=== PATIENT | male | born 1945 | race Caucasian/White ===

== ENCOUNTER 2016-10-22 13:23 | Inpatient (IN) | payer OTHER ==
--- NOTE | 2016-10-22 13:56 | PDOC ---
History of Present Illness - General History Source: Patient Exam Limitations: No Limitations - History of Present Illness Initial Comments: 10/22/16 19:01 The patient is a 71 year old male with a significant past medical history of hypertension sent by PCP, with complaints of left leg pain for a week. The patient reports a sudden onset of bilateral leg pain radiating from his knees down to his feet secondary kneeling on the bathroom floor for half an hour a week ago. Patient notes the right leg pain has since resided but now reports constant left leg pain radiating from his left knee to the back of his left calf. He states the left leg pain is worsened with walking and walking up stairs. He states he almost cries secondary to his left leg pain. Patient visited his Orthopedist this morning and was told that he has vascular occlusion. Patient then visited his PCP and was told to come into the ED. The patient reports he was at baseline prior to the start of present symptoms. Denies fevers or chills. Denies lower extremity edema. Denies chest pain or shortness of breath. Denies abdominal pain, nausea, vomiting, or diarrhea. Denies a history of rectal bleeding or chronic ulcers. Denies any other symptoms. PCP: Dr. Pierre <Don Fox - Last Filed: 10/22/16 19:01> <Ede Funk - Last Filed: 10/23/16 09:17> - General Chief Complaint: Pain, Acute Stated Complaint: LT LEG R/O VASCULAR CLAUDICATION (PCP SENT) Time Seen by Provider: 10/22/16 13:43 Past History <Don Fox - Last Filed: 10/22/16 19:01> - Past Medical History GI Disorders: Yes (ACID REFLUX) HTN: Yes - Surgical History Appendectomy: Yes - Psycho/Social/Smoking Cessation Hx Anxiety: No Suicidal Ideation: No Smoking History: Never smoked Hx Alcohol Use: No Drug/Substance Use Hx: No Substance Use Type: None <Ede Funk - Last Filed: 10/23/16 09:17> - Past Medical History Allergies/Adverse Reactions: Allergies Allergy/AdvReac Type Severity Reaction Status Date / Time Penicillins Allergy Verified 10/22/16 13:29 Home Medications: Ambulatory Orders Ramipril 5 mg PO DAILY 08/11/14 Review of Systems - Review of Systems Able to Perform ROS?: Yes Comments:: 10/22/16 19:01 CONSTITUTIONAL: No reported: Fever, Chills, Diaphoresis, Generalized Weakness, Malaise, Loss of Appetite HEENT: No reported: Rhinorrhea, Nasal Congestion, Throat Pain, Throat Swelling, Difficulty Swallowing, Mouth Swelling, Ear Pain, Eye Pain, Visual Changes CARDIOVASCULAR: No reported: Chest Pain, Syncope, Palpitations, Irregular Heart Rate, Lightheadedness, Peripheral Edema RESPIRATORY: No reported: Cough, Shortness of Breath, SOB with Exertion, Orthopnea, Wheezing , Stridor, Hemoptysis GASTROINTESTINAL: No reported: Abdominal pain, Abdominal Distension, Nausea, Vomiting, Diarrhea, Constipation, Melena, Hematochezia GENITOURINARY: No reported: Dysuria, Frequency, Urgency, Hesitancy, Flank Pain, Genital Pain MUSCULOSKELETAL: + left leg pain No reported: Myalgia, Arthralgia, Joint Swelling, Back pain, Neck Pain SKIN: No reported: Rash, Itching, Pallor HEMEATOLOGIC/IMMUNOLOGIC: No reported: Easy Bleeding, Easy Bruising, Lymphadenopathy, Frequent infections ENDOCRINE: No reported: Unexplained Weight Gain, Unexplained Weight Loss, Heat Intolerance , Cold Intolerance NEUROLOGIC: No reported: Headache, Focal Weakness, Paresthesias, Vertigo, Lightheadedness, Unsteady Gait, Seizure, Mental Status Changes, Incontinence PSYCHIATRIC: No reported: Anxiety, Depression All Other Systems: Reviewed and Negative <Don Fox - Last Filed: 10/22/16 19:01> *Physical Exam - Vital Signs Last Vital Signs Temp Pulse Resp BP Pulse Ox 98.4 F 98 H 18 154/106 98 10/22/16 13:29 10/22/16 15:51 10/22/16 15:51 10/22/16 15:51 10/22/16 15:51 - Physical Exam Comments: 10/22/16 19:02 GENERAL: The patient is awake, alert, and fully oriented, Nontoxic - in no acute distress, obese abdomen HEAD: Normocephalic, atraumatic. EYES: extraocular movements intact, sclera anicteric, conjunctiva clear. ENT: Normal voice, Moist mucous membranes. NECK: Normal range of motion, supple LUNGS: Breath sounds equal, clear to auscultation bilaterally. No wheezes, no rhonchi, no rales. HEART: irregularly irergular, no m/r/g. ABDOMEN: Soft, nontender, normoactive bowel sounds. No guarding, no rebound. . No CVA tenderness EXTREMITIES: b/l pitting edema, +calf tenderness on LLE, very faint DP but unable to find it on doppler , delayed cap refill on LLE (approx 3.5-4 sec), on RLE +good pulses with cap refil approx 1 sec., LLE slightly more cool than R leg. sensation intact NEUROLOGICAL: No facial assymetry, Normal speech, moving all 4 extremities symmetrically PSYCH: Normal mood, normal affect. SKIN: Warm, Dry, normal turgor, <Don Fox - Last Filed: 10/22/16 19:01> - Vital Signs Last Vital Signs Temp Pulse Resp BP Pulse Ox 98.4 F 98 H 19 157/102 98 10/22/16 13:29 10/22/16 13:29 10/22/16 13:29 10/22/16 13:29 10/22/16 13:29 <Ede Funk - Last Filed: 10/23/16 09:17> Heart Score/ECG Review - ECG Impressions Comment:: 10/22/16 16:57 Twelve-lead EKG was performed and reviewed by me. Irregularly irregular Rate of 92 afib <Ede Funk - Last Filed: 10/23/16 09:17> ED Treatment Course - LABORATORY CBC & Chemistry Diagram: 10/22/16 14:12 10/22/16 14:12 - ADDITIONAL ORDERS Additional order review: Laboratory Results 10/22/16 10/22/16 10/22/16 15:00 14:12 14:12 INR PTT (Actin FS) 32.4 Sodium 142 Potassium 4.7 D Chloride 107 Carbon Dioxide 28 Anion Gap 7 L BUN 16 D Creatinine 1.0 D Creat Clearance w eGFR > 60 Random Glucose 108 H Calcium 8.8 Total Bilirubin 0.6 AST 29 D ALT 40 D Alkaline Phosphatase 88 D Total Protein 7.1 Albumin 3.6 Blood Type O POSITIVE Antibody Screen Negative 10/22/16 14:12 INR 1.12 PTT (Actin FS) Sodium Potassium Chloride Carbon Dioxide Anion Gap BUN Creatinine Creat Clearance w eGFR Random Glucose Calcium Total Bilirubin AST ALT Alkaline Phosphatase Total Protein Albumin Blood Type Antibody Screen 10/22/16 14:12 RBC 4.92 MCV 89.3 MCHC 32.3 RDW 15.6 D MPV 7.8 Neutrophils % 59.6 D Lymphocytes % 28.9 Monocytes % 7.7 Eosinophils % 2.8 Basophils % 1.0 - RADIOLOGY Radiograph Interpretation: 10/22/16 16:30 AORTA W/ RUNOFF CTA Impression: occulded left SFA with constitution at the level of the adductor canal followed by reocclusion of the popliteal artery to the level of the branching. Reconstitution of flow in the left infrapopliteal arteries with blood flow seen to the left foot. Right lower extremity artherosclerotic disease , as described above with areas of stenosis reaching 50% in the mid right SFA. Occluded right peroneal artery. Short segmental occlusions of the right posterios tibial artery occlusion and occlusion at the level of the ankle with plantal flow to the foot provided by collateral flow from the dorsal aspect of the foot provided by the LAUREN. Bilateral inguinal and umbilical fat-containing hernias. Reported by: Bharat Castellanos - Medications Given in the ED: ED Medications Discontinued Medications Generic Name Dose Route Start Last Admin Trade Name Freq PRN Reason Stop Dose Admin Heparin Sodium (Porcine) 5,000 unit 10/22/16 14:26 10/22/16 14:55 Heparin - IVPUSH 10/22/16 14:27 5,000 unit ONCE ONE Administration <Don Fox - Last Filed: 10/22/16 19:01> - LABORATORY CBC & Chemistry Diagram: 10/23/16 05:20 10/23/16 05:20 <Ede Funk - Last Filed: 10/23/16 09:17> Medical Decision Making - Medical Decision Making 10/22/16 14:31 71y M hx of htn sent to the ED by PMD/ortho for evaluation of Left legpain/ swelling, sudden onset from approximately 5 days ago - on exam the pt had deminished pulses (but unable to find on doppler), also with delayed cap refill and is slightly cooler than contralateral foot. pt did endorse pain in the R leg 5 days ago but had improved/resolved. pts HR appears irregular and on EKG shows afib which is new for the patient. concern for embolic event due to new afib - will obtain blood work, pt placed on quality assurance monitor will start heparin case d/w dr. marte/vascular - em with heparinziation and CTA w/ runoff A portion of this note was documented by scribe services under my direction. I have reviewed the details of the note, within reason, and agree with the documentation with the following case summary and management plan written by me 10/22/16 16:31 cta of the pts legs reviewas occulted left SFA, at adductor canal followed by reooclussion of politeal artery. pt also has finidngs of occlusion of right peroneal artery surgery here evaluating the patient. pt currently on heparin gtt. will admit to hospitalist service for further magnement. 10/22/16 16:50 case dw mobile sales expert jesusita agreed with med/surg admissio under ray cook service Case discussed in detail with admitting physician including history, physical exam and ancillary studies. Admitting physician has assumed care for the patient, will follow all pending diagnostics and will complete the evaluation and treatment. CRITICAL CARE DOCUMENTATION: I spent ~35 minutes of Critical Care time, excluding separately billable procedures, involving high complexity decision making to assess, manipulate and support vital system function(s) to treat single or multiple vital organ system failure and/or to prevent further life threatening deterioration of the patient' s condition. <Ede Funk - Last Filed: 10/23/16 09:17> *DC/Admit/Observation/Transfer - Attestations Scribe Attestion: 10/22/16 19:02 Documentation prepared by Don Fox, acting as medical appointment scheduler for Ede Funk MD <Don Fox - Last Filed: 10/22/16 19:01> - Discharge Dispostion Admit: Yes <Ede Funk - Last Filed: 10/23/16 09:17> Diagnosis at time of Disposition: Arterial occlusion, lower extremity Atrial fibrillation Qualifiers: Atrial fibrillation type: unspecified Qualified Code(s): I48.91 - Unspecified atrial fibrillation - Discharge Dispostion Condition at time of disposition: Guarded - Referrals
[2016-10-22] MEDS ORDERED: HEPARIN NA (PORCINE) 5,000 UNITS/ML 1ML VIAL IVPUSH ONE ×2 (14:26→22:30)
[2016-10-22 14:28] LABS: EOSINOPHIL 2.8 % (0-4.5); MCH 28.8 pg (25.7-33.7); MCHC 32.3 g/dl (32.0-35.9); MEAN CELL VOLUME 89.3 fl (80-96); MEAN PLT VOLUME 7.8 fl (7.5-11.1); NEUTROPHILS 59.6 % (42.8-82.8); PLATELET COUNT 175 K/MM3 (134-434); RDW 15.6 % (11.9-15.9)
[2016-10-22] MEDS ORDERED: HEPARIN INFUSION - 500 ML IVPB SCH (14:30)
[2016-10-22] MEDS ORDERED: HEPARIN INFUSION - 500 ML IVPB ONE ×2 (14:33→22:19)
[2016-10-22] MEDS ORDERED: HEPARIN NA (PORCINE) 5,000 UNITS/ML 1ML VIAL ONE ×5 (14:33→22:20)
[2016-10-22 14:44] LABS: ALBUMIN 3.6 g/dl (3.4-5.0); ALK PHOS 88 U/L (45-117); ANION GAP 7 (8-16); CALCIUM 8.8 mg/dL (8.5-10.1); CO2 28 mmol/L (21-32); GLUCOSE,RANDOM 108 mg/dL (74-106); SGOT/AST 29 U/L (15-37); SGPT/ALT 40 U/L (12-78); TOT PROT 7.1 g/dl (6.4-8.2)
[2016-10-22 14:48] LABS: BILIRUBIN,TOTAL 0.6 mg/dL (0.2-1.0)
[2016-10-22 14:50] LABS: INR 1.12 (0.82-1.09); PROTHROMBIN TIME (PATIENT) 12.3 SEC (9.98-11.88)
--- NOTE | 2016-10-22 16:29 | EKG ---
Test Reason : Blood Pressure : / mmHG Vent. Rate : 092 BPM Atrial Rate : 267 BPM P-R Int : 000 ms QRS Dur : 094 ms QT Int : 374 ms P-R-T Axes : 000 031 000 degrees QTc Int : 462 ms ATRIAL FIBRILLATION ABNORMAL ECG WHEN COMPARED WITH ECG OF 14-AUG-2014 08:55, ATRIAL FIBRILLATION HAS REPLACED SINUS RHYTHM Confirmed by MD OSWALD, VERONA ([id number]) on 10/22/2016 4:29:32 PM Referred By: Confirmed By:VERONA AKERS MD
--- NOTE | 2016-10-22 17:55 | CON.CARD ---
Cardiology Consult (text) - Consultation Consultation Note: CC: new onset afib 71 yo with h/o htn, gerd presents with LLE pain and found to have arterial occlusion and new onset afib. LLE pain x 1 week. Pain worsens with exertion and resolves with rest. Otherwise feels well from CV perspective. At baseline, no formal exercise but has 2 flights of stairs in home and goes up and down without limitation. Does not have a smoke eater. States he had a normal cardiac catheterization > 5 years ago. No h/o CVA/TIA, CAD, DM, CKD denies orthopnea, pnd, le edema, palps dizziness, cp, sob or transient neurologic sx's. no f/c/s, n/v/d, h/a, rashes, cough, congestion PMHx: HTN, acid reflux PSHx: Appendectomy as a child, vein stripping Social Hx: former smoker, 2 packs per day age 16 to 49 fam hx: parents with cva ros: per hpi Ambulatory Orders Ramipril 5 mg PO DAILY 08/11/14 Current Medications Heparin Sodium/Dextrose (Heparin Infusion -) 500 mls @ 20 mls/hr IVPB TITR MAXIMINO ; 1,000 UNITS/HR PRN Reason: Protocol Last Admin: 10/22/16 14:55 Dose: 20 mls/hr Vital Signs - 24 hr 10/22/16 10/22/16 10/22/16 13:29 14:00 15:51 Temperature 98.4 F Pulse Rate 98 H Pulse Rate [ 98 H Apical] Respiratory 19 18 Rate Blood Pressure 157/102 Blood Pressure 154/106 [Left Arm] O2 Sat by Pulse 98 98 98 Oximetry (%) 10/22/16 17:53 Temperature 98.6 F Pulse Rate Pulse Rate [ 98 H Apical] Respiratory 20 Rate Blood Pressure Blood Pressure 163/113 [Left Arm] O2 Sat by Pulse 98 Oximetry (%) Intake & Output 10/20/16 10/21/16 10/22/16 10/23/16 07:59 07:59 07:59 07:59 Weight 135 lb NAD, calm jvd flat, neck supple ctab, nl effort irregular nl s1, s2 no mrg, pmi non-displaced + bs soft nt nd trace le edema, no cyanosis, clubbing + dp/pt on right, diminished on left no carotid bruit aaox3 no jaundice, diaphoresis CBC, BMP 10/22/16 14:12 10/22/16 14:12 EKG: afib, no ischemic changes tele: rate controlled SR CXR: possible pulmonary vascular congestion echo 07/2014: nl lv/rv, severe anna, mod MR, mild-mod TR, rvsp 40-50. mild ao dilation echo 11/2013: Mildly decreased systolic function, mild lae, mild mr/tr. rvsp 50- 60 71 yo with h/o htn, gerd presents with LLE pain and found to have arterial occlusion and new onset afib. Pre-operative clearance - Currently with no active cardiac issues. No further testing needed prior to surgery. Patient with RCRI of 1 (pulm edema), low risk of deepthi-operative CV complications. Limit IVF when possible. new onset atrial fibrillation - hx of ?mildly depressed EF, severe anna. Would repeat echo to assess cardiac function. - possible distal embolization, will await angio results. Merits AC, plan for apixaban once no further procedures are planned. - currently with reasonable rate control off av beto blockade, would start metoprolol succinate 25 mg/day in addition to ramipril - check tsh, pain control per pmd, vascular surgery LLE pain/arterial occlusion - per vascular surgery, pmd - AC as above Mild systolic cardiomyopathy - Prior echo with mild systolic dysfunction, subsequent normalization. Re- evaluate systolic function with echo. - BB, ACEI PAD - evidence of pad on CT scan - recommend statin therapy, con't AC HTN - currently poorly controlled . Would continue home ramipril. Adding metoprolol as mentioned.
--- NOTE | 2016-10-22 17:56 | CONSULT ---
- Consultation REQUESTING PROVIDER: Dr. Abbott, Vascular surgery CONSULT REQUEST: We have been asked to surgically evaluate this patient for arterial occlusion . PCP: Fadia Kan HISTORY OF PRESENT ILLNESS: 71 yo M presented to the ED complaining of left lower extremity pain for one week. The patient states he has had pain in his left leg below the knee and his left foot that began one week ago while he was sitting for a long time working in his bathroom. He states the pain has been getting worse and today he went to an orthopedist who told him he had decreased blood flow in his foot. He then went to his PCP, who told him to go to the emergency room. The patient states the pain worsens with walking and gets better after long periods of rest. He also states the pain is worse at night while in bed. He admits to having some numbness in the left foot as well. He denies having a problem like this in the past. In the ED the patient was found to be in atrial fibrillation. Patient denies history of afib. PMHx: HTN, acid reflux PSHx: Appendectomy as a child, vein stripping Social Hx: former smoker, 2 packs per day age 16 to 49 Home Medications Medication Instructions Recorded Ramipril 5 mg PO DAILY 08/11/14 Allergies Allergy/AdvReac Type Severity Reaction Status Date / Time Penicillins Allergy Verified 10/22/16 13:29 REVIEW OF SYSTEMS: CONSTITUTIONAL: Absent: fever, chills, generalized weakness CARDIOVASCULAR: Absent: chest pain, syncope, palpitations, lightheadedness, peripheral edema RESPIRATORY: Present: chronic SOB Absent: cough, dyspnea with exertion, wheezing, hemoptysis GASTROINTESTINAL: Absent: abdominal pain, abdominal distension, nausea, vomiting, diarrhea, constipation GENITOURINARY: Absent: dysuria, frequency MUSCULOSKELETAL: Present: left lower extremity pain, numbness, claudication Absent: back pain, neck pain SKIN: Absent: rash, itching, pallor HEMATOLOGIC/IMMUNOLOGIC: Absent: easy bleeding, easy bruising NEUROLOGIC: Absent: headache, focal weakness, dizziness PSYCHIATRIC: Absent: anxiety, depression PHYSICAL EXAM: GENERAL: Awake, alert, and fully oriented, in no acute distress. HEAD: Normal with no signs of trauma. EYES: PERRL, sclera anicteric, conjunctiva clear. NECK: Normal ROM, supple without JVD LUNGS: Clear to auscultation bilat anteriorly HEART: Irregularly irregular ABDOMEN: Soft, nontender, not distended, normoactive bowel sounds MUSCULOSKELETAL: Normal ROM at all joints. No bony deformities or tenderness UPPER EXTREMITIES: 2+ pulses, warm, well-perfused. No cyanosis. Cap refill <2 seconds. No peripheral edema. LOWER EXTREMITIES: left groin scar, 2+ femoral pulses bilat, right lower extremity with palpable DP pulse, warm, well-perfused. Left lower extremity with decreased DP pulse with dopplar, warm, less warm than right foot, cap refill present NEUROLOGICAL: Normal speech, gait not observed. PSYCH: Cooperative. Good eye contact. Appropriate mood and affect. SKIN: Warm, dry, normal turgor Vital Signs Temperature 98.6 F 10/22/16 17:53 Pulse Rate 98 H 10/22/16 17:53 Respiratory Rate 20 10/22/16 17:53 Blood Pressure 163/113 10/22/16 17:53 O2 Sat by Pulse Oximetry (%) 98 10/22/16 17:53 Lab Results WBC 7.0 K/mm3 (4.0-10.0) D 10/22/16 14:12 RBC 4.92 M/mm3 (4.00-5.60) 10/22/16 14:12 Hgb 14.2 GM/dL (11.7-16.9) 10/22/16 14:12 Hct 44.0 % (35.4-49) 10/22/16 14:12 MCV 89.3 fl (80-96) 10/22/16 14:12 MCHC 32.3 g/dl (32.0-35.9) 10/22/16 14:12 RDW 15.6 % (11.9-15.9) D 10/22/16 14:12 Plt Count 175 K/MM3 (134-434) 10/22/16 14:12 Sodium 142 mmol/L (136-145) 10/22/16 14:12 Potassium 4.7 mmol/L (3.5-5.1) D 10/22/16 14:12 Chloride 107 mmol/L (98-107) 10/22/16 14:12 Carbon Dioxide 28 mmol/L (21-32) 10/22/16 14:12 Anion Gap 7 (8-16) L 10/22/16 14:12 BUN 16 mg/dL (7-18) D 10/22/16 14:12 Creatinine 1.0 mg/dL (0.7-1.3) D 10/22/16 14:12 Random Glucose 108 mg/dL (74-106) H 10/22/16 14:12 Calcium 8.8 mg/dL (8.5-10.1) 10/22/16 14:12 Blood Type O POSITIVE 10/22/16 14:12 Antibody Screen Negative 10/22/16 14:12 INR 1.12 (0.82-1.09) 10/22/16 14:12 CTA Impression: occluded left SFA with constitution at the level of the adductor canal followed by re-occlusion of the popliteal artery to the level of the branching. Reconstitution of flow in the left infrapopliteal arteries with blood flow seen to the left foot. Right lower extremity artherosclerotic disease, with areas of stenosis reaching 50% in the mid right SFA. Occluded right peroneal artery. Short segmental occlusions of the right posterior tibial artery and occlusion at the level of the ankle with plantar flow to the foot provided by collateral flow from the dorsal aspect of the foot provided by the LAUREN. Problem List - Problems (1) Arterial occlusion, lower extremity Assessment/Plan: Plan for OR today for angiogram, angioplasty, possible open thrombectomy NPO Type and screen, crossmatch Cardiac clearance Discussed with Dr. Abbott and agrees Code(s): I74.3 - EMBOLISM AND THROMBOSIS OF ARTERIES OF THE LOWER EXTREMITIES Visit type - Case Type Case Type: ED Admission - New patient This patient is new to me today: Yes Date on this admission: 10/22/16
[2016-10-22] MEDS ORDERED: LIDOCAINE HCL 1%, 10 MG/ML (20ML VIAL) ONE (18:11)
[2016-10-22] MEDS ORDERED: PROPOFOL 20 ML ONE (18:12)
[2016-10-22] MEDS ORDERED: LIDOCAINE HCL 2% JELLY (5 ML/TUBE) ONE (18:12)
[2016-10-22] MEDS ORDERED: ROCURONIUM BROMIDE 50 MG/5 ML VIAL ONE ×3 (18:12→19:20)
[2016-10-22] MEDS ORDERED: CLINDAMYCIN PHOSPHATE 600 MG/4 ML VIAL IVPB ONE (18:18)
--- NOTE | 2016-10-22 19:43 | HP ---
CHIEF COMPLAINT: pain in left leg PCP: Dr. Pierre HISTORY OF PRESENT ILLNESS: History obtained from ED notes and VS consult 71 yo M presented to the ED complaining of left lower extremity pain for one week. The patient states he has had pain in his left leg below the knee and his left foot that began one week ago while he was sitting for a long time working in his bathroom. He states the pain has been getting worse and today he went to an orthopedist who told him he had decreased blood flow in his foot. He then went to his PCP, who told him to go to the emergency room. The patient states the pain worsens with walking and gets better after long periods of rest. He also states the pain is worse at night while in bed. He admits to having some numbness in the left foot as well. He denies having a problem like this in the past. In the ED the patient was found to be in atrial fibrillation. Patient denies history of afib. Denies fevers or chills. Denies lower extremity edema. Denies chest pain or shortness of breath. Denies abdominal pain, nausea, vomiting, or diarrhea. Denies a history of rectal bleeding or chronic ulcers. Denies any other symptoms ER course was notable for: (1) cbc, cmp (2) heparin drip (3) vascular surgery and cardiology consult Recent Travel: no PAST MEDICAL HISTORY: HTN, acid reflux PAST SURGICAL HISTORY: Appendectomy as a child, vein stripping Social History: Smoking: former smoker, 2 packs per day age 16 to 49 Alcohol: no Drugs: no Family History: Allergies Penicillins Allergy (Verified 10/22/16 13:29) HOME MEDICATIONS: Home Medications Medication Instructions Recorded Ramipril 5 mg PO DAILY 08/11/14 REVIEW OF SYSTEMS CONSTITUTIONAL: No reported: Fever, Chills, Diaphoresis, Generalized Weakness, Malaise, Loss of Appetite HEENT: No reported: Rhinorrhea, Nasal Congestion, Throat Pain, Throat Swelling, Difficulty Swallowing, Mouth Swelling, Ear Pain, Eye Pain, Visual Changes CARDIOVASCULAR: No reported: Chest Pain, Syncope, Palpitations, Irregular Heart Rate, Lightheadedness, Peripheral Edema RESPIRATORY: No reported: Cough, Shortness of Breath, SOB with Exertion, Orthopnea, Wheezing , Stridor, Hemoptysis GASTROINTESTINAL: No reported: Abdominal pain, Abdominal Distension, Nausea, Vomiting, Diarrhea, Constipation, Melena, Hematochezia GENITOURINARY: No reported: Dysuria, Frequency, Urgency, Hesitancy, Flank Pain, Genital Pain MUSCULOSKELETAL: + left leg pain No reported: Myalgia, Arthralgia, Joint Swelling, Back pain, Neck Pain SKIN: No reported: Rash, Itching, Pallor HEMEATOLOGIC/IMMUNOLOGIC: No reported: Easy Bleeding, Easy Bruising, Lymphadenopathy, Frequent infections ENDOCRINE: No reported: Unexplained Weight Gain, Unexplained Weight Loss, Heat Intolerance , Cold Intolerance NEUROLOGIC: No reported: Headache, Focal Weakness, Paresthesias, Vertigo, Lightheadedness, Unsteady Gait, Seizure, Mental Status Changes, Incontinence PSYCHIATRIC: No reported: Anxiety, Depression PHYSICAL EXAMINATION Vital Signs - 24 hr 10/22/16 17:53 Temperature 98.6 F Pulse Rate [ 98 H Apical] Respiratory 20 Rate Blood Pressure 163/113 [Left Arm] O2 Sat by Pulse 98 Oximetry (%) GENERAL: The patient is awake, alert, and fully oriented, Nontoxic - in no acute distress, obese abdomen HEAD: Normocephalic, atraumatic. EYES: extraocular movements intact, sclera anicteric, conjunctiva clear. ENT: Normal voice, Moist mucous membranes. NECK: Normal range of motion, supple LUNGS: Breath sounds equal, clear to auscultation bilaterally. No wheezes, no rhonchi, no rales. HEART: irregularly irergular, no m/r/g. ABDOMEN: Soft, nontender, normoactive bowel sounds. No guarding, no rebound. . No CVA tenderness EXTREMITIES examination after sugery B/L limbs warm, LEFT warm, non tender, DP palpable, Posterior tibial heard on Doppler, no skin discoloration, nales non brittle, no ulcers, NEUROLOGICAL: No facial assymetry, Normal speech, moving all 4 extremities symmetrically PSYCH: Normal mood, normal affect. SKIN: Warm, Dry, normal turgor,. Laboratory Results - last 24 hr 10/22/16 19:00 Crossmatch See Detail 10/22/16 16:30 AORTA W/ RUNOFF CTA Impression: occulded left SFA with constitution at the level of the adductor canal followed by reocclusion of the popliteal artery to the level of the branching. Reconstitution of flow in the left infrapopliteal arteries with blood flow seen to the left foot. Right lower extremity artherosclerotic disease , as described above with areas of stenosis reaching 50% in the mid right SFA. Occluded right peroneal artery. Short segmental occlusions of the right posterios tibial artery occlusion and occlusion at the level of the ankle with plantal flow to the foot provided by collateral flow from the dorsal aspect of the foot provided by the LAUREN. Bilateral inguinal and umbilical fat-containing hernias. Reported by: Bharat Castellanos EKG: Report Reviewed, Image Reviewed (Afib with HR ~90bpm. No ST segment elevation/depression noted.) ASSESSMENT/PLAN: 71 yo M presented to the ED complaining of left lower extremity pain for one week. found to have occluded left sfa and popliteal artery and stenosis in right SFA LL extremtiy ischemia with new onset of afib s/p Aortogram, LLE angiogram, open thrombectomy SFA,popliteal artery, tibial artery, angioplasty of tibial ar continue Heparin drip vascular surgery consult appreciated,: cardiology consult appreciated monitor vitals monitor aptt maintain theraputic range Follow lipid profile and Hba1c For pain Morphine 4 mg q6h prn Iv heparin 800 unit/hr Maintain Aptt in therapeutic range New onset afib heparin drip for anticoagulation metoprolol 25 mg po bid cardiology on trimming caser vitals cardiac monitoring HTN continue with ramipril Necotine dependence smoking cessation fluid : Ns at 75 ml/hr electrlyte ; follow in am nutrition: low fat diet from morning DVT pro: heparin IV drip GI pro : protonix iv 40 mg Dispo: admitted in tele Visit type - Emergency Visit Emergency Visit: Yes ED Registration Date: 10/22/16 Care time: The patient presented to the Emergency Department on the above date and was hospitalized for further evaluation of their emergent condition. - New Patient This patient is new to me today: Yes Date on this admission: 10/23/16 - Critical Care Critical Care patient: No
--- NOTE | 2016-10-22 19:46 | MSN ---
Admitting History and Physical - Primary Care Physician PCP: Dr. Pierre - Admission Chief Complaint: L lower extremity pain History of Present Illness: Pt is a 71 yo M presented to the ED complaining of left lower extremity pain for one week. The pt reports that the pain began approximately one week ago after kneeling for an extended period of time. His pain is located at and below his L knee radiating down into his calf. He states the pain has been getting worse and today he went to an orthopedist who told him he had decreased blood flow in his foot. He then went to his PCP, who told him to go to the ED. The pt states the pain worsens with walking and gets better after long periods of rest. He also states the pain is worse at night while in bed. Admits to having some numbness in the left foot as well. Denies having a problem like this in the past. In the ED the patient was found to be in new onset atrial fibrillation. Pt went to operating room for vascular surgery with Dr. Abbott. ER course was notable for: (1) EKG: Afib with HR ~90bpm. No ST segment elevation or depression. (2) CXR: Slight cardiomegaly. Interstitial markings BL. No acute infiltrates. (3) CTA: L SFA occlusion with constitution at the level of the adductor canal followed by reocclusion of the popliteal artery to the level of the branching. Reconstitution of flow in the left infrapopliteal arteries with blood flow seen to the left foot. (4) CBC, BMP: WNL (5) Heparin gtt started, 500ml @20mls/hr History Source: Medical Record (ED and surgical consultation notes) - Past Medical History Cardiovascular: Yes: AFIB (New onset), HTN, Hyperlipdemia, Other (PAD) Gastrointestinal: Yes: GERD - Past Surgical History Past Surgical History: Yes: Appendectomy, Tonsillectomy, Vein Stripping/Ligation - Smoking History Smoking history: Never smoked Have you smoked in the past 12 months: No - Alcohol/Substance Use Hx Alcohol Use: No History of Substance Use: reports: None - Social History Usual Living Arrangement: Yes: Alone ADL: Independent History of Recent Travel: No Home Medications - Allergies Allergies/Adverse Reactions: Allergies Allergy/AdvReac Type Severity Reaction Status Date / Time Penicillins Allergy Verified 02/24/17 13:29 - Home Medications Home Medications: Ambulatory Orders Ramipril 5 mg PO DAILY 08/11/14 Review of Systems - Review of Systems Constitutional: reports: No Symptoms Eyes: reports: No Symptoms HENT: reports: No Symptoms Neck: reports: No Symptoms Cardiovascular: reports: No Symptoms Respiratory: reports: No Symptoms Gastrointestinal: reports: No Symptoms Genitourinary: reports: No Symptoms Musculoskeletal: reports: Extremity Pain (LLE), Muscle Pain (LLE) Integumentary: reports: No Symptoms Neurological: reports: Numbness (LLE), Parasthesia (LLE) Endocrine: reports: No Symptoms Hematology/Lymphatic: reports: No Symptoms Psychiatric: reports: No Symptoms Physical Examination Vital Signs: Vital Signs Temperature 98.6 F 10/22/16 17:53 Pulse Rate 98 H 10/22/16 17:53 Respiratory Rate 20 10/22/16 17:53 Blood Pressure 163/113 10/22/16 17:53 O2 Sat by Pulse Oximetry (%) 98 10/22/16 17:53 Findings/Remarks: Pt seen and examined in PACU s/p vascular surgery Constitutional: Yes: Well Nourished, No Distress, Calm Eyes: Yes: WNL, Conjunctiva Clear, EOM Intact HENT: Yes: WNL, Atraumatic, Normocephalic Neck: Yes: WNL, Supple, Trachea Midline Cardiovascular: Yes: WNL, Pulse Irregular. No: Regular Rate and Rhythm, JVD Respiratory: Yes: WNL, Regular, Cough, On Nasal O2 Gastrointestinal: Yes: WNL, Normal Bowel Sounds, Soft, Abdomen, Obese Extremities: Yes: Other (LLE: Dressing CDI over the L groin area. L foot displays pink skin w/o ulcers/lesions, warm/moist to touch, normal capillary refill ~2 secs, DP pulse palpable +2, dopplerable PT pulse, irregular pulse noted on DP). No: Cold, Cool, Cyanosis, Delayed Capillary Refill, Erythema, Pallor Edema: Yes Edema: LLE: Trace Peripheral Pulses WNL: No (L DP +2 palpable, L PT dopplerable) Peripheral Pulses: Left Doralis Pedis: 2+ Integumentary: Yes: WNL, Incision (L groin), Tattoos Wound/Incision: Yes: Clean/Dry, Well Approximated Neurological: Yes: Alert, Oriented Labs: CBC, BMP 02/24/17 14:12 10/22/16 14:12 Imaging - Results Chest X-ray: Report Reviewed, Image Reviewed (Slight cardiomegaly. Interstitial markings BL. No acute infiltrates.) Cat Scan: Report Reviewed (Occulded left SFA with constitution at the level of the adductor canal followed by reocclusion of the popliteal artery to the level of the branching. Reconstitution of flow in the left infrapopliteal arteries with blood flow seen to the left foot. Right lower extremity artherosclerotic disease, as described above with areas of stenosis reaching 50% in the mid right SFA. Occluded right peroneal artery. Short segmental occlusions of the right posterior tibial artery occlusion and occlusion at the level of the ankle with plantal flow to the foot provided by collateral flow from the dorsal aspect of the foot provided by the LAUREN.), Image Reviewed EKG: Report Reviewed, Image Reviewed (Afib with HR ~90bpm. No ST segment elevation/depression noted.) Problem List - Problems (1) Abnormal EKG (2) Arterial occlusion, lower extremity (3) Atrial fibrillation (4) Hypertension Assessment/Plan Pt is a 71 yo M with a PMHx of HTN, and HLD who was sent to the ED by his PCP with complaints of LLE pain for approximately one week. CTA with runoff was performed, which revealed acute arterial occlusion of L SFA at the level of the adductor canal. EKG demonstrated Afib of which pt denies a previous Hx. Pt was admitted and sent to OR with Dr. Abbott, vascular surgery. 1. Acute arterial occlusion in setting of new onset Afib -EKG performed -CTA performed -Cardio and Vascular surgery consult appreciated -Heparin gtt 500ml @20mls/hr started in ED -S/P vascular surgery: aortagram. LLE angiogram. open thrombectomy of L SFA, popliteal, and tibial artery. tibial artery angioplasty -Pain control with Morphine 4mg IV push Q6H prn -TSH, free T4 pending 2. HTN -Continue Ramipril 5mg PO daily -Metoprolol 25mg PO daily 3. HLD -Lipid panel -Atorvastatin 40mg PO HS 4. DVT/GI ppx -Heparin gtt. 5000U bolus given in PACU. Continue at @800U/hr in ICU. -Protonix 40mg IVPB 5. FEN -CBC, CMP in AM. Trend Hb, Hct, aPTT -Sonia/fat/sodium restricted PO diet 6. Dispo -Pt to OR for vascular surgery -Admit to ICU post op for continuos cardiac monitoring and management Low Hankins, MS3
--- NOTE | 2016-10-22 20:15 | PN ---
<Maile Bourgeois - Last Filed: 10/22/16 20:15> Teaching Attending Note Name of Resident: Don Mayes <Philip Kaur - Last Filed: 10/23/16 01:51> Teaching Attending Note ATTENDING PHYSICIAN STATEMENT I saw and evaluated the patient. I reviewed the resident's note and discussed the case with the resident. I agree with the resident's findings and plan as documented. SUBJECTIVE: Patient is a 71 year old male who presented to the emergency department for further evaluation of left leg pain for one week. The patient reported a sudden onset of bilateral leg pain radiating from his knees down to his feet secondary to kneeling on the bathroom floor for half an hour one week ago. Patient noted the right leg pain has since resided but now reports constant left leg pain radiating from his left knee to the back of his left calf. He stated the left leg pain is worsened with walking and walking up stairs. He stated he almost cries secondary to his left leg pain. Patient visited his Orthopedist this morning and was told that he has vascular occlusion. Patient then visited his PCP and was told to come into the ED. PCP: Dr. Pierre [phone] Denied fevers or chills. Denied lower extremity edema. Denied chest pain or shortness of breath. Denied abdominal pain, nausea, vomiting, or diarrhea. Denied a history of rectal bleeding or chronic ulcers. Denied any other symptoms at this time. Past Medical History: Hypertension OBJECTIVE: Vital Signs: Last Vital Signs Temp Pulse Resp BP Pulse Ox 98.6 F 98 H 20 163/113 98 10/22/16 17:53 10/22/16 17:53 10/22/16 17:53 10/22/16 17:53 10/22/16 17:53 GENERAL: Awake, alert, and fully oriented, in no acute distress HEENT: Atraumatic. PERRLA, EOMI. Moist mucosa. No JVD LUNGS: No distress, speaks full sentences, clear to auscultation bilaterally HEART: (+) Irregularly irregular, normal S1 and S2, no murmurs, rubs or gallops , peripheral pulses normal and equal bilaterally. ABDOMEN: Soft, nontender, normoactive bowel sounds. No guarding, no rebound. No masses EXTREMITIES: Examination after surgery Bilateral lower limbs warm, Left leg warm, non tender, DP palpable, Posterior tibial heard on Doppler, no skin discoloration, nales non brittle, no ulcers. (+) Bilateral pitting edema. NEUROLOGICAL: Cranial nerves II through XII grossly intact. Normal speech, normal gait, no focal sensorimotor deficits SKIN: Warm, Dry, normal turgor, no rashes or lesions noted. Labs: CBCD WBC 7.0 K/mm3 (4.0-10.0) D 10/22/16 14:12 RBC 4.92 M/mm3 (4.00-5.60) 10/22/16 14:12 Hgb 14.2 GM/dL (11.7-16.9) 10/22/16 14:12 Hct 44.0 % (35.4-49) 10/22/16 14:12 MCV 89.3 fl (80-96) 10/22/16 14:12 MCHC 32.3 g/dl (32.0-35.9) 10/22/16 14:12 RDW 15.6 % (11.9-15.9) D 10/22/16 14:12 Plt Count 175 K/MM3 (134-434) 10/22/16 14:12 MPV 7.8 fl (7.5-11.1) 10/22/16 14:12 CMP Sodium 142 mmol/L (136-145) 10/22/16 14:12 Potassium 4.7 mmol/L (3.5-5.1) D 10/22/16 14:12 Chloride 107 mmol/L (98-107) 10/22/16 14:12 Carbon Dioxide 28 mmol/L (21-32) 10/22/16 14:12 Anion Gap 7 (8-16) L 10/22/16 14:12 BUN 16 mg/dL (7-18) D 10/22/16 14:12 Creatinine 1.0 mg/dL (0.7-1.3) D 10/22/16 14:12 Creat Clearance w eGFR > 60 (>60) 10/22/16 14:12 Calcium 8.8 mg/dL (8.5-10.1) 10/22/16 14:12 Total Bilirubin 0.6 mg/dL (0.2-1.0) 10/22/16 14:12 AST 29 U/L (15-37) D 10/22/16 14:12 ALT 40 U/L (12-78) D 10/22/16 14:12 Alkaline Phosphatase 88 U/L (45-117) D 10/22/16 14:12 Total Protein 7.1 g/dl (6.4-8.2) 10/22/16 14:12 Albumin 3.6 g/dl (3.4-5.0) 10/22/16 14:12 Imagin. CXR Discussion: Since prior chest x-ray dated 11/22/2013, the cardiac silhouette remains slightly to moderately enlarged allowing for magnification with mild unfolding of the aortic arch. Bilateral increased interstitial markings are present without evidence of focal infiltrates. Mild pulmonary venous congestion cannot be ruled out. Mediastinum and visualized osseous structures appear intact. Impression: See discussion above. Interpreted and read by radiologist Dr. Malathi Hardwick MD 2. CTA Technique: Multiaxial CT angiogram of the abdomen and pelvis with bilateral lower extremity runoffs after the intravenous administration of contrast, in the arterial phase, was performed from the distal thoracic aorta through the common femoral arteries into the distal feet. Sagittal and coronal reformats were performed. Axial, sagittal and coronal maximum intensity projection reformats in addition to 3D MIP and 3D volume rendered reformats were performed on a separate dedicated station. Total of 125 of Omnipaque 350 was administered intravenously. No comparison CT angiogram is available Findings: A. Vascular: The distal thoracic and suprarenal abdominal aorta demonstrate mild mural atherosclerotic disease with no appreciable luminal stenosis. Moderate circumferential infrarenal aortic mural calcification seen with less than 30% stenosis. B. Right: Vascular disease and calcified plaque seen in the proximal right common iliac artery resulting in 30-50% stenosis. The right internal iliac artery is patent with focal high- grade stenosis at its distal aspect right at the branching point. The right external iliac artery is widely patent. Atherosclerotic disease resulting in less than 30% stenosis seen in the right common femoral artery. Predominantly mild atherosclerotic disease seen in the right superficial femoral artery with focal area in the region of the adductor canal resulting in nearly 50% stenosis. The right popliteal artery is patent. The right anterior tibial artery is patent with blood flow seen to the dorsal aspect of the foot. The right tibial peroneal trunk is patent. The right peroneal artery is occluded. The right posterior tibial artery is patent with focal areas of short segmental occlusion and reconstitution and blood flow seen to the ankle. Flow to the plantar aspect of the foot provided by the dorsal branches. C. Left: Calcified plaque resulting in less than 30% stenosis seen in the left common iliac artery. The left internal iliac artery and its branches are patent.The left external iliac artery is widely patent. Mild atherosclerotic disease seen in the left common femoral artery resulting in less than 30% stenosis.The left deep femoral artery and its muscular branches are patent. The left superficial femoral artery is occluded in its origin with reconstitution at the level of the adductor canal. The proximal popliteal artery is patent with occlusion just above the knee level to the level of the branching. The origin of the infrapopliteal artery are occluded. There is reconstitution of flow in the left anterior tibial artery with flow seen to the dorsum of the foot.There is reconstitution of flow in the peroneal artery and posterior tibial artery into the foot. Atherosclerotic disease resulting in approximately 50% stenosis seen at the origin of the SMA. The celiac trunk is patent. The ELLEN is patent. The renal arteries are patent. D. Abdomen and Pelvis: The visualized lung bases and inferior mediastinum are grossly unremarkable. The liver, pancreas, gallbladder, biliary tree and adrenal glands are unremarkable. Evaluation of the spleen is limited due to heterogeneous phase of enhancement.There is symmetric enhancement of both kidneys. The kidneys are imaged in the cortical phase limiting the evaluation for medullary lesions. There is areas of hypoperfusion in the right kidney and possibly small area in the left lower renal pole. There is no hydronephrosis or hydroureter. The urinary bladder is grossly unremarkable. The prostate gland is unremarkable. The seminal vesicles are symmetric. There is moderate size bilateral fat- containing inguinal hernias. Evaluation of the bowel loops is limited due to lack of oral contrast however there is no evidence of abnormal bowel dilatation to suggest bowel obstruction. The appendix is not visualized however there is no evidence of pericecal inflammatory changes. There is no evidence of pneumoperitoneum, abdominal ascites or enlarged lymph nodes by imaging size criteria. There are small umbilical fat- containing hernia. Impression: Occluded left SFA with constitution at the level of the adductor canal followed by reocclusion of the popliteal artery to the level of the branching. Reconstitution of flow in the left infrapopliteal arteries with blood flow seen to the left foot. Right lower extremity atherosclerotic disease, as described above with areas of stenosis reaching 50% in the mid right SFA. Occluded right peroneal artery. Short segmental occlusions of the right posterior tibial artery occlusion and occlusion at the level of the ankle with plantar flow to the foot provided by collateral flow from the dorsal aspect of the foot provided by the LAUREN. Bilateral inguinal and umbilical fat-containing hernias. ASSESSMENT AND PLAN : Lower left extremity Ischemia with new onset of afib s/p Aortogram, lower left extremity angiogram, open thrombectomy SFA, popliteal artery, tibial artery, angioplasty of tibial ar -Continue Heparin drip -Vascular surgery consult appreciated,: -Cardiology consult appreciated -Monitor vitals -Monitor aptt maintain therapeutic range -Follow lipid profile and Hba1c -For pain Morphine 4 mg q6h prn -IV heparin 800 unit/hr Maintain Aptt in therapeutic range New onset afib -Heparin drip for anticoagulation -Metoprolol 25 mg po bid -Cardiology on case -Monitor vitals -Cardiac monitoring HTN -Continue home medications (Ramipril) Admit to tele Documentation prepared by Philip Kaur, acting as medical record clerk for Dr. Maile Bourgeois MD.
[2016-10-22] MEDS ORDERED: GLYCOPYRROLATE 0.2 MG/1 ML VIAL ONE ×2 (20:42)
[2016-10-22] MEDS ORDERED: NEOSTIGMINE METHYLSULFATE 0.5 MG/ML - 10 ML MDV ONE (20:42)
[2016-10-22] MEDS ORDERED: KETOROLAC TROMETHAMINE 30 MG/1 ML VIAL ONE (20:52)
[2016-10-22] MEDS ORDERED: DEXAMETHASONE SOD PHOSPHATE 4 MG/1 ML VIAL ONE (20:52)
[2016-10-22] MEDS ORDERED: ATORVASTATIN CA 40 MG TABLET (FP) PO SCH (22:00)
[2016-10-22] MEDS ORDERED: ESMOLOL HCL 10 ML ONE (22:01)
[2016-10-22] MEDS: HEPARIN NA (PORCINE) 5,000 UNITS/ML 1ML VIAL IVPUSH PRN ×2 (22:15→22:57)
--- NOTE | 2016-10-22 22:19 | OP ---
Operative Note - Note: Operative Date: 10/22/16 Pre-Operative Diagnosis: Left lower extremtiy ischemia Operation: Aortogram, LLE angiogram, open thrombectomy SFA,popliteal artery, tibial artery, angioplasty of tibial artery Findings: embolus sent to path Post-Operative Diagnosis: Same as Pre-op Surgeon: Maximo Abbott Anesthesia: General Estimated Blood Loss (mls): 300 Operative Report Dictated: Yes
[2016-10-22] MEDS ORDERED: PROMETHAZINE HCL 25 MG/1 ML VIAL IVPUSH PRN (22:23)
[2016-10-22] MEDS ORDERED: ONDANSETRON 4 MG/2 ML VIAL IVPUSH PRN (22:23)
[2016-10-22] MEDS: HEPARIN INFUSION - 500 ML IVPB SCH (22:30)
[2016-10-22] MEDS ORDERED: morphine CARPU-JECT 4 MG/1 ML DISP.SYRIN IVPUSH PRN (22:37)
[2016-10-23] MEDS: oxyCODONE HCL 5 MG TABLET PO PRN ×2 (01:24→16:00)
[2016-10-23 02:22] VITALS: BMI 32.5
[2016-10-23 06:21] LABS: BASOPHIL 0.2 % (0-2.0); EOSINOPHIL 0.1 % (0-4.5); MCH 29.2 pg (25.7-33.7); MCHC 33.1 g/dl (32.0-35.9); MEAN CELL VOLUME 88.4 fl (80-96); MEAN PLT VOLUME 8.5 fl (7.5-11.1); NEUTROPHILS 86.6 % (42.8-82.8); PLATELET COUNT 197 K/MM3 (134-434); RDW 15.1 % (11.9-15.9); WHITE BLOOD COUNT 7.6 K/mm3 (4.0-10.0)
[2016-10-23 06:35] LABS: INR 1.2 (0.82-1.09); PROTHROMBIN TIME (PATIENT) 13.3 SEC (9.98-11.88)
[2016-10-23 06:55] LABS: ACTIVATED PTT 164.2 SECONDS (26.9-34.4)
[2016-10-23 07:21] LABS: ALBUMIN 3.3 g/dl (3.4-5.0); ANION GAP 6 (8-16); BILIRUBIN,TOTAL 0.8 mg/dL (0.2-1.0); CALCIUM 8.3 mg/dL (8.5-10.1); CHOLESTEROL 162 mg/dL (50-200); CO2 28 mmol/L (21-32); CREATININE 1.2 mg/dL (0.7-1.3); GLUCOSE,RANDOM 157 mg/dL (74-106); LDL CHOLESTEROL (ONLY SJRH) 126 mg/dL (5-100); MAGNESIUM 2.1 mg/dL (1.8-2.4); PHOSPHOROUS 3.1 mg/dL (2.5-4.9); SGOT/AST 21 U/L (15-37); SGPT/ALT 32 U/L (12-78); TOT PROT 6.4 g/dl (6.4-8.2)
[2016-10-23 07:28] LABS: ALK PHOS 81 U/L (45-117); THYROID STIMULATING HORMONE 1.43 uIU/ml (0.358-3.74)
--- NOTE | 2016-10-23 07:48 | PN ---
Progress Note (short form) - Note Progress Note: c/o groin pain since he woke up this morning states that he does not want to take any pain medications due to hx of alcholism and feels that it may be a trigger. states he had a stress test >10 years ago and was normal per him and cardiac cath 7 years ago also was clean. cath was done due to something seen on EKG by his PMD but hes not sure what it was and never followed up. denies palpitations, blurred vision, CP, SOB, fever, chills, cough, N/V/C/D Current Medications Generic Name Dose Route Start Last Admin Trade Name Freq PRN Reason Stop Dose Admin Atorvastatin Calcium 40 mg 10/23/16 22:00 Lipitor - PO HS [facility] Fentanyl 50 mcg 10/22/16 22:23 Sublimaze Injection - IVPUSH 10/25/16 22:24 [id number] PRN PAIN Heparin Sodium (Porcine) 5,000 unit 10/22/16 22:30 10/22/16 22:57 Heparin - IVPUSH 5,000 unit PRN PRN Administration Heparin Sodium (Porcine) 1,000 unit 10/22/16 22:30 Heparin - IVPUSH PRN PRN Heparin Sodium/Dextrose 500 mls @ 16 mls/hr 10/22/16 22:35 10/23/16 07:00 Heparin Infusion - IVPB 0 units/hr TITR [facility] Titration Protocol 800 UNITS/HR Metoprolol Succinate 25 mg 10/23/16 10:00 Toprol Xl - PO DAILY [facility] Morphine Sulfate 4 mg 10/22/16 22:37 Morphine Injection - IVPUSH Q6H PRN PAIN Oxycodone HCl 10 mg 10/22/16 22:23 10/23/16 01:24 Roxicodone - PO 10/23/16 22:22 10 mg Q4H PRN Administration SEVERE PAIN Pantoprazole Sodium 40 mg 10/23/16 10:00 Protonix 40mg Ivpb (Pre-Docked) IVPB DAILY [facility] Ramipril 5 mg 10/23/16 10:00 Altace - PO DAILY [facility] Last Vital Signs Temp Pulse Resp BP Pulse Ox 98.2 F 82 15 127/81 99 10/23/16 06:00 10/23/16 06:00 10/23/16 06:00 10/23/16 06:00 10/22/16 23:45 General NAD CV S1 S2 irregular no murmur/rub/gallop Lungs CTA B/L no wheezing/rales/rhonchi Abdomen soft NT/ND obese Extremities L groin mild swelling and tender, occlusive dressing in place c/d/ i. pedal pulse B/L feet intact CBCD WBC 7.6 K/mm3 (4.0-10.0) 10/23/16 05:20 RBC 4.54 M/mm3 (4.00-5.60) 10/23/16 05:20 Hgb 13.3 GM/dL (11.7-16.9) 10/23/16 05:20 Hct 40.1 % (35.4-49) 10/23/16 05:20 MCV 88.4 fl (80-96) 10/23/16 05:20 MCHC 33.1 g/dl (32.0-35.9) 10/23/16 05:20 RDW 15.1 % (11.9-15.9) 10/23/16 05:20 Plt Count 197 K/MM3 (134-434) 10/23/16 05:20 MPV 8.5 fl (7.5-11.1) 10/23/16 05:20 CMP Sodium 141 mmol/L (136-145) 10/23/16 05:20 Potassium 5.7 mmol/L (3.5-5.1) H D 10/23/16 05:20 Chloride 107 mmol/L (98-107) 10/23/16 05:20 Carbon Dioxide 28 mmol/L (21-32) 10/23/16 05:20 Anion Gap 6 (8-16) L 10/23/16 05:20 BUN 16 mg/dL (7-18) 10/23/16 05:20 Creatinine 1.2 mg/dL (0.7-1.3) 10/23/16 05:20 Creat Clearance w eGFR > 60 (>60) 10/23/16 05:20 Calcium 8.3 mg/dL (8.5-10.1) L 10/23/16 05:20 Total Bilirubin 0.8 mg/dL (0.2-1.0) D 10/23/16 05:20 AST 21 U/L (15-37) D 10/23/16 05:20 ALT 32 U/L (12-78) 10/23/16 05:20 Alkaline Phosphatase 81 U/L (45-117) 10/23/16 05:20 Total Protein 6.4 g/dl (6.4-8.2) 10/23/16 05:20 Albumin 3.3 g/dl (3.4-5.0) L 10/23/16 05:20 A/P 71yo M with PMH HTN presented to the ER and was admitted for further evaluation of their emergent condition 1. 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 on hep ggt. further management per vascular surgery. pain control. 2. New onset afib- rate controlled. risk factors of ETOH. TSH WNL. echo pending for tuesday. will need lifelong anticoagulation. risks/benefits of anticoagulation discussed with patient and verbalized understanding. started on metoprolol. cardio on board. will likely require ischemic eval as outpatient 3. hyperkalemia- no EKG changes. repeat labs in the afternoon. likely due to GLORIA 4. GLORIA- likely due to contrast exposure. will give gentle hydration. avoid nephrotoxic agents. 5. HTN- controlled. cont acei, bblocker 6. DVT ppx- hep ggt The care of this patient involved high complexity decision making to prevent further life threatening deterioration of the patient's condition and/or to evaluate & treat vital organ system(s) failure or risk of failure. critical care time 40 minutes Visit type - Emergency Visit Emergency Visit: Yes ED Registration Date: 10/22/16 Care time: The patient presented to the Emergency Department on the above date and was hospitalized for further evaluation of their emergent condition. - New Patient This patient is new to me today: Yes Date on this admission: 10/23/16 - Critical Care Critical Care patient: Yes Total Critical Care Time (in minutes): 40 Critical Care Statement: The care of this patient involved high complexity decision making to prevent further life threatening deterioration of the patient 's condition and/or to evalute & treat vital organ system(s) failure or risk of failure. - Discharge Referral Referred to [facility] Med P.C.: No
[2016-10-23] MEDS ORDERED: ACETAMINOPHEN 325 MG TABLET (FP) PO PRN (08:48)
[2016-10-23] MEDS ORDERED: PT OWN MED DRAWER 7, Y5N ONE (08:58)
[2016-10-23] MEDS ORDERED: SODIUM CHLORIDE 1,000 ML IV SCH (09:00)
--- NOTE | 2016-10-23 09:15 | PN ---
Progress Note (short form) - Note Progress Note: ANESTHESIA POST-OP CHECK 71M s/p LLE open thombectomy, angiogram, angioplasty, POD #1. No acute complaints, tolerating PO, denies N/V. Not yet OOB. Pain 3/10 and tolerable. Vital Signs Temperature 98.2 F 10/23/16 06:00 Pulse Rate 84 10/23/16 07:59 Respiratory Rate 17 10/23/16 07:59 Blood Pressure 125/89 10/23/16 07:59 O2 Sat by Pulse Oximetry (%) 99 10/23/16 07:56 Active Medications Acetaminophen (Tylenol -) 650 mg PO Q4H PRN PRN Reason: FEVER OR PAIN Atorvastatin Calcium (Lipitor -) 40 mg PO HS [facility] Fentanyl (Sublimaze Injection -) 50 mcg IVPUSH [id number] PRN PRN Reason: PAIN Stop: 10/25/16 22:24 Heparin Sodium (Porcine) (Heparin -) 5,000 unit IVPUSH PRN PRN Last Admin: 10/22/16 22:57 Dose: 5,000 unit Heparin Sodium (Porcine) (Heparin -) 1,000 unit IVPUSH PRN PRN Heparin Sodium/Dextrose (Heparin Infusion -) 500 mls @ 16 mls/hr IVPB TITR [facility] ; 800 UNITS/HR PRN Reason: Protocol Last Titration: 10/23/16 07:00 Dose: 0 units/hr Sodium Chloride (Normal Saline -) 1,000 mls @ 50 mls/hr IV ASDIR [facility] Stop: 10/24/16 08:50 Metoprolol Succinate (Toprol Xl -) 25 mg PO DAILY [facility] Morphine Sulfate (Morphine Injection -) 4 mg IVPUSH Q6H PRN PRN Reason: PAIN Oxycodone HCl (Roxicodone -) 10 mg PO Q4H PRN PRN Reason: SEVERE PAIN Stop: 10/23/16 22:22 Last Admin: 10/23/16 01:24 Dose: 10 mg Pantoprazole Sodium (Protonix 40mg Ivpb (Pre-Docked)) 40 mg IVPB DAILY [facility] Ramipril (Altace -) 5 mg PO DAILY [facility] Gen: awake, alert No apparent anesthesia complications. Pain well controlled. Continue management as per primary team.
--- NOTE | 2016-10-23 09:16 | PN ---
Progress Note (short form) - Note Progress Note: Vascular Surgery Pt seen and examined. S/P thrombectomy LLE. Thrombus/embolus sent to path. On IV heparin. palpable DP pulse. left foot is warm. Left groin -- dressing is clean, dry and intact. can be removed florina. IV heparin ---> to intermediate AC of your choice. Maximo Abbott DO
[2016-10-23] MEDS: PANTOPRAZOLE SODIUM 40 MG/100 ML PRE-DOCKED IVPB SCH (09:59)
[2016-10-23] MEDS ORDERED: METOPROLOL SUCCINATE 25 MG TAB.SR.24H (FP) PO SCH ×2 (10:00)
[2016-10-23] MEDS ORDERED: PANTOPRAZOLE SODIUM 40 MG/100 ML PRE-DOCKED IVPB SCH (10:00)
[2016-10-23] MEDS ORDERED: RAMIPRIL 5 MG CAPSULE (FP) PO SCH (10:00)
[2016-10-23] MEDS: METOPROLOL SUCCINATE 25 MG TAB.SR.24H (FP) PO SCH (10:00)
[2016-10-23] MEDS ORDERED: PANTOPRAZOLE SODIUM 100 ML IVPB SCH ×2 (10:00)
[2016-10-23] MEDS: RAMIPRIL 5 MG CAPSULE (FP) PO SCH (10:13)
--- NOTE | 2016-10-23 11:57 | PN ---
Progress Note, Physician History of Present Illness: No complaints s/p left thrombectomy - Current Medication List Current Medications: Active Medications Acetaminophen (Tylenol -) 650 mg PO Q4H PRN PRN Reason: FEVER OR PAIN Atorvastatin Calcium (Lipitor -) 40 mg PO HS [facility] Fentanyl (Sublimaze Injection -) 50 mcg IVPUSH [id number] PRN PRN Reason: PAIN Stop: 10/25/16 22:24 Heparin Sodium (Porcine) (Heparin -) 5,000 unit IVPUSH PRN PRN Last Admin: 10/22/16 22:57 Dose: 5,000 unit Heparin Sodium (Porcine) (Heparin -) 1,000 unit IVPUSH PRN PRN Heparin Sodium/Dextrose (Heparin Infusion -) 500 mls @ 16 mls/hr IVPB TITR [facility] ; 800 UNITS/HR PRN Reason: Protocol Last Titration: 10/23/16 07:00 Dose: 0 units/hr Sodium Chloride (Normal Saline -) 1,000 mls @ 50 mls/hr IV ASDIR [facility] Stop: 10/24/16 08:50 Last Admin: 10/23/16 09:59 Dose: 50 mls/hr Metoprolol Succinate (Toprol Xl -) 25 mg PO DAILY [facility] Last Admin: 10/23/16 10:00 Dose: 25 mg Morphine Sulfate (Morphine Injection -) 4 mg IVPUSH Q6H PRN PRN Reason: PAIN Oxycodone HCl (Roxicodone -) 10 mg PO Q4H PRN PRN Reason: SEVERE PAIN Stop: 10/23/16 22:22 Last Admin: 10/23/16 01:24 Dose: 10 mg Pantoprazole Sodium (Protonix 40mg Ivpb (Pre-Docked)) 40 mg IVPB DAILY [facility] Last Admin: 10/23/16 09:59 Dose: 40 mg Ramipril (Altace -) 5 mg PO DAILY [facility] Last Admin: 10/23/16 10:13 Dose: 5 mg - Objective Vital Signs: Vital Signs Temperature 98.2 F 10/23/16 06:00 Pulse Rate 82 10/23/16 10:00 Respiratory Rate 18 10/23/16 10:00 Blood Pressure 120/72 10/23/16 10:00 O2 Sat by Pulse Oximetry (%) 99 10/23/16 07:56 Constitutional: Yes: No Distress Eyes: Yes: WNL HENT: Yes: WNL Neck: Yes: WNL Cardiovascular: Yes: Pulse Irregular Respiratory: Yes: CTA Bilaterally Gastrointestinal: Yes: WNL Extremities: Yes: Other (Left DP +2.) Edema: No Labs: CBC, BMP 10/23/16 05:20 10/23/16 05:20 INR, PTT INR 1.20 (0.82-1.09) H 10/23/16 05:20 Assessment/Plan echo 07/2014: nl lv/rv, severe anna, mod MR, mild-mod TR, rvsp 40-50. mild ao dilation echo 11/2013: Mildly decreased systolic function, mild lae, mild mr/tr. rvsp 50- 60 71 yo with h/o htn, gerd presents with LLE pain and found to have arterial occlusion and new onset afib. new onset atrial fibrillation - hx of ?mildly depressed EF, severe anna. Would repeat echo to assess cardiac function. - possible distal embolization, will await angio results. -Agree with AC, plan for apixaban once no further procedures are planned. - Good rate control with metoprolol succinate 25 mg/day in addition to ramipril LLE pain/arterial occlusion - s/p left thrombectomy - AC as above Mild systolic cardiomyopathy - Prior echo with mild systolic dysfunction, subsequent normalization. Re- evaluate systolic function with echo. - BB, ACEI HTN -Would continue home ramipril. Adding metoprolol as mentioned.
[2016-10-23] MEDS: HEPARIN NA (PORCINE) 5,000 UNITS/ML 1ML VIAL IVPUSH PRN (14:49)
[2016-10-23 14:53] LABS: CALCIUM 8.8 mg/dL (8.5-10.1); CREATININE 1.2 mg/dL (0.7-1.3)
[2016-10-23] MEDS ORDERED: ATORVASTATIN CA 40 MG TABLET (FP) PO SCH (22:00)
[2016-10-23] MEDS: HEPARIN INFUSION - 500 ML IVPB SCH (22:35)
[2016-10-24 06:17] LABS: MCH 29.7 pg (25.7-33.7); MCHC 33.3 g/dl (32.0-35.9); MEAN PLT VOLUME 8.2 fl (7.5-11.1); PLATELET COUNT 173 K/MM3 (134-434); RDW 16.1 % (11.9-15.9); WHITE BLOOD COUNT 7.2 K/mm3 (4.0-10.0)
[2016-10-24 07:46] LABS: CALCIUM 7.9 mg/dL (8.5-10.1)
--- NOTE | 2016-10-24 08:18 | PN ---
Progress Note (short form) - Note Progress Note: has intermittent pains in his LLE that improves with pain medications but its constant. denies palpitations, blurred vision, CP, SOB, fever, chills, cough, N/ V/C/D Current Medications Generic Name Dose Route Start Last Admin Trade Name Freq PRN Reason Stop Dose Admin Acetaminophen 650 mg 10/23/16 08:48 10/23/16 11:56 Tylenol - PO 650 mg Q4H PRN Administration FEVER OR PAIN Atorvastatin Calcium 40 mg 10/23/16 22:00 10/23/16 21:24 Lipitor - PO 40 mg HS [facility] Administration Fentanyl 50 mcg 10/22/16 22:23 Sublimaze Injection - IVPUSH 10/25/16 22:24 [id number] PRN PAIN Heparin Sodium (Porcine) 5,000 unit 10/22/16 22:30 10/22/16 22:57 Heparin - IVPUSH 5,000 unit PRN PRN Administration Heparin Sodium (Porcine) 1,000 unit 10/22/16 22:30 10/23/16 14:49 Heparin - IVPUSH 1,000 unit PRN PRN Administration Heparin Sodium/Dextrose 500 mls @ 16 mls/hr 10/22/16 22:35 10/23/16 22:35 Heparin Infusion - IVPB 15 mls/hr TITR [facility] Administration Protocol 800 UNITS/HR Sodium Chloride 1,000 mls @ 50 mls/hr 10/23/16 09:00 10/23/16 09:59 Normal Saline - IV 10/24/16 08:50 50 mls/hr ASDIR [facility] Administration Metoprolol Succinate 25 mg 10/23/16 10:00 10/23/16 10:00 Toprol Xl - PO 25 mg DAILY [facility] Administration Morphine Sulfate 4 mg 10/22/16 22:37 Morphine Injection - IVPUSH Q6H PRN PAIN Pantoprazole Sodium 40 mg 10/23/16 10:00 10/23/16 09:59 Protonix 40mg Ivpb (Pre-Docked) IVPB 40 mg DAILY [facility] Administration Ramipril 5 mg 10/23/16 10:00 10/23/16 10:13 Altace - PO 5 mg DAILY [facility] Administration Last Vital Signs Temp Pulse Resp BP Pulse Ox 99 F 63 16 139/66 98 10/24/16 02:00 10/24/16 06:00 10/24/16 08:04 10/24/16 06:00 10/24/16 08:04 General NAD CV S1 S2 irregular no murmur/rub/gallop Lungs CTA B/L no wheezing/rales/rhonchi Abdomen soft NT/ND obese Extremities L groin mild swelling and tender, occlusive dressing in place with some dried blood. pedal pulse B/L feet intact CBCD WBC 7.2 K/mm3 (4.0-10.0) 10/24/16 05:20 RBC 4.04 M/mm3 (4.00-5.60) 10/24/16 05:20 Hgb 12.0 GM/dL (11.7-16.9) 10/24/16 05:20 Hct 35.9 % (35.4-49) 10/24/16 05:20 MCV 89.0 fl (80-96) 10/24/16 05:20 MCHC 33.3 g/dl (32.0-35.9) 10/24/16 05:20 RDW 16.1 % (11.9-15.9) H 10/24/16 05:20 Plt Count 173 K/MM3 (134-434) 10/24/16 05:20 MPV 8.2 fl (7.5-11.1) 10/24/16 05:20 CMP Sodium 141 mmol/L (136-145) 10/24/16 05:20 Potassium 4.4 mmol/L (3.5-5.1) 10/24/16 05:20 Chloride 106 mmol/L (98-107) 10/24/16 05:20 Carbon Dioxide 27 mmol/L (21-32) 10/24/16 05:20 Anion Gap 8 (8-16) 10/24/16 05:20 BUN 19 mg/dL (7-18) H 10/24/16 05:20 Creatinine 1.0 mg/dL (0.7-1.3) 10/24/16 05:20 Creat Clearance w eGFR > 60 (>60) 10/23/16 05:20 Calcium 7.9 mg/dL (8.5-10.1) L 10/24/16 05:20 Total Bilirubin 0.8 mg/dL (0.2-1.0) D 10/23/16 05:20 AST 21 U/L (15-37) D 10/23/16 05:20 ALT 32 U/L (12-78) 10/23/16 05:20 Alkaline Phosphatase 81 U/L (45-117) 10/23/16 05:20 Total Protein 6.4 g/dl (6.4-8.2) 10/23/16 05:20 Albumin 3.3 g/dl (3.4-5.0) L 10/23/16 05:20 A/P 71yo M with PMH HTN presented to the ER and was admitted for further evaluation of their emergent condition 1. 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 on hep ggt. pulses intact, pain likely due to re-perfusion. further management per vascular surgery. pain control. 2. New onset afib- rate controlled. echo pending for tuesday. will evaluate and possible require ischemic eval as well. will transition to eliis on discharge. statin 3. hyperkalemia- no EKG changes. resolved 4. GLORIA- likely due to contrast exposure. resolved. d/c ivf. avoid nephrotoxic agents. 5. constipation- no BM in 48H. will start stool softeners 6. Pre-diabetic- A1c 6.6. will start with dietary modifications will need to be repeated in 3 months. 7. HTN- controlled. cont acei, bblocker 8. DVT ppx- hep ggt 9. ok with transfer to [facility] for continued cardiac monitoring if vascular surgery in agreement The care of this patient involved high complexity decision making to prevent further life threatening deterioration of the patient's condition and/or to evaluate & treat vital organ system(s) failure or risk of failure. critical care time 38 minutes Visit type - Emergency Visit Emergency Visit: Yes ED Registration Date: 10/22/16 Care time: The patient presented to the Emergency Department on the above date and was hospitalized for further evaluation of their emergent condition. - New Patient This patient is new to me today: No - Critical Care Critical Care patient: Yes Total Critical Care Time (in minutes): 38 Critical Care Statement: The care of this patient involved high complexity decision making to prevent further life threatening deterioration of the patient 's condition and/or to evalute & treat vital organ system(s) failure or risk of failure. - Discharge Referral Referred to [facility] Med P.C.: No
[2016-10-24] MEDS: METOPROLOL SUCCINATE 25 MG TAB.SR.24H (FP) PO SCH (09:32)
[2016-10-24] MEDS: RAMIPRIL 5 MG CAPSULE (FP) PO SCH (09:33)
[2016-10-24] MEDS: PANTOPRAZOLE SODIUM 40 MG/100 ML PRE-DOCKED IVPB SCH (09:33)
--- NOTE | 2016-10-24 11:22 | PN ---
Progress Note, Physician History of Present Illness: Feels residual left foot pain On IV UFH No chest pain or palps Tele with rate controlled Afib - Current Medication List Current Medications: Active Medications Acetaminophen (Tylenol -) 650 mg PO Q4H PRN PRN Reason: FEVER OR PAIN Last Admin: 10/23/16 11:56 Dose: 650 mg Atorvastatin Calcium (Lipitor -) 40 mg PO HS [facility] Last Admin: 10/23/16 21:24 Dose: 40 mg Fentanyl (Sublimaze Injection -) 50 mcg IVPUSH [id number] PRN PRN Reason: PAIN Stop: 10/25/16 22:24 Heparin Sodium (Porcine) (Heparin -) 5,000 unit IVPUSH PRN PRN Last Admin: 10/22/16 22:57 Dose: 5,000 unit Heparin Sodium (Porcine) (Heparin -) 1,000 unit IVPUSH PRN PRN Last Admin: 10/23/16 14:49 Dose: 1,000 unit Heparin Sodium/Dextrose (Heparin Infusion -) 500 mls @ 16 mls/hr IVPB TITR [facility] ; 800 UNITS/HR PRN Reason: Protocol Last Titration: 10/24/16 09:42 Dose: 850 units/hr Metoprolol Succinate (Toprol Xl -) 25 mg PO DAILY [facility] Last Admin: 10/24/16 09:32 Dose: 25 mg Morphine Sulfate (Morphine Injection -) 4 mg IVPUSH Q6H PRN PRN Reason: PAIN Pantoprazole Sodium (Protonix 40mg Ivpb (Pre-Docked)) 40 mg IVPB DAILY [facility] Last Admin: 10/24/16 09:33 Dose: 40 mg Ramipril (Altace -) 5 mg PO DAILY [facility] Last Admin: 10/24/16 09:33 Dose: 5 mg - Objective Vital Signs: Vital Signs Temperature 99 F 10/24/16 02:00 Pulse Rate 70 10/24/16 10:00 Respiratory Rate 16 10/24/16 10:00 Blood Pressure 142/92 10/24/16 10:00 O2 Sat by Pulse Oximetry (%) 98 10/24/16 08:04 Constitutional: Yes: No Distress, Calm Eyes: Yes: WNL HENT: Yes: WNL Neck: Yes: WNL Cardiovascular: Yes: Pulse Irregular, Other Respiratory: Yes: CTA Bilaterally, SOB on Exertion Gastrointestinal: Yes: WNL, Normal Bowel Sounds, Abdomen, Obese Extremities: Yes: WNL Peripheral Pulses: Right Dorsalis Pedis: 2+ Labs: CBC, BMP 10/24/16 05:20 10/24/16 05:20 INR, PTT INR 1.20 (0.82-1.09) H 10/23/16 05:20 Assessment/Plan 71 yo with h/o htn, gerd presents with LLE pain and found to have arterial occlusion and new onset afib. new onset atrial fibrillation - hx of ?mildly depressed EF, severe anna. Would repeat echo to assess cardiac function. - possible distal embolization, will await angio results. -Agree with AC, plan for apixaban once ready for discharge. - Good rate control with metoprolol succinate 25 mg/day in addition to ramipril LLE pain/arterial occlusion - s/p left thrombectomy - AC as above Mild systolic cardiomyopathy - Prior echo with mild systolic dysfunction, subsequent normalization. Re- evaluate systolic function with echo. - BB, ACEI HTN -Would continue home ramipril. Adding metoprolol as mentioned.
[2016-10-24] MEDS: HEPARIN NA (PORCINE) 5,000 UNITS/ML 1ML VIAL IVPUSH PRN (19:00)
[2016-10-24] MEDS ORDERED: ACETAMINOPHEN 325 MG TABLET (FP) PO PRN (19:07)
[2016-10-24] MEDS ORDERED: HEPARIN NA (PORCINE) 5,000 UNITS/ML 1ML VIAL IVPUSH PRN ×4 (19:07)
[2016-10-24] MEDS ORDERED: morphine CARPU-JECT 4 MG/1 ML DISP.SYRIN IVPUSH PRN (19:07)
[2016-10-24] MEDS: HEPARIN INFUSION - 500 ML IVPB SCH (20:45)
[2016-10-24] MEDS: ATORVASTATIN CA 40 MG TABLET (FP) PO SCH (21:17)
[2016-10-25] MEDS ORDERED: PT OWN MED DRAWER 7, Y5N ONE ×2 (07:47→09:28)
--- NOTE | 2016-10-25 08:53 | PN ---
Progress Note, Physician Chief Complaint: afib, LLE embolus History of Present Illness: no cp, sob, palpitations, syncope - Current Medication List Current Medications: Active Medications Acetaminophen (Tylenol -) 650 mg PO Q4H PRN PRN Reason: FEVER OR PAIN Atorvastatin Calcium (Lipitor -) 40 mg PO HS [facility] Last Admin: 10/24/16 21:17 Dose: 40 mg Heparin Sodium (Porcine) (Heparin -) 1,000 unit IVPUSH PRN PRN PRN Reason: Heparin Heparin Sodium (Porcine) (Heparin -) 5,000 unit IVPUSH PRN PRN PRN Reason: Heparin Heparin Sodium/Dextrose (Heparin Infusion -) 500 mls @ 16 mls/hr IVPB TITR [facility] ; 800 UNITS/HR PRN Reason: Protocol Last Titration: 10/25/16 02:06 Dose: 950 units/hr Metoprolol Succinate (Toprol Xl -) 25 mg PO DAILY [facility] Morphine Sulfate (Morphine Injection -) 4 mg IVPUSH Q6H PRN PRN Reason: PAIN Pantoprazole Sodium (Protonix 40mg Ivpb (Pre-Docked)) 40 mg IVPB DAILY [facility] Ramipril (Altace -) 5 mg PO DAILY [facility] - Objective Vital Signs: Vital Signs Temperature 98.7 F 10/25/16 07:54 Pulse Rate 87 10/25/16 07:54 Respiratory Rate 18 10/25/16 07:54 Blood Pressure 142/80 10/25/16 07:54 O2 Sat by Pulse Oximetry (%) 99 10/25/16 07:54 Constitutional: Yes: Well Nourished, No Distress, Calm Cardiovascular: Yes: Pulse Irregular, S1, S2. No: Gallop, Murmur Respiratory: Yes: Regular, CTA Bilaterally. No: Accessory Muscle Use, Rales, Wheezes Extremities: No: Cold Edema: No Neurological: Yes: Alert, Oriented Psychiatric: No: Agitated Labs: CBC, BMP 10/24/16 05:20 10/24/16 05:20 INR, PTT INR 1.20 (0.82-1.09) H 10/23/16 05:20 - ....Imaging EKG: Other (tele: AF, HRs good) Assessment/Plan 71 yo with h/o htn, gerd presents with LLE pain and found to have arterial occlusion and new onset afib. new onset atrial fibrillation - hx of ? mildly depressed EF--echo to be repeated today - embolic event here (to LLE) -Agree with AC, currently on UFH per vascular (postop thrombectomy)-- plan for apixaban once ready for discharge. - Good rate control with metoprolol succinate 25 mg/day--no need for ongoing tele - pt understands he will f/u after hosp stay to monitor AF and AC (card given) LLE pain/arterial occlusion - s/p left thrombectomy with appearance c/w embolus per vascular op note - AC as above Mild systolic cardiomyopathy - Prior echo with mild systolic dysfunction, subsequent normalization. Re- evaluate systolic function with echo. - BB, ACEI HTN -continue home ramipril -low dose metoprolol added here -reasonably controlled, observe trend D/C TELEMETRY
[2016-10-25] MEDS: HEPARIN INFUSION - 500 ML IVPB SCH (09:43)
[2016-10-25] MEDS: METOPROLOL SUCCINATE 25 MG TAB.SR.24H (FP) PO SCH (09:45)
[2016-10-25] MEDS: PANTOPRAZOLE SODIUM 40 MG/100 ML PRE-DOCKED IVPB SCH (09:45)
[2016-10-25] MEDS: RAMIPRIL 5 MG CAPSULE (FP) PO SCH (09:45)
--- NOTE | 2016-10-25 11:46 | MSN ---
Progress Note (SOAP) - Subjective Chief Complaint: Left Groin pain History of Present Illness: patient was examined at bedside. He was in good spirits when interviewed. He claimed he had some left leg numbness and left leg pain since the surgery, but other than that he was well. Patient is passing gas but has not had a bowel movement in 3 days. He had no complaints of fevers, chills, NVD, headaches, cough, CP, SOB or dysuria. Patient wants only limited pain medication due to a prior alcohol addiction. - Current Medications Current Medications: Active Medications Acetaminophen (Tylenol -) 650 mg PO Q4H PRN PRN Reason: FEVER OR PAIN Atorvastatin Calcium (Lipitor -) 40 mg PO HS [facility] Last Admin: 10/24/16 21:17 Dose: 40 mg Heparin Sodium (Porcine) (Heparin -) 1,000 unit IVPUSH PRN PRN PRN Reason: Heparin Heparin Sodium (Porcine) (Heparin -) 5,000 unit IVPUSH PRN PRN PRN Reason: Heparin Heparin Sodium/Dextrose (Heparin Infusion -) 500 mls @ 16 mls/hr IVPB TITR [facility] ; 800 UNITS/HR PRN Reason: Protocol Last Admin: 10/25/16 09:43 Dose: 19 mls/hr Metoprolol Succinate (Toprol Xl -) 25 mg PO DAILY [facility] Last Admin: 10/25/16 09:45 Dose: 25 mg Morphine Sulfate (Morphine Injection -) 4 mg IVPUSH Q6H PRN PRN Reason: PAIN Pantoprazole Sodium (Protonix 40mg Ivpb (Pre-Docked)) 40 mg IVPB DAILY [facility] Last Admin: 10/25/16 09:45 Dose: 40 mg Ramipril (Altace -) 5 mg PO DAILY [facility] Last Admin: 10/25/16 09:45 Dose: 5 mg - Objective Vital Signs: Vital Signs Temperature 98.7 F 10/25/16 07:54 Pulse Rate 87 10/25/16 07:54 Respiratory Rate 18 10/25/16 07:54 Blood Pressure 142/80 10/25/16 07:54 O2 Sat by Pulse Oximetry (%) 99 10/25/16 07:54 Constitutional: Yes: Well Nourished, No Distress, Calm Eyes: Yes: WNL, Conjunctiva Clear, EOM Intact HENT: Yes: WNL, Atraumatic, Normocephalic Neck: Yes: WNL, Supple, Trachea Midline Cardiovascular: Yes: Pulse Irregular, S1, S2 Respiratory: Yes: WNL, Regular, CTA Bilaterally, On Nasal O2 Gastrointestinal: Yes: WNL, Normal Bowel Sounds, Soft Genitourinary: Yes: WNL Musculoskeletal: Yes: WNL Peripheral Pulses WNL: Yes Peripheral Pulses: Left Radial: 2+, Right Radial: 2+, Left Doralis Pedis: 2+, Right Dorsalis Pedis: 2+ Edema: No Integumentary: Yes: WNL, Tattoos Wound/Incision: Yes: Clean/Dry, Well Approximated, Jacinta Intact, Dressing Dry and Intact Neurological: Yes: WNL, Alert, Oriented ...Motor Strength: Yes: WNL Psychiatric: Yes: WNL, Alert, Oriented Labs Lab Results: CBC, BMP 10/24/16 05:20 10/24/16 05:20 Assessment/Plan 71 YO M with HTN, A. Fib, GERd who presented with LLE pain. LLE Pain -S/P thrombectomy -Start Apixaban A. Fib -ECHO -Metoprolol 25mg -Apixaban Midsystolic Cardiomyopathy -Prior Echo w/ mild systolic dysf BB and ACEI HTN -Ramipril
--- NOTE | 2016-10-25 15:18 | PN ---
Teaching Attending Note Name of Resident: Maranda Amaral ATTENDING PHYSICIAN STATEMENT I saw and evaluated the patient. I reviewed the resident's note and discussed the case with the resident. I agree with the resident's findings and plan as documented. SUBJECTIVE:continues to have intermittent LLE pain. denies CP, SOB,fever, chills , Numbness/tingling in the foot OBJECTIVE: Last Vital Signs Temp Pulse Resp BP Pulse Ox 98.4 F 82 18 142/82 99 10/25/16 14:41 10/25/16 14:41 10/25/16 14:41 10/25/16 14:41 10/25/16 07:54 General NAD groin, tender minimal swelling. zac intact Extremities pedal pulses intact B/L, both feet warm ASSESSMENT AND PLAN: 71yo M with PMH HTN presented to the ER and was admitted for further evaluation of their emergent condition 1. 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 on hep ggt. pulses intact, pain likely due to re-perfusion. further management and staple removal per vascular surgery. pain control. 2. New onset afib- rate controlled. echo pending. will evaluate and possible require ischemic eval as well. will transition to eliquis on discharge. statin 3. hyperkalemia- no EKG changes. resolved 4. GLORIA- likely due to contrast exposure. resolved. avoid nephrotoxic agents. 5. constipation- stool softeners 6. Pre-diabetic- A1c 6.6. will start with dietary modifications will need to be repeated in 3 months. 7. HTN- controlled. cont acei, bblocker 8. DVT ppx- hep ggt 9. PT assessment as pt has not been out of bed since procedure. if cleared by vascular surgery and able to ambulate can d/c home on eliquis
--- NOTE | 2016-10-25 15:19 | PN ---
Addendum entered and electronically signed by Maranda Amaral RES 10/25/16 15 :40: walked 15 steps with PT; with rolling walker; will need rehab Original Note: Physical Exam: SUBJECTIVE: Patient seen and examined, c/o left groin and leg pain, s/p thrombectomy 10/22 OBJECTIVE: Vital Signs Period Temp Pulse Resp BP Sys/Tamayo Pulse Ox Last 24 Hr 98.2 F-98.7 F 77-88 12-20 138-167/76-100 99-100 GENERAL: The patient is awake, alert, and fully oriented, in no acute distress. HEAD: Normal with no signs of trauma. NECK: Trachea midline, full range of motion, supple. LUNGS: Breath sounds equal, clear to auscultation bilaterally, no wheezes, no crackles, no accessory muscle use. HEART: Regular rate and rhythm, S1, S2 without murmur, rub or gallop. ABDOMEN: Soft, nontender, nondistended, normoactive bowel sounds, no guarding, no rebound, no hepatosplenomegaly, no masses. EXTREMITIES: 2+ pulses, warm, well-perfused, no edema. Left groin incision clean , dry intact, tender NEUROLOGICAL: Cranial nerves II through XII grossly intact. Normal speech, gait not observed. PSYCH: Normal mood, normal affect. SKIN: Warm, dry, normal turgor, no rashes or lesions noted Laboratory Results - last 24 hr 10/24/16 10/24/16 10/25/16 17:55 18:24 00:40 PTT (Actin FS) 44.2 H 55.2 H POC Glucometer [id number] Active Medications Generic Name Dose Route Start Last Admin Trade Name Freq PRN Reason Stop Dose Admin Acetaminophen 650 mg 10/24/16 19:07 Tylenol - PO Q4H PRN FEVER OR PAIN Atorvastatin Calcium 40 mg 10/24/16 22:00 10/24/16 21:17 Lipitor - PO 40 mg HS MAXIMINO Administration Heparin Sodium (Porcine) 1,000 unit 10/24/16 19:07 Heparin - IVPUSH PRN PRN Heparin Heparin Sodium (Porcine) 5,000 unit 10/24/16 19:07 Heparin - IVPUSH PRN PRN Heparin Heparin Sodium/Dextrose 500 mls @ 16 mls/hr 10/24/16 19:07 10/25/16 09:43 Heparin Infusion - IVPB 19 mls/hr TITR MAXIMINO Administration Protocol 800 UNITS/HR Metoprolol Succinate 25 mg 10/25/16 10:00 10/25/16 09:45 Toprol Xl - PO 25 mg DAILY MAXIMINO Administration Morphine Sulfate 4 mg 10/24/16 19:07 Morphine Injection - IVPUSH Q6H PRN PAIN Pantoprazole Sodium 40 mg 10/25/16 10:00 10/25/16 09:45 Protonix 40mg Ivpb (Pre-Docked) IVPB 40 mg DAILY MAXIMINO Administration Ramipril 5 mg 10/25/16 10:00 10/25/16 09:45 Altace - PO 5 mg DAILY MAXIMINO Administration ASSESSMENT/PLAN: 71 year old male with PMHx of alcohol abuse, HTN, presented with left leg pain, found to have SFA arterial thrombus. Thrombectomy 10/22. also has new onset atrial fibrillation. 1. Left SFA arterial thrombosis -POD #3 minor pain; most likely related to reperfusion -local wound care, pain control prn -PT to access ability to walk and d/c plan; home vs acute rehab 2. New onset atrial fibrillation -rate controlled with metoprolol 25mg po daily; -on heparin drip now; will change to eliquis on d/c -echocardiogram: -LV borderline dilated; moderate global hypokinesis of LV; RV wnl; left atria mod dilated; mild mitral regurg; mild tricuspid regurg; mild pth; mild aortic root dilatation -follow cardio as outpatient 3. GLORIA secondary to contrast exposure -resolved; avoid nephrotixic drugs 4. HTN: -ramipril 5mf po daily -metoprolol 25mg po daily FEN: Fluids: po Electrolytes: wnl Diet: na restrict VTE prophylaxis: heparin Disposition: once cleared by PT walk over 100ft; can d/c home on eliquis; if not need rehab Problem List - Problems (1) Arterial occlusion, lower extremity Code(s): I74.3 - EMBOLISM AND THROMBOSIS OF ARTERIES OF THE LOWER EXTREMITIES (2) Atrial fibrillation Code(s): I48.91 - UNSPECIFIED ATRIAL FIBRILLATION Qualifiers: Atrial fibrillation type: unspecified Qualified Code(s): I48.91 - Unspecified atrial fibrillation (3) Hypertension Code(s): I10 - ESSENTIAL (PRIMARY) HYPERTENSION Visit type - Emergency Visit Emergency Visit: Yes ED Registration Date: 10/22/16 Care time: The patient presented to the Emergency Department on the above date and was hospitalized for further evaluation of their emergent condition. - New Patient This patient is new to me today: Yes Date on this admission: 10/25/16 - Critical Care Critical Care patient: No
[2016-10-25] MEDS: ATORVASTATIN CA 40 MG TABLET (FP) PO SCH (21:26)
[2016-10-25] MEDS: morphine CARPU-JECT 2 MG/1 ML DISP.SYRIN IVPUSH PRN (21:28)
[2016-10-26] MEDS ORDERED: ALBUTEROL SO4 2.5/IPRATROPIUM 0.5 INH SOL 3 ML VIAL.NEB. NEB PRN (07:55)
--- NOTE | 2016-10-26 09:14 | MSN ---
Progress Note (SOAP) - Subjective Chief Complaint: cold foot, leg pain History of Present Illness: Patient was examined at bedside. S/P thrombectomy10/22. Patient relayed a complaint of left arm pain for the past few days. It hurts when he lifts his arm [id number]. patient also compained of some nausea the last few mornings and some SOB without exertion. Patient has not had a bowel movement for 4-5 days. Over night the pain from the incision was excruciating. Patient was given Morphine though he does not want it due to prior alcohol addiction. - Current Medications Current Medications: Active Medications Acetaminophen (Tylenol -) 650 mg PO Q4H PRN PRN Reason: FEVER OR PAIN Albuterol/Ipratropium (Duoneb -) 1 amp NEB Q4H PRN PRN Reason: SHORTNESS OF BREATH Atorvastatin Calcium (Lipitor -) 40 mg PO HS [facility] Last Admin: 10/25/16 21:26 Dose: 40 mg Heparin Sodium (Porcine) (Heparin -) 1,000 unit IVPUSH PRN PRN PRN Reason: Heparin Heparin Sodium (Porcine) (Heparin -) 5,000 unit IVPUSH PRN PRN PRN Reason: Heparin Heparin Sodium/Dextrose (Heparin Infusion -) 500 mls @ 16 mls/hr IVPB TITR MAXIMINO ; 800 UNITS/HR PRN Reason: Protocol Last Admin: 10/25/16 09:43 Dose: 19 mls/hr Metoprolol Succinate (Toprol Xl -) 25 mg PO DAILY [facility] Last Admin: 10/25/16 09:45 Dose: 25 mg Morphine Sulfate (Morphine Injection -) 4 mg IVPUSH Q6H PRN PRN Reason: PAIN Last Admin: 10/25/16 21:28 Dose: 4 mg Pantoprazole Sodium (Protonix 40mg Ivpb (Pre-Docked)) 40 mg IVPB DAILY [facility] Last Admin: 10/25/16 09:45 Dose: 40 mg Polyethylene Glycol (Miralax (For Daily Use) -) 17 gm PO DAILY [facility] Ramipril (Altace -) 5 mg PO DAILY [facility] Last Admin: 10/25/16 09:45 Dose: 5 mg - Objective Vital Signs: Vital Signs Temperature 99.3 F 10/26/16 02:00 Pulse Rate 79 10/26/16 02:00 Respiratory Rate 20 10/26/16 02:00 Blood Pressure 139/73 02/28/17 02:00 O2 Sat by Pulse Oximetry (%) 96 10/25/16 22:00 Constitutional: Yes: Well Nourished, No Distress, Calm Eyes: Yes: WNL, Conjunctiva Clear, EOM Intact HENT: Yes: WNL, Atraumatic, Normocephalic Neck: Yes: WNL, Supple, Trachea Midline Cardiovascular: Yes: S1, S2 Respiratory: Yes: Regular, CTA Bilaterally Gastrointestinal: Yes: WNL, Normal Bowel Sounds, Soft Genitourinary: Yes: WNL Musculoskeletal: Yes: WNL Extremities: Yes: WNL Peripheral Pulses WNL: Yes Peripheral Pulses: Left Radial: 2+, Right Radial: 2+, Left Doralis Pedis: 2+, Right Dorsalis Pedis: 2+ Edema: No Integumentary: Yes: Incision, Tattoos Wound/Incision: Yes: Clean/Dry, Well Approximated, [place] Intact Neurological: Yes: WNL, Alert, Oriented ...Motor Strength: Yes: WNL Psychiatric: Yes: WNL, Alert, Oriented Labs Lab Results: CBC, BMP 10/24/16 05:20 10/24/16 05:20 Assessment/Plan 71 YO M with HTN, A. Fib, GERd who presented with LLE pain. LLE Pain -S/P thrombectomy -Start Apixaban A. Fib -ECHO-see findings under report -Metoprolol 25mg -Apixaban Midsystolic Cardiomyopathy -Prior Echo w/ mild systolic dysf BB and ACEI HTN -Ramipril Constipation -Miralax
[2016-10-26] MEDS ORDERED: POLYETHYLENE GLYCOL 3350 119 GM BTL PO SCH (10:00)
[2016-10-26] MEDS: PANTOPRAZOLE SODIUM 40 MG/100 ML PRE-DOCKED IVPB SCH (10:03)
[2016-10-26] MEDS: METOPROLOL SUCCINATE 25 MG TAB.SR.24H (FP) PO SCH (10:04)
[2016-10-26] MEDS: RAMIPRIL 5 MG CAPSULE (FP) PO SCH (10:04)
[2016-10-26] MEDS: morphine CARPU-JECT 2 MG/1 ML DISP.SYRIN IVPUSH PRN (10:04)
--- NOTE | 2016-10-26 10:17 | PN ---
Progress Note (short form) - Note Progress Note: Chief Complaint: afib, LLE embolus History of Present Illness: no cp, sob, palpitations, syncope. echo shows new systolic cardiomyopathy. + LLE pain. Current Medications Acetaminophen (Tylenol -) 650 mg PO Q4H PRN PRN Reason: FEVER OR PAIN Albuterol/Ipratropium (Duoneb -) 1 amp NEB Q4H PRN PRN Reason: SHORTNESS OF BREATH Last Admin: 10/26/16 10:02 Dose: 1 amp Atorvastatin Calcium (Lipitor -) 40 mg PO HS [facility] Last Admin: 10/25/16 21:26 Dose: 40 mg Heparin Sodium (Porcine) (Heparin -) 1,000 unit IVPUSH PRN PRN PRN Reason: Heparin Heparin Sodium (Porcine) (Heparin -) 5,000 unit IVPUSH PRN PRN PRN Reason: Heparin Heparin Sodium/Dextrose (Heparin Infusion -) 500 mls @ 16 mls/hr IVPB TITR MAXIMINO ; 800 UNITS/HR PRN Reason: Protocol Last Admin: 10/25/16 09:43 Dose: 19 mls/hr Metoprolol Succinate (Toprol Xl -) 25 mg PO DAILY [facility] Last Admin: 10/26/16 10:04 Dose: 25 mg Morphine Sulfate (Morphine Injection -) 4 mg IVPUSH Q6H PRN PRN Reason: PAIN Last Admin: 10/26/16 10:04 Dose: 4 mg Pantoprazole Sodium (Protonix 40mg Ivpb (Pre-Docked)) 40 mg IVPB DAILY [facility] Last Admin: 10/26/16 10:03 Dose: 40 mg Polyethylene Glycol (Miralax (For Daily Use) -) 17 gm PO DAILY [facility] Last Admin: 10/26/16 10:04 Dose: 17 grams Ramipril (Altace -) 5 mg PO DAILY [facility] Last Admin: 10/26/16 10:04 Dose: 5 mg Vital Signs - 24 hr 10/25/16 10/25/16 10/25/16 14:41 17:00 20:16 Temperature 98.4 F 97.7 F Pulse Rate 82 87 Respiratory 18 20 20 Rate Blood Pressure 142/82 140/90 O2 Sat by Pulse 96 Oximetry (%) 10/25/16 10/26/16 22:00 02:00 Temperature 98.1 F 99.3 F Pulse Rate 75 79 Respiratory 20 20 Rate Blood Pressure 135/79 139/73 O2 Sat by Pulse 96 Oximetry (%) Intake & Output 10/24/16 10/25/16 10/26/16 10/27/16 07:59 07:59 07:59 07:59 Intake Total 1678 1090 958 Output Total 5805 527 9563 Balance 428 365 -442 Weight 228 lb 8 oz 225 lb 6 oz Constitutional: Yes: Well Nourished, No Distress, Calm Cardiovascular: Yes: Pulse Irregular, S1, S2. No: Gallop, Murmur. JVD mildly increased vs. prominent v wave. Respiratory: Yes: Regular, CTA Bilaterally. No: Accessory Muscle Use, Rales, Wheezes Extremities: No: Cold Edema:trace with venous stasis changes. Neurological: Yes: Alert, Oriented Psychiatric: No: Agitated Labs: no CBC, BMP since 10/24 Laboratory Tests 10/26/16 05:48 PTT (Actin FS) 45.4 H - ....Imaging EKG: Other (prior tele: AF, HRs good) Echo here: bline dilated LV. Mod decreased LV function(global), NL rv. Mod Lae 1+ MAC. 1+ MR. Mod TR. RVSP 30-40. Mild ao dilation. echo 07/2014: nl lv/rv, severe anna, mod MR, mild-mod TR, rvsp 40-50. mild ao dilation echo 11/2013: Mildly decreased systolic function, mild lae, mild mr/tr. rvsp 50- 60 Assessment/Plan 71 yo with h/o htn, gerd presents with LLE pain and found to have arterial occlusion and new onset afib. new onset atrial fibrillation - hx of ? mildly depressed EF, now with moderate systolic dysfunction (new HFrEF ). - embolic event here (to LLE) -Agree with AC, currently on UFH per vascular (postop thrombectomy)-- plan for apixaban once ready for discharge. - Good rate control with metoprolol succinate 25 mg/day--no need for ongoing tele. Would uptitrate to BID dosing. - pt understands he will f/u after hosp stay to monitor AF and AC (card given) LLE pain/arterial occlusion - s/p left thrombectomy with appearance c/w embolus per vascular op note - AC as above Mild systolic cardiomyopathy - Prior echo with mild systolic dysfunction, subsequent normalization. now with moderate systolic dysfunction (new HFrEF). - Needs outpatient work up for etiology. - BB, ACEI. Uptitrating metoprolol today. - Mildly increased JVD. trace edema. Would start thiazide diuretic to maintain euvolemia. Monitor daily standing weights, bmp. HTN -continue home ramipril -low dose metoprolol added here, uptitrating today and adding thiazide for cardiomyopathy 10/26. -reasonably controlled, observe trend
[2016-10-26 12:24] VITALS: PULSE 95
[2016-10-26] MEDS ORDERED: CHLORTHALIDONE 25 MG TABLET PO SCH (12:30)
[2016-10-26] MEDS ORDERED: PT OWN MED DRAWER 7, Y5N ONE (12:37)
--- NOTE | 2016-10-26 13:34 | PATH ---
Surgical Pathology Report Patient Name: JAZZY SCOTT [facility]. Rec. #: [id number] /Age/Gender: 1945 (Age: 71) / M Account: [id number] Location: 4 W TELEMETRY U Taken: 10/22/2016 Received: 10/25/2016 Reported: 10/26/2016 Physicians: Maximo Abbott Specimen(s) Received LEFT LEG EMBOLIS Clinical History Left leg ischemia Final Diagnosis BLOOD VESSEL, LEFT LEG, THROMBECTOMY: CLOTTED BLOOD. Electronically Signed Pierce Jacobsen M.D. Gross Description Received in formalin, labeled "left leg embolus," is a 5.0 x 4.5 x 0.4 cm aggregate of abundant red-brown, cylindrical portions of blood clot. [employer] Development Technician sections are submitted in one cassette. 10/25/201610/25/2016
--- NOTE | 2016-10-26 15:09 | DS ---
Addendum entered and electronically signed by Maradna Amaral RES 10/28/16 12 :12: Add to problem list: acute heart failure Original Note: Physical Exam: SUBJECTIVE: Patient seen and examined. Decreased pain, able to walk 15 steps with walker. Did admit to some cough, although states this is chronic. Denies chest pain, sputum production, fever, chills, n, v. Has not had bowel movement in five days. Pain controlled. OBJECTIVE: Vital Signs Period Temp Pulse Resp BP Sys/Tamayo Pulse Ox Last 24 Hr 97.7 F-99.3 F 75-95 18-20 135-152/73-90 96-97 PHYSICAL EXAM GENERAL: The patient is awake, alert, and fully oriented, in no acute distress. HEAD: Normal with no signs of trauma. EYES: PERRL, extraocular movements intact, sclera anicteric, conjunctiva clear. ENT: Ears normal, nares patent, oropharynx clear without exudates, moist mucous membranes. NECK: Trachea midline, full range of motion, supple. LUNGS: Decreased Breath sounds, clear to auscultation bilaterally, no wheezes, no crackles, no accessory muscle use. HEART: Regular rate and rhythm, S1, S2 without murmur, rub or gallop. ABDOMEN: Soft, nontender, nondistended, normoactive bowel sounds, no guarding, no rebound, no hepatosplenomegaly, no masses. EXTREMITIES: 2+ pulses, warm, well-perfused, no edema. s/p ENE thrombectomy; zac, wound clean, dry intact. NEUROLOGICAL: Cranial nerves II through XII grossly intact. Normal speech, gait not observed. PSYCH: Normal mood, normal affect. SKIN: Warm, dry, normal turgor, no rashes or lesions noted. Current Medications Generic Name Dose Route Start Last Admin Trade Name Freq PRN Reason Stop Dose Admin Acetaminophen 650 mg 10/24/16 19:07 Tylenol - PO Q4H PRN FEVER OR PAIN Albuterol/Ipratropium 1 amp 10/26/16 07:55 10/26/16 10:02 Duoneb - NEB 1 amp Q4H PRN Administration SHORTNESS OF BREATH Apixaban 10 mg 10/26/16 22:00 Eliquis - PO 11/01/16 00:00 BID MAXIMINO Apixaban 5 mg 11/01/16 10:00 Eliquis - PO BID MAXIMINO Atorvastatin Calcium 40 mg 10/24/16 22:00 10/25/16 21:26 Lipitor - PO 40 mg HS MAXIMINO Administration Chlorthalidone 25 mg 10/26/16 12:30 Hygroton - PO DAILY MAXIMINO Metoprolol Succinate 25 mg 10/26/16 22:00 Toprol Xl - PO BID MAXIMINO Morphine Sulfate 4 mg 10/25/16 21:25 10/26/16 10:04 Morphine Injection - IVPUSH 4 mg Q6H PRN Administration PAIN Pantoprazole Sodium 40 mg 10/25/16 10:00 10/26/16 10:03 Protonix 40mg Ivpb (Pre-Docked) IVPB 40 mg DAILY MAXIMINO Administration Polyethylene Glycol 17 gm 10/26/16 10:00 10/26/16 10:04 Miralax (For Daily Use) - PO 17 grams DAILY MAXIMINO Administration Ramipril 5 mg 10/25/16 10:00 10/26/16 10:04 Altace - PO 5 mg DAILY MAXIMINO Administration LABS Laboratory Results - last 24 hr CBC, BMP 10/24/16 05:20 10/24/16 05:20 10/26/16 05:48 PTT (Actin FS) 45.4 H CTA Impression: occluded left SFA with constitution at the level of the adductor canal followed by re-occlusion of the popliteal artery to the level of the branching. Reconstitution of flow in the left infrapopliteal arteries with blood flow seen to the left foot. Right lower extremity artherosclerotic disease, with areas of stenosis reaching 50% in the mid right SFA. Occluded right peroneal artery. Short segmental occlusions of the right posterior tibial artery and occlusion at the level of the ankle with plantar flow to the foot provided by collateral flow from the dorsal aspect of the foot provided by the LAUREN. Echocardiogram: -LV borderline dilated; moderate global hypokinesis of LV; RV wnl; left atria mod dilated; mild mitral regurg; mild tricuspid regurg; mild pth; mild aortic root dilatation HOSPITAL COURSE: Date of Admission:10/22/16 Date of Discharge: 10/26/16 This is 71 year old male with past medical history of tobacco use, alcohol abuse , htn, that presented to the emergency room due to excruciating left lower extremity leg pain. Patient was found to have a left superficial femoral artery thrombosis s/p aortogram/angioplasty, thrombectomy. He was placed on heparin ggt. Followed by vascular surgery. He will follow up with vascular in two weeks. CTA impression listed above. While in hospital he developed new onset atrial fibrillation. Patient was rate controlled with metoprolol 25mg bid. Echocardiogram, details listed above, indicated global hypokinesis, systolic dilated cardiomyopathy. He was seen by cardiology, who recommended Hygroton 25mg daily, metoprolol xl 50mg daily, and to continue ramipril 5mg daily and lipitor 40mg daily. Before discharge heparin drip was stopped, he was started on eliquis 10mg bid for seven days. After seven days he was instructed to take eliquis 5mg. Patient was recommended to follow up with cardiology with in two weeks for further evaluation of his condition, stress test. He will also need bmp in one week. Minutes to complete discharge: 50 Discharge Summary Reason For Visit: OCCULSION OF ARTERY OF LOW EXTREMITY Current Active Problems Abnormal EKG (Acute) Arterial occlusion, lower extremity (Acute) Atrial fibrillation (Acute) Full code status (Acute) Hypertension (Acute) Systolic CHF (Acute) Condition: Improved - Instructions Diet, Activity, Other Instructions: Mr. Carias, you have been diagnosed with arterial thrombosis of the lower extremity. You will be going to a group home facility to help you re gain strength. While you were here you were also diagnosed with new onset atrial fibrillation, this is most likely due to your heart being enlarged, or systolic cardiomyopathy. We would like you to follow up with your bias cutter for further evaluation as an outpatient. We have started you on new medications to help remodel your heart, help maintain your blood pressure. We have also started you on a blood thinner to prevent further clot formation. You will be started on an anticoagulation medication. For the first 7 days you will take eliquis 10mg twice a day. After you will take 5mg twice a day. Wound care: keep area clean and dry; follow up with Dr. Abbott in two weeks Low sodium diet Work with physical therapy for increased mobilization Please follow up with bias cutter after rehab Referrals: Nichole Edwards MD [Staff Physician] - 2 Weeks (for evaluation of new atrial fibrilaltion; systolic cardiomyopathy; possible stress testing) Aguilar Pierre MD [Primary Care Provider] - Maximo Abbott MD [Staff Physician] - 2 Weeks Disposition: [facility] FACILITY - Home Medications Comprehensive Discharge Medication List: Ambulatory Orders Ramipril 5 mg PO DAILY 08/11/14 Acetaminophen [Tylenol .Regular Strength -] 650 mg PO Q4H PRN #0 tablet Albuterol 2.5/Ipratropium 0.5 [Duoneb -] 1 amp NEB Q4H PRN 30 Days 10/26/16 Apixaban [Eliquis -] 5 mg PO BID tablet 10/26/16 Apixaban [Eliquis -] 10 mg PO BID tablet 10/26/16 Apixaban [Eliquis] 5 mg PO BID 30 Days 10/26/16 Atorvastatin Ca [Lipitor] 40 mg PO HS tablet 10/26/16 Atorvastatin Ca [Lipitor] 40 mg PO HS 30 Days 10/26/16 Chlorthalidone [Hygroton -] 25 mg PO DAILY #30 tablet 10/26/16 Metoprolol Succinate [Toprol XL -] 50 mg PO DAILY 30 Days 10/26/16 Morphine Injection - [Morphine Injection 2 mg/1 mL -] 4 mg IVPUSH Q6H PRN #0 disp.syrin MDD 16mg 10/26/16 Oxycodone HCl/Acetaminophen [Percocet 5-325 mg Tablet] 1 tab PO Q6H #20 tablet MDD 4 10/26/16 Polyethylene Glycol 3350 [Miralax 119 gm Btl -] 17 gm PO DAILY bottle 10/26/16 Ramipril [Altace] 5 mg PO DAILY capsule 10/26/16 Problem List - Problems (1) Arterial occlusion, lower extremity Code(s): I74.3 - EMBOLISM AND THROMBOSIS OF ARTERIES OF THE LOWER EXTREMITIES (2) Atrial fibrillation Code(s): I48.91 - UNSPECIFIED ATRIAL FIBRILLATION Qualifiers: Atrial fibrillation type: unspecified Qualified Code(s): I48.91 - Unspecified atrial fibrillation (3) Hypertension Code(s): I10 - ESSENTIAL (PRIMARY) HYPERTENSION This patient is new to me today: No Emergency Visit: Yes ED Registration Date: 10/22/16 Care time: The patient presented to the Emergency Department on the above date and was hospitalized for further evaluation of their emergent condition. Critical Care patient: No - Discharge Referral Referred to [facility] No Physician Referral: Maximo Abbott DO ([facility])
--- NOTE | 2016-10-26 15:15 | PN ---
Teaching Attending Note Name of Resident: Maranda Amaral ATTENDING PHYSICIAN STATEMENT I saw and evaluated the patient. I reviewed the resident's note and discussed the case with the resident. I agree with the resident's findings and plan as documented. SUBJECTIVE: seen and evaluated at the bedside OBJECTIVE: resting comfortably in bed ASSESSMENT AND PLAN: 71 yo M with PMH HTN CHF admitted for arterial thrombus of lower extremity L SFA arterial thrombosis -s/p aortogram/angioplasty and thrombectomy -on hep ggt but will discharge on oral anticoagulation (awaiting to find out what oral anticoagulant the subacute rehab facility will approve) -pulses intact, pain likely due to re-perfusion -for discharge to subacute rehab - 2. New onset afib - rate controlled with metoprolol -echo shows mild mitral regurg and dilated cardiomyopathy -started on SATNAM-I, beta jessica -will require outpatient ischemic eval as as per cardiology attending Systolic CHF -echo shows mild mitral regurg and dilated cardiomyopathy -started on SATNAM-I, beta jessica, statin, chlorthalidone --will require outpatient ischemic eval as as per cardiology attending
[2016-10-26] MEDS ORDERED: APIXABAN 5 MG TABLET PO SCH ×2 (15:45→22:00)
[2016-10-26 16:10] VITALS: BP 125/74; TEMP 98.2
[2016-10-26] MEDS ORDERED: METOPROLOL SUCCINATE 25 MG TAB.SR.24H (FP) PO SCH (22:00)
--- NOTE | 2016-10-28 21:08 | OP ---
DATE OF OPERATION: 10/22/2016 PREOPERATIVE DIAGNOSIS: Left lower extremity ischemia. POSTOPERATIVE DIAGNOSIS: Left lower extremity ischemia. OPERATION: Aortogram; left lower extremity angiogram; open thrombectomy of superficial femoral artery, popliteal, tibial artery; angioplasty of tibial artery. FINDINGS: Embolus extracted from the artery, stent to Pathology. SURGEON: Maximo Segura DO ANESTHESIA: General. ESTIMATED BLOOD LOSS: 300 mL. The patient is a 71-year-old male who comes in with left lower extremity ischemia approximately for about a week. He said that his leg has been cold and numb for about a week when he 1st experienced it in the bathroom a week ago. Patient came in to the ER. He was examined there and it was decided that he would need an angiogram for possible rule out thrombosis and see if he needs an open thrombectomy. Patient was consented for the procedure, understanding all risks, benefits, alternatives. He was then taken to the operating room. Once in the operating room, he was laid in operating table in supine manner and general anesthesia was administered to patient. We then went ahead and prepped and draped the left lower extremity, the abdomen and the right groin in a sterile surgical manner. We then went ahead and injected 10 mL of lidocaine 1% over the right common femoral artery. Micropuncture needle was then used and we punctured the right common femoral artery. Micropuncture wire was inserted and a traditional 5-Russian sheath was inserted. We then placed a 0.035 floppy guidewire up into the aorta, followed by an Omni Flush catheter. We then shot an aortogram via hand injection, showing that the aorta and the iliac arteries were without any disease. We then went ahead and placed a 0.035 floppy guidewire in the left common femoral artery and our Omni Flush catheter followed. We then shot an angiogram of the left lower extremity, showing that the common femoral artery and the profunda were patent but the SFA was occluded from its origin and came back above the knee for a short segment and then the popliteal artery was complete thrombosed and the next image we could see was reconstituted TP trunk. At this point we placed our 0.035 floppy guidewire down into the profunda and Omni Flush catheter was removed and a 6 x 45 crossover sheath was placed. We then selectively cannulated into the SFA, which is when we found when the wire was going nice and smooth that this must be clot. At this point, 5000 units of IV heparin were administered to patient. We decided that we would need to open the left groin. Under ultrasound guidance, we were able to visualize the common femoral artery in the bifurcation and an incision was drawn vertically above and below that. We then went ahead and used a number 15 blade and made an 8-cm incision. Bovie electrocautery was used to control hemostasis and we were able to use Bovie electrocautery to get through all the subcutaneous tissue and get down to the femoral sheath. Femoral sheath was then dissected and we were able to dissect out the common femoral artery, the profunda, and the SFA. Vessel loops were placed around each artery. We then went ahead and got proximal and distal control and we made a transverse incision on the common femoral artery using an 11 blade. We then went ahead and placed a number 3 Luciano down to the popliteal artery and we were able to extract thrombus, which was then sent to Pathology. Three passes were made until no clot was extracted and there was good backflow in the artery. Opening the inflow, there was good flow. At this point we then went ahead and placed a short 6-Russian sheath into the left common femoral artery and shot an angiogram of the left lower extremity, showing that the SFA was not completely patent but the below-knee popliteal was thrombosed. At this point, we went ahead and placed our number 3 Luciano back and we were able to place it into the anterior tibial artery and then we pulled back and we were able to extract all the clot from the popliteal artery and the anterior tibial artery. Once that was extracted, we sent it off to Pathology. Completion angiogram now showed that the artery was open to the below-knee popliteal artery and the anterior tibial artery was stenotic at its origin. At this point, we placed a 0.035 floppy guidewire into the anterior tibial artery. We then placed a Quick-Cross catheter and exchanged for an 014 wire and then we went ahead and used a 2.5 x 220 balloon and performed angioplasty of the entire anterior tibial artery. We brought our [address] into the foot and we were able to perform angioplasty of the anterior tibial artery in the foot and going all the way up to the origin. Completion angiogram now showed that the SFA was patent, popliteal artery was patent, and the anterior tibial artery was patent all the way into the foot with a good pulse. The foot was nice and pink. At this point, we took out our sheath and our wire and we went ahead and used 6-0 Prolene double-arm and were able to close our arteriotomy in a running fashion. Once closed, the distal artery was opened 1st, then the proximal artery was opened. There was no bleeding. Surgicel was placed. The wound was well irrigated as well. A 3-0 Vicryl was used and the subcutaneous tissue was approximated in an interrupted manner and the skin was closed with skin zac. We then went ahead and brought our crossover sheath up and over and out from the right common femoral artery and StarClose device was successfully deployed there. Pressure was held for 5 minutes. After there was no bleeding, the area was wet and dried and Dermabond was placed. Patient tolerated procedure, no complication. Patient transferred to PACU in stable condition. Patient had a palpable DP pulse in the left foot and was started on IV heparin. MAXIMO SEGURA DO [id number]
[2016-11-01] MEDS ORDERED: APIXABAN 5 MG TABLET PO SCH (10:00)
== END 2016-10-26 17:33 | DRG 253 ==
LOC: JER 13:23 → JERBED 17:24 → JICU 10-23 01:15 → J4W 10-24 21:09
PROVIDERS: ADMIT Internal Medicine; ATTEND Internal Medicine
PROC: 3E05017 Introduction of Other Thrombolytic into Peripheral Artery, Open Approach (ICD-10-PCS; 2016-10-22)
PROC: B41DYZZ Fluoroscopy of Aorta and Bilateral Lower Extremity Arteries using Other Contrast (ICD-10-PCS; 2016-10-22)
PROC: B41GYZZ Fluoroscopy of Left Lower Extremity Arteries using Other Contrast (ICD-10-PCS; 2016-10-22)
PROC: 04CL0Z6 (ICD-10-PCS; principal; 2016-10-22 17:30)
PROC: [UNRECOGNIZED PROCEDURE] (2016-10-22 17:30)
DX: I74.3 Embolism and thrombosis of arteries of the lower extremities (principal); N17.9 Acute kidney failure, unspecified; I42.0 Dilated cardiomyopathy; I50.20 Unspecified systolic (congestive) heart failure; I70.201 Unspecified atherosclerosis of native arteries of extremities, right leg; I48.91 Unspecified atrial fibrillation; I11.0 Hypertensive heart disease with heart failure; K59.00 Constipation, unspecified; K21.9 Gastro-esophageal reflux disease without esophagitis; E87.5 Hyperkalemia
CPT/HCPCS: 36415; 71010-TC; 75635-TC; 76000-TC; 80048; 80053; 80061; 83036; 83721; 83735; 84100; 84443; 85025; 85027; 85610; 85730; 86850; 86900; 86901; 86922; 88304-TC; 93005; 93010; 93306-TC; 94640; 94760; 97116-GP; 97162-PG; 99285-25; J1644

== ENCOUNTER 2016-11-15 17:01 | Inpatient (IN) | payer OTHER ==
[2016-11-15 17:29] VITALS: BMI 32.3
[2016-11-15] MEDS ORDERED: SODIUM CHLORIDE 0.9% 1000 ML INFUS.BAG IV PRN (17:50)
[2016-11-15] MEDS ORDERED: ACETAMINOPHEN 500 MG TABLET (FP) PO ONE (18:05)
--- NOTE | 2016-11-15 18:05 | PDOC ---
History of Present Illness - History of Present Illness Initial Comments: 11/15/16 20:05 The patient is a 71 year old male, with a significant past medical history of hypertension and Afib (on eliquis), who presents to the emergency department via ems from [facility] for fever and chills today. The patient reports having a DVT removed from his right lower extremity 2 weeks and [address] Maximo Abbott. He denies any complaints of pain. He denies chest pain, shortness of breath, headache and dizziness. He denies nausea, vomit, diarrhea and constipation. He denies dysuria, frequency, urgency and hematuria. Allergies: NKDA PCP - Dr. Pierre <Huyen Lopez - Last Filed: 11/15/16 21:39> <Mariah Light - Last Filed: 11/16/16 22:34> - General Chief Complaint: SIRS, Suspected/Possible Stated Complaint: FEVER Time Seen by Provider: 11/15/16 17:17 Past History <Huyen Lopez - Last Filed: 11/15/16 21:39> - Past Medical History GI Disorders: Yes (ACID REFLUX) Disorders: (Gerd) HTN: Yes - Surgical History Appendectomy: Yes - Psycho/Social/Smoking Cessation Hx Anxiety: No Suicidal Ideation: No Smoking History: Never smoked Have you smoked in the past 12 months: No If you are a former smoker, when did you quit?: 21 yrs ago Hx Alcohol Use: No Drug/Substance Use Hx: No Substance Use Type: None <Mariah Light - Last Filed: 11/16/16 22:34> - Past Medical History Allergies/Adverse Reactions: Allergies Allergy/AdvReac Type Severity Reaction Status Date / Time Penicillins Allergy Verified 11/15/16 17:20 Home Medications: Ambulatory Orders Acetaminophen [Tylenol .Regular Strength -] 650 mg PO Q4H PRN #0 tablet Albuterol 2.5/Ipratropium 0.5 [Duoneb -] 1 amp NEB Q4H PRN 30 Days 10/26/16 Atorvastatin Ca [Lipitor] 40 mg PO HS 30 Days 10/26/16 Chlorthalidone [Hygroton -] 25 mg PO DAILY #30 tablet 10/26/16 Metoprolol Succinate [Toprol XL -] 50 mg PO DAILY 30 Days 10/26/16 Oxycodone HCl/Acetaminophen [Percocet 5-325 mg Tablet] 1 tab PO Q6H #20 tablet MDD 4 10/26/16 Polyethylene Glycol 3350 [Miralax 119 gm Btl -] 17 gm PO DAILY bottle 10/26/16 Ramipril [Altace] 5 mg PO DAILY capsule 10/26/16 Apixaban [Eliquis -] 10 mg PO BID 11/09/16 Review of Systems - Review of Systems Able to Perform ROS?: Yes Comments:: 11/15/16 20:05 CONSTITUTIONAL: (+) fever, chills, Absent: diaphoresis, generalized weakness, malaise, loss of appetite HEENT: Absent: rhinorrhea, nasal congestion, throat pain, throat swelling, difficulty swallowing, mouth swelling, ear pain, eye pain, visual Changes CARDIOVASCULAR: Absent: chest pain, syncope, palpitations, irregular heart rate, lightheadedness , peripheral edema RESPIRATORY: Absent: cough, shortness of breath, dyspnea with exertion, orthopnea, wheezing, stridor, hemoptysis GASTROINTESTINAL: Absent: abdominal pain, abdominal distension, nausea, vomiting, diarrhea, constipation, melena, hematochezia GENITOURINARY: Absent: dysuria, frequency, urgency, hesitancy, hematuria, flank pain, genital pain MUSCULOSKELETAL: Absent: myalgia, arthralgia, joint swelling SKIN: Absent: rash, itching, pallor HEMATOLOGIC/IMMUNOLOGIC: Absent: easy bleeding, easy bruising, lymphadenopathy, frequent infections ENDOCRINE: Absent: unexplained weight gain, unexplained weight loss, heat intolerance, cold intolerance NEUROLOGIC: Absent: headache, focal weakness or paresthesias, dizziness, unsteady gait, seizure, mental status changes, bladder or bowel incontinence PSYCHIATRIC: Absent: anxiety, depression, suicidal or homicidal ideation, hallucinations. <Huyen Lopez - Last Filed: 11/15/16 21:39> *Physical Exam - Vital Signs Last Vital Signs Temp Pulse Resp BP Pulse Ox 101.1 F H 96 H 20 138/65 96 11/15/16 17:20 11/15/16 17:20 11/15/16 17:20 11/15/16 17:20 11/15/16 17:20 - Physical Exam Comments: 11/15/16 20:06 GENERAL: Well developed, well nourished. Awake and alert. No acute distress. HEENT: Normocephalic, atraumatic. PERRLA, EOMI. No conjunctival pallor. Sclera are non- icteric. Moist mucous membranes. Oropharynx is clear. NECK: Supple. Full ROM. No JVD. Carotid pulses 2+ and symmetric, without bruits. No thyromegaly. No lymphadenopathy. CARDIOVASCULAR: Regular rate and rhythm. No murmurs, rubs, or gallops. Distal pulses are 2+ and symmetric. PULMONARY: No evidence of respiratory distress. Lungs clear to auscultation bilaterally. No wheezing, rales or rhonchi. ABDOMINAL: (+) reducible umbilical hernia. Soft. Non-tender. Non-distended. No rebound or guarding. No organomegaly. Normoactive bowel sounds. MUSCULOSKELETAL Normal range of motion at all joints. No bony deformities or tenderness. No CVA tenderness. EXTREMITIES: (+) left upper thigh 10 cm incision is erythematous. no drainage. No cyanosis. No clubbing. No edema. No calf tenderness. SKIN: Warm and dry. Normal capillary refill. No rashes. No jaundice. NEUROLOGICAL: Alert, awake, appropriate. Cranial nerves 2-12 intact. Normoreflexic in the upper and lower extremities. Normal speech. Toes are down-going bilaterally. PSYCHIATRIC: Cooperative. Good eye contact. Appropriate mood and affect. <Huyen Lopez - Last Filed: 11/15/16 21:39> - Vital Signs Last Vital Signs Temp Pulse Resp BP Pulse Ox 101.1 F H 96 H 20 138/65 96 11/15/16 17:20 11/15/16 17:20 11/15/16 17:20 11/15/16 17:20 11/15/16 17:20 <Mariah Light - Last Filed: 11/16/16 22:34> ED Treatment Course - LABORATORY CBC & Chemistry Diagram: 11/15/16 18:19 11/15/16 18:19 - ADDITIONAL ORDERS Additional order review: Laboratory Results 11/15/16 11/15/16 11/15/16 18:40 18:19 18:19 INR PTT (Actin FS) VBG pH 7.38 POC VBG pCO2 51.7 POC VBG pO2 27.4 L Mixed VBG HCO3 29.6 H Sodium 137 Potassium 4.1 Chloride 98 Carbon Dioxide 31 Anion Gap 8 BUN 23 H D Creatinine 1.0 Creat Clearance w eGFR > 60 Random Glucose 92 D Lactic Acid 0.820 Calcium 8.9 Total Bilirubin 0.6 D AST 28 D ALT 36 Alkaline Phosphatase 92 Creatine Kinase 55 Troponin I < 0.02 Total Protein 7.1 Albumin 3.7 11/15/16 18:19 INR 1.42 H PTT (Actin FS) 38.4 H VBG pH POC VBG pCO2 POC VBG pO2 Mixed VBG HCO3 Sodium Potassium Chloride Carbon Dioxide Anion Gap BUN Creatinine Creat Clearance w eGFR Random Glucose Lactic Acid Calcium Total Bilirubin AST ALT Alkaline Phosphatase Creatine Kinase Troponin I Total Protein Albumin 11/15/16 16:40 Influenza Types A,B Antigen (SAMI) - Final Nasopharyngeal Swab - Final 11/15/16 18:19 RBC 4.93 D MCV 86.2 MCHC 33.5 RDW 15.0 MPV 8.5 Neutrophils % 87.2 H Lymphocytes % 7.1 L D Monocytes % 4.5 Eosinophils % 1.0 D Basophils % 0.2 - Medications Given in the ED: ED Medications Discontinued Medications Generic Name Dose Route Start Last Admin Trade Name Freq PRN Reason Stop Dose Admin Acetaminophen 975 mg 11/15/16 18:05 11/15/16 18:49 Tylenol - PO 11/15/16 18:06 975 mg ONCE ONE Administration <Huyen Lopez - Last Filed: 11/15/16 21:39> - LABORATORY CBC & Chemistry Diagram: 11/16/16 06:35 11/16/16 06:35 - RADIOLOGY Radiology Studies Ordered: Category Date Time Status CHEST X-RAY PORTABLE* [RAD] Stat Radiology 11/15/16 17:50 Ordered <Mariah Light - Last Filed: 11/16/16 22:34> Medical Decision Making - Medical Decision Making 11/15/16 21:40 Dr. Maximo Abbott was called at this time and the patient's case was discussed. <Huyen Lopez - Last Filed: 11/15/16 21:39> - Medical Decision Making 11/16/16 22:30 71 yo male BIBA for fever -pt had a left leg throbectomy by Dr Abbott -cxr no infiltrates -ua negative -spoke w Ashlyn and he agreed to vanco IV and pt admitted to med/surg <Mariah Light - Last Filed: 11/16/16 22:34> *DC/Admit/Observation/Transfer - Attestations Scribe Attestion: 11/15/16 20:06 Documentation prepared by Huyen Lopez, acting as medical director/head team physician for Mariah Light MD <Huyen Lopez - Last Filed: 11/15/16 21:39> - Discharge Dispostion Admit: Yes <Mariah Light - Last Filed: 11/16/16 22:34> Diagnosis at time of Disposition: Wound infection Fever Qualifiers: Fever type: due to other condition Qualified Code(s): R50.81 - Fever presenting with conditions classified elsewhere - Referrals
[2016-11-15] MEDS ORDERED: ACETAMINOPHEN 325 MG TABLET (FP) ONE (18:40)
[2016-11-15 18:47] LABS: BASOPHIL 0.2 % (0-2.0); MCH 28.8 pg (25.7-33.7); MCHC 33.5 g/dl (32.0-35.9); MEAN CELL VOLUME 86.2 fl (80-96); MEAN PLT VOLUME 8.5 fl (7.5-11.1); NEUTROPHILS 87.2 % (42.8-82.8); PLATELET COUNT 186 K/MM3 (134-434); WHITE BLOOD COUNT 12.6 K/mm3 (4.0-10.0)
[2016-11-15 18:47] LABS: VENOUS PH 7.38 (7.32-7.42)
[2016-11-15 18:49] LABS: VENOUS BLOOD GAS HCO3 29.6 meq/L (19-25)
[2016-11-15 19:12] LABS: INR 1.42 (0.82-1.09); PROTHROMBIN TIME (PATIENT) 15.7 SEC (9.98-11.88)
[2016-11-15 19:15] LABS: ACTIVATED PTT 38.4 SECONDS (26.9-34.4)
[2016-11-15 19:38] LABS: ALBUMIN 3.7 g/dl (3.4-5.0); ALK PHOS 92 U/L (45-117); ANION GAP 8 (8-16); BILIRUBIN,TOTAL 0.6 mg/dL (0.2-1.0); CALCIUM 8.9 mg/dL (8.5-10.1); CO2 31 mmol/L (21-32); GLUCOSE,RANDOM 92 mg/dL (74-106); SGOT/AST 28 U/L (15-37); SGPT/ALT 36 U/L (12-78)
[2016-11-15 19:39] LABS: TOT PROT 7.1 g/dl (6.4-8.2); TROPONIN I < 0.02 ng/ml (0.00-0.05)
[2016-11-15 21:14] LABS: URINE APPEARANCE CLEAR; URINE BILIRUBIN NEGATIVE (NEGATIVE); URINE BLOOD NEGATIVE (NEGATIVE); URINE COLOR LTYELLOW; URINE GLUCOSE (UA) NEGATIVE (NEGATIVE); URINE KETONE NEGATIVE (NEGATIVE); URINE LEUK ESTERASE NEGATIVE (NEGATIVE); URINE NITRITE NEGATIVE (NEGATIVE); URINE PROTEIN NEGATIVE (NEGATIVE); URINE UROBILINOGEN NEGATIVE E.U./dl (0.2-1.0)
[2016-11-15] MEDS ORDERED: VANCOMYCIN 1,000 MG in DEXTROSE 5%-WATER - 250 ML IVPB ONE (21:41)
--- NOTE | 2016-11-15 21:43 | PN ---
<Barby Reno - Last Filed: 11/15/16 21:42> Teaching Attending Note Name of Resident: Rashaad Abbott ATTENDING PHYSICIAN STATEMENT I saw and evaluated the patient. I reviewed the resident's note and discussed the case with the resident. I agree with the resident's findings and plan as documented. SUBJECTIVE: OBJECTIVE: ASSESSMENT AND PLAN: <Esvin Kaurke - Last Filed: 11/15/16 23:08> Teaching Attending Note ATTENDING PHYSICIAN STATEMENT I saw and evaluated the patient. I reviewed the resident's note and discussed the case with the resident. I agree with the resident's findings and plan as documented. SUBJECTIVE: SUBJECTIVE: The patient is a 71 year old male, with a past medical history of EtOH abuse, hypertension, Afib, and recent hospitalization with left superficial femoral artery thrombosis s/p aortogram/angioplasty/thrombectomy who presented with fever, chills, and shakes for 6 hours. The patient also reported that today at approximately 1 a.m. he woke up and felt a wetness. The patient stated when he investigated the wetness he saw it was coming from his left thigh wound (s/p surgery). The patient noted that his left thigh wound has increased erythema. PCP: Dr. Pierre [phone] OBJECTIVE: Vital Signs: Last Vital Signs Temp Pulse Resp BP Pulse Ox 100.5 F H 86 20 143/80 95 11/15/16 21:18 11/15/16 21:18 11/15/16 21:18 11/15/16 21:18 11/15/16 21:18 Physical Exam: Physical Exam: GEN: NAD HEENT: NCAT, PERRL CARD: RRR, S1 S2 RESP: CTAB ABD: NT, BWS x4 EXT: - (+) Left upper thigh 5x4 cm erythematous indurated lesion with surrounding erythema with white pureline drainage from 1 mm wound Labs: CBCD WBC 12.6 K/mm3 (4.0-10.0) H D 11/15/16 18:19 RBC 4.93 M/mm3 (4.00-5.60) D 11/15/16 18:19 Hgb 14.2 GM/dL (11.7-16.9) D 11/15/16 18:19 Hct 42.5 % (35.4-49) D 11/15/16 18:19 MCV 86.2 fl (80-96) 11/15/16 18:19 MCHC 33.5 g/dl (32.0-35.9) 11/15/16 18:19 RDW 15.0 % (11.9-15.9) 11/15/16 18:19 Plt Count 186 K/MM3 (134-434) 11/15/16 18:19 MPV 8.5 fl (7.5-11.1) 11/15/16 18:19 CMP Sodium 137 mmol/L (136-145) 11/15/16 18:19 Potassium 4.1 mmol/L (3.5-5.1) 11/15/16 18:19 Chloride 98 mmol/L (98-107) 11/15/16 18:19 Carbon Dioxide 31 mmol/L (21-32) 11/15/16 18:19 Anion Gap 8 (8-16) 11/15/16 18:19 BUN 23 mg/dL (7-18) H D 11/15/16 18:19 Creatinine 1.0 mg/dL (0.7-1.3) 11/15/16 18:19 Creat Clearance w eGFR > 60 (>60) 11/15/16 18:19 Calcium 8.9 mg/dL (8.5-10.1) 11/15/16 18:19 Total Bilirubin 0.6 mg/dL (0.2-1.0) D 11/15/16 18:19 AST 28 U/L (15-37) D 11/15/16 18:19 ALT 36 U/L (12-78) 11/15/16 18:19 Alkaline Phosphatase 92 U/L (45-117) 11/15/16 18:19 Total Protein 7.1 g/dl (6.4-8.2) 11/15/16 18:19 Albumin 3.7 g/dl (3.4-5.0) 11/15/16 18:19 Imagin. CXR IMPRESSION: No official read. No acute finding. ASSESSMENT AND PLAN: The patient is a 71 year old male, with a past medical history of EtOH abuse, hypertension, Afib, and recent hospitalization with left superficial thrombosis s/p aortogram/angioplasty/thrombectomy who presented today with fever and chills found to be septic. 1. Sepsis - Most likely second to left leg cellulitis. -Since recent hospitalization start Vancomycin, Aztreonam, and flagyl -Left lower extremity CT to evaluate for abscess -ID consult -Blood cultures -IVF gentil -Repeat lactic acid -Vascular surgery consult for wound 2. AFIB -Continue Eliquis -Continue Toprol XL 3. HTN -Continue home medications 4. HLD -Continue home medications 5. DVT PPX -On Eliquis Admit to med surg. Documentation prepared by Philip Kaur, acting as medical accounts receivable specialist for Dr. Barby Reno MD.
[2016-11-15] MEDS ORDERED: IBUPROFEN 600 MG TABLET (FP) PO ONE ×2 (21:49→22:04)
[2016-11-15] MEDS ORDERED: CEFTRIAXONE 1 GM in DEXTROSE 5%-WATER - 50 ML IVPB ONE (22:38)
[2016-11-15] MEDS ORDERED: AZTREONAM 1 GM in DEXTROSE 5%-WATER - 50 ML IVPB ONE (23:06)
[2016-11-15] MEDS ORDERED: ALBUTEROL SO4 2.5/IPRATROPIUM 0.5 INH SOL 3 ML VIAL.NEB. NEB PRN (23:32)
--- NOTE | 2016-11-15 23:43 | HP ---
CHIEF COMPLAINT: shakes since 4pm PCP: Dr. Mariee HISTORY OF PRESENT ILLNESS: 71 y/o M w/PMH of HTN and A-fib (recently diagnosed, on eliquis) presents to the ER from [facility] for c/o shakes since this afternoon. Pt states that shakes are coming intermittently and he has chills intermittently as well. He recently had thrombectomy here for left superficial femoral artery thrombosis on 10/22/16. Pt had the zac removed from surgical incision site one week ago by Dr. Abbott. He states he noticed clear drainage from the incisional site yesterday night. He denies N/V/F, abd pain, diarrhea, CP, palpitations, SOB, new onset cough, dysuria. ER course was notable for: (1) Vanco, CXR (2) (3) PAST MEDICAL HISTORY: HTN, Afib PAST SURGICAL HISTORY: thrombectomy 10/22/16 Social History: Smoking: quit 25 years ago Alcohol: quit 22 years ago Drugs: denies Family History: Mother of stroke at age 85; Father of stroke at age 71 Allergies Penicillins Allergy (Verified 11/15/16 17:20) - CHILDHOOD ALLERGY HOME MEDICATIONS: Home Medications Medication Instructions Recorded Acetaminophen [Tylenol .Regular 650 mg PO Q4H PRN #0 tablet 10/26/16 Strength -] Albuterol 2.5/Ipratropium 0.5 1 amp NEB Q4H PRN 30 Days 10/26/16 [Duoneb -] Atorvastatin Ca [Lipitor] 40 mg PO HS 30 Days 10/26/16 Chlorthalidone [Hygroton -] 25 mg PO DAILY #30 tablet 10/26/16 Metoprolol Succinate [Toprol XL -] 50 mg PO DAILY 30 Days 10/26/16 Oxycodone HCl/Acetaminophen 1 tab PO Q6H #20 tablet MDD 4 10/26/16 [Percocet 5-325 mg Tablet] Polyethylene Glycol 3350 [Miralax 17 gm PO DAILY bottle 10/26/16 119 gm Btl -] Ramipril [Altace] 5 mg PO DAILY capsule 10/26/16 Apixaban [Eliquis -] 10 mg PO BID 11/09/16 REVIEW OF SYSTEMS CONSTITUTIONAL: chills, rigors Absent: fever, diaphoresis, generalized weakness, malaise, loss of appetite, weight change HEENT: Absent: rhinorrhea, nasal congestion, throat pain, throat swelling, difficulty swallowing, mouth swelling, ear pain, eye pain, visual changes CARDIOVASCULAR: Absent: chest pain, syncope, palpitations, irregular heart rate, lightheadedness , peripheral edema RESPIRATORY: Absent: cough, shortness of breath, dyspnea with exertion, orthopnea, wheezing, stridor, hemoptysis GASTROINTESTINAL: Absent: abdominal pain, abdominal distension, nausea, vomiting, diarrhea, constipation, melena, hematochezia GENITOURINARY: Absent: dysuria, frequency, urgency, hesitancy, hematuria, flank pain, genital pain MUSCULOSKELETAL: Absent: myalgia, arthralgia, joint swelling, back pain, neck pain SKIN: Absent: rash, itching, pallor HEMATOLOGIC/IMMUNOLOGIC: Absent: easy bleeding, easy bruising, lymphadenopathy, frequent infections ENDOCRINE: Absent: unexplained weight gain, unexplained weight loss, heat intolerance, cold intolerance NEUROLOGIC: Absent: headache, focal weakness or paresthesias, dizziness, unsteady gait, seizure, mental status changes, bladder or bowel incontinence PSYCHIATRIC: Absent: anxiety, depression, suicidal or homicidal ideation, hallucinations. PHYSICAL EXAMINATION Vital Signs - 24 hr 11/15/16 11/15/16 17:20 21:18 Temperature 101.1 F H 100.5 F H Pulse Rate 96 H Pulse Rate [ 86 Apical] Respiratory 20 20 Rate Blood Pressure 138/65 Blood Pressure 143/80 [Right Arm] O2 Sat by Pulse 96 95 Oximetry (%) GENERAL: Awake, alert, and fully oriented, in no acute distress. HEAD: Normal with no signs of trauma. EYES: Pupils equal, round and reactive to light, extraocular movements intact, sclera anicteric, conjunctiva clear. No lid lag. EARS, NOSE, THROAT: Ears normal, nares patent. Moist mucous membranes. NECK: Normal range of motion, supple without lymphadenopathy LUNGS: Breath sounds equal, clear to auscultation bilaterally. No wheezes, and no crackles. No accessory muscle use. HEART: Tachycardic, Irregularly irregular, S1 S2 ABDOMEN: Soft, nontender, not distended, normoactive bowel sounds, no guarding, no rebound, no masses. LOWER EXTREMITIES: warm to touch, well-perfused. No calf tenderness. No peripheral edema. L inguinal area - surgical scar with approx 2cm opening with some pus drainage with surrounding erythema and induration at base of surgical scar. NEUROLOGICAL: Normal speech. Gait not observed. PSYCHIATRIC: Cooperative. Good eye contact. Appropriate mood and affect. SKIN: Warm, dry, normal turgor, L inguinal area - surgical scar with approx 2cm opening with some pus drainage with surrounding erythema and induration at base of surgical scar. Laboratory Results - last 24 hr 11/15/16 11/15/16 11/15/16 18:19 18:19 18:19 WBC 12.6 H D RBC 4.93 D Hgb 14.2 D Hct 42.5 D MCV 86.2 MCHC 33.5 RDW 15.0 Plt Count 186 MPV 8.5 Neutrophils % 87.2 H Lymphocytes % 7.1 L D Monocytes % 4.5 Eosinophils % 1.0 D Basophils % 0.2 INR 1.42 H PTT (Actin FS) 38.4 H VBG pH POC VBG pCO2 POC VBG pO2 Mixed VBG HCO3 Sodium 137 Potassium 4.1 Chloride 98 Carbon Dioxide 31 Anion Gap 8 BUN 23 H D Creatinine 1.0 Creat Clearance w eGFR > 60 Random Glucose 92 D Lactic Acid Calcium 8.9 Total Bilirubin 0.6 D AST 28 D ALT 36 Alkaline Phosphatase 92 Creatine Kinase 55 Troponin I < 0.02 Total Protein 7.1 Albumin 3.7 Urine Color Urine Appearance Urine pH Ur Specific [place] Urine Protein Urine Glucose (UA) Urine Ketones Urine Blood Urine Nitrite Urine Bilirubin Urine Urobilinogen Ur Leukocyte Esterase Blood Type Antibody Screen 11/15/16 11/15/16 11/15/16 18:19 18:19 18:40 WBC RBC Hgb Hct MCV MCHC RDW Plt Count MPV Neutrophils % Lymphocytes % Monocytes % Eosinophils % Basophils % INR PTT (Actin FS) VBG pH 7.38 POC VBG pCO2 51.7 POC VBG pO2 27.4 L Mixed VBG HCO3 29.6 H Sodium Potassium Chloride Carbon Dioxide Anion Gap BUN Creatinine Creat Clearance w eGFR Random Glucose Lactic Acid 0.820 Calcium Total Bilirubin AST ALT Alkaline Phosphatase Creatine Kinase Troponin I Total Protein Albumin Urine Color Urine Appearance Urine pH Ur Specific [place] Urine Protein Urine Glucose (UA) Urine Ketones Urine Blood Urine Nitrite Urine Bilirubin Urine Urobilinogen Ur Leukocyte Esterase Blood Type O POSITIVE Antibody Screen Negative 11/15/16 20:50 WBC RBC Hgb Hct MCV MCHC RDW Plt Count MPV Neutrophils % Lymphocytes % Monocytes % Eosinophils % Basophils % INR PTT (Actin FS) VBG pH POC VBG pCO2 POC VBG pO2 Mixed VBG HCO3 Sodium Potassium Chloride Carbon Dioxide Anion Gap BUN Creatinine Creat Clearance w eGFR Random Glucose Lactic Acid Calcium Total Bilirubin AST ALT Alkaline Phosphatase Creatine Kinase Troponin I Total Protein Albumin Urine Color Ltyellow Urine Appearance Clear Urine pH 6.0 Ur Specific [place] 1.015 Urine Protein Negative Urine Glucose (UA) Negative Urine Ketones Negative Urine Blood Negative Urine Nitrite Negative Urine Bilirubin Negative Urine Urobilinogen Negative Ur Leukocyte Esterase Negative Blood Type Antibody Screen Imaging: CXR: 11/15/16: Pending official read. According to my read: cardiomegaly, mild congestive changes, no acute pathology noted, cxr looks to have no sig change from CXR on 10/22/16. Active Medications Acetaminophen (Tylenol -) 650 mg PO Q6H PRN PRN Reason: FEVER OR PAIN Albuterol/Ipratropium (Duoneb -) 1 amp NEB Q4H PRN PRN Reason: SHORTNESS OF BREATH Atorvastatin Calcium (Lipitor -) 40 mg PO HS MAXIMINO Metronidazole (Flagyl 500mg Premixed Ivpb -) 100 mls @ 100 mls/hr IVPB Q8H-IV MAXIMINO Sodium Chloride (Normal Saline -) 1,000 mls @ 75 mls/hr IV ASDIR MAXIMINO Metoprolol Succinate (Toprol Xl -) 50 mg PO DAILY MAXIMINO Polyethylene Glycol (Miralax (For Daily Use) -) 17 gm PO DAILY MAXIMINO Sodium Chloride (Normal Saline -) 500 ml IV Q20M PRN PRN Reason: MAP<65mm Hg OR SBP <90 ASSESSMENT/PLAN: 71 y/o M with PMH of HTN and A-fib presents to the ER with c/o rigors and chills. Admitted for sepsis secondary to cellulitis from surgical wound. -Sepsis secondary to cellulitis from surgical wound (L inguinal area) -fever (tmax 101.1), tachy, chills, wbc elevated, source of infection identified -c/w vanco, aztreonam 1g, flagyl iv 500 q8h -received vanco x1 in ER -NS @ 75 ml/hr - has left atrial dilation, possible dCHF, will hydrate gently , monitor for signs of fluid overload/congestion -tylenol 650 mg q6h prn for fever/pain -CT of L upper groin to check for abscesses -trend lactic acid -f/u BCx, UCx; flu negative -ID consulted (Dr. Evangelista) -Vascular Surgery consulted (Dr. Natalie Abbott) -A-fib -c/w eliquis 5 mg bid -c/w toprol xl 50 mg qd -HTN -will hold htn meds at this time in light of sepsis, reassess in AM to see if they are needed -CAD -c/w atorvastatin 40 mg qhs -Constipation -c/w miralax qd -DVT ppx -on eliquis 5mg bid -FEN -Gentle fluid hydration w/ NS @ 75 ml/hr -electrolytes wnl -Sodium controlled diet -Dispo: -Admit to med/surg for sepsis Problem List - Problem (1) Abnormal EKG Code(s): R94.31 - ABNORMAL ELECTROCARDIOGRAM [ECG] [EKG] (2) Fever Code(s): R50.9 - FEVER, UNSPECIFIED Qualifiers: Fever type: due to other condition Qualified Code(s): R50.81 - Fever presenting with conditions classified elsewhere (3) Wound infection Code(s): T14.8 - OTHER INJURY OF UNSPECIFIED BODY REGION L08.9 - LOCAL INFECTION OF THE SKIN AND SUBCUTANEOUS TISSUE, UNSP (4) Atrial fibrillation Code(s): I48.91 - UNSPECIFIED ATRIAL FIBRILLATION Qualifiers: Atrial fibrillation type: unspecified Qualified Code(s): I48.91 - Unspecified atrial fibrillation (5) Hypertension Code(s): I10 - ESSENTIAL (PRIMARY) HYPERTENSION (6) Sepsis Code(s): A41.9 - SEPSIS, UNSPECIFIED ORGANISM (7) Cellulitis Code(s): L03.90 - CELLULITIS, UNSPECIFIED (8) Constipation Code(s): K59.00 - CONSTIPATION, UNSPECIFIED Visit type - Emergency Visit Emergency Visit: Yes ED Registration Date: 11/15/16 Care time: The patient presented to the Emergency Department on the above date and was hospitalized for further evaluation of their emergent condition. - New Patient This patient is new to me today: Yes Date on this admission: 11/16/16 - Critical Care Critical Care patient: No
[2016-11-16] MEDS ORDERED: VANCOMYCIN 1 GRAM (PRE-DOCKED) 250 ML IVPB ONE (01:19)
[2016-11-16] MEDS: APIXABAN 5 MG TABLET PO SCH ×2 (02:24→11:13)
[2016-11-16] MEDS: SODIUM CHLORIDE 1,000 ML IV SCH ×2 (03:46→16:38)
[2016-11-16 07:32] LABS: BASOPHIL 0.2 % (0-2.0); EOSINOPHIL 0.7 % (0-4.5); MCH 28.9 pg (25.7-33.7); MCHC 33.1 g/dl (32.0-35.9); MEAN CELL VOLUME 87.3 fl (80-96); MEAN PLT VOLUME 8.8 fl (7.5-11.1); NEUTROPHILS 85.1 % (42.8-82.8); PLATELET COUNT 146 K/MM3 (134-434); RDW 15.6 % (11.9-15.9); WHITE BLOOD COUNT 13.6 K/mm3 (4.0-10.0)
--- NOTE | 2016-11-16 07:40 | PN ---
Physical Exam: SUBJECTIVE: Patient seen and examined at bedside. OBJECTIVE: Vital Signs Period Temp Pulse Resp BP Sys/Tamayo Pulse Ox Last 24 Hr 98.8 F-98.8 F 60-84 17-20 141/76 97-99 GENERAL: The patient is awake, alert, and fully oriented, in no acute distress. HEAD: Normal with no signs of trauma. EYES: PERRL, extraocular movements intact, sclera anicteric, conjunctiva clear. No ptosis. LUNGS: Breath sounds equal, clear to auscultation bilaterally, no wheezes, no crackles, no accessory muscle use. HEART: Regular rate and rhythm, S1, S2 without murmur, rub or gallop. ABDOMEN: Soft, nontender, nondistended, normoactive bowel sounds, no guarding, no rebound LEFT LOWER EXTREMITY: upper thigh surgical incision 1.5cm dehiscence, large area of erythema, no drainage NEUROLOGICAL: Cranial nerves II through XII grossly intact. Normal speech, gait not observed. Current Medications Generic Name Dose Route Start Last Admin Trade Name Freq PRN Reason Stop Dose Admin Acetaminophen 650 mg 11/15/16 23:29 Tylenol - PO Q6H PRN FEVER OR PAIN Albuterol/Ipratropium 1 amp 11/15/16 23:32 Duoneb - NEB Q4H PRN SHORTNESS OF BREATH Apixaban 5 mg 11/15/16 23:45 11/16/16 11:13 Eliquis - PO 5 mg BID MAXIMINO Administration Atorvastatin Calcium 40 mg 11/16/16 22:00 Lipitor - PO HS MAXIMINO Metronidazole 100 mls @ 100 mls/hr 11/16/16 23:07 Flagyl 500mg Premixed Ivpb - IVPB Q8H-IV MAXIMINO Sodium Chloride 1,000 mls @ 75 mls/hr 11/15/16 23:30 11/16/16 16:38 Normal Saline - IV 75 mls/hr ASDIR MAXIMINO Administration Aztreonam 1 gm/ Dextrose 50 mls @ 100 mls/hr 11/16/16 18:00 IVPB Q8H-IV MAXIMINO Protocol Vancomycin HCl 1,250 mg/ 250 mls @ 125 mls/hr 11/17/16 01:00 Dextrose IVPB DAILY@0100 MAXIMINO Protocol Metoprolol Succinate 50 mg 11/16/16 10:00 11/16/16 11:14 Toprol Xl - PO 50 mg DAILY MAXIMINO Administration Polyethylene Glycol 17 gm 11/16/16 10:00 11/16/16 11:13 Miralax (For Daily Use) - PO 17 mg DAILY MAXIMINO Administration Imaging CT LLE: 10 x 7.7 x 5.7 cm fluid collection within the left upper thigh ventrally , seroma v lymphocele v abscess; several small pockets of air/gas within the fluid collection; concentric subq edema along the length of the left leg principally laterally ASSESSMENT/PLAN: 71 year-old male with a PMH of HTN, afib, PAD, mild systolic cardiomyopathy, GERD, and 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 Admitted for sepsis secondary to left thigh cellulitis from surgical wound. Sepsis secondary to left thigh cellulitis --Tm 101.1, WBC 13.6k, surgical wound dehiscence, 10 x 7.7 x 5.7 fluid collection left upper thigh with small pockets of air/gas within the fluid collection --likely will require aspiration by IR, order entered --aztreonam (day #1), vanc (day #1), metronidazole (day #1) --lactic acid wnl x 2 --cultures pending --ID following --surgery following Atrial fibrillation --rate well-controlled, continue Toprol XL --stop Eliquis, last dose given at 11:15am today; start heparin drip at 11: 15pm tonight, orders entered Systolic heart failure, chronic --10/25/16 echo: LV moderately dilated, function moderately reduced, moderate global hypokinesis; RV normal; moderate LAE; mild MR; moderate TR, mild pHTN; trace to mild PI; HTN --normotensive now --hold lisinopril and chlorthalidone for now due to sepsis, continue metoprolol for rate control F/E/N Fluids: keep NS @ 75mL/hr overnight, re-evaluate in am Electrolytes: replete as indicated Nutrition: low fat, low sodium DVT prophylaxis: last dose Eliquis this morning, start heparin drip tonight Dispo: continues to require inpatient care. Full Code. Visit type - Emergency Visit Emergency Visit: Yes ED Registration Date: 11/15/16 Care time: The patient presented to the Emergency Department on the above date and was hospitalized for further evaluation of their emergent condition. - New Patient This patient is new to me today: Yes Date on this admission: 11/16/16 - Critical Care Critical Care patient: No
[2016-11-16 07:56] LABS: ALBUMIN 3.2 g/dl (3.4-5.0); ANION GAP 9 (8-16); CALCIUM 8.6 mg/dL (8.5-10.1); CO2 29 mmol/L (21-32); GLUCOSE,RANDOM 99 mg/dL (74-106)
[2016-11-16 08:02] LABS: ALK PHOS 74 U/L (45-117); BILIRUBIN,TOTAL 1.6 mg/dL (0.2-1.0); SGOT/AST 22 U/L (15-37); SGPT/ALT 28 U/L (12-78); TOT PROT 6.2 g/dl (6.4-8.2)
[2016-11-16] MEDS: POLYETHYLENE GLYCOL 3350 119 GM BTL PO SCH (11:13)
[2016-11-16] MEDS: METOPROLOL SUCCINATE 50 MG TAB.SR.24H (FP) PO SCH (11:14)
--- NOTE | 2016-11-16 11:30 | PN ---
Progress Note (short form) - Note Progress Note: Vascular Surgery Pt seen and examined in ER Left foot is warm, pink. Palpable PT pulse. Pt on eliquis for afib. Left groin with small open wound from incision site. There is a cellulitis there as well. Pt needs IV antibiotics for cellulitis -- pt having fever and chills. Could not express any seroma, or hematoma from site. Will watch on iv antibiotics. Maximo Abbott DO
--- NOTE | 2016-11-16 12:04 | EKG ---
Test Reason : Blood Pressure : / mmHG Vent. Rate : 076 BPM Atrial Rate : 092 BPM P-R Int : 000 ms QRS Dur : 104 ms QT Int : 360 ms P-R-T Axes : 000 020 216 degrees QTc Int : 405 ms ATRIAL FIBRILLATION ABNORMAL ECG WHEN COMPARED WITH ECG OF 22-OCT-2016 14:20, T WAVE INVERSION NOW EVIDENT IN LATERAL LEADS Confirmed by ROBERTO BENTON MD ([id number]) on 11/16/2016 12:03:46 PM Referred By: Confirmed By:ROBERTO BENTON MD
--- NOTE | 2016-11-16 15:35 | CONSULT ---
Consult Consult Specialty:: infectious diseases Reason for Consultation:: cellulitis of the left thigh at the operated site - History of Present Illness Chief Complaint: pain swelling and pus drainaing from the wound site History of Present Illness: 71 y/o M w/PMH of HTN and A-fib (recently diagnosed, on eliquis) admitted to the hospital was admitted because of shakes. Patient was in the [place] [facility] and was send from there. Patient recently had thrombectomy and was doing well. According to the patient 2 days back he had lot pus drainage patient was brought here then vascular surgery has evaluated the patient currently patient has swelling and erythema at the operated site ,currently patient has no drainage but the site where the wound drained can be seen - History Source History Provided By: Patient, Family Member Limitations to Obtaining History: No Limitations - Past Medical History Cardio/Vascular: Yes: AFIB (New onset), HTN, Hyperlipdemia, Other (PAD) Gastrointestinal: Yes: GERD - Past Surgical History Past Surgical History: Yes: Appendectomy, Tonsillectomy, Vein Stripping/Ligation - Alcohol/Substance Use Hx Alcohol Use: No History of Substance Use: reports: None - Smoking History Smoking history: Never smoked Have you smoked in the past 12 months: No If you are a former smoker, when did you quit?: 21 yrs ago - Social History ADL: Independent History of Recent Travel: No Home Medications - Allergies Allergies/Adverse Reactions: Allergies Allergy/AdvReac Type Severity Reaction Status Date / Time Penicillins Allergy Verified 11/15/16 17:20 - Home Medications Home Medications: Ambulatory Orders Acetaminophen [Tylenol .Regular Strength -] 650 mg PO Q4H PRN #0 tablet Albuterol 2.5/Ipratropium 0.5 [Duoneb -] 1 amp NEB Q4H PRN 30 Days 10/26/16 Atorvastatin Ca [Lipitor] 40 mg PO HS 30 Days 10/26/16 Chlorthalidone [Hygroton -] 25 mg PO DAILY #30 tablet 10/26/16 Metoprolol Succinate [Toprol XL -] 50 mg PO DAILY 30 Days 10/26/16 Oxycodone HCl/Acetaminophen [Percocet 5-325 mg Tablet] 1 tab PO Q6H #20 tablet MDD 4 10/26/16 Polyethylene Glycol 3350 [Miralax 119 gm Btl -] 17 gm PO DAILY bottle 10/26/16 Ramipril [Altace] 5 mg PO DAILY capsule 10/26/16 Apixaban [Eliquis -] 10 mg PO BID 11/09/16 Review of Systems - Review of Systems Constitutional: reports: Chills, Other Eyes: reports: No Symptoms HENT: reports: No Symptoms Neck: reports: No Symptoms Cardiovascular: reports: No Symptoms Respiratory: reports: No Symptoms Gastrointestinal: reports: No Symptoms Musculoskeletal: reports: Muscle Pain, Other Integumentary: reports: Erythema, Wound, Other Neurological: reports: No Symptoms Endocrine: reports: No Symptoms Hematology/Lymphatic: reports: No Symptoms Psychiatric: reports: No Symptoms Physical Exam Vital Signs: Vital Signs Temperature 98.8 F 11/16/16 02:37 Pulse Rate 60 11/16/16 02:37 Respiratory Rate 17 11/16/16 02:37 Blood Pressure 141/76 11/15/16 23:38 O2 Sat by Pulse Oximetry (%) 99 11/16/16 03:01 Constitutional: Yes: Well Nourished, No Distress, Calm Eyes: Yes: Conjunctiva Clear HENT: Yes: Atraumatic Neck: Yes: Supple, Trachea Midline Cardiovascular: Yes: Regular Rate and Rhythm Respiratory: Yes: Regular, CTA Bilaterally Gastrointestinal: Yes: Normal Bowel Sounds, Soft Musculoskeletal: Yes: Joint Swelling Extremities: Yes: Erythema, Other ( L inguinal area - surgical scar with approx 2cm opening with surrounding erythema and induration at base of surgical scar.) Integumentary: Yes: Erythema, Other Wound/Incision: Yes: Clean/Dry, Open to air, Other Neurological: Yes: Alert, Oriented Psychiatric: Yes: Alert Labs: CBC, BMP 11/16/16 06:35 11/16/16 06:35 Imaging - Results Chest X-ray: Report Reviewed, Image Reviewed Cat Scan: Report Reviewed, Image Reviewed Assessment/Plan 71 year-old male with a PMH of HTN, afib, PAD, mild systolic cardiomyopathy, GERD, and 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 Admitted for sepsis secondary to left thigh cellulitis from surgical wound. Sepsis secondary to left thigh cellulitis Atrial fibrillation Systolic heart failure, chronic HTN plan will start patient on abx await for vascular to see ct and decide await for cx report rest as per the team
[2016-11-16] MEDS ORDERED: HEPARIN NA (PORCINE) 5,000 UNITS/ML 1ML VIAL IVPUSH PRN ×2 (18:19)
[2016-11-16] MEDS ORDERED: INFLUENZA VACCINE 45 MCG/0.5 ML (MDV 16-17) IM ONE (18:44)
[2016-11-16] MEDS: AZTREONAM 1 GM in DEXTROSE 5%-WATER - 50 ML IVPB SCH (18:52)
[2016-11-16] MEDS: ACETAMINOPHEN 325 MG TABLET (FP) PO PRN (18:53)
[2016-11-16] MEDS ORDERED: SODIUM CHLORIDE 1,000 ML IV SCH (19:00)
[2016-11-16] MEDS ORDERED: PNEUMOC 13-VAL CONJ-DIP CRM/PF 0.5 ML DISP.SYRIN IM ONE (19:30)
[2016-11-16 20:21] LABS: INR 2.24 (0.82-1.09); PROTHROMBIN TIME (PATIENT) 25.1 SEC (9.98-11.88)
[2016-11-16 20:24] LABS: ACTIVATED PTT 41.8 SECONDS (26.9-34.4)
[2016-11-16] MEDS: METRONIDAZOLE 500 MG PREMIXED 100 ML IVPB SCH (23:08)
[2016-11-16] MEDS: ATORVASTATIN CA 40 MG TABLET (FP) PO SCH (23:34)
[2016-11-16] MEDS: HEPARIN INFUSION - 500 ML IVPB SCH (23:39)
[2016-11-17] MEDS: METRONIDAZOLE 500 MG PREMIXED 100 ML IVPB SCH ×3 (01:48→18:36)
[2016-11-17] MEDS: AZTREONAM 1 GM in DEXTROSE 5%-WATER - 50 ML IVPB SCH ×3 (01:55→17:31)
[2016-11-17] MEDS: VANCOMYCIN 1,250 MG in DEXTROSE 5%-WATER - 250 ML IVPB SCH (01:56)
[2016-11-17 08:09] LABS: BASOPHIL 0.3 % (0-2.0); EOSINOPHIL 1.2 % (0-4.5); MCH 28.7 pg (25.7-33.7); MCHC 33.1 g/dl (32.0-35.9); MEAN CELL VOLUME 86.8 fl (80-96); MEAN PLT VOLUME 7.6 fl (7.5-11.1); NEUTROPHILS 77.1 % (42.8-82.8); PLATELET COUNT 130 K/MM3 (134-434); RDW 15.6 % (11.9-15.9); WHITE BLOOD COUNT 8.9 K/mm3 (4.0-10.0)
[2016-11-17 09:50] LABS: ALBUMIN 2.7 g/dl (3.4-5.0); ANION GAP 9 (8-16); BILIRUBIN,TOTAL 1.2 mg/dL (0.2-1.0); CALCIUM 8.1 mg/dL (8.5-10.1); CO2 26 mmol/L (21-32); CREATININE 0.8 mg/dL (0.7-1.3); GLUCOSE,RANDOM 121 mg/dL (74-106); MAGNESIUM 1.9 mg/dL (1.8-2.4); PHOSPHOROUS 2.6 mg/dL (2.5-4.9); SGOT/AST 17 U/L (15-37); SGPT/ALT 21 U/L (12-78); TOT PROT 5.7 g/dl (6.4-8.2)
[2016-11-17 09:51] LABS: ALK PHOS 66 U/L (45-117)
--- NOTE | 2016-11-17 10:53 | PN ---
Progress Note (short form) - Note Progress Note: Vascular surgery Pt seen and examined. spoke to dr. orr. Reviewed CT -- looks like hematoma which is sterile. There is no foreign body, artery was closed primarily. IV antibiotics for the cellulitis. No need to open or drain. Dr. orr agrees as well. Maximo Abbott DO
[2016-11-17] MEDS ORDERED: PT OWN MED DRAWER 7, Y5N ONE ×2 (10:58→17:29)
[2016-11-17] MEDS: METOPROLOL SUCCINATE 50 MG TAB.SR.24H (FP) PO SCH (11:00)
[2016-11-17] MEDS: POLYETHYLENE GLYCOL 3350 119 GM BTL PO SCH (11:01)
--- NOTE | 2016-11-17 16:17 | PN ---
Progress Note, Physician History of Present Illness: patient stable vascular note and plan noted patient doing well still erythema present swelling present - Current Medication List Current Medications: Active Medications Acetaminophen (Tylenol -) 650 mg PO Q6H PRN PRN Reason: FEVER OR PAIN Last Admin: 11/16/16 18:53 Dose: 650 mg Albuterol/Ipratropium (Duoneb -) 1 amp NEB Q4H PRN PRN Reason: SHORTNESS OF BREATH Atorvastatin Calcium (Lipitor -) 40 mg PO HS MAXIMINO Last Admin: 11/16/16 23:34 Dose: 40 mg Heparin Sodium (Porcine) (Heparin -) 1,000 unit IVPUSH PRN PRN PRN Reason: Heparin Last Admin: 11/16/16 23:35 Dose: 1,000 unit Heparin Sodium (Porcine) (Heparin -) 5,000 unit IVPUSH PRN PRN PRN Reason: Heparin Metronidazole (Flagyl 500mg Premixed Ivpb -) 100 mls @ 100 mls/hr IVPB Q8H-IV MAXIMINO Last Admin: 11/17/16 11:52 Dose: 100 mls/hr Aztreonam 1 gm/ Dextrose 50 mls @ 100 mls/hr IVPB Q8H-IV MAXIMINO PRN Reason: Protocol Last Admin: 11/17/16 11:00 Dose: 100 mls/hr Vancomycin HCl 1,250 mg/ (Dextrose) 250 mls @ 125 mls/hr IVPB DAILY@0100 MAXIMINO PRN Reason: Protocol Last Admin: 11/17/16 01:56 Dose: 125 mls/hr Heparin Sodium/Dextrose (Heparin Infusion -) 500 mls @ 20 mls/hr IVPB TITR MAXIMINO ; 1,000 UNITS/HR PRN Reason: Protocol Last Admin: 11/16/16 23:39 Dose: 22 mls/hr Metoprolol Succinate (Toprol Xl -) 50 mg PO DAILY [facility] Last Admin: 11/17/16 11:00 Dose: 50 mg Polyethylene Glycol (Miralax (For Daily Use) -) 17 gm PO DAILY MAXIMINO Last Admin: 11/17/16 11:01 Dose: 17 grams - Objective Vital Signs: Vital Signs Temperature 98 F 11/17/16 14:44 Pulse Rate 76 11/17/16 10:57 Respiratory Rate 22 11/17/16 14:44 Blood Pressure 142/67 11/17/16 14:44 O2 Sat by Pulse Oximetry (%) 96 11/17/16 11:00 Constitutional: Yes: No Distress, Calm Neck: Yes: Supple, Trachea Midline Cardiovascular: Yes: Regular Rate and Rhythm, Pulse Irregular Respiratory: Yes: Regular, CTA Bilaterally Gastrointestinal: Yes: Normal Bowel Sounds, Soft Musculoskeletal: Yes: Other Extremities: Yes: Other (left leg hematoma at the operated site cellulitis present at the site) Wound/Incision: Yes: Open to air, Other Neurological: Yes: Alert, Oriented Psychiatric: Yes: Alert, Oriented Labs: CBC, BMP 11/17/16 07:50 11/17/16 07:50 INR, PTT INR 2.24 (0.82-1.09) H D 11/16/16 19:15 Assessment/Plan 71 year-old male with a PMH of HTN, afib, PAD, mild systolic cardiomyopathy, GERD, and 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 Admitted for sepsis secondary to left thigh cellulitis from surgical wound. Sepsis secondary to left thigh cellulitis Atrial fibrillation Systolic heart failure, chronic HTN hematoma of the rt thigh plan continue abx continue to monitor vascular plan noted rest as per the team
[2016-11-17] MEDS: ACETAMINOPHEN 325 MG TABLET (FP) PO PRN (17:44)
--- NOTE | 2016-11-17 18:13 | PN ---
Progress Note (short form) - Note Progress Note: Vascular Surgery Pt seen and examined. Left thigh looks better than yesterday. Cont bacitracin to left groin wound at site of incision. antibiotics. Maximo Abbott DO
[2016-11-17] MEDS: HEPARIN INFUSION - 500 ML IVPB SCH ×2 (18:36→22:40)
--- NOTE | 2016-11-17 18:36 | PN ---
Physical Exam: SUBJECTIVE: Patient seen and examined at bedside. Had one episode of sweats last night, one episode of chills this morning. Left thigh and scrotum painful. OBJECTIVE: Vital Signs Period Temp Pulse Resp BP Sys/Tamayo Pulse Ox Last 24 Hr 98 F-101.1 F 70-83 18-24 133-146/60-68 96-97 GENERAL: The patient is awake, alert, and fully oriented, in mild distess during exam due to pain HEAD: Normal with no signs of trauma. EYES: PERRL, extraocular movements intact, sclera anicteric, conjunctiva clear. No ptosis. LUNGS: Breath sounds equal, clear to auscultation bilaterally, no wheezes, no crackles, no accessory muscle use. HEART: Regular rate and rhythm, S1, S2 without murmur, rub or gallop. ABDOMEN: Soft, nontender, nondistended, normoactive bowel sounds, no guarding, no rebound LEFT LOWER EXTREMITY: upper medial thigh surgical incision 1.5cm dehiscence, 6cm area of erythema and induration, no drainage; exquisitely tender NEUROLOGICAL: Cranial nerves II through XII grossly intact. Normal speech, gait not observed. Laboratory Results - last 24 hr 11/16/16 11/17/16 11/17/16 19:15 07:50 07:50 WBC 8.9 D RBC 4.32 Hgb 12.4 Hct 37.5 MCV 86.8 MCHC 33.1 RDW 15.6 Plt Count 130 L MPV 7.6 D Neutrophils % 77.1 Lymphocytes % 13.9 D Monocytes % 7.5 Eosinophils % 1.2 Basophils % 0.3 INR 2.24 H D PTT (Actin FS) 41.8 H Sodium 138 Potassium 3.4 L Chloride 103 Carbon Dioxide 26 Anion Gap 9 BUN 15 D Creatinine 0.8 Creat Clearance w eGFR > 60 Random Glucose 121 H D Calcium 8.1 L Phosphorus 2.6 Magnesium 1.9 Total Bilirubin 1.2 H D AST 17 D ALT 21 D Alkaline Phosphatase 66 Total Protein 5.7 L Albumin 2.7 L 11/17/16 08:20 WBC RBC Hgb Hct MCV MCHC RDW Plt Count MPV Neutrophils % Lymphocytes % Monocytes % Eosinophils % Basophils % INR PTT (Actin FS) 73.4 H D Sodium Potassium Chloride Carbon Dioxide Anion Gap BUN Creatinine Creat Clearance w eGFR Random Glucose Calcium Phosphorus Magnesium Total Bilirubin AST ALT Alkaline Phosphatase Total Protein Albumin Active Medications Generic Name Dose Route Start Last Admin Trade Name Freq PRN Reason Stop Dose Admin Acetaminophen 650 mg 11/15/16 23:29 11/17/16 17:44 Tylenol - PO 650 mg Q6H PRN Administration FEVER OR PAIN Albuterol/Ipratropium 1 amp 11/15/16 23:32 Duoneb - NEB Q4H PRN SHORTNESS OF BREATH Atorvastatin Calcium 40 mg 11/16/16 22:00 11/16/16 23:34 Lipitor - PO 40 mg HS MAXIMINO Administration Heparin Sodium (Porcine) 1,000 unit 11/16/16 18:19 11/16/16 23:35 Heparin - IVPUSH 1,000 unit PRN PRN Administration Heparin Heparin Sodium (Porcine) 5,000 unit 11/16/16 18:19 Heparin - IVPUSH PRN PRN Heparin Metronidazole 100 mls @ 100 mls/hr 11/16/16 23:07 11/17/16 11:52 Flagyl 500mg Premixed Ivpb - IVPB 100 mls/hr Q8H-IV MAXIMINO Administration Aztreonam 1 gm/ Dextrose 50 mls @ 100 mls/hr 11/16/16 18:00 11/17/16 17:31 IVPB 100 mls/hr Q8H-IV MAXIMINO Administration Protocol Vancomycin HCl 1,250 mg/ 250 mls @ 125 mls/hr 11/17/16 01:00 11/17/16 01:56 Dextrose IVPB 125 mls/hr DAILY@0100 MAXIMINO Administration Protocol Heparin Sodium/Dextrose 500 mls @ 20 mls/hr 11/16/16 18:30 11/16/16 23:39 Heparin Infusion - IVPB 22 mls/hr TITR MAXIMINO Administration Protocol 1,000 UNITS/HR Metoprolol Succinate 50 mg 11/16/16 10:00 11/17/16 11:00 Toprol Xl - PO 50 mg DAILY MAXIMINO Administration Polyethylene Glycol 17 gm 11/16/16 10:00 11/17/16 11:01 Miralax (For Daily Use) - PO 17 grams DAILY MAXIMINO Administration Imaging CT LLE: 10 x 7.7 x 5.7 cm fluid collection within the left upper thigh ventrally , seroma v lymphocele v abscess; several small pockets of air/gas within the fluid collection; concentric subq edema along the length of the left leg principally laterally ASSESSMENT/PLAN: 71 year-old male with a PMH of HTN, afib, PAD, mild systolic cardiomyopathy, GERD, and 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 Admitted for sepsis secondary to left thigh cellulitis. Sepsis secondary to left thigh cellulitis --Tm 101.1, Tc 99.1, WBC 8.9k; still with sweats and chills; hemodynamically stable --per surgery and IR, the collection looks like a hematoma; no foreign body; treat with antibiotics --continue aztreonam (day #2), vanc (day #2), metronidazole (day #2) Atrial fibrillation --rate well-controlled, continue Toprol XL --continue heparin drip Systolic heart failure, chronic --10/25/16 echo: LV moderately dilated, function moderately reduced, moderate global hypokinesis; RV normal; moderate LAE; mild MR; moderate TR, mild pHTN; trace to mild PI --hold diuretics for now HTN --add back lisinopril in am and continue metoprolol; continue to hold home chlorthalidone F/E/N Fluids: PO intake adequate Electrolytes: replete as indicated Nutrition: low fat, low sodium DVT prophylaxis: continue heparin drip for now; once improved, can transition back to Eliquis Dispo: continues to require inpatient care. Full Code. Visit type - Emergency Visit Emergency Visit: Yes ED Registration Date: 11/15/16 Care time: The patient presented to the Emergency Department on the above date and was hospitalized for further evaluation of their emergent condition. - New Patient This patient is new to me today: No - Critical Care Critical Care patient: No
[2016-11-17] MEDS: BACITRACIN 30 GM TUBE TOPICAL OINTMENT TP SCH (22:37)
[2016-11-17] MEDS: ATORVASTATIN CA 40 MG TABLET (FP) PO SCH (22:41)
[2016-11-18] MEDS: VANCOMYCIN 1,250 MG in DEXTROSE 5%-WATER - 250 ML IVPB SCH (02:00)
[2016-11-18] MEDS ORDERED: PT OWN MED DRAWER 7, Y5N ONE ×3 (02:09→16:39)
[2016-11-18] MEDS: AZTREONAM 1 GM in DEXTROSE 5%-WATER - 50 ML IVPB SCH ×3 (02:14→17:01)
[2016-11-18] MEDS: METRONIDAZOLE 500 MG PREMIXED 100 ML IVPB SCH ×3 (02:15→18:04)
[2016-11-18 08:20] LABS: MCH 28.6 pg (25.7-33.7); MCHC 32.9 g/dl (32.0-35.9); MEAN CELL VOLUME 86.7 fl (80-96); MEAN PLT VOLUME 8.2 fl (7.5-11.1); PLATELET COUNT 113 K/MM3 (134-434); RDW 15.5 % (11.9-15.9); WHITE BLOOD COUNT 5.9 K/mm3 (4.0-10.0)
[2016-11-18 09:01] LABS: ALBUMIN 2.9 g/dl (3.4-5.0); ALK PHOS 75 U/L (45-117); ANION GAP 6 (8-16); BILIRUBIN,TOTAL 0.6 mg/dL (0.2-1.0); CALCIUM 8.4 mg/dL (8.5-10.1); CO2 30 mmol/L (21-32); CREATININE 0.8 mg/dL (0.7-1.3); GLUCOSE,RANDOM 121 mg/dL (74-106); MAGNESIUM 1.9 mg/dL (1.8-2.4); SGOT/AST 24 U/L (15-37); SGPT/ALT 30 U/L (12-78)
[2016-11-18] MEDS: METOPROLOL SUCCINATE 50 MG TAB.SR.24H (FP) PO SCH (09:26)
[2016-11-18] MEDS: POLYETHYLENE GLYCOL 3350 119 GM BTL PO SCH (09:31)
[2016-11-18] MEDS: RAMIPRIL 5 MG CAPSULE (FP) PO SCH (09:31)
[2016-11-18] MEDS: ACETAMINOPHEN 325 MG TABLET (FP) PO PRN (10:53)
--- NOTE | 2016-11-18 10:57 | PN ---
Physical Exam: SUBJECTIVE: Patient seen and examined. He is complaining of pain in his left groin down his left leg. He developed shaking chills. OBJECTIVE: Vital Signs Period Temp Pulse Resp BP Sys/Tamayo Pulse Ox Last 24 Hr 98 F-98.8 F 63-76 20-24 138-175/64-90 96-96 GENERAL: The patient is awake, alert, and fully oriented. He is shaking uncontrollably. LUNGS: Breath sounds equal with scattered expiratory wheezes. HEART: Irregularly irregular. ABDOMEN: Soft, nontender, nondistended, normoactive bowel sounds, no guarding, no rebound, no hepatosplenomegaly, no masses. EXTREMITIES: 2+ pulses, warm, well-perfused, no edema. Left groin incision with open area and no drainage, surrounding induration and erythema, tender to palpation Laboratory Results - last 24 hr 11/18/16 11/18/16 11/18/16 06:30 06:30 06:30 WBC 5.9 D RBC 4.41 Hgb 12.6 Hct 38.2 MCV 86.7 MCHC 32.9 RDW 15.5 Plt Count 113 L MPV 8.2 PTT (Actin FS) 35.0 H D Sodium 138 Potassium 3.8 Chloride 102 Carbon Dioxide 30 Anion Gap 6 L BUN 15 Creatinine 0.8 Creat Clearance w eGFR > 60 Random Glucose 121 H Calcium 8.4 L Phosphorus 3.0 Magnesium 1.9 Total Bilirubin 0.6 D AST 24 D ALT 30 D Alkaline Phosphatase 75 Total Protein 6.0 L Albumin 2.9 L Stool Occult Blood 11/18/16 07:00 WBC RBC Hgb Hct MCV MCHC RDW Plt Count MPV PTT (Actin FS) Sodium Potassium Chloride Carbon Dioxide Anion Gap BUN Creatinine Creat Clearance w eGFR Random Glucose Calcium Phosphorus Magnesium Total Bilirubin AST ALT Alkaline Phosphatase Total Protein Albumin Stool Occult Blood Negative Active Medications Generic Name Dose Route Start Last Admin Trade Name Freq PRN Reason Stop Dose Admin Acetaminophen 650 mg 11/15/16 23:29 11/18/16 10:53 Tylenol - PO 650 mg Q6H PRN Administration FEVER OR PAIN Albuterol/Ipratropium 1 amp 11/15/16 23:32 Duoneb - NEB Q4H PRN SHORTNESS OF BREATH Atorvastatin Calcium 40 mg 11/16/16 22:00 11/17/16 22:41 Lipitor - PO 40 mg HS MAXIMINO Administration Bacitracin 1 applic 11/17/16 20:30 11/17/16 22:37 Bacitracin - TP 1 applic DAILY MAXIMINO Administration Heparin Sodium (Porcine) 1,000 unit 11/16/16 18:19 11/16/16 23:35 Heparin - IVPUSH 1,000 unit PRN PRN Administration Heparin Heparin Sodium (Porcine) 5,000 unit 11/16/16 18:19 11/18/16 09:43 Heparin - IVPUSH 5,000 unit PRN PRN Administration Heparin Metronidazole 100 mls @ 100 mls/hr 11/16/16 23:07 11/18/16 09:46 Flagyl 500mg Premixed Ivpb - IVPB 100 mls/hr Q8H-IV MAXIMINO Administration Aztreonam 1 gm/ Dextrose 50 mls @ 100 mls/hr 11/16/16 18:00 11/18/16 09:26 IVPB 100 mls/hr Q8H-IV MAXIMINO Administration Protocol Vancomycin HCl 1,250 mg/ 250 mls @ 125 mls/hr 11/17/16 01:00 11/18/16 02:00 Dextrose IVPB 125 mls/hr DAILY@0100 MAXIMINO Administration Protocol Heparin Sodium/Dextrose 500 mls @ 20 mls/hr 11/16/16 18:30 11/18/16 09:51 Heparin Infusion - IVPB 1,250 units/hr TITR MAXIMINO Titration Protocol 1,000 UNITS/HR Metoprolol Succinate 50 mg 11/16/16 10:00 11/18/16 09:26 Toprol Xl - PO 50 mg DAILY MAXIMINO Administration Polyethylene Glycol 17 gm 11/16/16 10:00 11/18/16 09:31 Miralax (For Daily Use) - PO 17 grams DAILY MAXIMINO Administration Ramipril 5 mg 11/18/16 10:00 11/18/16 09:31 Altace - PO 5 mg DAILY MAXIMINO Administration ASSESSMENT/PLAN: This is a 71-year-old man with a history of HTN, chronic systolic heart failure , a fib, PAD, GERD, s/p angioplasty and thrombectomy for left SFA thrombosis on 10/22/16, who was admitted for sepsis and left thigh cellulitis. 1. Sepsis secondary to left thigh cellulitis and possible abscess s/p left superficial femoral artery thrombectomy 10/22 - Afebrile with normal WBC but having shaking chills - Hemodynamically stable and oxygen saturation is 99% on 3L - On Azactam, Flagyl, Vancomycin (day 4) - Repeat blood cultures - Check lactic acid - Chest x-ray - Surgery, ID follow-ups 2. Atrial fibrillation - Rate controlled - Continue Toprol XL, heparin IV drip 3. Chronic systolic heart failure - Stable - Continue Altace, Toprol XL - Chlorthalidone on hold 4. Hypertension - Continue Altace, Toprol XL - Chlorthalidone held 5. Thrombocytopenia - Monitor while on heparin 6. Peripheral artery disease Visit type - Emergency Visit Emergency Visit: Yes ED Registration Date: 11/15/16 Care time: The patient presented to the Emergency Department on the above date and was hospitalized for further evaluation of their emergent condition. - New Patient This patient is new to me today: Yes Date on this admission: 11/18/16 - Critical Care Critical Care patient: No - Discharge Referral Referred to [facility] No
[2016-11-18] MEDS ORDERED: morphine CARPU-JECT 2 MG/1 ML DISP.SYRIN IVPUSH PRN (10:59)
[2016-11-18 11:38] LABS: BASOPHIL 0.4 % (0-2.0); EOSINOPHIL 2.2 % (0-4.5); MCH 29.2 pg (25.7-33.7); MCHC 33.4 g/dl (32.0-35.9); MEAN CELL VOLUME 87.4 fl (80-96); MEAN PLT VOLUME 7.8 fl (7.5-11.1); NEUTROPHILS 81.6 % (42.8-82.8); PLATELET COUNT 63 K/MM3 (134-434); RDW 15.3 % (11.9-15.9); WHITE BLOOD COUNT 6.5 K/mm3 (4.0-10.0)
--- NOTE | 2016-11-18 12:03 | PN ---
Progress Note (short form) - Note Progress Note: Vascular surgery- Dr. Abbott Patient seen and examined. Patient is having shaking chills, nausea, vomiting, and pain in his left foot, leg, and groin. Last Vital Signs Temp Pulse Resp BP Pulse Ox 98.4 F 63 20 147/90 96 11/18/16 10:00 11/18/16 10:00 11/18/16 10:00 11/18/16 10:00 11/17/16 21:00 CBC, BMP 11/18/16 11:05 11/18/16 06:30 Exam: Gen: A&O, shaking chills, nurse at bedside taking vitals- hemodynamically stable Cardio: irreg, irreg Resp: wheezes with auscultation LE: left groin with aprrox 1-2cm opening, not actively drainage, surrounding swelling, induration, erythema and tenderness to palp, 2+ DP, warm, well- perfused Problem List - Problems (1) Wound infection Assessment/Plan: Patient with shaking chills, nausea, pain, hemodynamically stable, no WBC Discussed with medicine, medicine ordering CXR, blood cultures, lactic acid Discussed with Dr. Abbott- plan for OR tomorrow to open left groin wound and washout NPO after midnight Medical clearance/optimization Code(s): T14.8 - OTHER INJURY OF UNSPECIFIED BODY REGION L08.9 - LOCAL INFECTION OF THE SKIN AND SUBCUTANEOUS TISSUE, UNSP
[2016-11-18] MEDS: BACITRACIN 30 GM TUBE TOPICAL OINTMENT TP SCH (12:28)
[2016-11-18] MEDS ORDERED: SODIUM CHLORIDE 250 ML IV STA (13:00)
[2016-11-18] MEDS: HEPARIN INFUSION - 500 ML IVPB SCH ×2 (17:06→18:48)
--- NOTE | 2016-11-18 17:14 | EKG ---
Test Reason : Blood Pressure : / mmHG Vent. Rate : 091 BPM Atrial Rate : 100 BPM P-R Int : 000 ms QRS Dur : 098 ms QT Int : 364 ms P-R-T Axes : 000 044 -51 degrees QTc Int : 447 ms ATRIAL FIBRILLATION NONSPECIFIC T WAVE ABNORMALITY ABNORMAL ECG WHEN COMPARED WITH ECG OF 15-NOV-2016 19:33, NONSPECIFIC T WAVE ABNORMALITY HAS REPLACED INVERTED T WAVES IN LATERAL LEADS Confirmed by DOUGLAS DUMONT, CHUCKIE ([id number]) on 11/18/2016 5:14:04 PM Referred By: Confirmed By:CHUCKIE COLE MD
[2016-11-18] MEDS: ATORVASTATIN CA 40 MG TABLET (FP) PO SCH (21:19)
[2016-11-19] MEDS: VANCOMYCIN 1,250 MG in DEXTROSE 5%-WATER - 250 ML IVPB SCH (01:03)
[2016-11-19] MEDS: METRONIDAZOLE 500 MG PREMIXED 100 ML IVPB SCH ×3 (01:27→19:14)
[2016-11-19] MEDS: AZTREONAM 1 GM in DEXTROSE 5%-WATER - 50 ML IVPB SCH ×3 (01:27→18:35)
[2016-11-19 06:51] LABS: BASOPHIL 0.3 % (0-2.0); EOSINOPHIL 5.9 % (0-4.5); MCH 29.2 pg (25.7-33.7); MCHC 33.5 g/dl (32.0-35.9); MEAN CELL VOLUME 87.2 fl (80-96); MEAN PLT VOLUME 7.7 fl (7.5-11.1); NEUTROPHILS 60.7 % (42.8-82.8); PLATELET COUNT 57 K/MM3 (134-434); RDW 15.1 % (11.9-15.9); WHITE BLOOD COUNT 5.5 K/mm3 (4.0-10.0)
[2016-11-19 07:01] LABS: INR 1.39 (0.82-1.09); PROTHROMBIN TIME (PATIENT) 15.4 SEC (9.98-11.88)
[2016-11-19 07:08] LABS: ALBUMIN 2.6 g/dl (3.4-5.0); ALK PHOS 63 U/L (45-117); ANION GAP 9 (8-16); BILIRUBIN,TOTAL 0.9 mg/dL (0.2-1.0); CALCIUM 8.7 mg/dL (8.5-10.1); CO2 30 mmol/L (21-32); GLUCOSE,RANDOM 119 mg/dL (74-106); MAGNESIUM 1.9 mg/dL (1.8-2.4); SGOT/AST 26 U/L (15-37); SGPT/ALT 30 U/L (12-78); TOT PROT 5.7 g/dl (6.4-8.2)
--- NOTE | 2016-11-19 07:51 | PN ---
[id number], but has resolved. OBJECTIVE: Plt 57 today. To stop heparin gtt at 9am pre-op. Discussed with eugenia Hairston to proceed with surgery. Wheezing was noted yesterday and CXR was ordered: cardiomegaly; no pulm vasc congestion or infiltrate. Vital Signs Period Temp Pulse Resp BP Sys/Tamayo Pulse Ox Last 24 Hr 96.7 F-100.4 F 63-100 20-20 109-147/53-90 96-99 GENERAL: The patient is awake, alert, and fully oriented, in no acute distress. HEAD: Normal with no signs of trauma. EYES: PERRL, extraocular movements intact, sclera anicteric, conjunctiva clear. No ptosis. ENT: Ears normal, nares patent, oropharynx clear without exudates, moist mucous membranes. NECK: Trachea midline, full range of motion, supple. LUNGS: Breath sounds equal, clear to auscultation bilaterally, no wheezes, no crackles, no accessory muscle use. HEART: Regular rate and rhythm, S1, S2 without murmur, rub or gallop. ABDOMEN: Soft, nontender, nondistended, normoactive bowel sounds, no guarding, no rebound, no hepatosplenomegaly, no masses. EXTREMITIES: 2+ pulses, warm, well-perfused. Left groin surgical incision with surrounding erythema, induration, and tenderness approximately 10cm x 6cm. No active drainage. NEUROLOGICAL: Cranial nerves II through XII grossly intact. Normal speech, gait not observed. PSYCH: Normal mood, normal affect. SKIN: Warm, dry, normal turgor, no rashes or lesions noted Laboratory Results - last 24 hr 11/18/16 11/18/16 11/18/16 06:30 06:30 06:30 WBC 5.9 D RBC 4.41 Hgb 12.6 Hct 38.2 MCV 86.7 MCHC 32.9 RDW 15.5 Plt Count 113 L MPV 8.2 Neutrophils % Lymphocytes % Monocytes % Eosinophils % Basophils % INR PTT (Actin FS) 35.0 H D Sodium 138 Potassium 3.8 Chloride 102 Carbon Dioxide 30 Anion Gap 6 L BUN 15 Creatinine 0.8 Creat Clearance w eGFR > 60 Random Glucose 121 H Lactic Acid Calcium 8.4 L Phosphorus 3.0 Magnesium 1.9 Total Bilirubin 0.6 D AST 24 D ALT 30 D Alkaline Phosphatase 75 Total Protein 6.0 L Albumin 2.9 L Stool Occult Blood 11/18/16 11/18/16 11/18/16 07:00 11:05 11:05 WBC 6.5 RBC 4.60 Hgb 13.5 Hct 40.3 MCV 87.4 MCHC 33.4 RDW 15.3 Plt Count 63 L D MPV 7.8 Neutrophils % 81.6 Lymphocytes % 12.8 Monocytes % 3.0 L Eosinophils % 2.2 D Basophils % 0.4 INR PTT (Actin FS) Sodium Potassium Chloride Carbon Dioxide Anion Gap BUN Creatinine Creat Clearance w eGFR Random Glucose Lactic Acid 2.565 H* Calcium Phosphorus Magnesium Total Bilirubin AST ALT Alkaline Phosphatase Total Protein Albumin Stool Occult Blood Negative 11/18/16 11/18/16 11/19/16 16:00 16:00 05:32 WBC RBC Hgb Hct MCV MCHC RDW Plt Count MPV Neutrophils % Lymphocytes % Monocytes % Eosinophils % Basophils % INR PTT (Actin FS) 78.6 H D 66.4 H Sodium Potassium Chloride Carbon Dioxide Anion Gap BUN Creatinine Creat Clearance w eGFR Random Glucose Lactic Acid 1.422 Calcium Phosphorus Magnesium Total Bilirubin AST ALT Alkaline Phosphatase Total Protein Albumin Stool Occult Blood 11/19/16 11/19/16 11/19/16 05:32 05:32 05:32 WBC 5.5 RBC 4.11 Hgb 12.0 D Hct 35.8 MCV 87.2 MCHC 33.5 RDW 15.1 Plt Count 57 L MPV 7.7 Neutrophils % 60.7 D Lymphocytes % 22.3 D Monocytes % 10.8 H D Eosinophils % 5.9 H D Basophils % 0.3 INR 1.39 H D PTT (Actin FS) Sodium 139 Potassium 3.6 Chloride 100 Carbon Dioxide 30 Anion Gap 9 BUN 15 Creatinine 1.0 D Creat Clearance w eGFR > 60 Random Glucose 119 H Lactic Acid Calcium 8.7 Phosphorus 3.0 Magnesium 1.9 Total Bilirubin 0.9 D AST 26 ALT 30 Alkaline Phosphatase 63 Total Protein 5.7 L Albumin 2.6 L Stool Occult Blood Active Medications Generic Name Dose Route Start Last Admin Trade Name Freq PRN Reason Stop Dose Admin Acetaminophen 650 mg 11/15/16 23:29 11/18/16 10:53 Tylenol - PO 650 mg Q6H PRN Administration FEVER OR PAIN Albuterol/Ipratropium 1 amp 11/15/16 23:32 Duoneb - NEB Q4H PRN SHORTNESS OF BREATH Atorvastatin Calcium 40 mg 11/16/16 22:00 11/18/16 21:19 Lipitor - PO 40 mg HS MAXIMINO Administration Bacitracin 1 applic 11/17/16 20:30 11/18/16 12:28 Bacitracin - TP 1 applic DAILY MAXIMINO Administration Heparin Sodium (Porcine) 1,000 unit 11/16/16 18:19 11/16/16 23:35 Heparin - IVPUSH 11/19/16 09:00 1,000 unit PRN PRN Administration Heparin Heparin Sodium (Porcine) 5,000 unit 11/16/16 18:19 11/18/16 09:43 Heparin - IVPUSH 11/19/16 09:00 5,000 unit PRN PRN Administration Heparin Metronidazole 100 mls @ 100 mls/hr 11/16/16 23:07 11/19/16 01:27 Flagyl 500mg Premixed Ivpb - IVPB 100 mls/hr Q8H-IV MAXIMINO Administration Aztreonam 1 gm/ Dextrose 50 mls @ 100 mls/hr 11/16/16 18:00 11/19/16 01:27 IVPB 100 mls/hr Q8H-IV MAXIMINO Administration Protocol Vancomycin HCl 1,250 mg/ 250 mls @ 125 mls/hr 11/17/16 01:00 11/19/16 01:03 Dextrose IVPB 125 mls/hr DAILY@0100 MAXIMINO Administration Protocol Heparin Sodium/Dextrose 500 mls @ 20 mls/hr 11/16/16 18:30 11/18/16 18:48 Heparin Infusion - IVPB 11/19/16 09:00 Not Given TITR MAXIMINO Protocol 1,000 UNITS/HR Metoprolol Succinate 50 mg 11/16/16 10:00 11/18/16 09:26 Toprol Xl - PO 50 mg DAILY MAXIMINO Administration Morphine Sulfate 1 mg 11/18/16 10:59 11/18/16 11:09 Morphine Injection - IVPUSH 1 mg Q3H PRN Administration PAIN Polyethylene Glycol 17 gm 11/16/16 10:00 11/18/16 09:31 Miralax (For Daily Use) - PO 17 grams DAILY MAXIMINO Administration Ramipril 5 mg 11/18/16 10:00 11/18/16 09:31 Altace - PO 5 mg DAILY MAXIMINO Administration Imaging CT LLE: 10 x 7.7 x 5.7 cm fluid collection within the left upper thigh ventrally , seroma v lymphocele v abscess; several small pockets of air/gas within the fluid collection; concentric subq edema along the length of the left leg principally laterally ASSESSMENT/PLAN: 71 year-old male with a history of HTN, Afib (on Eliquis), PAD , mild systolic CHF, GERD, and left superficial femoral artery thrombosis s/p aortogram/angioplasty/thrombectomy on 10/22/16. Admitted for sepsis secondary to left thigh cellulitis vs. abscess. 1. ID Sepsis secondary to left thigh cellulitis -Hemodynamically stable, afebrile for 12hrs -Blood cultures 11/15 no growth, repeat 11/18 after episode of rigors pending -Continue aztreonam (day #3), vanc (day #3), metronidazole (day #3) -For wash-out with Dr. Abbott at 10am today 2. CARDS Atrial fibrillation -Rate-controlled; continue Toprol XL -Hold heparin for surgery -Resume Eliquis post-op Systolic heart failure, chronic 10/25/16 echo: LV moderately dilated, function moderately reduced, moderate global hypokinesis; RV normal; moderate LAE; mild MR; moderate TR, mild pHTN; trace to mild PI -Hold diuretics for now HTN -Toprol continued, Lisinopril added back yesterday; continue to hold home chlorthalidone 3. HEME Thrombocyopenia -Heparin vs. sepsis -Ok to proceed with surgery today -Monitor platelets closely 4. F/E/N -Fluids: PO intake adequate -Electrolytes: replete as indicated -Nutrition: low fat, low sodium 5. Ppx -Resume Eliquis post-op Dispo: Continues to require inpatient care. Anticipate possible discharge to [facility] when wound cultures resulted (Tuesday) if remains afebrile. FULL CODE. Visit type - Emergency Visit Emergency Visit: Yes ED Registration Date: 11/15/16 Care time: The patient presented to the Emergency Department on the above date and was hospitalized for further evaluation of their emergent condition. - New Patient This patient is new to me today: Yes Date on this admission: 11/19/16 - Critical Care Critical Care patient: No
[2016-11-19] MEDS ORDERED: PT OWN MED DRAWER 7, Y5N ONE ×4 (09:00→19:24)
[2016-11-19] MEDS: RAMIPRIL 5 MG CAPSULE (FP) PO SCH (09:39)
[2016-11-19] MEDS: METOPROLOL SUCCINATE 50 MG TAB.SR.24H (FP) PO SCH (09:39)
[2016-11-19] MEDS ORDERED: LIDOCAINE HCL 1%, 10 MG/ML (20ML VIAL) ONE (09:48)
[2016-11-19] MEDS ORDERED: BUPIVACAINE HCL/PF 0.5% (5MG/ML) 10 ML VIAL ONE (09:48)
[2016-11-19] MEDS: POLYETHYLENE GLYCOL 3350 119 GM BTL PO SCH (09:50)
[2016-11-19] MEDS ORDERED: LIDOCAINE HCL 2% (20ML MULTI-DOSE VIAL) NR ONE (09:50)
[2016-11-19] MEDS ORDERED: PROPOFOL 20 ML ONE ×2 (09:50)
[2016-11-19] MEDS ORDERED: MIDAZOLAM HCL 2 MG/2 ML SINGLE DOSE VIAL ONE (09:50)
[2016-11-19] MEDS ORDERED: ONDANSETRON 4 MG/2 ML VIAL IVPUSH PRN ×2 (11:22→11:58)
--- NOTE | 2016-11-19 11:24 | OP ---
Operative Note - Note: Operative Date: 11/19/16 Pre-Operative Diagnosis: left groin infection Operation: Exploration of left groin, wash out of wound Findings: fluid collection found. Cultures sent off Post-Operative Diagnosis: Same as Pre-op Surgeon: Maximo Abbott Anesthesia: General Estimated Blood Loss (mls): 30 Operative Report Dictated: Yes
[2016-11-19] MEDS ORDERED: LACTATED RINGERS SOLUTION 1,000 ML IV SCH (11:30)
[2016-11-19] MEDS ORDERED: ALBUTEROL SO4 2.5/IPRATROPIUM 0.5 INH SOL 3 ML VIAL.NEB. NEB PRN (11:58)
[2016-11-19] MEDS ORDERED: morphine CARPU-JECT 2 MG/1 ML DISP.SYRIN IVPUSH PRN (11:58)
[2016-11-19] MEDS: APIXABAN 5 MG TABLET PO SCH ×2 (14:23→21:51)
--- NOTE | 2016-11-19 16:17 | PN ---
Progress Note, Physician History of Present Illness: patient mentions that the pain was so intense has throbbing pain in the groin wound softer than admission fevers - Current Medication List Current Medications: Active Medications Acetaminophen (Tylenol -) 650 mg PO Q6H PRN PRN Reason: FEVER OR PAIN Albuterol/Ipratropium (Duoneb -) 1 amp NEB Q4H PRN PRN Reason: SHORTNESS OF BREATH Apixaban (Eliquis -) 5 mg PO BID [facility] Last Admin: 11/19/16 14:23 Dose: 5 mg Atorvastatin Calcium (Lipitor -) 40 mg PO HS MAXIMINO Bacitracin (Bacitracin -) 1 applic TP DAILY [facility] Aztreonam 1 gm/ Dextrose 50 mls @ 100 mls/hr IVPB Q8H-IV MAXIMINO PRN Reason: Protocol Metronidazole (Flagyl 500mg Premixed Ivpb -) 100 mls @ 100 mls/hr IVPB Q8H-IV MAXIMINO Lactated Ringer's (Lactated Ringers Solution) 1,000 mls @ 75 mls/hr IV ASDIR MAXIMINO Vancomycin HCl 1,250 mg/ (Dextrose) 250 mls @ 125 mls/hr IVPB DAILY@0100 MAXIMINO PRN Reason: Protocol Metoprolol Succinate (Toprol Xl -) 50 mg PO DAILY MAXIMINO Morphine Sulfate (Morphine Injection -) 1 mg IVPUSH Q3H PRN PRN Reason: PAIN Ondansetron HCl (Zofran Injection) 4 mg IVPUSH Q6H PRN PRN Reason: NAUSEA AND/OR VOMITING Stop: 11/19/16 17:23 Polyethylene Glycol (Miralax (For Daily Use) -) 17 gm PO DAILY [facility] Ramipril (Altace -) 5 mg PO DAILY [facility] - Objective Vital Signs: Vital Signs Temperature 97.3 F L 11/19/16 14:04 Pulse Rate 58 L 11/19/16 14:04 Respiratory Rate 20 11/19/16 14:04 Blood Pressure 120/56 11/19/16 14:04 O2 Sat by Pulse Oximetry (%) 97 11/19/16 12:35 Constitutional: Yes: Calm, Moderate Distress Cardiovascular: Yes: Regular Rate and Rhythm Respiratory: Yes: Regular, CTA Bilaterally Gastrointestinal: Yes: Normal Bowel Sounds, Soft Musculoskeletal: Yes: WNL Extremities: Yes: Erythema (on the rt gron fluctuant swelling), Other Integumentary: Yes: Erythema, Other Wound/Incision: Yes: Open to air, Other Neurological: Yes: Alert, Oriented Psychiatric: Yes: Alert, Oriented Labs: CBC, BMP 11/19/16 05:32 11/19/16 05:32 INR, PTT INR 1.39 (0.82-1.09) H D 11/19/16 05:32 Assessment/Plan 71 year-old male with a PMH of HTN, afib, PAD, mild systolic cardiomyopathy, GERD, and 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 Admitted for sepsis secondary to left thigh cellulitis from surgical wound. Sepsis secondary to left thigh cellulitis Atrial fibrillation Systolic heart failure, chronic HTN hematoma of the rt thigh plan continue abx patient going to or for debridement of the wound to send cx of the wound patient otherwise stable
--- NOTE | 2016-11-19 16:23 | PN ---
Progress Note, Physician History of Present Illness: patient post op from grady of the collection of thigh feels much better no complaints - Current Medication List Current Medications: Active Medications Acetaminophen (Tylenol -) 650 mg PO Q6H PRN PRN Reason: FEVER OR PAIN Albuterol/Ipratropium (Duoneb -) 1 amp NEB Q4H PRN PRN Reason: SHORTNESS OF BREATH Apixaban (Eliquis -) 5 mg PO BID [facility] Last Admin: 11/19/16 14:23 Dose: 5 mg Atorvastatin Calcium (Lipitor -) 40 mg PO HS [facility] Bacitracin (Bacitracin -) 1 applic TP DAILY [facility] Aztreonam 1 gm/ Dextrose 50 mls @ 100 mls/hr IVPB Q8H-IV [facility] PRN Reason: Protocol Metronidazole (Flagyl 500mg Premixed Ivpb -) 100 mls @ 100 mls/hr IVPB Q8H-IV [facility] Lactated Ringer's (Lactated Ringers Solution) 1,000 mls @ 75 mls/hr IV ASDIR [facility] Vancomycin HCl 1,250 mg/ (Dextrose) 250 mls @ 125 mls/hr IVPB DAILY@0100 [facility] PRN Reason: Protocol Metoprolol Succinate (Toprol Xl -) 50 mg PO DAILY [facility] Morphine Sulfate (Morphine Injection -) 1 mg IVPUSH Q3H PRN PRN Reason: PAIN Ondansetron HCl (Zofran Injection) 4 mg IVPUSH Q6H PRN PRN Reason: NAUSEA AND/OR VOMITING Stop: 11/19/16 17:23 Polyethylene Glycol (Miralax (For Daily Use) -) 17 gm PO DAILY [facility] Ramipril (Altace -) 5 mg PO DAILY [facility] - Objective Vital Signs: Vital Signs Temperature 97.3 F L 11/19/16 14:04 Pulse Rate 58 L 11/19/16 14:04 Respiratory Rate 20 11/19/16 14:04 Blood Pressure 120/56 11/19/16 14:04 O2 Sat by Pulse Oximetry (%) 97 11/19/16 12:35 Constitutional: Yes: No Distress, Calm Cardiovascular: Yes: Regular Rate and Rhythm Respiratory: Yes: Regular, CTA Bilaterally Gastrointestinal: Yes: Normal Bowel Sounds, Soft Musculoskeletal: Yes: WNL Extremities: Yes: Other Wound/Incision: Yes: Dressing Dry and Intact, Other (mild soaking of the dressing) Psychiatric: Yes: Alert, Oriented Labs: CBC, BMP 11/19/16 05:32 11/19/16 05:32 INR, PTT INR 1.39 (0.82-1.09) H D 11/19/16 05:32 Assessment/Plan 71 year-old male with a PMH of HTN, afib, PAD, mild systolic cardiomyopathy, GERD, and 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 Admitted for sepsis secondary to left thigh cellulitis from surgical wound. Sepsis secondary to left thigh cellulitis Atrial fibrillation Systolic heart failure, chronic HTN hematoma of the rt thigh plan continue abx post evacuation continue current mgmt await for cx report to be back will send [facility]
[2016-11-19] MEDS: LACTATED RINGERS SOLUTION 1,000 ML IV SCH (21:32)
[2016-11-19] MEDS: ATORVASTATIN CA 40 MG TABLET (FP) PO SCH (21:51)
[2016-11-20] MEDS: VANCOMYCIN 1,250 MG in DEXTROSE 5%-WATER - 250 ML IVPB SCH (01:04)
[2016-11-20] MEDS: METRONIDAZOLE 500 MG PREMIXED 100 ML IVPB SCH ×2 (01:09→11:37)
[2016-11-20] MEDS: AZTREONAM 1 GM in DEXTROSE 5%-WATER - 50 ML IVPB SCH ×2 (01:12→11:36)
[2016-11-20] MEDS: ACETAMINOPHEN 325 MG TABLET (FP) PO PRN ×2 (01:37→18:00)
[2016-11-20] MEDS: LACTATED RINGERS SOLUTION 1,000 ML IV SCH (04:20)
--- NOTE | 2016-11-20 08:09 | PN ---
Progress Note (short form) - Note Progress Note: Anesthesia post op Pt seen and examined s:alert and oriented O: Vital Signs Temperature 98.3 F 11/20/16 06:00 Pulse Rate 63 11/20/16 06:00 Respiratory Rate 20 11/20/16 06:00 Blood Pressure 124/66 11/20/16 06:00 O2 Sat by Pulse Oximetry (%) 98 11/19/16 21:00 CBC, BMP 11/19/16 05:32 11/19/16 05:32 Current Active Problems Abnormal EKG (Acute) Cellulitis (Acute) Constipation (Acute) Fever (Acute) Full code status (Acute) Sepsis (Acute) Systolic CHF (Acute) Wound infection (Acute) A?P:s/p i and d of groin Doing well post op continue current care mayito Gilbert MD
[2016-11-20 08:47] LABS: BASOPHIL 0.5 % (0-2.0); MCH 28.6 pg (25.7-33.7); MCHC 32.6 g/dl (32.0-35.9); MEAN CELL VOLUME 87.7 fl (80-96); MEAN PLT VOLUME 8.3 fl (7.5-11.1); PLATELET COUNT 59 K/MM3 (134-434); RDW 15.4 % (11.9-15.9); WHITE BLOOD COUNT 5.6 K/mm3 (4.0-10.0)
[2016-11-20 08:58] LABS: CALCIUM 8.1 mg/dL (8.5-10.1)
[2016-11-20 08:59] LABS: CREATININE 0.9 mg/dL (0.7-1.3)
[2016-11-20 09:03] LABS: INR 1.76 (0.82-1.09); PROTHROMBIN TIME (PATIENT) 19.6 SEC (9.98-11.88)
--- NOTE | 2016-11-20 09:40 | PN ---
Physical Exam: SUBJECTIVE: Patient seen and examined. He says hes sore. Denies chills. He says he can feel his in LLE and when he stands its as if his foot is a sponge. Events: - tmax 100.8 OBJECTIVE: Vital Signs Period Temp Pulse Resp BP Sys/Tamayo Pulse Ox Last 24 Hr 97.3 F-100.8 F 58-78 14-20 119-147/56-72 94-100 PE Neuro: alert, awake, cn 2-12 intact HEENT: no thrush, MM Pulm: clear with scattered crackles L base CV: s1 s2 irregular rhythm, regular rate no mrg Abd: sn nt nd + bs : left groin incision mild erythema, indurated medially, warm, + tenderness, no drainage, azc in place Ext: LLE non pitting edema +1, b/l ext warm CBCD WBC 5.6 K/mm3 (4.0-10.0) 11/20/16 07:00 RBC 4.19 M/mm3 (4.00-5.60) 11/20/16 07:00 Hgb 12.0 GM/dL (11.7-16.9) 11/20/16 07:00 Hct 36.7 % (35.4-49) 11/20/16 07:00 MCV 87.7 fl (80-96) 11/20/16 07:00 MCHC 32.6 g/dl (32.0-35.9) 11/20/16 07:00 RDW 15.4 % (11.9-15.9) 11/20/16 07:00 Plt Count 59 K/MM3 (134-434) L 11/20/16 07:00 MPV 8.3 fl (7.5-11.1) 11/20/16 07:00 CMP Sodium 140 mmol/L (136-145) 11/20/16 07:00 Potassium 4.0 mmol/L (3.5-5.1) 11/20/16 07:00 Chloride 102 mmol/L (98-107) 11/20/16 07:00 Carbon Dioxide 31 mmol/L (21-32) 11/20/16 07:00 Anion Gap 7 (8-16) L 11/20/16 07:00 BUN 14 mg/dL (7-18) 11/20/16 07:00 Creatinine 0.9 mg/dL (0.7-1.3) 11/20/16 07:00 Creat Clearance w eGFR > 60 (>60) 11/19/16 05:32 Calcium 8.1 mg/dL (8.5-10.1) L 11/20/16 07:00 Total Bilirubin 0.9 mg/dL (0.2-1.0) D 11/19/16 05:32 AST 26 U/L (15-37) 11/19/16 05:32 ALT 30 U/L (12-78) 11/19/16 05:32 Alkaline Phosphatase 63 U/L (45-117) 11/19/16 05:32 Total Protein 5.7 g/dl (6.4-8.2) L 11/19/16 05:32 Albumin 2.6 g/dl (3.4-5.0) L 11/19/16 05:32 11/19/16 11/20/16 11/20/16 16:00 07:00 07:00 INR 1.76 H Vancomycin Trough 11.411 H Hep-Induced Plt Ab Rapid Pending Active Medications Generic Name Dose Route Start Last Admin Trade Name Freq PRN Reason Stop Dose Admin Acetaminophen 650 mg 11/19/16 11:58 11/20/16 01:37 Tylenol - PO 650 mg Q6H PRN Administration FEVER OR PAIN Albuterol/Ipratropium 1 amp 11/19/16 11:58 Duoneb - NEB Q4H PRN SHORTNESS OF BREATH Apixaban 5 mg 11/19/16 11:30 11/19/16 21:51 Eliquis - PO 5 mg BID [facility] Administration Atorvastatin Calcium 40 mg 11/19/16 22:00 11/19/16 21:51 Lipitor - PO 40 mg HS [facility] Administration Bacitracin 1 applic 11/20/16 10:00 Bacitracin - TP DAILY [facility] Aztreonam 1 gm/ Dextrose 50 mls @ 100 mls/hr 11/19/16 18:00 11/20/16 01:12 IVPB 100 mls/hr Q8H-IV [facility] Administration Protocol Metronidazole 100 mls @ 100 mls/hr 11/19/16 18:00 11/20/16 01:09 Flagyl 500mg Premixed Ivpb - IVPB 100 mls/hr Q8H-IV [facility] Administration Vancomycin HCl 1,250 mg/ 250 mls @ 125 mls/hr 11/20/16 01:00 11/20/16 01:04 Dextrose IVPB 125 mls/hr DAILY@0100 [facility] Administration Protocol Metoprolol Succinate 50 mg 11/20/16 10:00 Toprol Xl - PO DAILY [facility] Morphine Sulfate 1 mg 11/19/16 11:58 11/19/16 21:52 Morphine Injection - IVPUSH 1 mg Q3H PRN Administration PAIN Polyethylene Glycol 17 gm 11/20/16 10:00 Miralax (For Daily Use) - PO DAILY [facility] Ramipril 5 mg 11/20/16 10:00 Altace - PO DAILY [facility] Imaging: - CT LLE: 10 x 7.7 x 5.7 cm fluid collection within the left upper thigh ventrally, seroma v lymphocele v abscess; several small pockets of air/gas within the fluid collection; concentric subq edema along the length of the left leg principally laterally - ECHO 10/25/16: LV moderately dilated, function moderately reduced, moderate global hypokinesis; RV normal; moderate LAE; mild MR; moderate TR, mild pHTN; trace to mild PI Assessment: 71 year old male with pmhx of HTN, Afib (on Eliquis), PAD, mild systolic CHF, GERD, and left superficial femoral artery thrombosis s/p aortogram /angioplasty/thrombectomy on 10/22/16 admitted with sepsis secondary to left thigh cellulitis vs. abscess. Plan: 1. Left Thigh Cellulitis - S/p washout and drain of abscess 11/19 - Follow cultures - Possible lymphocele vs groin infection - Initiate PT today - Discussed above with vascular 2. Sepsis secondary to left thigh cellulitis - Repeat cultures NGTD - Aztreonam (day 4), vanc (day 4), metronidazole (day 4) - Vanco level subtherapeutic - ID seeing 3. Atrial fibrillation, controlled - Continue Toprol XL 50mg - Eliquis 5mg BID 4. Systolic heart failure, chronic - Monitor volume status; stop LR - Caution with fluids - Continue Ramipril 5mg 5. HTN - Toprol 50mg daily - Ramipril 5mg daily continued - Restart home chlorthalidone per BP 6. Thrombocyopenia - Platelets stable; possible from sepsis - Eliquis restarted - Trend cbc daily - Monitor for bleeding 7. s/p artery thrombosis w/ aortogram/angioplasty 10/22 - Continue Lipitor 8. PPX - On AC - Physical therapy ordered - Will need SNF placement Visit type - Emergency Visit Emergency Visit: Yes ED Registration Date: 11/15/16 Care time: The patient presented to the Emergency Department on the above date and was hospitalized for further evaluation of their emergent condition. - New Patient This patient is new to me today: Yes Date on this admission: 11/20/16 - Critical Care Critical Care patient: No
[2016-11-20] MEDS: METOPROLOL SUCCINATE 50 MG TAB.SR.24H (FP) PO SCH (11:33)
[2016-11-20] MEDS: RAMIPRIL 5 MG CAPSULE (FP) PO SCH (11:33)
[2016-11-20] MEDS: APIXABAN 5 MG TABLET PO SCH ×2 (11:37→21:49)
[2016-11-20] MEDS: POLYETHYLENE GLYCOL 3350 119 GM BTL PO SCH (11:39)
[2016-11-20] MEDS: BACITRACIN 30 GM TUBE TOPICAL OINTMENT TP SCH ×2 (11:46→15:38)
--- NOTE | 2016-11-20 12:00 | PN ---
Progress Note (short form) - Note Progress Note: SUrgery- Dr. Abbott Patient seen and examined. Patient states he is feeling much better than he was prior to surgery yesterday. He has some soreness in his groin but the pain in his leg and foot is much better. Patient is tolerating his diet, denies nausea/vomiting. Last Vital Signs Temp Pulse Resp BP Pulse Ox 99.2 F 59 L 18 145/72 97 11/20/16 09:09 11/20/16 09:46 11/20/16 09:09 11/20/16 09:09 11/20/16 09:46 CBC, BMP 11/20/16 07:00 11/20/16 07:00 Exam: Gen: NAD Left groin: improving erythema and induration, mild tenderness, minimal drainage on dressing LLE: warm, well-perfused, DP pulse 2+ Problem List - Problems (1) Wound infection Assessment/Plan: POD#1 s/p Exploration of left groin, wash out of wound PAtient feeling better after wound wash out COntinue abx per ID, f/up cx's Code(s): T14.8 - OTHER INJURY OF UNSPECIFIED BODY REGION L08.9 - LOCAL INFECTION OF THE SKIN AND SUBCUTANEOUS TISSUE, UNSP
--- NOTE | 2016-11-20 12:09 | PN ---
Progress Note (short form) - Note Progress Note: Vascular Surgery Pt seen and examined. Left groin dressing changed. Palpable left PT pulse. Cont present care. Cx show staph. Waiting for organism. ID on case. Maximo Abbott DO
--- NOTE | 2016-11-20 12:26 | PN ---
Progress Note, Physician History of Present Illness: patient doing better c/o of numbness in the legs operated site --pain improving - Current Medication List Current Medications: Active Medications Acetaminophen (Tylenol -) 650 mg PO Q6H PRN PRN Reason: FEVER OR PAIN Last Admin: 11/20/16 01:37 Dose: 650 mg Albuterol/Ipratropium (Duoneb -) 1 amp NEB Q4H PRN PRN Reason: SHORTNESS OF BREATH Apixaban (Eliquis -) 5 mg PO BID [facility] Last Admin: 11/20/16 11:37 Dose: 5 mg Atorvastatin Calcium (Lipitor -) 40 mg PO HS [facility] Last Admin: 11/19/16 21:51 Dose: 40 mg Bacitracin (Bacitracin -) 1 applic TP DAILY [facility] Vancomycin HCl 1,250 mg/ (Dextrose) 250 mls @ 125 mls/hr IVPB DAILY@0100 [facility] PRN Reason: Protocol Last Admin: 11/20/16 01:04 Dose: 125 mls/hr Metoprolol Succinate (Toprol Xl -) 50 mg PO DAILY [facility] Last Admin: 11/20/16 11:33 Dose: 50 mg Polyethylene Glycol (Miralax (For Daily Use) -) 17 gm PO DAILY [facility] Last Admin: 11/20/16 11:39 Dose: 17 mg Ramipril (Altace -) 5 mg PO DAILY [facility] Last Admin: 11/20/16 11:33 Dose: 5 mg - Objective Vital Signs: Vital Signs Temperature 99.2 F 11/20/16 09:09 Pulse Rate 59 L 11/20/16 09:46 Respiratory Rate 18 11/20/16 09:09 Blood Pressure 145/72 11/20/16 09:09 O2 Sat by Pulse Oximetry (%) 97 11/20/16 09:46 Constitutional: Yes: Calm, Mild Distress Cardiovascular: Yes: Regular Rate and Rhythm Respiratory: Yes: Regular, CTA Bilaterally Gastrointestinal: Yes: Normal Bowel Sounds, Soft Musculoskeletal: Yes: Other Extremities: Yes: Other Wound/Incision: Yes: Dressing Dry and Intact Neurological: Yes: Alert, Oriented Psychiatric: Yes: Alert Labs: CBC, BMP 11/20/16 07:00 11/20/16 07:00 INR, PTT INR 1.76 (0.82-1.09) H 11/20/16 07:00 Assessment/Plan 71 year-old male with a PMH of HTN, afib, PAD, mild systolic cardiomyopathy, GERD, and 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 Admitted for sepsis secondary to left thigh cellulitis from surgical wound. Sepsis secondary to left thigh cellulitis Atrial fibrillation Systolic heart failure, chronic HTN hematoma of the rt thigh plan continue vanco trough noted await for identification of the species rest ct current mgmt physio
[2016-11-20] MEDS ORDERED: PT OWN MED DRAWER 7, Y5N ONE ×2 (16:50→20:38)
[2016-11-20] MEDS: RANITIDINE HCL 150 MG TABLET (FP) PO SCH (21:50)
[2016-11-20] MEDS: ATORVASTATIN CA 40 MG TABLET (FP) PO SCH (21:50)
[2016-11-21] MEDS: VANCOMYCIN 1,250 MG in DEXTROSE 5%-WATER - 250 ML IVPB SCH (01:38)
[2016-11-21 07:38] LABS: BASOPHIL 0.6 % (0-2.0); EOSINOPHIL 6.8 % (0-4.5); MCHC 33.3 g/dl (32.0-35.9); MEAN CELL VOLUME 87.1 fl (80-96); MEAN PLT VOLUME 8.2 fl (7.5-11.1); NEUTROPHILS 56.2 % (42.8-82.8); PLATELET COUNT 74 K/MM3 (134-434); RDW 15.1 % (11.9-15.9); WHITE BLOOD COUNT 5.4 K/mm3 (4.0-10.0)
[2016-11-21 07:59] LABS: ALBUMIN 2.6 g/dl (3.4-5.0); ANION GAP 8 (8-16); CALCIUM 8.4 mg/dL (8.5-10.1); CO2 31 mmol/L (21-32)
[2016-11-21 08:04] LABS: ALK PHOS 80 U/L (45-117); BILIRUBIN,TOTAL 0.3 mg/dL (0.2-1.0); CREATININE 0.8 mg/dL (0.7-1.3); GLUCOSE,RANDOM 130 mg/dL (74-106); MAGNESIUM 1.8 mg/dL (1.8-2.4); PHOSPHOROUS 3.7 mg/dL (2.5-4.9); SGOT/AST 57 U/L (15-37); SGPT/ALT 53 U/L (12-78); TOT PROT 5.6 g/dl (6.4-8.2)
[2016-11-21] MEDS: METOPROLOL SUCCINATE 50 MG TAB.SR.24H (FP) PO SCH (10:18)
[2016-11-21] MEDS: RAMIPRIL 5 MG CAPSULE (FP) PO SCH (10:18)
[2016-11-21] MEDS: RANITIDINE HCL 150 MG TABLET (FP) PO SCH ×2 (10:18→22:13)
[2016-11-21] MEDS: APIXABAN 5 MG TABLET PO SCH ×2 (10:19→22:13)
[2016-11-21] MEDS: BACITRACIN 30 GM TUBE TOPICAL OINTMENT TP SCH (10:19)
[2016-11-21] MEDS: POLYETHYLENE GLYCOL 3350 119 GM BTL PO SCH (10:19)
--- NOTE | 2016-11-21 13:08 | PN ---
Progress Note, Physician History of Present Illness: stable no new issues leg lt slightly heavy feeling - Current Medication List Current Medications: Active Medications Acetaminophen (Tylenol -) 650 mg PO Q6H PRN PRN Reason: FEVER OR PAIN Last Admin: 11/20/16 18:00 Dose: 650 mg Albuterol/Ipratropium (Duoneb -) 1 amp NEB Q4H PRN PRN Reason: SHORTNESS OF BREATH Apixaban (Eliquis -) 5 mg PO BID [facility] Last Admin: 11/21/16 10:19 Dose: 5 mg Atorvastatin Calcium (Lipitor -) 40 mg PO HS [facility] Last Admin: 11/20/16 21:50 Dose: 40 mg Bacitracin (Bacitracin -) 1 applic TP DAILY [facility] Last Admin: 11/21/16 10:19 Dose: 1 applic Vancomycin HCl 1,250 mg/ (Dextrose) 250 mls @ 125 mls/hr IVPB DAILY@0100 [facility] PRN Reason: Protocol Last Admin: 11/21/16 01:38 Dose: 125 mls/hr Metoprolol Succinate (Toprol Xl -) 50 mg PO DAILY [facility] Last Admin: 11/21/16 10:18 Dose: 50 mg Polyethylene Glycol (Miralax (For Daily Use) -) 17 gm PO DAILY [facility] Last Admin: 11/21/16 10:19 Dose: 17 mg Ramipril (Altace -) 5 mg PO DAILY [facility] Last Admin: 11/21/16 10:18 Dose: 5 mg Ranitidine HCl (Zantac -) 150 mg PO BID [facility] Last Admin: 11/21/16 10:18 Dose: 150 mg - Objective Vital Signs: Vital Signs Temperature 98.4 F 11/21/16 12:10 Pulse Rate 79 11/21/16 12:10 Respiratory Rate 18 11/21/16 12:10 Blood Pressure 162/75 11/21/16 12:10 O2 Sat by Pulse Oximetry (%) 97 11/21/16 12:10 Constitutional: Yes: Calm, Mild Distress Cardiovascular: Yes: Regular Rate and Rhythm Respiratory: Yes: Regular, CTA Bilaterally Musculoskeletal: Yes: WNL Extremities: Yes: Other Wound/Incision: Yes: Dressing Dry and Intact, Other Neurological: Yes: Alert, Oriented Psychiatric: Yes: Alert, Oriented Labs: CBC, BMP 11/21/16 06:15 11/21/16 06:15 INR, PTT INR 1.76 (0.82-1.09) H 11/20/16 07:00 Assessment/Plan 71 year-old male with a PMH of HTN, afib, PAD, mild systolic cardiomyopathy, GERD, and 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 Admitted for sepsis secondary to left thigh cellulitis from surgical wound. Sepsis secondary to left thigh cellulitis Atrial fibrillation Systolic heart failure, chronic HTN hematoma of the rt thigh mrsa wound infection plan continue vanco organism noted mrsa rest ct current mgmt physio
--- NOTE | 2016-11-21 15:52 | PN ---
Physical Exam: SUBJECTIVE: Patient seen and examined. He says he went to the bathroom and wound opened with copious drainage, per RN sanguinous. Pt denies fever, chills. He says the site is sore OBJECTIVE: Vital Signs Period Temp Pulse Resp BP Sys/Tamayo Pulse Ox Last 24 Hr 97.7 F-99.1 F 52-79 18-20 130-162/68-83 95-99 PE Neuro: alert, awake, cn 2-12 intact Pulm: CTAB CV: s1 s2 irregular rhythm, regular rate no mrg Abd: sn nt nd + bs : left groin incision + tenderness, dressing intact, zac Ext: LLE non pitting edema +1, b/l ext warm Laboratory Results - last 24 hr 11/21/16 11/21/16 11/21/16 06:15 06:15 06:15 WBC 5.4 RBC 4.24 Hgb 12.3 Hct 37.0 MCV 87.1 MCHC 33.3 RDW 15.1 Plt Count 74 L D MPV 8.2 Neutrophils % 56.2 Lymphocytes % 26.4 D Monocytes % 10.0 Eosinophils % 6.8 H Basophils % 0.6 PTT (Actin FS) 39.4 H Sodium 142 Potassium 4.1 Chloride 103 Carbon Dioxide 31 Anion Gap 8 BUN 14 Creatinine 0.8 Creat Clearance w eGFR > 60 Random Glucose 130 H Calcium 8.4 L Phosphorus 3.7 D Magnesium 1.8 Total Bilirubin 0.3 D AST 57 H D ALT 53 D Alkaline Phosphatase 80 D Total Protein 5.6 L Albumin 2.6 L Active Medications Generic Name Dose Route Start Last Admin Trade Name Stevenq PRN Reason Stop Dose Admin Acetaminophen 650 mg 11/19/16 11:58 11/20/16 18:00 Tylenol - PO 650 mg Q6H PRN Administration FEVER OR PAIN Albuterol/Ipratropium 1 amp 11/19/16 11:58 Duoneb - NEB Q4H PRN SHORTNESS OF BREATH Apixaban 5 mg 11/19/16 11:30 11/21/16 10:19 Eliquis - PO 5 mg BID [facility] Administration Atorvastatin Calcium 40 mg 11/19/16 22:00 11/20/16 21:50 Lipitor - PO 40 mg HS [facility] Administration Bacitracin 1 applic 11/20/16 10:00 11/21/16 10:19 Bacitracin - TP 1 applic DAILY [facility] Administration Vancomycin HCl 1,250 mg/ 250 mls @ 125 mls/hr 11/20/16 01:00 11/21/16 01:38 Dextrose IVPB 125 mls/hr DAILY@0100 [facility] Administration Protocol Metoprolol Succinate 50 mg 11/20/16 10:00 11/21/16 10:18 Toprol Xl - PO 50 mg DAILY [facility] Administration Polyethylene Glycol 17 gm 11/20/16 10:00 11/21/16 10:19 Miralax (For Daily Use) - PO 17 mg DAILY [facility] Administration Ramipril 5 mg 11/20/16 10:00 11/21/16 10:18 Altace - PO 5 mg DAILY [facility] Administration Ranitidine HCl 150 mg 11/20/16 22:00 11/21/16 10:18 Zantac - PO 150 mg BID [facility] Administration Microbiology 11/19/16 11:10 Gram Stain - Final Abscess Wound Culture - Final Mr S Aureus 11/18/16 11:30 Blood Culture - Preliminary Blood - Peripheral Venous NO GROWTH OBTAINED AFTER 72 HOURS, INCUBATION TO CONTINUE FOR 2 DAYS. 11/18/16 11:05 Blood Culture - Preliminary Blood - Peripheral Venous NO GROWTH OBTAINED AFTER 72 HOURS, INCUBATION TO CONTINUE FOR 2 DAYS. 11/15/16 18:50 Blood Culture - Final Blood - Peripheral Venous NO GROWTH AFTER 5 DAYS INCUBATION 11/15/16 18:19 Blood Culture - Final Blood - Peripheral Venous NO GROWTH AFTER 5 DAYS INCUBATION Abx: - Aztreonam flagyl s/p 4 days Imaging: - CT LLE: 10 x 7.7 x 5.7 cm fluid collection within the left upper thigh ventrally, seroma v lymphocele v abscess; several small pockets of air/gas within the fluid collection; concentric subq edema along the length of the left leg principally laterally - ECHO 10/25/16: LV moderately dilated, function moderately reduced, moderate global hypokinesis; RV normal; moderate LAE; mild MR; moderate TR, mild pHTN; trace to mild PI Assessment: 71 year old male with pmhx of HTN, Afib (on Eliquis), PAD, mild systolic CHF, GERD, and left superficial femoral artery thrombosis s/p aortogram /angioplasty/thrombectomy on 10/22/16 admitted with sepsis secondary to left thigh cellulitis vs. abscess. Plan: 1. Left Thigh Cellulitis d/t MRSA - S/p washout and drain of abscess 11/19 - MRSA wound cx - Continue Vanco (day 5) 2. Sepsis secondary to left thigh cellulitis - Resolving - Vanco as above 3. Atrial fibrillation, controlled - Continue Toprol XL 50mg - Eliquis 5mg BID 4. Systolic heart failure, chronic - Continue Ramipril 5mg 5. HTN - Toprol 50mg daily - Ramipril 5mg daily continued - Restart chlorthalidone tomorrow 6. Thrombocyopenia - Platelets improving; likely from sepsis - On eliquis 7. s/p artery thrombosis w/ aortogram/angioplasty 10/22 - Continue Lipitor 8. PPX - On AC - Physical therapy ordered - Will need SNF placement Visit type - Emergency Visit Emergency Visit: Yes ED Registration Date: 11/15/16 Care time: The patient presented to the Emergency Department on the above date and was hospitalized for further evaluation of their emergent condition. - New Patient This patient is new to me today: No - Critical Care Critical Care patient: No
[2016-11-21] MEDS ORDERED: PT OWN MED DRAWER 7, Y5N ONE (16:20)
[2016-11-21] MEDS: ATORVASTATIN CA 40 MG TABLET (FP) PO SCH (22:13)
[2016-11-22] MEDS: VANCOMYCIN 1,250 MG in DEXTROSE 5%-WATER - 250 ML IVPB SCH (00:24)
[2016-11-22 07:39] LABS: BASOPHIL 0.6 % (0-2.0); EOSINOPHIL 7.2 % (0-4.5); MCH 28.8 pg (25.7-33.7); MEAN CELL VOLUME 87.3 fl (80-96); NEUTROPHILS 58.6 % (42.8-82.8); PLATELET COUNT 117 K/MM3 (134-434); RDW 15.3 % (11.9-15.9); WHITE BLOOD COUNT 5.8 K/mm3 (4.0-10.0)
--- NOTE | 2016-11-22 09:43 | PN ---
Physical Exam: SUBJECTIVE: Patient seen and examined. He has no complaints at this time. No fever, sob, cp, chills. OBJECTIVE: Vital Signs Period Temp Pulse Resp BP Sys/Tamayo Pulse Ox Last 24 Hr 97.9 F-98.9 F 52-79 18-20 133-162/68-75 95-99 PE Neuro: alert, awake, cn 2-12 intact Pulm: CTAB CV: s1 s2 rrr no mrg Abd: sn nt nd + bs : left groin incision with zac, dressing serosanguinous, wound pink, erythema improved, not currently draining Ext: LLE non pitting edema, b/l ext warm Skin: tattoos Laboratory Results - last 24 hr 11/22/16 06:15 WBC 5.8 RBC 4.48 Hgb 12.9 Hct 39.1 MCV 87.3 MCHC 33.0 RDW 15.3 Plt Count 117 L D MPV 8.0 Neutrophils % 58.6 Lymphocytes % 24.4 Monocytes % 9.2 Eosinophils % 7.2 H Basophils % 0.6 Active Medications Generic Name Dose Route Start Last Admin Trade Name Freq PRN Reason Stop Dose Admin Acetaminophen 650 mg 11/19/16 11:58 11/20/16 18:00 Tylenol - PO 650 mg Q6H PRN Administration FEVER OR PAIN Albuterol/Ipratropium 1 amp 11/19/16 11:58 Duoneb - NEB Q4H PRN SHORTNESS OF BREATH Apixaban 5 mg 11/19/16 11:30 11/21/16 22:13 Eliquis - PO 5 mg BID [facility] Administration Atorvastatin Calcium 40 mg 11/19/16 22:00 11/21/16 22:13 Lipitor - PO 40 mg HS [facility] Administration Bacitracin 1 applic 11/20/16 10:00 11/21/16 10:19 Bacitracin - TP 1 applic DAILY [facility] Administration Chlorthalidone 25 mg 11/22/16 10:00 [place] - PO DAILY [facility] Vancomycin HCl 1,250 mg/ 250 mls @ 125 mls/hr 11/20/16 01:00 11/22/16 00:24 Dextrose IVPB 125 mls/hr DAILY@0100 [facility] Administration Protocol Metoprolol Succinate 50 mg 11/20/16 10:00 11/21/16 10:18 Toprol Xl - PO 50 mg DAILY [facility] Administration Polyethylene Glycol 17 gm 11/20/16 10:00 11/21/16 10:19 Miralax (For Daily Use) - PO 17 mg DAILY [facility] Administration Ramipril 5 mg 11/20/16 10:00 11/21/16 10:18 Altace - PO 5 mg DAILY [facility] Administration Ranitidine HCl 150 mg 11/20/16 22:00 11/21/16 22:13 Zantac - PO 150 mg BID [facility] Administration Imaging: - CT LLE: 10 x 7.7 x 5.7 cm fluid collection within the left upper thigh ventrally, seroma v lymphocele v abscess; several small pockets of air/gas within the fluid collection; concentric subq edema along the length of the left leg principally laterally - ECHO 10/25/16: LV moderately dilated, function moderately reduced, moderate global hypokinesis; RV normal; moderate LAE; mild MR; moderate TR, mild pHTN; trace to mild PI Assessment: 71 year old male with pmhx of HTN, Afib (on Eliquis), PAD, mild systolic CHF, GERD, and left superficial femoral artery thrombosis s/p aortogram /angioplasty/thrombectomy on 10/22/16 admitted with sepsis secondary to left thigh cellulitis vs. abscess. Plan: 1. Left thigh cellulits and abscess d/t MRSA - S/p washout and drain of abscess 11/19 - Continue Vanco 1,250mg daily (day 7) - Check vanco level tomorrow 2. Sepsis secondary to left thigh cellulitis - Resolving - Vanco as above 3. Atrial fibrillation, controlled - Continue Toprol XL 50mg - Eliquis 5mg BID 4. Systolic heart failure, chronic - Continue Ramipril 5mg 5. HTN - Toprol 50mg daily - Ramipril 5mg daily continued - Start Chlorthalidone 25mg today 6. Thrombocyopenia - Platelets continue to rise - On Eliquis 7. s/p artery thrombosis w/ aortogram/angioplasty 10/22 - Continue Lipitor 8. PPX - On AC - Physical therapy ordered - Will need SNF placement 9. Lower abdominal seth - Nystatin daily Visit type - Emergency Visit Emergency Visit: Yes ED Registration Date: 11/15/16 Care time: The patient presented to the Emergency Department on the above date and was hospitalized for further evaluation of their emergent condition. - New Patient This patient is new to me today: No - Critical Care Critical Care patient: No
[2016-11-22] MEDS ORDERED: PT OWN MED DRAWER 7, Y5N ONE (09:48)
[2016-11-22] MEDS: RAMIPRIL 5 MG CAPSULE (FP) PO SCH (09:55)
[2016-11-22] MEDS: CHLORTHALIDONE 25 MG TABLET PO SCH (09:55)
[2016-11-22] MEDS: APIXABAN 5 MG TABLET PO SCH ×2 (09:55→22:39)
[2016-11-22] MEDS: RANITIDINE HCL 150 MG TABLET (FP) PO SCH ×2 (09:55→22:39)
[2016-11-22] MEDS: METOPROLOL SUCCINATE 50 MG TAB.SR.24H (FP) PO SCH (09:55)
--- NOTE | 2016-11-22 12:44 | PN ---
Progress Note, Physician History of Present Illness: stable no new issues says he feels depressed leg feels better - Current Medication List Current Medications: Active Medications Acetaminophen (Tylenol -) 650 mg PO Q6H PRN PRN Reason: FEVER OR PAIN Last Admin: 11/20/16 18:00 Dose: 650 mg Albuterol/Ipratropium (Duoneb -) 1 amp NEB Q4H PRN PRN Reason: SHORTNESS OF BREATH Apixaban (Eliquis -) 5 mg PO BID [facility] Last Admin: 11/22/16 09:55 Dose: 5 mg Atorvastatin Calcium (Lipitor -) 40 mg PO HS [facility] Last Admin: 11/21/16 22:13 Dose: 40 mg Bacitracin (Bacitracin -) 1 applic TP DAILY [facility] Last Admin: 11/21/16 10:19 Dose: 1 applic Chlorthalidone (Hygroton -) 25 mg PO DAILY [facility] Last Admin: 11/22/16 09:55 Dose: 25 mg Vancomycin HCl 1,250 mg/ (Dextrose) 250 mls @ 125 mls/hr IVPB DAILY@0100 [facility] PRN Reason: Protocol Last Admin: 11/22/16 00:24 Dose: 125 mls/hr Metoprolol Succinate (Toprol Xl -) 50 mg PO DAILY [facility] Last Admin: 11/22/16 09:55 Dose: 50 mg Polyethylene Glycol (Miralax (For Daily Use) -) 17 gm PO DAILY [facility] Last Admin: 11/21/16 10:19 Dose: 17 mg Ramipril (Altace -) 5 mg PO DAILY [facility] Last Admin: 11/22/16 09:55 Dose: 5 mg Ranitidine HCl (Zantac -) 150 mg PO BID [facility] Last Admin: 11/22/16 09:55 Dose: 150 mg - Objective Vital Signs: Vital Signs Temperature 97.9 F 11/22/16 06:00 Pulse Rate 78 11/22/16 06:00 Respiratory Rate 20 11/22/16 06:00 Blood Pressure 159/75 11/22/16 06:00 O2 Sat by Pulse Oximetry (%) 99 11/22/16 09:00 Constitutional: Yes: No Distress, Calm, Other (depressed) Eyes: Yes: Conjunctiva Clear Cardiovascular: Yes: Regular Rate and Rhythm Respiratory: Yes: Regular, CTA Bilaterally Gastrointestinal: Yes: Normal Bowel Sounds, Soft Musculoskeletal: Yes: Other Extremities: Yes: Other (swelling groin less) Wound/Incision: Yes: Dressing Dry and Intact, Other Neurological: Yes: Alert, Oriented Psychiatric: Yes: Alert Labs: CBC, BMP 11/22/16 06:15 11/21/16 06:15 INR, PTT INR 1.76 (0.82-1.09) H 11/20/16 07:00 Assessment/Plan 71 year-old male with a PMH of HTN, afib, PAD, mild systolic cardiomyopathy, GERD, and 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 Admitted for sepsis secondary to left thigh cellulitis from surgical wound. Sepsis secondary to left thigh cellulitis Atrial fibrillation Systolic heart failure, chronic HTN hematoma of the rt thigh mrsa wound infection plan continue vanco organism noted mrsa rest ct current mgmt physio patient will need abx vanco for another 14 days
[2016-11-22] MEDS: BACITRACIN 30 GM TUBE TOPICAL OINTMENT TP SCH (15:19)
[2016-11-22] MEDS: POLYETHYLENE GLYCOL 3350 119 GM BTL PO SCH (15:19)
[2016-11-22] MEDS: ATORVASTATIN CA 40 MG TABLET (FP) PO SCH (22:39)
[2016-11-23] MEDS: VANCOMYCIN 1,250 MG in DEXTROSE 5%-WATER - 250 ML IVPB SCH (05:05)
[2016-11-23 07:27] LABS: BASOPHIL 0.8 % (0-2.0); EOSINOPHIL 4.8 % (0-4.5); MCHC 33.5 g/dl (32.0-35.9); MEAN CELL VOLUME 86.5 fl (80-96); MEAN PLT VOLUME 7.4 fl (7.5-11.1); NEUTROPHILS 59.6 % (42.8-82.8); PLATELET COUNT 158 K/MM3 (134-434); RDW 15.6 % (11.9-15.9); WHITE BLOOD COUNT 6.4 K/mm3 (4.0-10.0)
[2016-11-23] MEDS ORDERED: PT OWN MED DRAWER 7, Y5N ONE (10:07)
[2016-11-23] MEDS: CHLORTHALIDONE 25 MG TABLET PO SCH (10:23)
[2016-11-23] MEDS: RAMIPRIL 5 MG CAPSULE (FP) PO SCH (10:23)
[2016-11-23] MEDS: RANITIDINE HCL 150 MG TABLET (FP) PO SCH ×2 (10:23→21:50)
[2016-11-23] MEDS: METOPROLOL SUCCINATE 50 MG TAB.SR.24H (FP) PO SCH (10:23)
[2016-11-23] MEDS: APIXABAN 5 MG TABLET PO SCH ×2 (10:23→22:22)
[2016-11-23] MEDS: BACITRACIN 30 GM TUBE TOPICAL OINTMENT TP SCH (10:23)
[2016-11-23] MEDS: POLYETHYLENE GLYCOL 3350 119 GM BTL PO SCH (11:30)
[2016-11-23] MEDS: NYSTATIN POWDER 100,000 UNITS/GM - 15 GM TOPICAL POWDER TP SCH (11:30)
--- NOTE | 2016-11-23 13:05 | PN ---
Progress Note (short form) - Note Progress Note: Vascular Surgery Pt seen and examined. Left groin with some drainage. Seems like pt has lymphocele from the incision. Might need VAC dressing to left groin to create negative pressure to keep wound dry and heal. Cont IV antibiotics for MRSA Cont PT Pt will need to go to rehab after this stay. Will follow left groin incision. Maximo Abbott DO
--- NOTE | 2016-11-23 14:06 | PN ---
Progress Note, Physician History of Present Illness: wound with minimal drainage vascular on case - Current Medication List Current Medications: Active Medications Acetaminophen (Tylenol -) 650 mg PO Q6H PRN PRN Reason: FEVER OR PAIN Last Admin: 11/20/16 18:00 Dose: 650 mg Albuterol/Ipratropium (Duoneb -) 1 amp NEB Q4H PRN PRN Reason: SHORTNESS OF BREATH Apixaban (Eliquis -) 5 mg PO BID [facility] Last Admin: 11/23/16 10:23 Dose: 5 mg Atorvastatin Calcium (Lipitor -) 40 mg PO HS [facility] Last Admin: 11/22/16 22:39 Dose: 40 mg Bacitracin (Bacitracin -) 1 applic TP DAILY [facility] Last Admin: 11/23/16 10:23 Dose: 1 applic Chlorthalidone (Hygroton -) 25 mg PO DAILY [facility] Last Admin: 11/23/16 10:23 Dose: 25 mg Vancomycin HCl 1,250 mg/ (Dextrose) 250 mls @ 125 mls/hr IVPB DAILY@0100 [facility] PRN Reason: Protocol Last Admin: 11/23/16 05:05 Dose: 125 mls/hr Metoprolol Succinate (Toprol Xl -) 50 mg PO DAILY [facility] Last Admin: 11/23/16 10:23 Dose: 50 mg Nystatin (Nystop Powder -) 1 applic TP DAILY [facility] Polyethylene Glycol (Miralax (For Daily Use) -) 17 gm PO DAILY [facility] Last Admin: 11/22/16 15:19 Dose: Not Given Ramipril (Altace -) 5 mg PO DAILY [facility] Last Admin: 11/23/16 10:23 Dose: 5 mg Ranitidine HCl (Zantac -) 150 mg PO BID [facility] Last Admin: 11/23/16 10:23 Dose: 150 mg - Objective Vital Signs: Vital Signs Temperature 97.9 F 11/23/16 10:00 Pulse Rate 82 11/23/16 10:00 Respiratory Rate 20 11/23/16 10:00 Blood Pressure 150/84 11/23/16 10:00 O2 Sat by Pulse Oximetry (%) 99 11/23/16 09:00 Constitutional: Yes: No Distress, Calm Cardiovascular: Yes: Regular Rate and Rhythm Respiratory: Yes: Regular Gastrointestinal: Yes: Normal Bowel Sounds, Soft Musculoskeletal: Yes: WNL Extremities: Yes: Erythema (much better), Other Wound/Incision: Yes: Draining, Other Neurological: Yes: Alert, Oriented Psychiatric: Yes: Alert Labs: CBC, BMP 11/23/16 06:00 11/21/16 06:15 INR, PTT INR 1.76 (0.82-1.09) H 11/20/16 07:00 Assessment/Plan 71 year-old male with a PMH of HTN, afib, PAD, mild systolic cardiomyopathy, GERD, and 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 Admitted for sepsis secondary to left thigh cellulitis from surgical wound. Sepsis secondary to left thigh cellulitis Atrial fibrillation Systolic heart failure, chronic HTN hematoma of the rt thigh mrsa wound infection plan continue vanco organism noted mrsa rest ct current mgmt physio patient will need abx vanco for another 14 days patient vanco level needs to be followed on regular level wound care
--- NOTE | 2016-11-23 14:33 | PN ---
Physical Exam: SUBJECTIVE: Patient seen and examined. Wound drained by vascular. Pt has pain. Denies fever, chills. at bedside. OBJECTIVE: Vital Signs Period Temp Pulse Resp BP Sys/Tamayo Pulse Ox Last 24 Hr 70 F-98.6 F 69-83 20-20 119-155/57-85 99-99 PE Neuro: alert, awake, cn 2-12 intact Pulm: CTAB CV: s1 s2 rrr no mrg Abd: s nt nd + bs : left groin incision with zac, open to air, no induration, +tenderness Ext: LLE non pitting edema, b/l ext warm Laboratory Results - last 24 hr 11/23/16 11/23/16 11/23/16 03:54 06:00 09:20 WBC 6.4 RBC 4.64 Hgb 13.4 Hct 40.1 MCV 86.5 MCHC 33.5 RDW 15.6 Plt Count 158 D MPV 7.4 L Neutrophils % 59.6 Lymphocytes % 26.3 Monocytes % 8.5 Eosinophils % 4.8 H Basophils % 0.8 Vancomycin Trough 4.907 L D 13.211 H D Active Medications Generic Name Dose Route Start Last Admin Trade Name Freq PRN Reason Stop Dose Admin Acetaminophen 650 mg 11/19/16 11:58 11/20/16 18:00 Tylenol - PO 650 mg Q6H PRN Administration FEVER OR PAIN Albuterol/Ipratropium 1 amp 11/19/16 11:58 Duoneb - NEB Q4H PRN SHORTNESS OF BREATH Apixaban 5 mg 11/19/16 11:30 11/23/16 10:23 Eliquis - PO 5 mg BID [facility] Administration Atorvastatin Calcium 40 mg 11/19/16 22:00 11/22/16 22:39 Lipitor - PO 40 mg HS [facility] Administration Bacitracin 1 applic 11/20/16 10:00 11/23/16 10:23 Bacitracin - TP 1 applic DAILY [facility] Administration Chlorthalidone 25 mg 11/22/16 10:00 11/23/16 10:23 Hygroton - PO 25 mg DAILY [facility] Administration Vancomycin HCl 1,250 mg/ 250 mls @ 125 mls/hr 11/20/16 01:00 11/23/16 05:05 Dextrose IVPB 125 mls/hr DAILY@0100 [facility] Administration Protocol Metoprolol Succinate 50 mg 11/20/16 10:00 11/23/16 10:23 Toprol Xl - PO 50 mg DAILY [facility] Administration Nystatin 1 applic 11/22/16 18:30 Nystop Powder - TP DAILY [facility] Polyethylene Glycol 17 gm 11/20/16 10:00 11/22/16 15:19 Miralax (For Daily Use) - PO Not Given DAILY [facility] Ramipril 5 mg 11/20/16 10:00 11/23/16 10:23 Altace - PO 5 mg DAILY [facility] Administration Ranitidine HCl 150 mg 11/20/16 22:00 11/23/16 10:23 Zantac - PO 150 mg BID [facility] Administration Imaging: - CT LLE: 10 x 7.7 x 5.7 cm fluid collection within the left upper thigh ventrally, seroma v lymphocele v abscess; several small pockets of air/gas within the fluid collection; concentric subq edema along the length of the left leg principally laterally - ECHO 10/25/16: LV moderately dilated, function moderately reduced, moderate global hypokinesis; RV normal; moderate LAE; mild MR; moderate TR, mild pHTN; trace to mild PI Assessment: 71 year old male with pmhx of HTN, Afib (on Eliquis), PAD, mild systolic CHF, GERD, and left superficial femoral artery thrombosis s/p aortogram /angioplasty/thrombectomy on 10/22/16 admitted with sepsis secondary to left thigh cellulitis vs. abscess. Plan: 1. Left thigh cellulits and abscess d/t MRSA s/p washout 11/19 - Continues to drain, likely lymphocele collecting - Vascular to monitor wound, if drainage continues will need wound vac - Maintain Vanco 1,250mg daily (day 04/11) per ID - Monitor vanco level closely 2. Sepsis secondary to left thigh cellulitis - Resolving - Vanco as above 3. Atrial fibrillation, controlled - Continue Toprol XL 50mg - Eliquis 5mg BID 4. Systolic heart failure, chronic - Continue Ramipril 5mg 5. HTN - Toprol 50mg daily - Ramipril 5mg daily - Chlorthalidone 25mg daily 6. Thrombocyopenia - Resolved; due to sepsis from thigh abscess - On Eliquis 7. s/p artery thrombosis w/ aortogram/angioplasty 10/22 - Continue Lipitor 8. PPX - On AC - Physical therapy ordered - Will need SNF placement 9. Lower abdominal seth - Nystatin daily 10. Sepsis - Resolved Visit type - Emergency Visit Emergency Visit: Yes ED Registration Date: 11/15/16 Care time: The patient presented to the Emergency Department on the above date and was hospitalized for further evaluation of their emergent condition. - New Patient This patient is new to me today: No - Critical Care Critical Care patient: No
[2016-11-23] MEDS: ATORVASTATIN CA 40 MG TABLET (FP) PO SCH (21:50)
[2016-11-24] MEDS: VANCOMYCIN 1,250 MG in DEXTROSE 5%-WATER - 250 ML IVPB SCH (01:10)
[2016-11-24 07:54] LABS: CALCIUM 9.1 mg/dL (8.5-10.1)
[2016-11-24 07:56] LABS: CREATININE 0.9 mg/dL (0.7-1.3)
[2016-11-24] MEDS: NYSTATIN POWDER 100,000 UNITS/GM - 15 GM TOPICAL POWDER TP SCH ×2 (08:23→15:23)
[2016-11-24] MEDS ORDERED: PT OWN MED DRAWER 7, Y5N ONE (09:53)
[2016-11-24] MEDS: METOPROLOL SUCCINATE 50 MG TAB.SR.24H (FP) PO SCH (10:23)
[2016-11-24] MEDS: CHLORTHALIDONE 25 MG TABLET PO SCH (10:23)
[2016-11-24] MEDS: RAMIPRIL 5 MG CAPSULE (FP) PO SCH (10:23)
[2016-11-24] MEDS: APIXABAN 5 MG TABLET PO SCH ×2 (10:23→23:20)
[2016-11-24] MEDS: RANITIDINE HCL 150 MG TABLET (FP) PO SCH ×2 (10:23→23:20)
[2016-11-24] MEDS: POLYETHYLENE GLYCOL 3350 119 GM BTL PO SCH (10:25)
--- NOTE | 2016-11-24 14:20 | PN ---
Progress Note (short form) - Note Progress Note: Vascular Surgery Pt seen and examined. Left groin looks clean. No signs of infection. Minimal drainage. On Will remove zac on tuesday. Maximo Abbott DO
--- NOTE | 2016-11-24 15:05 | PN ---
Physical Exam: SUBJECTIVE: Patient seen and examined. He is voiding freely. He says his wound drained earlier this AM. He has some residual pain. No chills, sob. OBJECTIVE: Vital Signs Period Temp Pulse Resp BP Sys/Tamayo Pulse Ox Last 24 Hr 97.6 F-98.3 F 50-77 20-20 126-153/56-83 98-99 PE Neuro: alert, awake, cn 2-12 intact Pulm: CTAB CV: s1 s2 rrr no mrg Abd: s nt nd + bs : left groin incision with zac, open to air, +tenderness, pink Ext: LLE +1 pitting edema, b/l ext warm Laboratory Results - last 24 hr 11/24/16 06:10 Sodium 139 Potassium 4.4 Chloride 102 Carbon Dioxide 28 Anion Gap 9 BUN 17 D Creatinine 0.9 Random Glucose 127 H Calcium 9.1 Active Medications Generic Name Dose Route Start Last Admin Trade Name Freq PRN Reason Stop Dose Admin Acetaminophen 650 mg 11/19/16 11:58 11/20/16 18:00 Tylenol - PO 650 mg Q6H PRN Administration FEVER OR PAIN Albuterol/Ipratropium 1 amp 11/19/16 11:58 Duoneb - NEB Q4H PRN SHORTNESS OF BREATH Apixaban 5 mg 11/19/16 11:30 11/24/16 10:23 Eliquis - PO 5 mg BID [facility] Administration Atorvastatin Calcium 40 mg 11/19/16 22:00 11/23/16 21:50 Lipitor - PO 40 mg HS [facility] Administration Bacitracin 1 applic 11/20/16 10:00 11/23/16 10:23 Bacitracin - TP 1 applic DAILY [facility] Administration Chlorthalidone 25 mg 11/22/16 10:00 11/24/16 10:23 Hygroton - PO 25 mg DAILY [facility] Administration Vancomycin HCl 1,250 mg/ 250 mls @ 125 mls/hr 11/20/16 01:00 11/24/16 01:10 Dextrose IVPB 125 mls/hr DAILY@0100 [facility] Administration Protocol Metoprolol Succinate 50 mg 11/20/16 10:00 11/24/16 10:23 Toprol Xl - PO 50 mg DAILY [facility] Administration Nystatin 1 applic 11/22/16 18:30 11/24/16 08:23 Nystop Powder - TP Not Given DAILY [facility] Polyethylene Glycol 17 gm 11/20/16 10:00 11/24/16 10:25 Miralax (For Daily Use) - PO Not Given DAILY [facility] Ramipril 5 mg 11/20/16 10:00 11/24/16 10:23 Altace - PO 5 mg DAILY [facility] Administration Ranitidine HCl 150 mg 11/20/16 22:00 11/24/16 10:23 Zantac - PO 150 mg BID [facility] Administration Imaging: - CT LLE: 10 x 7.7 x 5.7 cm fluid collection within the left upper thigh ventrally, seroma v lymphocele v abscess; several small pockets of air/gas within the fluid collection; concentric subq edema along the length of the left leg principally laterally - ECHO 10/25/16: LV moderately dilated, function moderately reduced, moderate global hypokinesis; RV normal; moderate LAE; mild MR; moderate TR, mild pHTN; trace to mild PI Assessment: 71 year old male with pmhx of HTN, Afib (on Eliquis), PAD, mild systolic CHF, GERD, and left superficial femoral artery thrombosis s/p aortogram /angioplasty/thrombectomy on 10/22/16 admitted with sepsis secondary to left thigh cellulitis vs. abscess. Plan: 1. Left thigh cellulits and abscess d/t MRSA s/p washout 11/19 - Wound clean, vascular to remove zac Tuesday - Maintain Vanco 1,250mg daily (day 05/12) per ID - Monitor vanco level closely 2. Sepsis secondary to left thigh cellulitis - Resolving - Vanco as above 3. Atrial fibrillation, controlled - Continue Toprol XL 50mg - Eliquis 5mg BID 4. Systolic heart failure, chronic - Continue Ramipril 5mg 5. HTN - Toprol 50mg daily - Ramipril 5mg daily - Chlorthalidone 25mg daily 6. Thrombocyopenia - Resolved; due to sepsis from thigh abscess - On Eliquis 7. s/p artery thrombosis w/ aortogram/angioplasty 10/22 - Continue Lipitor 8. PPX - On AC - Physical therapy ordered - SNF placement 9. Lower abdominal seth - Nystatin daily 10. Sepsis - Resolved Visit type - Emergency Visit Emergency Visit: Yes ED Registration Date: 11/15/16 Care time: The patient presented to the Emergency Department on the above date and was hospitalized for further evaluation of their emergent condition. - New Patient This patient is new to me today: No - Critical Care Critical Care patient: No
[2016-11-24] MEDS: BACITRACIN 30 GM TUBE TOPICAL OINTMENT TP SCH (15:23)
--- NOTE | 2016-11-24 15:51 | PN ---
Progress Note, Physician History of Present Illness: stable doing well dsg changed wound looks stable - Current Medication List Current Medications: Active Medications Acetaminophen (Tylenol -) 650 mg PO Q6H PRN PRN Reason: FEVER OR PAIN Last Admin: 11/20/16 18:00 Dose: 650 mg Albuterol/Ipratropium (Duoneb -) 1 amp NEB Q4H PRN PRN Reason: SHORTNESS OF BREATH Apixaban (Eliquis -) 5 mg PO BID [facility] Last Admin: 11/24/16 10:23 Dose: 5 mg Atorvastatin Calcium (Lipitor -) 40 mg PO HS [facility] Last Admin: 11/23/16 21:50 Dose: 40 mg Bacitracin (Bacitracin -) 1 applic TP DAILY [facility] Last Admin: 11/24/16 15:23 Dose: 1 applic Chlorthalidone (Hygroton -) 25 mg PO DAILY [facility] Last Admin: 11/24/16 10:23 Dose: 25 mg Vancomycin HCl 1,250 mg/ (Dextrose) 250 mls @ 125 mls/hr IVPB DAILY@0100 [facility] PRN Reason: Protocol Last Admin: 11/24/16 01:10 Dose: 125 mls/hr Metoprolol Succinate (Toprol Xl -) 50 mg PO DAILY [facility] Last Admin: 11/24/16 10:23 Dose: 50 mg Nystatin (Nystop Powder -) 1 applic TP DAILY [facility] Last Admin: 11/24/16 15:23 Dose: 1 applic Polyethylene Glycol (Miralax (For Daily Use) -) 17 gm PO DAILY [facility] Last Admin: 11/24/16 10:25 Dose: Not Given Ramipril (Altace -) 5 mg PO DAILY [facility] Last Admin: 11/24/16 10:23 Dose: 5 mg Ranitidine HCl (Zantac -) 150 mg PO BID [facility] Last Admin: 11/24/16 10:23 Dose: 150 mg - Objective Vital Signs: Vital Signs Temperature 97.6 F 11/24/16 15:00 Pulse Rate 77 11/24/16 15:00 Respiratory Rate 20 11/24/16 15:00 Blood Pressure 152/83 11/24/16 15:00 O2 Sat by Pulse Oximetry (%) 98 11/24/16 11:04 Constitutional: Yes: No Distress, Calm Cardiovascular: Yes: Regular Rate and Rhythm Respiratory: Yes: Regular, CTA Bilaterally Gastrointestinal: Yes: Normal Bowel Sounds, Soft Musculoskeletal: Yes: Other Extremities: Yes: Other Wound/Incision: Yes: Clean/Dry, Dressing Dry and Intact, Dressing Removed Neurological: Yes: Alert, Oriented Psychiatric: Yes: Alert, Oriented Labs: CBC, BMP 11/23/16 06:00 11/24/16 06:10 INR, PTT INR 1.76 (0.82-1.09) H 11/20/16 07:00 Assessment/Plan 71 year-old male with a PMH of HTN, afib, PAD, mild systolic cardiomyopathy, GERD, and 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 Admitted for sepsis secondary to left thigh cellulitis from surgical wound. Sepsis secondary to left thigh cellulitis Atrial fibrillation Systolic heart failure, chronic HTN hematoma of the rt thigh mrsa wound infection plan continue vanco patient will need abx vanco for another 13 days vanco trough noted continue current dosage
[2016-11-24] MEDS: ATORVASTATIN CA 40 MG TABLET (FP) PO SCH (23:20)
[2016-11-25] MEDS: VANCOMYCIN 1,250 MG in DEXTROSE 5%-WATER - 250 ML IVPB SCH ×2 (01:10→14:46)
[2016-11-25] MEDS ORDERED: PT OWN MED DRAWER 7, Y5N ONE (09:12)
[2016-11-25] MEDS: CHLORTHALIDONE 25 MG TABLET PO SCH (09:49)
[2016-11-25] MEDS: RANITIDINE HCL 150 MG TABLET (FP) PO SCH ×2 (09:49→22:45)
[2016-11-25] MEDS: APIXABAN 5 MG TABLET PO SCH ×2 (09:49→22:45)
[2016-11-25] MEDS: RAMIPRIL 5 MG CAPSULE (FP) PO SCH (09:49)
[2016-11-25] MEDS: METOPROLOL SUCCINATE 50 MG TAB.SR.24H (FP) PO SCH (09:49)
[2016-11-25] MEDS: BACITRACIN 30 GM TUBE TOPICAL OINTMENT TP SCH (09:50)
[2016-11-25] MEDS: NYSTATIN POWDER 100,000 UNITS/GM - 15 GM TOPICAL POWDER TP SCH (09:50)
[2016-11-25] MEDS: POLYETHYLENE GLYCOL 3350 119 GM BTL PO SCH (11:30)
--- NOTE | 2016-11-25 12:30 | PN ---
Physical Exam: SUBJECTIVE: Patient seen and examined. Both and patient expressing concern over wound drainage that occurred overnight. OBJECTIVE: Left groin zac intact Wound with small amount of sero sang drainage Vital Signs Period Temp Pulse Resp BP Sys/Tamayo Pulse Ox Last 24 Hr 97.6 F-97.8 F 77-82 20-20 126-152/72-83 98 GENERAL: The patient is awake, alert, and fully oriented, in no acute distress. HEAD: Normal with no signs of trauma. EYES: PERRL, extraocular movements intact, sclera anicteric, conjunctiva clear. No ptosis. ENT: Ears normal, nares patent, oropharynx clear without exudates, moist mucous membranes. NECK: Trachea midline, full range of motion, supple. LUNGS: Breath sounds equal, clear to auscultation bilaterally, no wheezes, no crackles, no accessory muscle use. HEART: Regular rate and rhythm ABDOMEN: Soft, nontender, nondistended, normoactive bowel sounds, no guarding, no rebound, no hepatosplenomegaly, no masses. EXTREMITIES: no edema. NEUROLOGICAL: Normal speech, gait not observed. PSYCH: Normal mood, normal affect. Laboratory Results - last 24 hr 11/25/16 06:00 Random Vancomycin 4.904 Active Medications Generic Name Dose Route Start Last Admin Trade Name Freq PRN Reason Stop Dose Admin Acetaminophen 650 mg 11/19/16 11:58 11/20/16 18:00 Tylenol - PO 650 mg Q6H PRN Administration FEVER OR PAIN Albuterol/Ipratropium 1 amp 11/19/16 11:58 Duoneb - NEB Q4H PRN SHORTNESS OF BREATH Apixaban 5 mg 11/19/16 11:30 11/25/16 09:49 Eliquis - PO 5 mg BID [facility] Administration Atorvastatin Calcium 40 mg 11/19/16 22:00 11/24/16 23:20 Lipitor - PO 40 mg HS [facility] Administration Bacitracin 1 applic 11/20/16 10:00 11/25/16 09:50 Bacitracin - TP 1 applic DAILY [facility] Administration Chlorthalidone 25 mg 11/22/16 10:00 11/25/16 09:49 Hygroton - PO 25 mg DAILY [facility] Administration Vancomycin HCl 1,250 mg/ 250 mls @ 125 mls/hr 11/20/16 01:00 11/25/16 01:10 Dextrose IVPB Not Given DAILY@0100 [facility] Protocol Metoprolol Succinate 50 mg 11/20/16 10:00 11/25/16 09:49 Toprol Xl - PO 50 mg DAILY [facility] Administration Nystatin 1 applic 11/22/16 18:30 11/25/16 09:50 Nystop Powder - TP 1 applic DAILY [facility] Administration Polyethylene Glycol 17 gm 11/20/16 10:00 11/24/16 10:25 Miralax (For Daily Use) - PO Not Given DAILY [facility] Ramipril 5 mg 11/20/16 10:00 11/25/16 09:49 Altace - PO 5 mg DAILY [facility] Administration Ranitidine HCl 150 mg 11/20/16 22:00 11/25/16 09:49 Zantac - PO 150 mg BID [facility] Administration ASSESSMENT/PLAN: Patient is a 71 year old male with pmhx of hypertension, Afib (on Eliquis), mild systolic CHF, GERD, and left superficial femoral artery thrombosis s/p aortogram/angioplasty/thrombectomy on 10/22/16. He was admitted on 11/15/3016 for sepsis secondary to left thigh cellulitis/abscess. Today he denies pain to the left groin site but he is concerned over the drainage from the site that he had overnight. ID: Sepsis secondary to Left thigh cellulitis/abscess - resolving + MRSA of the wound Assessment/Plan: Had washout on 11/19 Wound clean, some sero sang drainage, stables intact, stables to be removed tomorrow On Vancomycin 1.25mg daily as per ID Continue to monitor wound follow up with ultrasound for resolution of abscess if continues to drain Cardiology: Atrial Fib - chronic Assessment/Plan: controlled with Toprol, AC with Eliquis Monitor Hypertension/Systolic heart failure - both chronic Assessment/Plan: Continue Ramipril 5mg, toprol 50mg daily F.E.N. Fluids: tolerate PO Electrolytes: within normal limits Nutritin: low sodium DVT Proph: on Eliquis Dispositon: Req. inpatient hospitalization. Full Code. Visit type - Emergency Visit Emergency Visit: Yes ED Registration Date: 11/15/16 Care time: The patient presented to the Emergency Department on the above date and was hospitalized for further evaluation of their emergent condition. - New Patient This patient is new to me today: Yes Date on this admission: 11/25/16 - Critical Care Critical Care patient: No - Discharge Referral Referred to [facility] No
--- NOTE | 2016-11-25 14:32 | PN ---
Progress Note, Physician History of Present Illness: patients wound drained lot of fluid now the wound looks good still some serous drainage noted - Current Medication List Current Medications: Active Medications Acetaminophen (Tylenol -) 650 mg PO Q6H PRN PRN Reason: FEVER OR PAIN Last Admin: 11/20/16 18:00 Dose: 650 mg Albuterol/Ipratropium (Duoneb -) 1 amp NEB Q4H PRN PRN Reason: SHORTNESS OF BREATH Apixaban (Eliquis -) 5 mg PO BID [facility] Last Admin: 11/25/16 09:49 Dose: 5 mg Atorvastatin Calcium (Lipitor -) 40 mg PO HS [facility] Last Admin: 11/24/16 23:20 Dose: 40 mg Bacitracin (Bacitracin -) 1 applic TP DAILY [facility] Last Admin: 11/25/16 09:50 Dose: 1 applic Chlorthalidone (Hygroton -) 25 mg PO DAILY [facility] Last Admin: 11/25/16 09:49 Dose: 25 mg Vancomycin HCl 1,250 mg/ (Dextrose) 250 mls @ 125 mls/hr IVPB DAILY@0100 [facility] PRN Reason: Protocol Last Admin: 11/25/16 01:10 Dose: Not Given Metoprolol Succinate (Toprol Xl -) 50 mg PO DAILY [facility] Last Admin: 11/25/16 09:49 Dose: 50 mg Nystatin (Nystop Powder -) 1 applic TP DAILY [facility] Last Admin: 11/25/16 09:50 Dose: 1 applic Polyethylene Glycol (Miralax (For Daily Use) -) 17 gm PO DAILY [facility] Last Admin: 11/24/16 10:25 Dose: Not Given Ramipril (Altace -) 5 mg PO DAILY [facility] Last Admin: 11/25/16 09:49 Dose: 5 mg Ranitidine HCl (Zantac -) 150 mg PO BID [facility] Last Admin: 11/25/16 09:49 Dose: 150 mg - Objective Vital Signs: Vital Signs Temperature 97.5 F L 11/25/16 10:00 Pulse Rate 83 11/25/16 10:00 Respiratory Rate 18 11/25/16 10:00 Blood Pressure 129/92 11/25/16 10:00 O2 Sat by Pulse Oximetry (%) 98 11/25/16 09:00 Constitutional: Yes: No Distress, Calm Cardiovascular: Yes: Regular Rate and Rhythm Respiratory: Yes: Regular, CTA Bilaterally Gastrointestinal: Yes: Normal Bowel Sounds, Soft Musculoskeletal: Yes: WNL Extremities: Yes: Other Wound/Incision: Yes: Draining, Other (zac in place) Neurological: Yes: Alert Psychiatric: Yes: Alert, Oriented Labs: CBC, BMP 11/23/16 06:00 11/24/16 06:10 INR, PTT INR 1.76 (0.82-1.09) H 11/20/16 07:00 Assessment/Plan 71 year-old male with a PMH of HTN, afib, PAD, mild systolic cardiomyopathy, GERD, and 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 Admitted for sepsis secondary to left thigh cellulitis from surgical wound. Sepsis secondary to left thigh cellulitis Atrial fibrillation Systolic heart failure, chronic HTN hematoma of the rt thigh mrsa wound infection plan continue vanco consider u/s of the groin
[2016-11-25] MEDS: ATORVASTATIN CA 40 MG TABLET (FP) PO SCH (22:45)
[2016-11-26 08:11] LABS: ALK PHOS 92 U/L (45-117); ANION GAP 8 (8-16); CALCIUM 8.8 mg/dL (8.5-10.1); CO2 29 mmol/L (21-32); CREATININE 0.9 mg/dL (0.7-1.3); GLUCOSE,RANDOM 120 mg/dL (74-106); SGPT/ALT 61 U/L (12-78); TOT PROT 6.5 g/dl (6.4-8.2)
[2016-11-26 08:15] LABS: BILIRUBIN,TOTAL 0.4 mg/dL (0.2-1.0)
[2016-11-26 08:22] LABS: SGOT/AST 32 U/L (15-37)
[2016-11-26 08:27] LABS: EOSINOPHIL 3.2 % (0-4.5); MCHC 33.4 g/dl (32.0-35.9); MEAN CELL VOLUME 86.9 fl (80-96); MEAN PLT VOLUME 8.4 fl (7.5-11.1); NEUTROPHILS 67.9 % (42.8-82.8); PLATELET COUNT 211 K/MM3 (134-434); RDW 15.3 % (11.9-15.9); WHITE BLOOD COUNT 7.2 K/mm3 (4.0-10.0)
[2016-11-26] MEDS ORDERED: PT OWN MED DRAWER 7, Y5N ONE ×3 (10:48→22:19)
[2016-11-26] MEDS: METOPROLOL SUCCINATE 50 MG TAB.SR.24H (FP) PO SCH (10:57)
[2016-11-26] MEDS: CHLORTHALIDONE 25 MG TABLET PO SCH (10:57)
[2016-11-26] MEDS: RANITIDINE HCL 150 MG TABLET (FP) PO SCH ×2 (10:57→22:25)
[2016-11-26] MEDS: APIXABAN 5 MG TABLET PO SCH ×2 (10:57→22:25)
[2016-11-26] MEDS: POLYETHYLENE GLYCOL 3350 119 GM BTL PO SCH (12:54)
[2016-11-26] MEDS: RAMIPRIL 5 MG CAPSULE (FP) PO SCH (12:54)
[2016-11-26] MEDS: VANCOMYCIN 1,250 MG in DEXTROSE 5%-WATER - 250 ML IVPB SCH (14:23)
[2016-11-26] MEDS: BACITRACIN 30 GM TUBE TOPICAL OINTMENT TP SCH (14:28)
[2016-11-26] MEDS: NYSTATIN POWDER 100,000 UNITS/GM - 15 GM TOPICAL POWDER TP SCH (14:28)
--- NOTE | 2016-11-26 14:31 | PN ---
Progress Note, Physician History of Present Illness: doing well no new issues wound stable - Current Medication List Current Medications: Active Medications Acetaminophen (Tylenol -) 650 mg PO Q6H PRN PRN Reason: FEVER OR PAIN Last Admin: 11/20/16 18:00 Dose: 650 mg Albuterol/Ipratropium (Duoneb -) 1 amp NEB Q4H PRN PRN Reason: SHORTNESS OF BREATH Apixaban (Eliquis -) 5 mg PO BID [facility] Last Admin: 11/26/16 10:57 Dose: 5 mg Atorvastatin Calcium (Lipitor -) 40 mg PO HS [facility] Last Admin: 11/25/16 22:45 Dose: 40 mg Bacitracin (Bacitracin -) 1 applic TP DAILY [facility] Last Admin: 11/26/16 14:28 Dose: 1 applic Chlorthalidone (Hygroton -) 25 mg PO DAILY [facility] Last Admin: 11/26/16 10:57 Dose: 25 mg Vancomycin HCl 1,250 mg/ (Dextrose) 250 mls @ 125 mls/hr IVPB DAILY@1400 [facility] PRN Reason: Protocol Last Admin: 11/26/16 14:23 Dose: 125 mls/hr Metoprolol Succinate (Toprol Xl -) 50 mg PO DAILY [facility] Last Admin: 11/26/16 10:57 Dose: 50 mg Nystatin (Nystop Powder -) 1 applic TP DAILY [facility] Last Admin: 11/26/16 14:28 Dose: 1 applic Polyethylene Glycol (Miralax (For Daily Use) -) 17 gm PO DAILY [facility] Last Admin: 11/26/16 12:54 Dose: Not Given Ramipril (Altace -) 5 mg PO DAILY [facility] Last Admin: 11/26/16 12:54 Dose: 5 mg Ranitidine HCl (Zantac -) 150 mg PO BID [facility] Last Admin: 11/26/16 10:57 Dose: 150 mg - Objective Vital Signs: Vital Signs Temperature 98.2 F 11/26/16 10:57 Pulse Rate 74 11/26/16 10:57 Respiratory Rate 18 11/26/16 10:57 Blood Pressure 138/69 11/26/16 10:57 O2 Sat by Pulse Oximetry (%) 96 11/25/16 21:00 Constitutional: Yes: No Distress, Calm HENT: Yes: Atraumatic Cardiovascular: Yes: Regular Rate and Rhythm Respiratory: Yes: Regular, CTA Bilaterally Gastrointestinal: Yes: Normal Bowel Sounds, Soft Musculoskeletal: Yes: WNL Extremities: Yes: Other Wound/Incision: Yes: Draining, Other Neurological: Yes: Alert, Oriented Psychiatric: Yes: Alert, Oriented Labs: CBC, BMP 11/26/16 06:00 11/26/16 06:00 INR, PTT INR 1.76 (0.82-1.09) H 11/20/16 07:00 Assessment/Plan 71 year-old male with a PMH of HTN, afib, PAD, mild systolic cardiomyopathy, GERD, and 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 Admitted for sepsis secondary to left thigh cellulitis from surgical wound. Sepsis secondary to left thigh cellulitis Atrial fibrillation Systolic heart failure, chronic HTN hematoma of the rt thigh mrsa wound infection plan continue vanco await u/s finding will ahve to decide further what to do rest ct current mgmt
--- NOTE | 2016-11-26 15:10 | PN ---
Physical Exam: SUBJECTIVE: Patient seen and examined. at the bedside. Patient asking to go to rehab upon discharge. Denies pain or discomfort. OBJECTIVE: Left wound groin stables intact, wound stable site slightly red along incision Awaiting results of repeat left groin ultrasound Vital Signs Period Temp Pulse Resp BP Sys/Tamayo Pulse Ox Last 24 Hr 98.2 F-98.7 F 64-75 18-20 123-161/59-74 96 Laboratory Results - last 24 hr 11/26/16 11/26/16 06:00 06:00 WBC 7.2 RBC 4.72 Hgb 13.7 Hct 41.0 MCV 86.9 MCHC 33.4 RDW 15.3 Plt Count 211 D MPV 8.4 D Neutrophils % 67.9 Lymphocytes % 21.8 Monocytes % 6.1 Eosinophils % 3.2 Basophils % 1.0 Sodium 139 Potassium 4.4 Chloride 102 Carbon Dioxide 29 Anion Gap 8 BUN 22 H D Creatinine 0.9 Creat Clearance w eGFR > 60 Random Glucose 120 H Calcium 8.8 Total Bilirubin 0.4 D AST 32 D ALT 61 Alkaline Phosphatase 92 Total Protein 6.5 Albumin 3.0 L Active Medications Generic Name Dose Route Start Last Admin Trade Name Freq PRN Reason Stop Dose Admin Acetaminophen 650 mg 11/19/16 11:58 11/20/16 18:00 Tylenol - PO 650 mg Q6H PRN Administration FEVER OR PAIN Albuterol/Ipratropium 1 amp 11/19/16 11:58 Duoneb - NEB Q4H PRN SHORTNESS OF BREATH Apixaban 5 mg 11/19/16 11:30 11/26/16 10:57 Eliquis - PO 5 mg BID [facility] Administration Atorvastatin Calcium 40 mg 11/19/16 22:00 11/25/16 22:45 Lipitor - PO 40 mg HS [facility] Administration Bacitracin 1 applic 11/20/16 10:00 11/26/16 14:28 Bacitracin - TP 1 applic DAILY [facility] Administration Chlorthalidone 25 mg 11/22/16 10:00 11/26/16 10:57 Hygroton - PO 25 mg DAILY [facility] Administration Vancomycin HCl 1,250 mg/ 250 mls @ 125 mls/hr 11/25/16 22:47 11/26/16 14:23 Dextrose IVPB 125 mls/hr DAILY@1400 [facility] Administration Protocol Metoprolol Succinate 50 mg 11/20/16 10:00 11/26/16 10:57 Toprol Xl - PO 50 mg DAILY [facility] Administration Nystatin 1 applic 11/22/16 18:30 11/26/16 14:28 Nystop Powder - TP 1 applic DAILY [facility] Administration Polyethylene Glycol 17 gm 11/20/16 10:00 11/26/16 12:54 Miralax (For Daily Use) - PO Not Given DAILY [facility] Ramipril 5 mg 11/20/16 10:00 11/26/16 12:54 Altace - PO 5 mg DAILY [facility] Administration Ranitidine HCl 150 mg 11/20/16 22:00 11/26/16 10:57 Zantac - PO 150 mg BID [facility] Administration ASSESSMENT/PLAN: Patient is a 71 year old male with a significant past medical history of hypertension, atrial fib. (on Eliquis), mild systolic CHF, GERD, and left superficial femoral artery thrombosis s/p aortogram/angioplasty/thrombectomy on 10/22/16. He was admitted on 11/15/3016 for sepsis secondary to left thigh cellulitis/abscess. Today he denies pain to the left groin site. ID: Sepsis secondary to Left thigh cellulitis/abscess - improving left groin site slightly red along zac site + MRSA of the wound Assessment/Plan: Had washout on 11/19 Wound site slighly red, some sero sang drainage, zac intact On Vancomycin 1.25mg daily as per ID Continue to monitor wound, sterile wound dressings daily follow up with ultrasound for resolution of abscess ID following Cardiology: Atrial Fib - chronic Assessment/Plan: controlled with Toprol, AC with Eliquis Monitor Hypertension/systolic heart failure - chronic Assessment/Plan: Continue Ramipril 5mg, toprol 50mg daily Blood pressure controlled Monitor Hematology: Thrombocytopenia - resolved Assessment/Plan: likely secondary to sepsis F.E.N. Fluids: tolerating PO Electrolytes: within normal limits Nutrition: low sodium DVT Proph: on Eliquis BID GI: Proph: Zantac BID Dispositon: Req. inpatient hospitalization. Full Code. Visit type - Emergency Visit Emergency Visit: Yes ED Registration Date: 11/15/16 Care time: The patient presented to the Emergency Department on the above date and was hospitalized for further evaluation of their emergent condition. - New Patient This patient is new to me today: No - Critical Care Critical Care patient: No - Discharge Referral Referred to [facility] No
--- NOTE | 2016-11-26 15:47 | PN ---
Progress Note (short form) - Note Progress Note: Vascular surgery [place] removed. Incision healing well. Cont present care Bacitracin to incision daily. Picc line as per ID on tuesday Maximo Abbott DO
[2016-11-26] MEDS ORDERED: PICC LINE 8 ML FLUSH PROTOCOL IVPUSH PRN (16:01)
[2016-11-26] MEDS: ATORVASTATIN CA 40 MG TABLET (FP) PO SCH (22:25)
[2016-11-27 08:25] LABS: BASOPHIL 0.7 % (0-2.0); EOSINOPHIL 2.8 % (0-4.5); MCH 28.3 pg (25.7-33.7); MCHC 32.4 g/dl (32.0-35.9); MEAN CELL VOLUME 87.3 fl (80-96); MEAN PLT VOLUME 7.4 fl (7.5-11.1); NEUTROPHILS 70.5 % (42.8-82.8); PLATELET COUNT 215 K/MM3 (134-434); RDW 15.3 % (11.9-15.9); WHITE BLOOD COUNT 8.1 K/mm3 (4.0-10.0)
--- NOTE | 2016-11-27 09:00 | PN ---
Progress Note (short form) - Note Progress Note: Pt states that after standing yesterday, he noted light pink colored fluid from his groin. Dressing has remained dry overnight. Vital Signs Period Temp Pulse Resp BP Sys/Tamayo Pulse Ox Last 24 Hr 97.4 F-98.8 F 60-89 18-20 125-151/58-80 PE: Left groin: suture line intact, no drainage noted with palpation and minimal on dressing from previous day. No erythema. CBC, BMP 11/27/16 06:30 A/P: 71 yo male s/p left groin open thrombectomy/ and wash out of groin wound. local wound care, may shower daily apply bacitracin and keep incision covered. D/w Dr. Abbott
[2016-11-27 09:08] LABS: ALBUMIN 3.1 g/dl (3.4-5.0); ALK PHOS 86 U/L (45-117); ANION GAP 11 (8-16); BILIRUBIN,TOTAL 0.5 mg/dL (0.2-1.0); CALCIUM 8.9 mg/dL (8.5-10.1); CO2 28 mmol/L (21-32); CREATININE 0.9 mg/dL (0.7-1.3); GLUCOSE,RANDOM 117 mg/dL (74-106); SGOT/AST 26 U/L (15-37); SGPT/ALT 54 U/L (12-78); TOT PROT 6.5 g/dl (6.4-8.2)
--- NOTE | 2016-11-27 10:38 | PN ---
Progress Note (short form) - Note Progress Note: Subjective: The patient was seen and examined at the bedside, he states he would like to shower. He denies any pain at this time. Current Medications Generic Name Dose Route Start Last Admin Trade Name Freq PRN Reason Stop Dose Admin Acetaminophen 650 mg 11/19/16 11:58 11/20/16 18:00 Tylenol - PO 650 mg Q6H PRN Administration FEVER OR PAIN Albuterol/Ipratropium 1 amp 11/19/16 11:58 Duoneb - NEB Q4H PRN SHORTNESS OF BREATH Apixaban 5 mg 11/19/16 11:30 11/26/16 22:25 Eliquis - PO 5 mg BID [facility] Administration Atorvastatin Calcium 40 mg 11/19/16 22:00 11/26/16 22:25 Lipitor - PO 40 mg HS [facility] Administration Bacitracin 1 applic 11/20/16 10:00 11/26/16 14:28 Bacitracin - TP 1 applic DAILY [facility] Administration Chlorthalidone 25 mg 11/22/16 10:00 11/26/16 10:57 Hygroton - PO 25 mg DAILY [facility] Administration IV Flush 8 ml 11/26/16 16:01 Picc Line Flush IVPUSH PRN PRN Protocol Vancomycin HCl 1,250 mg/ 250 mls @ 125 mls/hr 11/25/16 22:47 11/26/16 14:23 Dextrose IVPB 125 mls/hr DAILY@1400 [facility] Administration Protocol Metoprolol Succinate 50 mg 11/20/16 10:00 11/26/16 10:57 Toprol Xl - PO 50 mg DAILY [facility] Administration Nystatin 1 applic 11/22/16 18:30 11/26/16 14:28 Nystop Powder - TP 1 applic DAILY [facility] Administration Polyethylene Glycol 17 gm 11/20/16 10:00 11/26/16 12:54 Miralax (For Daily Use) - PO Not Given DAILY [facility] Ramipril 5 mg 11/20/16 10:00 11/26/16 12:54 Altace - PO 5 mg DAILY [facility] Administration Ranitidine HCl 150 mg 11/20/16 22:00 11/26/16 22:25 Zantac - PO 150 mg BID [facility] Administration Objective: Vital Signs Period Temp Pulse Resp BP Sys/Tamayo Pulse Ox Last 24 Hr 97.4 F-98.8 F 60-89 18-20 125-151/58-80 Physical Exam: General: NAD, A&Ox3 Lungs: CTA bilaterally Heart: Irregular rhythm. S1S2 Abd: Soft, non-tender, non-distended. Left groin dressing, c/d/i Ext: Lower extremity edema, b/l DP/PT 2+ CBCD WBC 8.1 K/mm3 (4.0-10.0) 11/27/16 06:30 RBC 4.83 M/mm3 (4.00-5.60) 11/27/16 06:30 Hgb 13.7 GM/dL (11.7-16.9) 11/27/16 06:30 Hct 42.2 % (35.4-49) 11/27/16 06:30 MCV 87.3 fl (80-96) 11/27/16 06:30 MCHC 32.4 g/dl (32.0-35.9) 11/27/16 06:30 RDW 15.3 % (11.9-15.9) 11/27/16 06:30 Plt Count 215 K/MM3 (134-434) 11/27/16 06:30 MPV 7.4 fl (7.5-11.1) L D 11/27/16 06:30 CMP Sodium 141 mmol/L (136-145) 11/27/16 06:30 Potassium 4.4 mmol/L (3.5-5.1) 11/27/16 06:30 Chloride 102 mmol/L (98-107) 11/27/16 06:30 Carbon Dioxide 28 mmol/L (21-32) 11/27/16 06:30 Anion Gap 11 (8-16) 11/27/16 06:30 BUN 19 mg/dL (7-18) H 11/27/16 06:30 Creatinine 0.9 mg/dL (0.7-1.3) 11/27/16 06:30 Creat Clearance w eGFR > 60 (>60) 11/27/16 06:30 Random Glucose 117 mg/dL (74-106) H 11/27/16 06:30 Calcium 8.9 mg/dL (8.5-10.1) 11/27/16 06:30 Total Bilirubin 0.5 mg/dL (0.2-1.0) D 11/27/16 06:30 AST 26 U/L (15-37) 11/27/16 06:30 ALT 54 U/L (12-78) 11/27/16 06:30 Alkaline Phosphatase 86 U/L (45-117) 11/27/16 06:30 Total Protein 6.5 g/dl (6.4-8.2) 11/27/16 06:30 Albumin 3.1 g/dl (3.4-5.0) L 11/27/16 06:30 CARDIAC ENZYMES Creatine Kinase 55 IU/L (39-308) 11/15/16 18:19 Troponin I < 0.02 ng/ml (0.00-0.05) 11/15/16 18:19 Microbiology 11/18/16 11:30 Blood - Peripheral Venous Blood Culture - Final NO GROWTH AFTER 5 DAYS INCUBATION 11/18/16 11:05 Blood - Peripheral Venous Blood Culture - Final NO GROWTH AFTER 5 DAYS INCUBATION 11/15/16 16:40 Nasopharyngeal Swab Respiratory Virus Panel - Final 11/19/16 11:10 Abscess Gram Stain - Final 11/19/16 11:10 Abscess Wound Culture - Final Mr S Aureus 11/15/16 18:50 Blood - Peripheral Venous Blood Culture - Final NO GROWTH AFTER 5 DAYS INCUBATION 11/15/16 18:19 Blood - Peripheral Venous Blood Culture - Final NO GROWTH AFTER 5 DAYS INCUBATION 11/15/16 20:50 Urine - Urine Clean Catch Urine Culture - Final NO GROWTH OBTAINED 11/15/16 16:40 Nasopharyngeal Swab Influenza Types A,B Antigen (SAMI) - Final 11/15/16 16:40 Nasopharyngeal Swab - Final Assessment: This is a 71 year old male with PMHx of HTN, Afib (on Eliquis), PAD , mild systolic CHF, GERD, and 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 abscess. Plan: 1) ID: Sepsis 2/2 left thigh cellulitis and abscess 2/2 MRSA s/p washout 11/19 - [place] removed by vascular surgery 11/26 - Local wound care - Continue Vancomycin: for PICC line on Tuesday - Appreciate vascular consult - Appreciate ID consult 2) Cardiology: A.fib - Continue Eliquis - Continue Toprol XL for rate control Chronic systolic heart failure - Continue Ramipril HTN - Toprol 50mg daily - Ramipril 5mg daily - Chlorthalidone 25mg daily 3) Heme: Thombocytopenia - Likely 2/2 sepsis - Resolved 4) Vascular: s/p artery thrombosis w/ aortogram/angioplasty 10/22 - Continue Lipitor 5) F/E/N: - Monitor electrolytes - Sodium controlled diet 6) Prophylaxis: - On Eliquis - OOB ambulating 7) Dispo: - Will likely require SNF placement CODE STATUS: FULL CODE Visit type - Emergency Visit Emergency Visit: Yes ED Registration Date: 11/15/16 Care time: The patient presented to the Emergency Department on the above date and was hospitalized for further evaluation of their emergent condition. - New Patient This patient is new to me today: Yes Date on this admission: 11/27/16 - Critical Care Critical Care patient: No
[2016-11-27] MEDS: CHLORTHALIDONE 25 MG TABLET PO SCH (10:45)
[2016-11-27] MEDS: RANITIDINE HCL 150 MG TABLET (FP) PO SCH ×2 (10:45→21:46)
[2016-11-27] MEDS: APIXABAN 5 MG TABLET PO SCH ×2 (10:45→21:46)
[2016-11-27] MEDS: RAMIPRIL 5 MG CAPSULE (FP) PO SCH (10:45)
[2016-11-27] MEDS: BACITRACIN 30 GM TUBE TOPICAL OINTMENT TP SCH (10:45)
[2016-11-27] MEDS: NYSTATIN POWDER 100,000 UNITS/GM - 15 GM TOPICAL POWDER TP SCH (10:45)
[2016-11-27] MEDS: METOPROLOL SUCCINATE 50 MG TAB.SR.24H (FP) PO SCH (10:45)
[2016-11-27] MEDS: POLYETHYLENE GLYCOL 3350 119 GM BTL PO SCH (10:45)
[2016-11-27] MEDS: VANCOMYCIN 1,250 MG in DEXTROSE 5%-WATER - 250 ML IVPB SCH (13:57)
--- NOTE | 2016-11-27 16:14 | PN ---
Progress Note, Physician History of Present Illness: stable patient mentions that there was draiange when he went to bathroom yesterday, since then it has not drained wound look ok - Current Medication List Current Medications: Active Medications Acetaminophen (Tylenol -) 650 mg PO Q6H PRN PRN Reason: FEVER OR PAIN Last Admin: 11/20/16 18:00 Dose: 650 mg Albuterol/Ipratropium (Duoneb -) 1 amp NEB Q4H PRN PRN Reason: SHORTNESS OF BREATH Apixaban (Eliquis -) 5 mg PO BID [facility] Last Admin: 11/27/16 10:45 Dose: 5 mg Atorvastatin Calcium (Lipitor -) 40 mg PO HS [facility] Last Admin: 11/26/16 22:25 Dose: 40 mg Bacitracin (Bacitracin -) 1 applic TP DAILY [facility] Last Admin: 11/27/16 10:45 Dose: 1 applic Chlorthalidone (Hygroton -) 25 mg PO DAILY [facility] Last Admin: 11/27/16 10:45 Dose: 25 mg IV Flush (Picc Line Flush) 8 ml IVPUSH PRN PRN PRN Reason: Protocol Vancomycin HCl 1,250 mg/ (Dextrose) 250 mls @ 125 mls/hr IVPB DAILY@1400 [facility]IMINO PRN Reason: Protocol Last Admin: 11/27/16 13:57 Dose: 125 mls/hr Metoprolol Succinate (Toprol Xl -) 50 mg PO DAILY [facility] Last Admin: 11/27/16 10:45 Dose: 50 mg Nystatin (Nystop Powder -) 1 applic TP DAILY [facility] Last Admin: 11/27/16 10:45 Dose: 1 applic Polyethylene Glycol (Miralax (For Daily Use) -) 17 gm PO DAILY [facility] Last Admin: 11/27/16 10:45 Dose: Not Given Ramipril (Altace -) 5 mg PO DAILY [facility] Last Admin: 11/27/16 10:45 Dose: 5 mg Ranitidine HCl (Zantac -) 150 mg PO BID [facility] Last Admin: 11/27/16 10:45 Dose: 150 mg - Objective Vital Signs: Vital Signs Temperature 97.4 F L 11/27/16 14:14 Pulse Rate 81 11/27/16 14:14 Respiratory Rate 18 11/27/16 14:14 Blood Pressure 126/69 11/27/16 14:14 O2 Sat by Pulse Oximetry (%) 97 11/27/16 09:00 Constitutional: Yes: No Distress, Calm Cardiovascular: Yes: Regular Rate and Rhythm, Pulse Irregular Respiratory: Yes: Regular, CTA Bilaterally Gastrointestinal: Yes: Normal Bowel Sounds, Soft Musculoskeletal: Yes: Other Extremities: Yes: Other Integumentary: Yes: Erythema (minimal) Neurological: Yes: Alert, Oriented Psychiatric: Yes: Alert, Oriented Labs: CBC, BMP 11/27/16 06:30 11/27/16 06:30 INR, PTT INR 1.76 (0.82-1.09) H 11/20/16 07:00 Assessment/Plan 71 year-old male with a PMH of HTN, afib, PAD, mild systolic cardiomyopathy, GERD, and 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 Admitted for sepsis secondary to left thigh cellulitis from surgical wound. Sepsis secondary to left thigh cellulitis Atrial fibrillation Systolic heart failure, chronic HTN hematoma of the rt thigh mrsa wound infection plan continue vanco ultrasound findings noted patient drained again after ultrasound was done will need very close follow up as it looks like patient is continuing to collect fluid in the groin
[2016-11-27] MEDS: ATORVASTATIN CA 40 MG TABLET (FP) PO SCH (21:46)
[2016-11-28] MEDS ORDERED: PT OWN MED DRAWER 7, Y5N ONE (09:07)
[2016-11-28] MEDS: RAMIPRIL 5 MG CAPSULE (FP) PO SCH (09:32)
[2016-11-28] MEDS: METOPROLOL SUCCINATE 50 MG TAB.SR.24H (FP) PO SCH (09:32)
[2016-11-28] MEDS: APIXABAN 5 MG TABLET PO SCH ×2 (09:32→22:01)
[2016-11-28] MEDS: RANITIDINE HCL 150 MG TABLET (FP) PO SCH ×2 (09:32→22:01)
[2016-11-28] MEDS: CHLORTHALIDONE 25 MG TABLET PO SCH (09:33)
[2016-11-28] MEDS: NYSTATIN POWDER 100,000 UNITS/GM - 15 GM TOPICAL POWDER TP SCH (09:33)
[2016-11-28] MEDS: BACITRACIN 30 GM TUBE TOPICAL OINTMENT TP SCH (09:33)
[2016-11-28] MEDS: POLYETHYLENE GLYCOL 3350 119 GM BTL PO SCH (09:33)
--- NOTE | 2016-11-28 14:18 | PN ---
Progress Note (short form) - Note Progress Note: Subjective: The patient was seen and examined at the bedside, he denies any pain at this time Left groin dressing in place, c/d/i Current Medications Generic Name Dose Route Start Last Admin Trade Name Freq PRN Reason Stop Dose Admin Acetaminophen 650 mg 11/19/16 11:58 11/20/16 18:00 Tylenol - PO 650 mg Q6H PRN Administration FEVER OR PAIN Albuterol/Ipratropium 1 amp 11/19/16 11:58 Duoneb - NEB Q4H PRN SHORTNESS OF BREATH Apixaban 5 mg 11/19/16 11:30 11/28/16 09:32 Eliquis - PO 5 mg BID [facility] Administration Atorvastatin Calcium 40 mg 11/19/16 22:00 11/27/16 21:46 Lipitor - PO 40 mg HS [facility] Administration Bacitracin 1 applic 11/20/16 10:00 11/28/16 09:33 Bacitracin - TP 1 applic DAILY [facility] Administration Chlorthalidone 25 mg 11/22/16 10:00 11/28/16 09:33 Hygroton - PO 25 mg DAILY [facility] Administration IV Flush 8 ml 11/26/16 16:01 Picc Line Flush IVPUSH PRN PRN Protocol Vancomycin HCl 1,250 mg/ 250 mls @ 125 mls/hr 11/25/16 22:47 11/27/16 13:57 Dextrose IVPB 125 mls/hr DAILY@1400 [facility] Administration Protocol Metoprolol Succinate 50 mg 11/20/16 10:00 11/28/16 09:32 Toprol Xl - PO 50 mg DAILY [facility] Administration Nystatin 1 applic 11/22/16 18:30 11/28/16 09:33 Nystop Powder - TP 1 applic DAILY [facility] Administration Polyethylene Glycol 17 gm 11/20/16 10:00 11/28/16 09:33 Miralax (For Daily Use) - PO Not Given DAILY [facility] Ramipril 5 mg 11/20/16 10:00 11/28/16 09:32 Altace - PO 5 mg DAILY [facility] Administration Ranitidine HCl 150 mg 11/20/16 22:00 11/28/16 09:32 Zantac - PO 150 mg BID [facility] Administration Objective: Vital Signs Period Temp Pulse Resp BP Sys/Tamayo Pulse Ox Last 24 Hr 97.6 F-97.8 F 72-80 18-18 144-149/53-75 97 Physical Exam: General: NAD, A&Ox3 Lungs: CTA bilaterally Heart: Irregular rhythm. S1S2 Abd: Soft, non-tender, non-distended. Left groin dressing, c/d/i. Erythema noted under pannus Ext: Lower extremity edema, b/l DP/PT 2+ CBCD WBC 8.1 K/mm3 (4.0-10.0) 11/27/16 06:30 RBC 4.83 M/mm3 (4.00-5.60) 11/27/16 06:30 Hgb 13.7 GM/dL (11.7-16.9) 11/27/16 06:30 Hct 42.2 % (35.4-49) 11/27/16 06:30 MCV 87.3 fl (80-96) 11/27/16 06:30 MCHC 32.4 g/dl (32.0-35.9) 11/27/16 06:30 RDW 15.3 % (11.9-15.9) 11/27/16 06:30 Plt Count 215 K/MM3 (134-434) 11/27/16 06:30 MPV 7.4 fl (7.5-11.1) L D 11/27/16 06:30 CMP Sodium 141 mmol/L (136-145) 11/27/16 06:30 Potassium 4.4 mmol/L (3.5-5.1) 11/27/16 06:30 Chloride 102 mmol/L (98-107) 11/27/16 06:30 Carbon Dioxide 28 mmol/L (21-32) 11/27/16 06:30 Anion Gap 11 (8-16) 11/27/16 06:30 BUN 19 mg/dL (7-18) H 11/27/16 06:30 Creatinine 0.9 mg/dL (0.7-1.3) 11/27/16 06:30 Creat Clearance w eGFR > 60 (>60) 11/27/16 06:30 Random Glucose 117 mg/dL (74-106) H 11/27/16 06:30 Calcium 8.9 mg/dL (8.5-10.1) 11/27/16 06:30 Total Bilirubin 0.5 mg/dL (0.2-1.0) D 11/27/16 06:30 AST 26 U/L (15-37) 11/27/16 06:30 ALT 54 U/L (12-78) 11/27/16 06:30 Alkaline Phosphatase 86 U/L (45-117) 11/27/16 06:30 Total Protein 6.5 g/dl (6.4-8.2) 11/27/16 06:30 Albumin 3.1 g/dl (3.4-5.0) L 11/27/16 06:30 CARDIAC ENZYMES Creatine Kinase 55 IU/L (39-308) 11/15/16 18:19 Troponin I < 0.02 ng/ml (0.00-0.05) 11/15/16 18:19 Assessment: This is a 71 year old male with PMHx of HTN, Afib (on Eliquis), PAD , mild systolic CHF, GERD, and 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 abscess. Plan: 1) ID: Sepsis 2/2 left thigh cellulitis and abscess 2/2 MRSA s/p washout 11/19 - [place] removed by vascular surgery 11/26 - Local wound care - Continue Vancomycin: for PICC line on Tuesday - Appreciate vascular consult - Appreciate ID consult 2) Cardiology: A.fib - Continue Eliquis - Continue Toprol XL for rate control Chronic systolic heart failure - Continue Ramipril HTN - Toprol 50mg daily - Ramipril 5mg daily - Chlorthalidone 25mg daily 3) Heme: Thombocytopenia - Likely 2/2 sepsis - Resolved 4) Vascular: s/p artery thrombosis w/ aortogram/angioplasty 10/22 - Continue Lipitor 5) F/E/N: - Monitor electrolytes - Sodium controlled diet 6) Prophylaxis: - On Eliquis - OOB ambulating 7) Dispo: - Will likely require SNF placement CODE STATUS: FULL CODE Visit type - Emergency Visit Emergency Visit: Yes ED Registration Date: 11/15/16 Care time: The patient presented to the Emergency Department on the above date and was hospitalized for further evaluation of their emergent condition. - New Patient This patient is new to me today: No - Critical Care Critical Care patient: No
[2016-11-28] MEDS: VANCOMYCIN 1,250 MG in DEXTROSE 5%-WATER - 250 ML IVPB SCH (15:07)
--- NOTE | 2016-11-28 17:05 | PN ---
Progress Note, Physician History of Present Illness: stable patient doing well wound looks good had minimal oozing through the wound - Current Medication List Current Medications: Active Medications Acetaminophen (Tylenol -) 650 mg PO Q6H PRN PRN Reason: FEVER OR PAIN Last Admin: 11/20/16 18:00 Dose: 650 mg Apixaban (Eliquis -) 5 mg PO BID [facility] Last Admin: 11/28/16 09:32 Dose: 5 mg Atorvastatin Calcium (Lipitor -) 40 mg PO HS [facility] Last Admin: 11/27/16 21:46 Dose: 40 mg Bacitracin (Bacitracin -) 1 applic TP DAILY [facility] Last Admin: 11/28/16 09:33 Dose: 1 applic Chlorthalidone (Hygroton -) 25 mg PO DAILY [facility] Last Admin: 11/28/16 09:33 Dose: 25 mg IV Flush (Picc Line Flush) 8 ml IVPUSH PRN PRN PRN Reason: Protocol Vancomycin HCl 1,250 mg/ (Dextrose) 250 mls @ 125 mls/hr IVPB DAILY@1400 [facility] PRN Reason: Protocol Last Admin: 11/28/16 15:07 Dose: 125 mls/hr Metoprolol Succinate (Toprol Xl -) 50 mg PO DAILY [facility] Last Admin: 11/28/16 09:32 Dose: 50 mg Nystatin (Nystop Powder -) 1 applic TP DAILY [facility] Last Admin: 11/28/16 09:33 Dose: 1 applic Polyethylene Glycol (Miralax (For Daily Use) -) 17 gm PO DAILY [facility] Last Admin: 11/28/16 09:33 Dose: Not Given Ramipril (Altace -) 5 mg PO DAILY [facility] Last Admin: 11/28/16 09:32 Dose: 5 mg Ranitidine HCl (Zantac -) 150 mg PO BID [facility] Last Admin: 11/28/16 09:32 Dose: 150 mg - Objective Vital Signs: Vital Signs Temperature 98.6 F 11/28/16 15:20 Pulse Rate 70 11/28/16 15:20 Respiratory Rate 18 11/28/16 15:20 Blood Pressure 131/66 11/28/16 15:20 O2 Sat by Pulse Oximetry (%) 97 11/27/16 21:00 Constitutional: Yes: No Distress, Calm Cardiovascular: Yes: Regular Rate and Rhythm, Pulse Irregular Respiratory: Yes: Regular, CTA Bilaterally Gastrointestinal: Yes: Normal Bowel Sounds, Soft Musculoskeletal: Yes: WNL Extremities: Yes: WNL Wound/Incision: Yes: Clean/Dry Neurological: Yes: Alert, Oriented Psychiatric: Yes: Alert, Oriented Labs: CBC, BMP 11/27/16 06:30 11/27/16 06:30 INR, PTT INR 1.76 (0.82-1.09) H 11/20/16 07:00 Assessment/Plan 71 year-old male with a PMH of HTN, afib, PAD, mild systolic cardiomyopathy, GERD, and 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 Admitted for sepsis secondary to left thigh cellulitis from surgical wound. Sepsis secondary to left thigh cellulitis Atrial fibrillation Systolic heart failure, chronic HTN hematoma of the rt thigh mrsa wound infection plan continue vanco ct current mgmt monitor for draiange rest as per the team
[2016-11-28] MEDS: ATORVASTATIN CA 40 MG TABLET (FP) PO SCH (22:01)
[2016-11-29] MEDS: CHLORTHALIDONE 25 MG TABLET PO SCH (10:36)
[2016-11-29] MEDS: RAMIPRIL 5 MG CAPSULE (FP) PO SCH (10:36)
[2016-11-29] MEDS: METOPROLOL SUCCINATE 50 MG TAB.SR.24H (FP) PO SCH (10:36)
[2016-11-29] MEDS: APIXABAN 5 MG TABLET PO SCH (10:36)
[2016-11-29] MEDS: BACITRACIN 30 GM TUBE TOPICAL OINTMENT TP SCH (10:37)
[2016-11-29] MEDS: NYSTATIN POWDER 100,000 UNITS/GM - 15 GM TOPICAL POWDER TP SCH (10:37)
[2016-11-29] MEDS: POLYETHYLENE GLYCOL 3350 119 GM BTL PO SCH (10:38)
[2016-11-29] MEDS: RANITIDINE HCL 150 MG TABLET (FP) PO SCH (10:38)
--- NOTE | 2016-11-29 12:31 | PN ---
Progress Note (short form) - Note Progress Note: Subjective: The patient was seen and examined at the bedside, he denies any pain at this time Left groin dressing in place, c/d/i Left message with Dr. Evangelista to discuss abx duration Current Medications Generic Name Dose Route Start Last Admin Trade Name Freq PRN Reason Stop Dose Admin Acetaminophen 650 mg 11/19/16 11:58 11/20/16 18:00 Tylenol - PO 650 mg Q6H PRN Administration FEVER OR PAIN Apixaban 5 mg 11/19/16 11:30 11/29/16 10:36 Eliquis - PO 5 mg BID MAXIMINO Administration Atorvastatin Calcium 40 mg 11/19/16 22:00 11/28/16 22:01 Lipitor - PO 40 mg HS MAXIMINO Administration Bacitracin 1 applic 11/20/16 10:00 11/29/16 10:37 Bacitracin - TP 1 applic DAILY MAXIMINO Administration Chlorthalidone 25 mg 11/22/16 10:00 11/29/16 10:36 Hygroton - PO 25 mg DAILY MAXIMINO Administration IV Flush 8 ml 11/26/16 16:01 Picc Line Flush IVPUSH PRN PRN Protocol Vancomycin HCl 1,250 mg/ 250 mls @ 125 mls/hr 11/25/16 22:47 11/28/16 15:07 Dextrose IVPB 125 mls/hr DAILY@1400 MAXIMINO Administration Protocol Metoprolol Succinate 50 mg 11/20/16 10:00 11/29/16 10:36 Toprol Xl - PO 50 mg DAILY MAXIMINO Administration Nystatin 1 applic 11/22/16 18:30 11/29/16 10:37 Nystop Powder - TP 1 applic DAILY MAXIMINO Administration Polyethylene Glycol 17 gm 11/20/16 10:00 11/29/16 10:38 Miralax (For Daily Use) - PO Not Given DAILY MAXIMINO Ramipril 5 mg 11/20/16 10:00 11/29/16 10:36 Altace - PO 5 mg DAILY MAXIMINO Administration Ranitidine HCl 150 mg 11/20/16 22:00 11/29/16 10:38 Zantac - PO 150 mg BID MAXIMINO Administration Objective: Vital Signs Period Temp Pulse Resp BP Sys/Tamayo Pulse Ox Last 24 Hr 98.4 F-98.7 F 70-76 18-20 127-161/66-84 Physical Exam: General: NAD, A&Ox3 Lungs: CTA bilaterally Heart: Irregular rhythm. S1S2 Abd: Soft, non-tender, non-distended. Left groin dressing, c/d/i. Erythema noted under pannus Ext: Lower extremity edema, b/l DP/PT 2+ CBCD WBC 8.1 K/mm3 (4.0-10.0) 11/27/16 06:30 RBC 4.83 M/mm3 (4.00-5.60) 11/27/16 06:30 Hgb 13.7 GM/dL (11.7-16.9) 11/27/16 06:30 Hct 42.2 % (35.4-49) 11/27/16 06:30 MCV 87.3 fl (80-96) 11/27/16 06:30 MCHC 32.4 g/dl (32.0-35.9) 11/27/16 06:30 RDW 15.3 % (11.9-15.9) 11/27/16 06:30 Plt Count 215 K/MM3 (134-434) 11/27/16 06:30 MPV 7.4 fl (7.5-11.1) L D 11/27/16 06:30 CMP Sodium 141 mmol/L (136-145) 11/27/16 06:30 Potassium 4.4 mmol/L (3.5-5.1) 11/27/16 06:30 Chloride 102 mmol/L (98-107) 11/27/16 06:30 Carbon Dioxide 28 mmol/L (21-32) 11/27/16 06:30 Anion Gap 11 (8-16) 11/27/16 06:30 BUN 19 mg/dL (7-18) H 11/27/16 06:30 Creatinine 0.9 mg/dL (0.7-1.3) 11/27/16 06:30 Creat Clearance w eGFR > 60 (>60) 11/27/16 06:30 Random Glucose 117 mg/dL (74-106) H 11/27/16 06:30 Calcium 8.9 mg/dL (8.5-10.1) 11/27/16 06:30 Total Bilirubin 0.5 mg/dL (0.2-1.0) D 11/27/16 06:30 AST 26 U/L (15-37) 11/27/16 06:30 ALT 54 U/L (12-78) 11/27/16 06:30 Alkaline Phosphatase 86 U/L (45-117) 11/27/16 06:30 Total Protein 6.5 g/dl (6.4-8.2) 11/27/16 06:30 Albumin 3.1 g/dl (3.4-5.0) L 11/27/16 06:30 CARDIAC ENZYMES Creatine Kinase 55 IU/L (39-308) 11/15/16 18:19 Troponin I < 0.02 ng/ml (0.00-0.05) 11/15/16 18:19 Microbiology 11/18/16 11:30 Blood - Peripheral Venous Blood Culture - Final NO GROWTH AFTER 5 DAYS INCUBATION 11/18/16 11:05 Blood - Peripheral Venous Blood Culture - Final NO GROWTH AFTER 5 DAYS INCUBATION 11/15/16 16:40 Nasopharyngeal Swab Respiratory Virus Panel - Final 11/19/16 11:10 Abscess Gram Stain - Final 11/19/16 11:10 Abscess Wound Culture - Final Mr S Aureus 11/15/16 18:50 Blood - Peripheral Venous Blood Culture - Final NO GROWTH AFTER 5 DAYS INCUBATION 11/15/16 18:19 Blood - Peripheral Venous Blood Culture - Final NO GROWTH AFTER 5 DAYS INCUBATION 11/15/16 20:50 Urine - Urine Clean Catch Urine Culture - Final NO GROWTH OBTAINED 11/15/16 16:40 Nasopharyngeal Swab Influenza Types A,B Antigen (SAMI) - Final 11/15/16 16:40 Nasopharyngeal Swab - Final Assessment: This is a 71 year old male with PMHx of HTN, Afib (on Eliquis), PAD , mild systolic CHF, GERD, and 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 abscess. Plan: 1) ID: Sepsis 2/2 left thigh cellulitis and abscess 2/2 MRSA s/p washout 11/19 - [place] removed by vascular surgery 11/26 - Local wound care - Continue Vancomycin: for PICC line today, however awaiting to hear from ID for abx duration - Appreciate vascular consult - Appreciate ID consult 2) Cardiology: A.fib - Continue Eliquis - Continue Toprol XL for rate control Chronic systolic heart failure - Continue Ramipril HTN - Toprol 50mg daily - Ramipril 5mg daily - Chlorthalidone 25mg daily 3) Heme: Thombocytopenia - Likely 2/2 sepsis - Resolved 4) Vascular: s/p artery thrombosis w/ aortogram/angioplasty 10/22 - Continue Lipitor 5) F/E/N: - Monitor electrolytes - Sodium controlled diet 6) Prophylaxis: - On Eliquis - OOB ambulating 7) Dispo: - Will likely require SNF placement CODE STATUS: FULL CODE Visit type - Emergency Visit Emergency Visit: Yes ED Registration Date: 11/15/16 Care time: The patient presented to the Emergency Department on the above date and was hospitalized for further evaluation of their emergent condition. - New Patient This patient is new to me today: No - Critical Care Critical Care patient: No
--- NOTE | 2016-11-29 14:03 | PN ---
Progress Note, Physician History of Present Illness: patient doing well had drainage again from the wound some yesterday night and some today - Current Medication List Current Medications: Active Medications Acetaminophen (Tylenol -) 650 mg PO Q6H PRN PRN Reason: FEVER OR PAIN Last Admin: 11/20/16 18:00 Dose: 650 mg Apixaban (Eliquis -) 5 mg PO BID [facility] Last Admin: 11/29/16 10:36 Dose: 5 mg Atorvastatin Calcium (Lipitor -) 40 mg PO HS [facility] Last Admin: 11/28/16 22:01 Dose: 40 mg Bacitracin (Bacitracin -) 1 applic TP DAILY [facility] Last Admin: 11/29/16 10:37 Dose: 1 applic Chlorthalidone (Hygroton -) 25 mg PO DAILY [facility] Last Admin: 11/29/16 10:36 Dose: 25 mg IV Flush (Picc Line Flush) 8 ml IVPUSH PRN PRN PRN Reason: Protocol Vancomycin HCl 1,250 mg/ (Dextrose) 250 mls @ 125 mls/hr IVPB DAILY@1400 MAXIMINO PRN Reason: Protocol Last Admin: 11/28/16 15:07 Dose: 125 mls/hr Metoprolol Succinate (Toprol Xl -) 50 mg PO DAILY [facility] Last Admin: 11/29/16 10:36 Dose: 50 mg Nystatin (Nystop Powder -) 1 applic TP DAILY [facility] Last Admin: 11/29/16 10:37 Dose: 1 applic Polyethylene Glycol (Miralax (For Daily Use) -) 17 gm PO DAILY [facility] Last Admin: 11/29/16 10:38 Dose: Not Given Ramipril (Altace -) 5 mg PO DAILY [facility] Last Admin: 11/29/16 10:36 Dose: 5 mg Ranitidine HCl (Zantac -) 150 mg PO BID [facility] Last Admin: 11/29/16 10:38 Dose: 150 mg - Objective Vital Signs: Vital Signs Temperature 98.5 F 11/29/16 05:26 Pulse Rate 73 11/29/16 05:26 Respiratory Rate 20 11/29/16 05:26 Blood Pressure 147/84 11/29/16 05:26 O2 Sat by Pulse Oximetry (%) 97 11/27/16 21:00 Constitutional: Yes: No Distress, Calm Cardiovascular: Yes: S1, S2 Respiratory: Yes: Regular, CTA Bilaterally Gastrointestinal: Yes: Normal Bowel Sounds, Soft Musculoskeletal: Yes: Other Extremities: Yes: Other (patient has healing wound) Integumentary: Yes: Other Wound/Incision: Yes: Well Approximated, Draining Neurological: Yes: Alert, Oriented Psychiatric: Yes: Alert Labs: CBC, BMP 11/27/16 06:30 11/27/16 06:30 INR, PTT INR 1.76 (0.82-1.09) H 11/20/16 07:00 Assessment/Plan 71 year-old male with a PMH of HTN, afib, PAD, mild systolic cardiomyopathy, GERD, and 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 Admitted for sepsis secondary to left thigh cellulitis from surgical wound. Sepsis secondary to left thigh cellulitis Atrial fibrillation Systolic heart failure, chronic HTN hematoma of the rt thigh mrsa wound infection plan continue vanco complete 10 more days follow vanc trough once on the 6th cbc bmp weekly patient still draining if patient stops draining and develops swelling will need ultrasound worry is that patient still has drainage i am worried that he might get collected again
--- NOTE | 2016-11-29 14:31 | DS ---
Physical Examination Vital Signs: Vital Signs Temperature 98.4 F 11/29/16 14:15 Pulse Rate 86 11/29/16 14:15 Respiratory Rate 20 11/29/16 14:15 Blood Pressure 139/86 11/29/16 14:15 O2 Sat by Pulse Oximetry (%) 97 11/27/16 21:00 Findings/Remarks: Physical Exam: General: NAD, A&Ox3 Lungs: CTA bilaterally Heart: Irregular rhythm. S1S2 Abd: Soft, non-tender, non-distended. Left groin dressing, c/d/i. Erythema noted under pannus Ext: Lower extremity edema, b/l DP/PT 2+ Labs: CBC, BMP 11/27/16 06:30 11/27/16 06:30 Discharge Summary Reason For Visit: LOCAL INFECTION OF WOUND FEVER ATRIAL FIBRILLATION Current Active Problems Abnormal EKG (Acute) Cellulitis (Acute) Constipation (Acute) Fever (Acute) Full code status (Acute) Sepsis (Acute) Systolic CHF (Acute) Wound infection (Acute) Hospital Course: This is a 71 year old male with PMHx of HTN, Afib (on Eliquis), PAD, mild systolic CHF, GERD, and left superficial femoral artery thrombosis s/p aortogram /angioplasty/thrombectomy on 10/22/16 admitted with sepsis secondary to left thigh cellulitis vs. abscess. Plan: 1) ID: Sepsis 2/2 left thigh cellulitis and abscess 2/2 MRSA s/p washout 11/19 - [place] removed by vascular surgery 11/26 - Local wound care - Continue Vancomycin: for PICC line today, however awaiting to hear from ID for abx duration - Appreciate vascular consult - Appreciate ID consult 2) Cardiology: A.fib - Continue Eliquis - Continue Toprol XL for rate control Chronic systolic heart failure - Continue Ramipril HTN - Toprol 50mg daily - Ramipril 5mg daily - Chlorthalidone 25mg daily 3) Heme: Thombocytopenia - Likely 2/2 sepsis - Resolved 4) Vascular: s/p artery thrombosis w/ aortogram/angioplasty 10/22 - Continue Lipitor 5) Prophylaxis: - On Eliquis Condition: Improved - Instructions Diet, Activity, Other Instructions: Please return to the ED with new, persistent, or worsening symptoms. If you have an increase in drainage from your wound, fever, chills, pain, please return to the ED immediately. Please follow-up with providers as indicated. Wound care: Apply bacitracin to incision daily Continue Vancomycin IVPB for 10 more days. You have an appointment with Dr. Abbott [facility] on Tuesday12/03/16 at 10:30am Diet: Low sugar/low carbohydrate diet Please follow-up with your primary care provider for a weekly blood test: CBC, CMP. Referrals: Cristal Evangelista MD [Staff Physician] - 1 Week Aguilar Pierre MD [Primary Care Provider] - 1 Week (Please follow-up with your primary care provider to have your Hemoglobin A1C checked. ) Maximo Abbott MD [Staff Physician] - (Please follow-up for wound care with Dr. Abbott on Tuesday, 12/03 at 10:30am. Location: [facility]) [facility] - Home Medications Comprehensive Discharge Medication List: Ambulatory Orders Acetaminophen [Tylenol .Regular Strength -] 650 mg PO Q4H PRN #0 tablet Albuterol 2.5/Ipratropium 0.5 [Duoneb -] 1 amp NEB Q4H PRN 30 Days 10/26/16 Atorvastatin Ca [Lipitor] 40 mg PO HS 30 Days 10/26/16 Chlorthalidone [Hygroton -] 25 mg PO DAILY #30 tablet 10/26/16 Metoprolol Succinate [Toprol XL -] 50 mg PO DAILY 30 Days 10/26/16 Oxycodone HCl/Acetaminophen [Percocet 5-325 mg Tablet] 1 tab PO Q6H #20 tablet MDD 4 10/26/16 Polyethylene Glycol 3350 [Miralax 119 gm Btl -] 17 gm PO DAILY bottle 10/26/16 Ramipril [Altace] 5 mg PO DAILY capsule 10/26/16 Apixaban [Eliquis -] 5 mg PO BID tablet 11/29/16 Bacitracin - [Bacitracin Topical Ointment -] 1 applic TP DAILY tube 11/29/16 Nystatin Powder [Nystop Powder -] 1 applic TP DAILY applic 11/29/16 Picc Line Flush [Picc Line Flush -] 8 ml IVPUSH PRN PRN #0 ml 04/03/17 Ranitidine [Zantac -] 150 mg PO BID tablet 11/29/16 Vancomycin 1,250 mg IVPB DAILY@1400 #10 vial 11/29/16 This patient is new to me today: No Emergency Visit: Yes ED Registration Date: 11/15/16 Care time: The patient presented to the Emergency Department on the above date and was hospitalized for further evaluation of their emergent condition. Critical Care patient: No - Discharge Referral Referred to [facility] Yes Physician Referral: Aguilar Evans MD ([facility])
[2016-11-29] MEDS: VANCOMYCIN 1,250 MG in DEXTROSE 5%-WATER - 250 ML IVPB SCH (17:14)
[2016-11-29 17:33] VITALS: BP 132/83; PULSE 81; TEMP 97.8
== END 2016-11-29 18:56 | DRG 872 ==
LOC: JER 17:01 → JERBED 22:10 → J5S 11-16 14:41 → J7W 11-21 11:24
PROVIDERS: ADMIT Internal Medicine; ATTEND Registered Nurse
PROC: 3E10X8Z Irrigation of Skin and Mucous Membranes using Irrigating Substance (ICD-10-PCS; 2016-11-19)
PROC: 0J9M0ZX Drainage of Left Upper Leg Subcutaneous Tissue and Fascia, Open Approach, Diagnostic (ICD-10-PCS; principal; 2016-11-19 10:00)
PROC: 02HV33Z Insertion of Infusion Device into Superior Vena Cava, Percutaneous Approach (ICD-10-PCS; 2016-11-29)
PROC: B548ZZA Ultrasonography of Superior Vena Cava, Guidance (ICD-10-PCS; 2016-11-29)
DX: A41.9 Sepsis, unspecified organism (principal); L03.116 Cellulitis of left lower limb; I50.22 Chronic systolic (congestive) heart failure; L76.32 Postprocedural hematoma of skin and subcutaneous tissue following other procedure; I48.91 Unspecified atrial fibrillation; Z79.01 Long term (current) use of anticoagulants; K21.9 Gastro-esophageal reflux disease without esophagitis; I25.10 Atherosclerotic heart disease of native coronary artery without angina pectoris; I11.0 Hypertensive heart disease with heart failure; E78.5 Hyperlipidemia, unspecified; Z86.718 Personal history of other venous thrombosis and embolism; Z87.891 Personal history of nicotine dependence; I73.9 Peripheral vascular disease, unspecified; D69.6 Thrombocytopenia, unspecified; L08.9 Local infection of the skin and subcutaneous tissue, unspecified; B95.62 Methicillin resistant Staphylococcus aureus infection as the cause of diseases classified elsewhere; I89.8 Other specified noninfective disorders of lymphatic vessels and lymph nodes; Y83.8 Other surgical procedures as the cause of abnormal reaction of the patient, or of later complication, without mention of misadventure at the time of the procedure
CPT/HCPCS: 36415; 36569; 71010-TC; 73701-TC-RT; 76882; 77001-TC; 80048; 80053; 81003; 82272; 82550; 82803; 83605; 83735; 84100; 84484; 85025; 85027; 85610; 85730; 86022; 86850; 86900; 86901; 87040; 87070; 87086; 87186; 87205; 87254; 87804; 93005; 93010; 94760; 97116-GP; 97161-GP; 99285-25; C1751; G0008; G0480; J1644; Q2037

== ENCOUNTER 2017-01-11 06:30 | Day surgery (SDC) | payer OTHER ==
[2017-01-10 11:21] VITALS: BMI 32.3
[2017-01-11 07:22] LABS: INR 1.03 (0.82-1.09); PROTHROMBIN TIME (PATIENT) 11.3 SEC (9.98-11.88)
[2017-01-11 07:25] LABS: ACTIVATED PTT 37.3 SECONDS (26.9-34.4)
[2017-01-11] MEDS ORDERED: HEPARIN NA (PORCINE) 5,000 UNITS/ML 1ML VIAL ONE (09:25)
[2017-01-11] MEDS ORDERED: CLINDAMYCIN 600 MG PREMIX BAG IVPB ONE (09:43)
[2017-01-11] MEDS ORDERED: PROPOFOL 20 ML ONE ×3 (09:46)
[2017-01-11] MEDS ORDERED: LIDOCAINE HCL 1%, 10 MG/ML (20ML VIAL) IJ ONE (10:03)
[2017-01-11] MEDS ORDERED: ONDANSETRON 4 MG/2 ML VIAL IVPUSH PRN (10:30)
--- NOTE | 2017-01-11 10:38 | OP ---
Operative Note - Note: Operative Date: 01/11/17 Pre-Operative Diagnosis: Left lower ext claudication Operation: Aortogram, LLE angiogram Findings: normal angiogram Post-Operative Diagnosis: Same as Pre-op Surgeon: Maximo Abbott Anesthesia: Fractional Estimated Blood Loss (mls): 10 Operative Report Dictated: Yes
--- NOTE | 2017-01-11 10:40 | HP ---
Admitting History and Physical - Admission Chief Complaint: LLE claudication - Past Medical History Cardiovascular: Yes: AFIB (New onset), HTN, Hyperlipdemia, Other (PAD) Gastrointestinal: Yes: GERD - Past Surgical History Past Surgical History: Yes: Appendectomy, Tonsillectomy, Vein Stripping/Ligation - Smoking History Smoking history: Former smoker Have you smoked in the past 12 months: No If you are a former smoker, when did you quit?: 21 yrs ago - Alcohol/Substance Use Hx Alcohol Use: No History of Substance Use: reports: None - Social History ADL: Independent History of Recent Travel: No Home Medications - Allergies Allergies/Adverse Reactions: Allergies Allergy/AdvReac Type Severity Reaction Status Date / Time Penicillins Allergy Verified 11/15/16 17:20 - Home Medications Home Medications: Ambulatory Orders Atorvastatin Ca [Lipitor] 40 mg PO HS 30 Days 10/26/16 Chlorthalidone [Hygroton -] 25 mg PO DAILY #30 tablet 10/26/16 Metoprolol Succinate [Toprol XL -] 50 mg PO DAILY 30 Days 10/26/16 Ramipril [Altace] 5 mg PO DAILY capsule 10/26/16 Ranitidine [Zantac -] 150 mg PO BID 01/03/17 Warfarin Sodium [Coumadin] 5 mg PO DAILY 01/03/17 Acetaminophen [Tylenol] 650 mg PO PRN PRN 01/10/17 Enoxaparin [Lovenox -] 30 mg SQ BID 01/10/17 Physical Examination Vital Signs: Vital Signs Temperature 97.9 F 01/11/17 07:18 Pulse Rate 79 01/11/17 07:18 Respiratory Rate 20 01/11/17 07:18 Blood Pressure 150/95 01/11/17 07:18 O2 Sat by Pulse Oximetry (%) 97 01/11/17 07:18 Constitutional: Yes: Well Nourished Eyes: Yes: WNL HENT: Yes: WNL Neck: Yes: WNL Cardiovascular: Yes: Pulse Irregular Respiratory: Yes: WNL Gastrointestinal: Yes: WNL Musculoskeletal: Yes: WNL Extremities: Yes: WNL Assessment/Plan LLE claudication 1. For angiogram
[2017-01-11 11:17] VITALS: TEMP 97.5
--- NOTE | 2017-01-11 11:49 | OP ---
DATE OF OPERATION: 01/11/2017 PREOPERATIVE DIAGNOSIS: Left lower extremity claudication. POSTOPERATIVE DIAGNOSIS: Left lower extremity claudication. PROCEDURE: Aortogram, left lower extremity angiogram. SURGEON: Maximo Segura MD ANESTHESIA: Fractional. BLOOD LOSS: 20 mL. INDICATIONS: The patient is a 71-year-old male who had a left lower extremity open thrombectomy performed about 2 months ago, who now comes back to the office complaining of some claudication and mainly numbness at the bottom of his foot. He had an ultrasound performed preoperatively showing that he might have a 75% stenosis in his left SFA, so it was decided that he would need an angiogram. Patient was consented for the procedure understanding all risks, benefits, and alternatives. He was then taken to the operating room. PROCEDURE IN DETAIL: Once in the operating suite, he was placed on the operating table in the supine manner, and the area of the right and left groin were prepped and draped in the sterile surgical manner. We then went ahead and injected 10 mL of 0.5% lidocaine over the right common femoral artery. We then went ahead and took our micropuncture needle to puncture the right common femoral artery. A micropuncture wire was inserted, and a traditional 5[place] sheath was inserted. A 0.035 floppy guidewire was inserted into the aorta under fluoroscopy. The then placed our Merit catheter up into the aorta. We then shot an aortogram via hand injection showing that the aorta and iliac arteries were without any disease. We then placed our 0.035 stiff guidewire into the left common femoral artery, and our Merit catheter was placed in the left common femoral artery. We then shot an angiogram of the right lower extremity via hand injection showing that the common femoral artery, the profunda, and the SFA were all patent. The popliteal artery was patent, and patient has 2-vessel runoff into the foot, which is PT and DP, but the PT goes into the foot first. At this point, there were no areas of intervention needed. We took out our Merit catheter. We then took out our 5-[place] sheath from the right common femoral artery, and pressure was held in the right groin for 5 minutes. After there was no bleeding, the area was wet and dried, and Dermabond was placed. The patient tolerated the procedure with no complications. Patient transferred to PACU in stable condition. MAXIMO SEGURA DO [employer]/[id number]
[2017-01-11 13:19] VITALS: BP 168/66; PULSE 70
== END 2017-01-11 13:15 | disposition home or self-care (01) ==
LOC: JASU-SURG 06:30
PROVIDERS: ATTEND Surgery Vascular Surgery
PROC: B40DYZZ Plain Radiography of Aorta and Bilateral Lower Extremity Arteries using Other Contrast (ICD-10-PCS; principal; 2017-01-11 09:00)
DX: I73.9 Peripheral vascular disease, unspecified (principal)
CPT/HCPCS: 36415; 75710; 76000-TC; 85610; 85730; 94760; J1644

== ENCOUNTER 2018-01-25 10:20 | Day surgery (SDC) | payer OTHER ==
[2018-01-24 11:25] VITALS: BMI 34.1
[~2018-01-25 10:20] MED LIST: BUPIVACAINE HCL/PF 0.5% (5MG/ML) 10 ML VIAL IJ ONE
[2018-01-25] MEDS ORDERED: BUPIVACAINE HCL/PF 0.5% (5MG/ML) 10 ML VIAL ONE (12:01)
[2018-01-25] MEDS ORDERED: fentaNYL CITRATE 250 MCG/5 ML VIAL ONE (12:28)
[2018-01-25] MEDS ORDERED: ROCURONIUM BROMIDE 50 MG/5 ML VIAL ONE (12:28)
[2018-01-25] MEDS ORDERED: PROPOFOL 20 ML ONE (12:28)
[2018-01-25] MEDS ORDERED: ePHEDrine SULFATE 50 MG/1 ML AMPULE ONE (12:56)
[2018-01-25] MEDS ORDERED: DEXAMETHASONE SOD PHOSPHATE 4 MG/1 ML VIAL ONE (13:08)
[2018-01-25] MEDS ORDERED: BUPIVACAINE HCL/PF 0.5% (5MG/ML) 10 ML VIAL IJ ONE (13:28)
--- NOTE | 2018-01-25 13:44 | OP ---
Operative Note - Note: Operative Date: 01/25/18 Pre-Operative Diagnosis: Umbilical hernia Operation: Open umbilical hernia repair Post-Operative Diagnosis: Same as Pre-op Surgeon: Reginald Boone Tools Developer: Obinna Lagunas Anesthesia: General Estimated Blood Loss (mls): 5 Fluid Volume Replaced (mls): 800 Operative Report Dictated: Yes
--- NOTE | 2018-01-25 13:45 | SURG ---
Surgery Train Clerk Note Train Clerk: Obinna Lagunas PA-C Date of Service: 01/25/18 Diagnosis: Umbilical hernia Procedure: Open umbilical hernia repair I was present for the entirety of the operative procedure. For further detail, please refer to operative report.
[2018-01-25] MEDS ORDERED: ONDANSETRON 4 MG/2 ML VIAL IVPUSH PRN (13:51)
[2018-01-25] MEDS ORDERED: oxyCODONE HCL 5 MG TABLET PO PRN (13:51)
[2018-01-25] MEDS ORDERED: LACTATED RINGERS SOLUTION 1,000 ML IV SCH (14:00)
[2018-01-25 15:01] LABS: INR 1.14 (0.82-1.09); PROTHROMBIN TIME (PATIENT) 12.9 SEC (9.7-13.0)
[2018-01-25 17:10] VITALS: BP 131/65; PULSE 82; TEMP 98.2
--- NOTE | 2018-01-27 09:40 | OP ---
DATE OF OPERATION: 01/25/2018 PREOPERATIVE DIAGNOSIS: Umbilical hernia. POSTOPERATIVE DIAGNOSIS: Umbilical hernia. PROCEDURE: Repair of umbilical hernia. SURGEON: Reginald Boone MD BARGE CAPTAIN: Obinna Lagunas PA-C ANESTHESIA: General. OPERATIVE FINDINGS: There was an umbilical hernia with a defect at the umbilicus of approximately 2 cm in greatest dimension. The hernia contained preperitoneal fat, and the rest of the findings were unremarkable. DESCRIPTION OF PROCEDURE: The patient was placed on the operating table in the supine position. After the induction of general anesthesia, the patient's abdomen was prepped with ChloraPrep and draped in sterile fashion. A timeout was taken and an infraumbilical skin incision was made from the 3 to 9 o'clock position using a scalpel. This was taken down through skin and subcutaneous tissue to the abdominal wall. The umbilical stalk was bluntly encircled, then the umbilicus dissected off the hernia sac, which was entered during the dissection. Redundant sac and preperitoneal fat were excised using electrocautery and sent for pathological exam. The undersurface of the abdominal wall was cleared of any adhesions using blunt dissection, and then the hernia was repaired using multiple 0 Ticron horizontal mattress sutures. Once herniorrhaphy was completed, the field was infiltrated with 0.5% Marcaine. Irrigation was carried out with normal saline and hemostasis secured with electrocautery, and then the wound closed in layers by tacking the umbilicus down to the abdominal wall with interrupted 2-0 Vicryl, reapproximating the deep dermis with interrupted 3-0 Vicryl and the skin edges with 4-0 Monocryl in a subcuticular continuous fashion. Steri-Strips, fluffs, and dry sterile dressings were placed and the procedure terminated at this point and the patient roused from general anesthesia and transferred to the postanesthesia care unit in stable condition, awake and alert. ESTIMATED BLOOD LOSS: 5 mL. REPLACEMENTS: Crystalloid. DRAINS: None. SPECIMENS: Hernia sac and preperitoneal fat to pathology. I, Reginald Boone, was physically present in the operating room from the time the patient was placed on the operating table until he was transferred to the postanesthesia care unit in my accompaniment. MD HERMAN Shankar/[id number] MTDD
--- NOTE | 2018-01-27 13:31 | PATH ---
Surgical Pathology Report Patient Name: JAZZY SCOTT [facility]. Rec. #: [id number] /Age/Gender: 1945 (Age: 72) / M Account: [id number] Location: [facility] SURGICAL Taken: 01/25/2018 Received: 01/26/2018 Reported: 01/27/2018 Physicians: Reginald Boone MD Specimen(s) Received UMBILICAL HERNIA SAC Clinical History Umbilical hernia Final Diagnosis UMBILICAL SAC: FIBROADIPOSE TISSUE, CONSISTENT WITH HERNIA SAC. Electronically Signed Epi Clarke M.D. Gross Description Received in formalin labeled "umbilical hernia," is a 3.0 x 2.5 x 1.0 cm villegas-pelletier portion of fibromembranous tissue with attached fat, consistent with a hernia sac. Human Performance Consultant sections are submitted in one cassette. /01/26/2018 [facility]01/26/2018
== END 2018-01-25 17:00 | disposition home or self-care (01) ==
LOC: JASU-SURG 10:20
PROVIDERS: ATTEND Surgery
PROC: 0WQF0ZZ Repair Abdominal Wall, Open Approach (ICD-10-PCS; principal; 2018-01-25 12:00)
DX: K42.9 Umbilical hernia without obstruction or gangrene (principal); I10 Essential (primary) hypertension; I48.91 Unspecified atrial fibrillation; Z79.01 Long term (current) use of anticoagulants
CPT/HCPCS: 36415; 85610; 88302-TC; 94760

== ENCOUNTER 2018-04-27 12:17 | Inpatient (IN) | payer OTHER ==
--- NOTE | 2018-04-27 14:06 | PDOC ---
Attending Attestation - HPI HPI: 04/27/18 14:55 The patient is a 72 year old male, with a significant PMH of hypertension, atrial fibrillation, DM, who presents to the emergency department with 2 days of left lower extremity swelling, erythema and pain. The patient states he had a angioplasty of the left femoral artery performed [address] Abbott and has been okay until 2 days ago where he noted the LLE redness, swelling and pain. The patient states the left lower extremity pain has been progressively worsening prompting the ED visit today. The patient denies chest pain, palpitations, shortness of breath, headache and dizziness. Denies fever, chills, nausea, vomit, diarrhea and constipation. Denies dysuria, frequency, urgency and hematuria. Allergies: Penicillins - Physicial Exam PE: 04/27/18 14:56 Vitals: Triage vital signs reviewed General Appearance: No acute distress, well nourished, well developed Head: Atraumatic Neck: Supple; No nuchal rigidity Chest Wall: Nontender Cardiac: Regular rate and rhythm, no murmurs, no rubs, no gallops Lungs: Clear to auscultation bilateral, good air movement bilaterally Abdomen: Soft, nondistended, normal bowel sounds, nontender to palpation Rectal: Exam deferred Extremities: +Left lower extremity edema, erythema and warmth. +LLE tenderness to palpation. No cyanosis, clubbing. Skin: Warm and dry, no rashes or lesions, no rash, no petechiae Psych: Normal mood, normal affect - Medical Decision Making 04/27/18 14:57 Patient is a 72 year old male, with a significant PMH of hypertension, atrial fibrillation, DM, presents to the emergency department with 2 days of left lower extremity swelling, erythema and pain. Plan: Labs, Blood work, EKG, CXR, duplex vascular ultrasound <Obinna Mejia - Last Filed: 04/27/18 16:54> - Resident Resident Name: Cordelia Mcconnell - ED Attending Attestation I have performed the following: I have examined & evaluated the patient, The case was reviewed & discussed with the resident, I agree w/resident's findings & plan, Exceptions are as noted - Medical Decision Making 72 years old peripheral vascular disease status post femoral stent 2 weeks ago now with lower extremity swelling. ABIs performed yesterday by Dr. Abbott normal good flow Swelling may be secondary to hematoma Case discussed with patient's vascular surgeon Dr. Abbott recommends CT noncontrast lower extremity to evaluate for hematoma Given redness and warmth over area of lower extremity we'll also cover with antibiotics and admitted for further management. <Raymundo Burnhma - Last Filed: 04/27/18 18:26> Attestations - Attestations 04/27/18 14:57 Documentation prepared by Obinna Mejia, acting as medical screener for Raymundo Burnham MD. <Obinna Mejia - Last Filed: 04/27/18 16:54>
[2018-04-27 14:48] LABS: BASO % 0.7 % (0-2.0); EOS % 3.3 % (0-4.5); HEMATOCRIT 39.9 % (35.4-49); HEMOGLOBIN 13.3 GM/dL (11.7-16.9); LYMPH % 27.5 % (8-40); MCH 31.5 pg (25.7-33.7); MCHC 33.4 g/dl (32.0-35.9); MEAN CELL VOLUME 94.4 fl (80-96); MEAN PLT VOLUME 8.2 fl (7.5-11.1); MONO % 9.1 % (3.8-10.2); NEUT % 59.4 % (42.8-82.8); PLATELET COUNT 199 K/MM3 (134-434); RBC 4.23 M/mm3 (4.00-5.60); RDW 14.9 % (11.9-15.9); WHITE BLOOD COUNT 5.4 K/mm3 (4.0-10.0)
[2018-04-27 15:01] LABS: INR 2.04 (0.83-1.09)
[2018-04-27 15:12] LABS: ALBUMIN 3.8 g/dl (3.4-5.0); ANION GAP 7 MMOL/L (8-16); BLOOD UREA NITROGEN 20 mg/dL (7-18); CALCIUM 9.2 mg/dL (8.5-10.1); CHLORIDE 106 mmol/L (98-107); CO2 30 mmol/L (21-32); CREATININE 1.2 mg/dL (0.7-1.3); GLUCOSE,RANDOM 125 mg/dL (74-106); POTASSIUM 4.5 mmol/L (3.5-5.1); SGOT/AST 32 U/L (15-37); SGPT/ALT 35 U/L (12-78); SODIUM 143 mmol/L (136-145)
[2018-04-27 15:15] LABS: ALK PHOS 78 U/L (45-117); BILIRUBIN,TOTAL 0.9 mg/dL (0.2-1.0); TOT PROT 7.9 g/dl (6.4-8.2)
--- NOTE | 2018-04-27 15:52 | PDOC ---
History of Present Illness - General Chief Complaint: Wound Stated Complaint: WOUND Time Seen by Provider: 04/27/18 12:58 History Source: Patient Exam Limitations: No Limitations - History of Present Illness Initial Comments: 04/27/18 18:55 Pt is a 72yo m with PMH of Afib on coumadin, HTN, HLD, DM (not on meds), PAD s/ p stent in L femoral AA presenting to ED with complaints of LLE swelling and tenderness. Pt states he has had pain since the operation on 04/13 but the pain and swelling has been getting progressively worse for the past couple of days. He had a DVT study done last week which was negative. He admits to pain and swelling of LLE and is unable to walk. He denies fever, chills, chest pain, SOB , drainage, dysuria abdominal pain, n/v/d. PCP: Ignacio PMH: see hpi PSH: see hpi Meds: see med rec Allergies: PCN Social: denies Past History - Past Medical History Allergies/Adverse Reactions: Allergies Allergy/AdvReac Type Severity Reaction Status Date / Time Penicillins Allergy Verified 04/27/18 12:26 Home Medications: Ambulatory Orders Ranitidine [Zantac -] 150 mg PO DAILY 01/03/17 Warfarin Sodium [Coumadin] 5 mg PO ASDIR 01/03/17 Amitriptyline HCl [Elavil -] 50 mg PO HS 01/24/18 Atorvastatin Ca [Lipitor] 20 mg PO HS 01/24/18 Carvedilol [Coreg -] 25 mg PO BID 01/24/18 Gabapentin [Neurontin] 300 mg PO TID 01/24/18 Metformin HCl [Metformin HCl ER] 500 mg PO BID 01/24/18 Multivitamin/Iron/Folic Acid [Centrum Adults Tablet] 1 each PO DAILY 01/24/18 Ramipril [Altace] 10 mg PO DAILY 01/24/18 Torsemide [Demadex] 20 mg PO DAILY 01/24/18 Anemia: No Asthma: No Cancer: No Cardiac Disorders: Yes (afib) CVA: No COPD: No CHF: No Dementia: No Diabetes: Yes GI Disorders: Yes (ACID REFLUX) Disorders: No HTN: Yes Hypercholesterolemia: No Liver Disease: No Seizures: No Thyroid Disease: No - Surgical History Abdominal Surgery: Yes (umbilical hernia repair 12/2017) Appendectomy: Yes Cardiac Surgery: No Cholecystectomy: No Lung Surgery: No Neurologic Surgery: No Orthopedic Surgery: No - Suicide/Smoking/Psychosocial Hx Smoking History: Former smoker Have you smoked in the past 12 months: No If you are a former smoker, when did you quit?: 22 years ago Information on smoking cessation initiated: No Hx Alcohol Use: No (last drink 1994-) Drug/Substance Use Hx: Yes Substance Use Type: None Hx Substance Use Treatment: No Review of Systems - Review of Systems Constitutional: No: Chills, Fever, Weakness HEENTM: No: Recent change in vision, Double Vision Respiratory: No: Cough, Shortness of Breath Cardiac (ROS): No: Chest Pain, Lightheadedness, Palpitations, Syncope ABD/GI: No: Blood Streaked Bowels, Constipated, Diarrhea, Nausea, Poor Appetite , Vomiting, Abdominal cramping : No: Burning, Dysuria Musculoskeletal: No: Back Pain, Joint Pain, Muscle Pain, Muscle Weakness *Physical Exam - Vital Signs Last Vital Signs Temp Pulse Resp BP Pulse Ox 98.3 F 64 18 127/57 99 04/27/18 12:24 04/27/18 12:24 04/27/18 12:24 04/27/18 12:24 04/27/18 12:24 - Physical Exam General Appearance: Yes: Nourished, Appropriately Dressed. No: Apparent Distress HEENT: positive: EOMI, AMADA, Pharynx Normal. negative: Pharyngeal Erythema Neck: positive: Supple. negative: Carotid bruit, Lymphadenopathy (R), Lymphadenopathy (L) Respiratory/Chest: positive: Lungs Clear, Normal Breath Sounds. negative: Crackles, Rales Cardiovascular: positive: Regular Rhythm, Regular Rate, S1, S2. negative: JVD, Murmur Vascular Pulses: Carotid (R): 2+, Carotid (L): 2+, Dorsalis-Pedis (R): 2+, Doralis-Pedis (L): 0 (could not palpate) Gastrointestinal/Abdominal: positive: Normal Bowel Sounds, Soft. negative: Guarding, Rebound, Tenderness Musculoskeletal: negative: CVA Tenderness Extremity: positive: Normal Capillary Refill, Swelling (LLE), Calf Tenderness ( LLE and L foot), Erythema (LLE and L foot) Integumentary: positive: Erythema (LLE), Swelling (LLE). 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 negative: Motor Strength 5/5 (Pt unable to move L leg below the knee. Painful passive knee flexion, cannot move ankle or toes. ) ED Treatment Course - LABORATORY CBC & Chemistry Diagram: 04/27/18 14:25 04/27/18 14:25 - ADDITIONAL ORDERS Additional order review: Laboratory Results 04/27/18 04/27/18 04/27/18 14:25 14:25 14:25 PT with INR 23.00 H INR 2.04 H Sodium 143 Potassium 4.5 Chloride 106 Carbon Dioxide 30 Anion Gap 7 L BUN 20 H Creatinine 1.2 Creat Clearance w eGFR 59.86 Random Glucose 125 H Lactic Acid 1.0 Calcium 9.2 Total Bilirubin 0.9 AST 32 ALT 35 Alkaline Phosphatase 78 Total Protein 7.9 Albumin 3.8 04/27/18 14:25 RBC 4.23 MCV 94.4 MCHC 33.4 RDW 14.9 MPV 8.2 D Neutrophils % 59.4 Lymphocytes % 27.5 Monocytes % 9.1 Eosinophils % 3.3 Basophils % 0.7 - RADIOLOGY Radiology Studies Ordered: Category Date Time Status DUPLEX VASCUL US-1 LEG [US] Stat Ultrasound 04/27/18 13:36 Taken Medical Decision Making - Medical Decision Making 04/27/18 19:03 Pt is a 72yo m with PMH of Afib on coumadin, HTN, HLD, DM (not on meds), PAD s/ p stent in L femoral AA presenting to ED with complaints of LLE swelling and tenderness. DDx: cellulitis, DVT, thrombophlebitis, hematoma, compartment syndrome Leg is swollen, erythematous, exquisitely tender. high suspicion for cellulitis. Pt has pain and pulselessness but extremity is warm and erythematous. No trauma. Low suspicion for compartment syndrome. Pt given clinda and vanc. Doppler: negative for DVT CT lle as requested by Dr. Abbott: Labs wnl. NO elevated wbc, not tachy, normotensive. Pt will be admitted for cellulitis. Dr. Abbott will be consulted. 04/27/18 19:06 *DC/Admit/Observation/Transfer Diagnosis at time of Disposition: Cellulitis Qualifiers: Site of cellulitis: extremity Site of cellulitis of extremity: lower extremity Laterality: left Qualified Code(s): L03.116 - Cellulitis of left lower limb - Referrals Referrals: Aguilar Pierre MD [Primary Care Provider] - - Patient Instructions - Post Discharge Activity
[2018-04-27] MEDS ORDERED: VANCOMYCIN 1,000 MG in DEXTROSE 5%-WATER - 250 ML IVPB ONE (16:12)
[2018-04-27] MEDS ORDERED: CLINDAMYCIN 600MG PREMIX IVPB 600 MG/50 ML BAG IVPB ONE ×2 (16:12→16:30)
[2018-04-27] MEDS ORDERED: ACETAMINOPHEN 1000 MG/100 ML VIAL (NON FORMULARY) IVPB ONE (16:14)
[2018-04-27] MEDS ORDERED: SODIUM CHLORIDE 1,000 ML IV STA (16:28)
[2018-04-27] MEDS ORDERED: VANCOMYCIN 1 GRAM (PRE-DOCKED) 1,000 MG/250 ML BAG IVPB ONE (16:30)
--- NOTE | 2018-04-27 17:41 | HP ---
CHIEF COMPLAINT: LLE calf pain and swelling Vascular: Dr. Abbott HISTORY OF PRESENT ILLNESS: 72 year-old male with a PMH significant for HTN, HLD, afib on coumadin, systolic heart failure, GERD, NIDDM, and peripheral arterial disease s/p superficial femoral artery drug-coated balloon (SFA DCB) with stent placement on 04/13/18. Patient presents to ED today with report of left calf swelling, redness, and pain x 2 days. Patient denies fever, sweats, chills. He follows regularly with Dr. Abbott. Recent Travel: No PAST MEDICAL HISTORY: Hypertension Hyperlipidemia Atrial fibrillation Systolic heart failure Peripheral arterial disease NIDDM GERD PAST SURGICAL HISTORY: Left SFA DCB with stent placement 04/13/18 Left SFA thrombectomy 09/2016 Umbilical hernia repair 12/2017 Social History: Smoking: quit 1994 Alcohol: sober since 1994- Drugs: no Family History: Allergies Penicillins Allergy (Verified 04/27/18 12:26) HOME MEDICATIONS: Home Medications Medication Instructions Recorded Ranitidine [Zantac -] 150 mg PO DAILY 01/03/17 Warfarin Sodium [Coumadin] 5 mg PO ASDIR 01/03/17 Amitriptyline HCl [Elavil -] 50 mg PO HS 01/24/18 Atorvastatin Ca [Lipitor] 20 mg PO HS 01/24/18 Carvedilol [Coreg -] 25 mg PO BID 01/24/18 Gabapentin [Neurontin] 300 mg PO TID 01/24/18 Metformin HCl [Metformin HCl ER] 500 mg PO BID 01/24/18 Multivitamin/Iron/Folic Acid 1 each PO DAILY 01/24/18 [Centrum Adults Tablet] Ramipril [Altace] 10 mg PO DAILY 01/24/18 Torsemide [Demadex] 20 mg PO DAILY 01/24/18 REVIEW OF SYSTEMS CONSTITUTIONAL: Absent: fever, chills, diaphoresis, generalized weakness, malaise, loss of appetite, weight change HEENT: Absent: rhinorrhea, nasal congestion, throat pain, throat swelling, difficulty swallowing, mouth swelling, ear pain, eye pain, visual changes CARDIOVASCULAR: Absent: chest pain, syncope, palpitations, irregular heart rate, lightheadedness , peripheral edema RESPIRATORY: Absent: cough, shortness of breath, dyspnea with exertion, orthopnea, wheezing, stridor, hemoptysis GASTROINTESTINAL: Absent: abdominal pain, abdominal distension, nausea, vomiting, diarrhea, constipation, melena, hematochezia GENITOURINARY: Absent: dysuria, frequency, urgency, hesitancy, hematuria, flank pain, genital pain MUSCULOSKELETAL: +Left calf pain, swelling, erythema Absent: myalgia, arthralgia, back pain, neck pain SKIN: Absent: rash, itching, pallor HEMATOLOGIC/IMMUNOLOGIC: Absent: easy bleeding, easy bruising, lymphadenopathy, frequent infections ENDOCRINE: Absent: unexplained weight gain, unexplained weight loss, heat intolerance, cold intolerance NEUROLOGIC: Absent: headache, focal weakness or paresthesias, dizziness, unsteady gait, seizure, mental status changes, bladder or bowel incontinence PSYCHIATRIC: Absent: anxiety, depression, suicidal or homicidal ideation, hallucinations. PHYSICAL EXAMINATION Vital Signs - 24 hr 04/27/18 12:24 Temperature 98.3 F Pulse Rate 64 Respiratory 18 Rate Blood Pressure 127/57 O2 Sat by Pulse 99 Oximetry (%) GENERAL: Awake, alert, and fully oriented, in moderate distress secondary to pain. HEAD: Normal with no signs of trauma. EYES: Pupils equal, round and reactive to light, extraocular movements intact, sclera anicteric, conjunctiva clear. No lid lag. LUNGS: Breath sounds equal, clear to auscultation bilaterally. No wheezes, and no crackles. No accessory muscle use. HEART: Regular rate and rhythm, normal S1 and S2 ABDOMEN: Soft, nontender, not distended, normoactive bowel sounds UPPER EXTREMITIES: 2+ pulses, warm, well-perfused. No cyanosis. No clubbing. No peripheral edema. LOWER EXTREMITIES: LEFT: 4+ tense swelling from toes to knee, ++tender, small area of erythema medial calf, not particularly warm NEUROLOGICAL: Cranial nerves II-XII intact. Normal speech. Laboratory Results - last 24 hr 04/27/18 04/27/18 04/27/18 14:25 14:25 14:25 WBC 5.4 RBC 4.23 Hgb 13.3 Hct 39.9 MCV 94.4 MCH 31.5 MCHC 33.4 RDW 14.9 Plt Count 199 MPV 8.2 D Absolute Neuts (auto) 3.2 Neutrophils % 59.4 Lymphocytes % 27.5 Monocytes % 9.1 Eosinophils % 3.3 Basophils % 0.7 Nucleated RBC % 0 PT with INR 23.00 H INR 2.04 H Sodium 143 Potassium 4.5 Chloride 106 Carbon Dioxide 30 Anion Gap 7 L BUN 20 H Creatinine 1.2 Creat Clearance w eGFR 59.86 Random Glucose 125 H Lactic Acid Calcium 9.2 Total Bilirubin 0.9 AST 32 ALT 35 Alkaline Phosphatase 78 Total Protein 7.9 Albumin 3.8 04/27/18 14:25 WBC RBC Hgb Hct MCV MCH MCHC RDW Plt Count MPV Absolute Neuts (auto) Neutrophils % Lymphocytes % Monocytes % Eosinophils % Basophils % Nucleated RBC % PT with INR INR Sodium Potassium Chloride Carbon Dioxide Anion Gap BUN Creatinine Creat Clearance w eGFR Random Glucose Lactic Acid 1.0 Calcium Total Bilirubin AST ALT Alkaline Phosphatase Total Protein Albumin ASSESSMENT/PLAN: 72 year-old male with a PMH significant for HTN, HLD, afib on coumadin, systolic heart failure, GERD, NIDDM, and peripheral arterial disease s/p superficial femoral artery drug-coated balloon (SFA DCB) with stent placement on 04/13/18. Admitted for post-procedure hematoma. LLE hematoma --04/27 US LLE: negative DVT --04/27 CT LLE: 7.4 x 3.7 x 3cm structure within soleus muscle suggestive acute/subacture hematoma; needs close f/u CT or MRI to exclude underlying pathology --afebrile, no leukocytosis; will continue empiric Vanc and Clinda started in ED; ID to follow Atrial fibrillation --rate well-controlled, continue carvedilol --countine coumadin --INR checks Systolic heart failure, chronic --10/25/16 echo: LV moderately dilated, function moderately reduced, moderate global hypokinesis; RV normal; moderate LAE; mild MR; moderate TR, mild pHTN; trace to mild PI --continue torsemide Hypertension --BP stable --continue ramipril, carvedilol Hyperlipidemia --continue atorvastatin GERD --continue Zantac NIDDM --Novolog sliding scale coverage F/E/N Fluids: PO intake adequate Electrolytes: replete as indicated Nutrition: diabetic, low sodium DVT prophylaxis: on coumadin, INR therapeutic Dispo: continues to require inpatient care. Full Code. Visit type - Emergency Visit Emergency Visit: Yes ED Registration Date: 04/27/18 Care time: The patient presented to the Emergency Department on the above date and was hospitalized for further evaluation of their emergent condition. - New Patient This patient is new to me today: Yes Date on this admission: 04/28/18 - Critical Care Critical Care patient: No Hospitalist Screening - Colonoscopy Questionnaire Colonoscopy Questionnaire: Colonoscopy Questionnaire - Patient: 50 - 75 years old and never had a screening colonoscopy: Unknown History of colon or rectal polyps, or CA: No History of IBD, Crohn's disease or UC: No History of abdominal radiation therapy as a child: No - Relative: 1 with colon or rectal CA, or polyps at age 60 or younger: Unknown Colon or rectal CA diagnosed at age 45 or younger: Unknown Multiple relatives with colon or rectal CA: Unknown - Outcome: Screening Result: Negative Screen
[2018-04-27] MEDS ORDERED: WARFARIN NA 5 MG TABLET (UD) ONE ×2 (19:04→20:00)
[2018-04-27] MEDS: WARFARIN NA 5 MG TABLET (UD) PO SCH ×3 (19:05→20:03)
[2018-04-27] MEDS ORDERED: morphine SULFATE 4 MG/ML VIAL IVPUSH STA ×2 (20:26→20:30)
[2018-04-27] MEDS ORDERED: morphine CARPU-JECT 4 MG/1 ML DISP.SYRIN IVPUSH PRN (20:29)
[2018-04-27] MEDS ORDERED: morphine SULFATE 4 MG/ML VIAL ONE ×2 (20:45→22:07)
[2018-04-27] MEDS ORDERED: AMITRIPTYLINE HCL 50 MG TABLET PO SCH (22:00)
[2018-04-27] MEDS: GABAPENTIN 100 MG CAPSULE (FP) PO SCH (22:00)
[2018-04-27] MEDS: CARVEDILOL 12.5 MG TABLET (FP) PO SCH (22:00)
[2018-04-27] MEDS: INSULIN SLIDING SCALE (NOVOLOG) 1 VIAL SQ SCH (22:00)
[2018-04-27] MEDS: ATORVASTATIN CA 40 MG TABLET (FP) PO SCH (22:00)
[2018-04-27] MEDS ORDERED: CARVEDILOL 12.5 MG TABLET (FP) ONE (23:16)
[2018-04-27] MEDS ORDERED: ATORVASTATIN CA 10 MG TABLET (FP) ONE (23:16)
[2018-04-27] MEDS ORDERED: AMITRIPTYLINE HCL 25 MG TABLET (FP) ONE ×2 (23:17)
[2018-04-27] MEDS ORDERED: GABAPENTIN 100 MG CAPSULE (FP) ONE (23:17)
[2018-04-28] MEDS ORDERED: morphine SULFATE 4 MG/ML VIAL IVPUSH PRN (02:00)
[2018-04-28] MEDS ORDERED: HEPARIN NA (PORCINE) 5,000 UNITS/ML 1ML VIAL SQ SCH (02:00)
[2018-04-28 04:39] VITALS: BMI 33.8
[2018-04-28] MEDS: GABAPENTIN 100 MG CAPSULE (FP) PO SCH ×3 (06:13→21:13)
[2018-04-28] MEDS: INSULIN SLIDING SCALE (NOVOLOG) 1 VIAL SQ SCH ×4 (06:22→21:24)
--- NOTE | 2018-04-28 08:04 | PN ---
Physical Exam: SUBJECTIVE: Patient seen and examined at bedside. Still with significant pain in LLE. Was unable to put weight on leg this morning with PT. OBJECTIVE: Vital Signs Period Temp Pulse Resp BP Sys/[place] Pulse Ox Last 24 Hr 98.3 F-98.6 F 64-84 18-18 121-146/57-73 95-99 GENERAL: Awake, alert, and fully oriented, in moderate distress secondary to pain. HEAD: Normal with no signs of trauma. EYES: Pupils equal, round and reactive to light, extraocular movements intact, sclera anicteric, conjunctiva clear. No lid lag. LUNGS: Breath sounds equal, clear to auscultation bilaterally. No wheezes, and no crackles. No accessory muscle use. HEART: Regular rate and rhythm, normal S1 and S2 ABDOMEN: Soft, nontender, not distended, normoactive bowel sounds UPPER EXTREMITIES: 2+ pulses, warm, well-perfused. No cyanosis. No clubbing. No peripheral edema. LOWER EXTREMITIES: LEFT: 4+ tense swelling from toes to knee, ++tender, increasing area of erythema medial calf, not particularly warm NEUROLOGICAL: Cranial nerves II-XII intact. Normal speech. Laboratory Results - last 24 hr 04/27/18 04/27/18 04/27/18 14:25 14:25 14:25 WBC 5.4 RBC 4.23 Hgb 13.3 Hct 39.9 MCV 94.4 MCH 31.5 MCHC 33.4 RDW 14.9 Plt Count 199 MPV 8.2 D Absolute Neuts (auto) 3.2 Neutrophils % 59.4 Lymphocytes % 27.5 Monocytes % 9.1 Eosinophils % 3.3 Basophils % 0.7 Nucleated RBC % 0 PT with INR 23.00 H INR 2.04 H Sodium 143 Potassium 4.5 Chloride 106 Carbon Dioxide 30 Anion Gap 7 L BUN 20 H Creatinine 1.2 Creat Clearance w eGFR 59.86 POC Glucometer Random Glucose 125 H Lactic Acid Calcium 9.2 Total Bilirubin 0.9 AST 32 ALT 35 Alkaline Phosphatase 78 Total Protein 7.9 Albumin 3.8 04/27/18 04/27/18 04/28/18 14:25 22:28 06:20 WBC RBC Hgb Hct MCV MCH MCHC RDW Plt Count MPV Absolute Neuts (auto) Neutrophils % Lymphocytes % Monocytes % Eosinophils % Basophils % Nucleated RBC % PT with INR INR Sodium Potassium Chloride Carbon Dioxide Anion Gap BUN Creatinine Creat Clearance w eGFR POC Glucometer 127.28501 125 Random Glucose Lactic Acid 1.0 Calcium Total Bilirubin AST ALT Alkaline Phosphatase Total Protein Albumin Active Medications Generic Name Dose Route Start Last Admin Trade Name Freq PRN Reason Stop Dose Admin Amitriptyline HCl 50 mg 04/28/18 22:00 Elavil - PO HS MAXIMINO Atorvastatin Calcium 20 mg 04/27/18 22:00 04/27/18 22:00 Lipitor - PO 20 mg HS MAXIMINO Administration Carvedilol 25 mg 04/27/18 22:00 04/27/18 22:00 Coreg - PO 25 mg BID MAXIMINO Administration Gabapentin 300 mg 04/27/18 22:00 04/28/18 06:13 Neurontin - PO 300 mg TID MAXIMINO Administration Insulin Aspart 1 vial 04/27/18 22:00 04/28/18 06:22 Novolog Vial Sliding Scale - SQ Not Given ACHS [facility] Protocol Morphine Sulfate 4 mg 04/28/18 02:00 04/28/18 04:43 Morphine Sulfate IVPUSH 4 mg Q4H PRN Administration PAIN LEVEL 6-10 Ramipril 10 mg 04/28/18 10:00 Altace - PO DAILY [facility] Ranitidine HCl 150 mg 04/28/18 10:00 Zantac - PO DAILY [facility] Torsemide 20 mg 04/28/18 10:00 Demadex - PO DAILY [facility] Warfarin Sodium 5 mg 04/27/18 19:30 04/27/18 20:03 Coumadin - PO Not Given 1800 [facility] ASSESSMENT/PLAN 72 year-old male with a PMH significant for HTN, HLD, afib on coumadin, systolic heart failure, GERD, NIDDM, and peripheral arterial disease s/p superficial femoral artery drug-coated balloon (SFA DCB) with stent placement on 04/13/18. Admitted for post-procedure hematoma. LLE hematoma --04/27 US LLE: negative DVT --04/27 CT LLE: 7.4 x 3.7 x 3cm structure within soleus muscle suggestive acute/subacture hematoma; needs close f/u CT or MRI to exclude underlying pathology --afebrile, no leukocytosis but increasing erythema noted today on exam; continue empiric Vanc and Clinda started in ED; ID to follow --discussed with Dr. Abbott: plan is to manage pain so that patient can participate in PT; no surgical intervention at this point --discussed with PT, put patient on list for weekend sessions Atrial fibrillation --rate well-controlled, continue carvedilol --INR therapuetic, countine current dose coumadin --if hematoma worsens may have to re-evaluate anticoagulation Systolic heart failure, chronic --10/25/16 echo: LV moderately dilated, function moderately reduced, moderate global hypokinesis; RV normal; moderate LAE; mild MR; moderate TR, mild pHTN; trace to mild PI --continue torsemide Hypertension --BP stable --continue ramipril, carvedilol Hyperlipidemia --continue atorvastatin GERD --continue Zantac NIDDM --Novolog sliding scale coverage F/E/N Fluids: PO intake adequate Electrolytes: replete as indicated Nutrition: diabetic, low sodium DVT prophylaxis: on coumadin, INR therapeutic Dispo: continues to require inpatient care. Full Code. Visit type - Emergency Visit Emergency Visit: Yes ED Registration Date: 04/27/18 Care time: The patient presented to the Emergency Department on the above date and was hospitalized for further evaluation of their emergent condition. - New Patient This patient is new to me today: No - Critical Care Critical Care patient: No
[2018-04-28 08:34] LABS: BASO % 0.5 % (0-2.0); HEMATOCRIT 38.3 % (35.4-49); HEMOGLOBIN 12.6 GM/dL (11.7-16.9); LYMPH % 27.6 % (8-40); MCH 31.1 pg (25.7-33.7); MCHC 32.8 g/dl (32.0-35.9); MEAN CELL VOLUME 94.6 fl (80-96); MEAN PLT VOLUME 7.3 fl (7.5-11.1); NEUT % 59.9 % (42.8-82.8); PLATELET COUNT 184 K/MM3 (134-434); RBC 4.04 M/mm3 (4.00-5.60); RDW 14.3 % (11.9-15.9); WHITE BLOOD COUNT 5.7 K/mm3 (4.0-10.0)
[2018-04-28 08:39] LABS: INR 2.12 (0.83-1.09)
[2018-04-28 08:56] LABS: ALBUMIN 3.3 g/dl (3.4-5.0); CALCIUM 8.5 mg/dL (8.5-10.1); CHLORIDE 105 mmol/L (98-107); POTASSIUM 4.3 mmol/L (3.5-5.1); SODIUM 141 mmol/L (136-145)
[2018-04-28 09:01] LABS: ALK PHOS 72 U/L (45-117); ANION GAP 9 MMOL/L (8-16); BLOOD UREA NITROGEN 25 mg/dL (7-18); CO2 27 mmol/L (21-32); GLUCOSE,RANDOM 120 mg/dL (74-106); MAGNESIUM 2.2 mg/dL (1.8-2.4); SGOT/AST 26 U/L (15-37); SGPT/ALT 28 U/L (12-78); TOT PROT 6.8 g/dl (6.4-8.2)
[2018-04-28] MEDS: CARVEDILOL 12.5 MG TABLET (FP) PO SCH ×2 (10:33→21:13)
[2018-04-28] MEDS: RAMIPRIL 5 MG CAPSULE (FP) PO SCH (10:34)
[2018-04-28] MEDS: TORSEMIDE 20 MG TABLET (FP) PO SCH (10:34)
[2018-04-28] MEDS: RANITIDINE HCL 150 MG TABLET (FP) PO SCH (10:38)
[2018-04-28] MEDS ORDERED: INSULIN (NOVOLOG) ASPART 100 UNITS/ML 10ML VIAL ONE (10:50)
--- NOTE | 2018-04-28 11:59 | PN ---
Progress Note (short form) - Note Progress Note: Vascular surgery Pt seen and examined. LLE pain on ambulation with swelling. Pt had left sfa angioplasty with stent placement 2 weeks ago. Recent arterial ultrasound shows good circulation with derrick of .96. CT scan done last night of left leg shows left soleus hematoma of 7x3. That's why he is having so much pain on ambulation. Recc IV antibiotics for skin changes due to swelling. Recc PT for ambulation and stair climbing. Cont coumadin for afib. Warm compresses to left lower leg for hematoma. I explained to the pt that this could take a month to get better. Pt needs to be on AC for afib. Maximo Abbott DO
[2018-04-28] MEDS ORDERED: ACETAMINOPHEN 500 MG TABLET (FP) PO PRN (12:00)
--- NOTE | 2018-04-28 15:00 | PN ---
Progress Note (short form) - Note Progress Note: ID Consult dictated Cellulitis L LE Hematoma L LE S/P angioplasty/ stent Hx MRSA PCN allergy Await c/s Empiric vancomycin
--- NOTE | 2018-04-28 15:39 | CONS ---
DATE OF CONSULTATION: DATE OF DICTATION: 04/28/2018 HISTORY OF PRESENT ILLNESS: The patient is a 72-year-old male who is evaluated for cellulitis of the left lower extremity. The patient underwent an angioplasty with stent placement, left lower extremity, on April 13, 2018. Postoperatively, he did well until approximately 2 days prior to admission. At that time, he developed increasing pain, swelling, and erythema of the left lower extremity. He presented for evaluation where Doppler exam was performed and was negative for DVT. A CAT scan of the left lower extremity was performed and showed a hematoma approximately 7 x 3 x 3 cm within the soleus muscle centered at the level of the proximal tibial diametaphysis. Patient complains of pain both at rest and with weightbearing. He denies any associated fever or chills. Cultures were obtained. He was empirically treated with vancomycin and clindamycin. PAST MEDICAL HISTORY: Positive for peripheral vascular disease, hypertension, hyperlipidemia, atrial fibrillation, gastroesophageal reflux, diabetes mellitus, congestive heart failure. PAST SURGICAL HISTORY: Status post umbilical hernia repair. ALLERGIES: PENICILLIN. MEDICATION: Include Zantac, Coumadin, Elavil, Lipitor, Coreg, Neurontin, metformin, Altace, Demadex. SOCIAL HISTORY: Lives at home. He is a former smoker. SYSTEMS REVIEW: Neurologic: No loss of consciousness, seizure activity, focal weakness. Cardiac: Negative for chest pain or palpitations. Respiratory: Negative for cough or sputum production. Gastrointestinal: Negative vomiting or diarrhea. Genitourinary: Negative for urinary tract infection. LABORATORY DATA: White count 5.7, hematocrit 38.3, platelet count 184, BUN 25, creatinine 1.0. Blood cultures pending. PHYSICAL EXAMINATION: General: On exam, he is awake and alert. He is in moderate distress secondary to left leg pain. Vital signs: Temperature 98.8, blood pressure 121/59, pulse 79 regular, respirations 20 per minute. HEENT: Sclerae anicteric. Cardiovascular: Heart sounds S1, S2. Lungs: Clear. Abdomen: Obese. Soft, nontender. Extremities: Examination of the left lower extremity, there is diffuse swelling of the left lower extremity fro below the knee to the ankle. There is an area of erythema at medial mid tibial portion of the leg. It is warm and tender to touch. No fluctuance or crepitus. No lymphangitic streaking. IMPRESSION: 1. Cellulitis, left lower extremity. 2. Hematoma, left lower extremity. 3. Status post angioplasty and stent. 4. History of methicillin-resistant Staphylococcus aureus. 5. PENICILLIN allergy. Await blood cultures, empiric antibiotic coverage in this PENICILLIN allergic patient with history of MRSA and a wound culture, with vancomycin 1 g IV piggyback every 12 hours, elevation, analgesics, surgical followup. Thank you for the kind referral. YOLANDE CARMICHAEL M.D. [id number]
[2018-04-28] MEDS: VANCOMYCIN 1,000 MG in DEXTROSE 5%-WATER - 250 ML IVPB SCH (17:00)
[2018-04-28] MEDS: oxyCODONE HCL 5 MG TABLET PO PRN (17:18)
[2018-04-28] MEDS: WARFARIN NA 5 MG TABLET (UD) PO SCH (18:14)
[2018-04-28] MEDS ORDERED: ALBUTEROL SO4 2.5/IPRATROPIUM 0.5 INH SOL 3 ML VIAL.NEB. NEB ONE (19:44)
[2018-04-28] MEDS ORDERED: ALBUTEROL SO4 2.5/IPRATROPIUM 0.5 INH SOL 3 ML VIAL.NEB. NEB PRN (19:46)
--- NOTE | 2018-04-28 19:59 | HOSP ---
Subjective - Review of Symptoms Events since last encounter: Called by RN patient wheezing. Responded to patient's room. Patient found sitting up in bed in no apparent distress. States that about an hour before, he became very aggravated at having to use a urinal (cannot weight bear yet) and he was spilling urine in the bed. Patient states when he gets upset sometimes he wheezes. Wheezing also occurs sometimes when he lays flat, and with exertion like climbing stairs. Patient states the wheezing has now resolved and he feels well. Patient denies feeling SOB. Denies chest pain, palpitations. Patient smoked for 32 years, quit 1992. He has never been diagnosed with COPD. He has never been on any type of respiratory medication. [facility] and he uses a CPAP "Dream Machine" at night. Patient has a history of systolic heart failure on Torsemide. He follows with Dr. Arias. Physical Exam VS: T 98.1 BP 134/56 p75 RR 20 SpO2 94% on room air General/Neuro: A&Ox3 Lungs: very mild diffuse end expiratory wheezing, no accessory muscle use, speaking clearly and in full sentences Assessment & Plan r/o COPD --duoneb x 1 now, then PRN --repeat CXR in am --hold off steroids for now as wheezing has almost completely resolved --pulmonary consult requested Heart failure --continue torsemide --patient follows with Dr. Arias, consult requested Sleep apnea --BIPAP at night and PRN ordered r/o infectious etiology --no fever, no leukocytosis, no cough --continue empiric vanc for LLE hematoma; will not broaden coverage at this time but will repeat cbc in am, monitor fever curve Physical Examination Vital Signs: Vital Signs Temperature 99 F 04/28/18 16:44 Pulse Rate 71 04/28/18 14:00 Respiratory Rate 18 04/28/18 14:00 Blood Pressure 121/59 04/28/18 14:00 O2 Sat by Pulse Oximetry (%) 95 04/28/18 09:00 Labs: CBC, BMP 04/28/18 08:00 04/28/18 08:00
[2018-04-28] MEDS ORDERED: PT OWN MED DRAWER 7, Y5N ONE (21:00)
[2018-04-28] MEDS: AMITRIPTYLINE HCL 25 MG TABLET (FP) PO SCH (21:13)
[2018-04-28] MEDS: ATORVASTATIN CA 40 MG TABLET (FP) PO SCH (21:13)
[2018-04-29] MEDS: VANCOMYCIN 1,000 MG in DEXTROSE 5%-WATER - 250 ML IVPB SCH ×2 (04:37→16:54)
[2018-04-29] MEDS: INSULIN SLIDING SCALE (NOVOLOG) 1 VIAL SQ SCH ×4 (06:22→21:22)
[2018-04-29] MEDS: GABAPENTIN 300 MG CAPSULE (FP) PO SCH ×3 (06:22→21:24)
[2018-04-29] MEDS: GABAPENTIN 100 MG CAPSULE (FP) PO SCH (06:27)
[2018-04-29] MEDS ORDERED: INSULIN (NOVOLOG) ASPART 100 UNITS/ML 10ML VIAL ONE ×3 (06:56→21:21)
[2018-04-29 08:02] LABS: BASO % 0.6 % (0-2.0); EOS % 3.5 % (0-4.5); HEMATOCRIT 37.6 % (35.4-49); HEMOGLOBIN 12.7 GM/dL (11.7-16.9); LYMPH % 23.7 % (8-40); MCH 31.7 pg (25.7-33.7); MCHC 33.7 g/dl (32.0-35.9); MEAN CELL VOLUME 94.1 fl (80-96); MEAN PLT VOLUME 7.3 fl (7.5-11.1); MONO % 8.8 % (3.8-10.2); NEUT % 63.4 % (42.8-82.8); PLATELET COUNT 189 K/MM3 (134-434); RDW 14.7 % (11.9-15.9)
[2018-04-29 08:15] LABS: ALBUMIN 3.2 g/dl (3.4-5.0); ALK PHOS 75 U/L (45-117); ANION GAP 6 MMOL/L (8-16); BILIRUBIN,TOTAL 0.8 mg/dL (0.2-1.0); BLOOD UREA NITROGEN 25 mg/dL (7-18); CALCIUM 8.5 mg/dL (8.5-10.1); CHLORIDE 106 mmol/L (98-107); CO2 30 mmol/L (21-32); CREATININE 1.2 mg/dL (0.7-1.3); GLUCOSE,RANDOM 122 mg/dL (74-106); MAGNESIUM 2.4 mg/dL (1.8-2.4); POTASSIUM 4.2 mmol/L (3.5-5.1); SGOT/AST 26 U/L (15-37); SODIUM 142 mmol/L (136-145); TOT PROT 6.8 g/dl (6.4-8.2)
[2018-04-29 08:19] LABS: SGPT/ALT 27 U/L (12-78)
[2018-04-29] MEDS ORDERED: PT OWN MED DRAWER 7, Y5N ONE ×3 (10:01→20:30)
[2018-04-29] MEDS: CARVEDILOL 12.5 MG TABLET (FP) PO SCH ×2 (10:05→21:24)
[2018-04-29] MEDS: TORSEMIDE 20 MG TABLET (FP) PO SCH (10:05)
[2018-04-29] MEDS: RANITIDINE HCL 150 MG TABLET (FP) PO SCH (10:06)
[2018-04-29] MEDS: RAMIPRIL 5 MG CAPSULE (FP) PO SCH (10:06)
--- NOTE | 2018-04-29 11:17 | CON.CARD ---
Cardiology Consult (text) - Consultation Consultation Note: cc: left leg swelling/pain/redness hpi: 72 yo m with h/o htn, gerd, afib, pad s/p recent left sfa stenting here with left leg swelling/pain/redness. No cp, sob, palps, dizzy, loc, pnd, orthopnea. PMHx: HTN, acid reflux, afib PSHx: Appendectomy as a child, vein stripping Social Hx: former smoker, 2 packs per day age 16 to 49 fam hx: parents with cva, no premature cad, scd ros: per hpi; no nvd, gib hematuria dysuria wt loss meds: Ambulatory Orders Ranitidine [Zantac -] 150 mg PO DAILY 01/03/17 Warfarin Sodium [Coumadin] 5 mg PO ASDIR 01/03/17 Amitriptyline HCl [Elavil -] 50 mg PO HS 01/24/18 Atorvastatin Ca [Lipitor] 20 mg PO HS 01/24/18 Carvedilol [Coreg -] 25 mg PO BID 01/24/18 Gabapentin [Neurontin] 300 mg PO TID 01/24/18 Metformin HCl [Metformin HCl ER] 500 mg PO BID 01/24/18 Multivitamin/Iron/Folic Acid [Centrum Adults Tablet] 1 each PO DAILY 01/24/18 Ramipril [Altace] 10 mg PO DAILY 01/24/18 Torsemide [Demadex] 20 mg PO DAILY 01/24/18 pe: Vital Signs Period Temp Pulse Resp BP Sys/Tamayo Pulse Ox Last 24 Hr 98.1 F-99 F 71-79 18-20 121-146/56-79 96-98 NAD, calm jvd flat, neck supple ctab, nl effort irregular nl s1, s2 no mrg, pmi non-displaced + bs soft nt nd left le swelling, redness, tender + dp/pt, no carotid bruits aaox3 no jaundice, diaphoresis Laboratory Last Values WBC 6.0 K/mm3 (4.0-10.0) 04/29/18 06:20 RBC 4.00 M/mm3 (4.00-5.60) 04/29/18 06:20 Hgb 12.7 GM/dL (11.7-16.9) 04/29/18 06:20 Hct 37.6 % (35.4-49) 04/29/18 06:20 MCV 94.1 fl (80-96) 04/29/18 06:20 MCH 31.7 pg (25.7-33.7) 04/29/18 06:20 MCHC 33.7 g/dl (32.0-35.9) 04/29/18 06:20 RDW 14.7 % (11.9-15.9) 04/29/18 06:20 Plt Count 189 K/MM3 (134-434) 04/29/18 06:20 MPV 7.3 fl (7.5-11.1) L 04/29/18 06:20 Absolute Neuts (auto) 3.8 K/mm3 (1.5-8.0) 04/29/18 06:20 Neutrophils % 63.4 % (42.8-82.8) 04/29/18 06:20 Lymphocytes % 23.7 % (8-40) 04/29/18 06:20 Monocytes % 8.8 % (3.8-10.2) 04/29/18 06:20 Eosinophils % 3.5 % (0-4.5) 04/29/18 06:20 Basophils % 0.6 % (0-2.0) 04/29/18 06:20 Nucleated RBC % 0 % (0-0) 04/29/18 06:20 PT with INR 24.00 SEC (9.7-13.0) H 04/28/18 08:00 INR 2.12 (0.83-1.09) H 04/28/18 08:00 Sodium 142 mmol/L (136-145) 04/29/18 06:20 Potassium 4.2 mmol/L (3.5-5.1) 04/29/18 06:20 Chloride 106 mmol/L (98-107) 04/29/18 06:20 Carbon Dioxide 30 mmol/L (21-32) 04/29/18 06:20 Anion Gap 6 MMOL/L (8-16) L 04/29/18 06:20 BUN 25 mg/dL (7-18) H 04/29/18 06:20 Creatinine 1.2 mg/dL (0.7-1.3) 04/29/18 06:20 Creat Clearance w eGFR 59.86 (>60) 04/29/18 06:20 POC Glucometer 167 UNITS (80-120) 04/29/18 05:54 Random Glucose 122 mg/dL (74-106) H 04/29/18 06:20 Lactic Acid 1.0 mmol/L (0.0-2.0) 04/27/18 14:25 Calcium 8.5 mg/dL (8.5-10.1) 04/29/18 06:20 Phosphorus 3.0 mg/dL (2.5-4.9) 04/28/18 08:00 Magnesium 2.4 mg/dL (1.8-2.4) 04/29/18 06:20 Total Bilirubin 0.8 mg/dL (0.2-1.0) 04/29/18 06:20 AST 26 U/L (15-37) 04/29/18 06:20 ALT 27 U/L (12-78) 04/29/18 06:20 Alkaline Phosphatase 75 U/L (45-117) 04/29/18 06:20 Total Protein 6.8 g/dl (6.4-8.2) 04/29/18 06:20 Albumin 3.2 g/dl (3.4-5.0) L 04/29/18 06:20 Hep C Ab Diagnostic <0.1 s/co ratio (0.0-0.9) 04/28/18 09:31 Liver Fibrosis Interp (.) 04/28/18 09:31 Echo 09/2016: bline dilated LV. Mod decreased LV function(global), NL rv. Mod Lae 1+ MAC. 1+ MR. Mod TR. RVSP 30-40. Mild ao dilation. echo 07/2014: nl lv/rv, severe anna, mod MR, mild-mod TR, rvsp 40-50. mild ao dilation echo 11/2013: Mildly decreased systolic function, mild lae, mild mr/tr. rvsp 50- 60 cxr: clear lungs Assessment/Plan 72 yo m with h/o htn, gerd, afib, pad s/p recent left sfa stenting here with left leg swelling/pain/redness. le pain/swelling, cellulitis, hematoma: -has left soleus hematoma, also getting abx for cellulitis -vascular and ID following atrial fibrillation - cont bb - on coumadin - hgb stable and per vascular ok to continue AC with current soleus hematoma. pad: -s/p recent left sfa stenting -per vascular -cont statin, ac chronic systolic chf -stable. cont bb, lonnie, torsemide HTN -cont bb, lonnie hld: -cont statin
--- NOTE | 2018-04-29 12:22 | CON.PULM ---
Consult Consult Specialty:: PULMONARY Referred by:: DONTAE Larsen Reason for Consultation:: shortness of breath - History of Present Illness Chief Complaint: leg pain History of Present Illness: 72yo male with h/o HTN, hyperlipidemia, DM, GERD, PAD, atrial fibrillation on anticoagulation, LV systolic dysfunction who was admitted with left calf pain and swelling. No fevers, chills or sweats. Found to have cellulitis started on antibiotics. Yesterday started to experience shortness of breath with wheezing. No chest pain or palpitations. He denies history of asthma or COPD but has a nebulizer at home. He is a former long time smoker, started at age 16, smoked about 1 PPD until 1994. - History Source History Provided By: Patient, Medical Record Limitations to Obtaining History: No Limitations - Past Medical History Cardio/Vascular: Yes: AFIB (New onset), HTN, Hyperlipdemia, Other (PAD) Gastrointestinal: Yes: GERD - Past Surgical History Past Surgical History: Yes: Appendectomy, Tonsillectomy, Vein Stripping/Ligation - Alcohol/Substance Use Hx Alcohol Use: No (last drink 1994-) History of Substance Use: reports: None - Smoking History Smoking history: Former smoker Have you smoked in the past 12 months: No If you are a former smoker, when did you quit?: 22 years ago - Social History ADL: Independent History of Recent Travel: No Home Medications - Allergies Allergies/Adverse Reactions: Allergies Allergy/AdvReac Type Severity Reaction Status Date / Time Penicillins Allergy Verified 04/27/18 12:26 - Home Medications Home Medications: Ambulatory Orders Ranitidine [Zantac -] 150 mg PO DAILY 01/03/17 Warfarin Sodium [Coumadin] 5 mg PO ASDIR 01/03/17 Amitriptyline HCl [Elavil -] 50 mg PO HS 01/24/18 Atorvastatin Ca [Lipitor] 20 mg PO HS 01/24/18 Carvedilol [Coreg -] 25 mg PO BID 01/24/18 Gabapentin [Neurontin] 300 mg PO TID 01/24/18 Metformin HCl [Metformin HCl ER] 500 mg PO BID 01/24/18 Multivitamin/Iron/Folic Acid [Centrum Adults Tablet] 1 each PO DAILY 01/24/18 Ramipril [Altace] 10 mg PO DAILY 01/24/18 Torsemide [Demadex] 20 mg PO DAILY 01/24/18 Review of Systems - Review of Systems Constitutional: reports: Chills, Fever, Weakness Eyes: denies: Recent Change in Vision HENT: denies: Nasal Congestion, Throat Pain Neck: denies: Stiffness, Tenderness Cardiovascular: reports: Edema, Shortness of Breath. denies: Chest Pain, Palpitations Respiratory: reports: Wheezing. denies: Cough, Hemoptysis Gastrointestinal: denies: Abdominal Pain, Nausea, Vomiting Genitourinary: denies: Dysuria, Hematuria Neurological: denies: Dizziness, Headache Endocrine: denies: Unexplained Weight Loss Physical Exam Vital Sings: Vital Signs Temperature 98.3 F 04/29/18 06:00 Pulse Rate 78 04/29/18 06:00 Respiratory Rate 20 04/29/18 06:00 Blood Pressure 146/70 04/29/18 06:00 O2 Sat by Pulse Oximetry (%) 96 04/29/18 00:19 Constitutional: Yes: Calm Eyes: Yes: Conjunctiva Clear, EOM Intact HENT: Yes: Atraumatic, Normocephalic Neck: Yes: Supple, Trachea Midline Cardiovascular: Yes: Regular Rate and Rhythm Respiratory: Yes: Rhonchi (scattered) ...Clubbing: No Gastrointestinal: Yes: Normal Bowel Sounds, Soft. No: Tenderness Edema: No Neurological: Yes: Alert, Oriented Labs: CBC, BMP 04/29/18 06:20 04/29/18 06:20 Imaging - Results Chest X-ray: Report Reviewed, Image Reviewed (no inflitrates) Problem List - Problems (1) Cellulitis Code(s): L03.90 - CELLULITIS, UNSPECIFIED Qualifiers: Site of cellulitis: extremity Site of cellulitis of extremity: lower extremity Laterality: left Qualified Code(s): L03.116 - Cellulitis of left lower limb (2) Atrial fibrillation Code(s): I48.91 - UNSPECIFIED ATRIAL FIBRILLATION Qualifiers: Atrial fibrillation type: unspecified Qualified Code(s): I48.91 - Unspecified atrial fibrillation (3) Systolic CHF Code(s): I50.20 - UNSPECIFIED SYSTOLIC (CONGESTIVE) HEART FAILURE Assessment/Plan Cellulitis r/o Acute Bronchospasm vs COPD LV Systolic Dysfunction Atrial Fibrillation PAD HTN DM PAD - continue antibiotics - will start short course of steroids - inhaled bronchodilators standing and PRN - O2 to keep Spo2 >90% - will need outpt PFTs to evaluate for obstructive airways - rate controlled - continue anticoagulation Thank you for this consult Pierce Villa MD
[2018-04-29] MEDS ORDERED: ALBUTEROL SO4 0.083% IH SOL 2.5 MG/3 ML VIAL.NEB. NEB PRN (12:30)
[2018-04-29] MEDS: methylPREDNISolone NA SUCC 40 MG/1 ML VIAL IVPUSH SCH ×2 (12:46→18:01)
[2018-04-29] MEDS: morphine SULFATE 4 MG/ML VIAL IVPUSH PRN (13:18)
[2018-04-29] MEDS: ALBUTEROL SO4 2.5/IPRATROPIUM 0.5 INH SOL 3 ML VIAL.NEB. NEB SCH ×2 (15:34→20:10)
[2018-04-29] MEDS ORDERED: BISACODYL 10 MG SUPP.RECT RC PRN (15:34)
[2018-04-29] MEDS: WARFARIN NA 5 MG TABLET (UD) PO SCH (18:01)
--- NOTE | 2018-04-29 18:24 | PN ---
Physical Exam: SUBJECTIVE: Patient seen and examined at bedside. Left leg still too painful to weight bear. No further wheezing. OBJECTIVE: Vital Signs Period Temp Pulse Resp BP Sys/Tamayo Pulse Ox Last 24 Hr 98.0 F-98.9 F 68-79 20-20 123-149/56-79 96-98 GENERAL: Awake, alert, and fully oriented, in moderate distress secondary to pain. HEAD: Normal with no signs of trauma. EYES: Pupils equal, round and reactive to light, extraocular movements intact, sclera anicteric, conjunctiva clear. No lid lag. LUNGS: Breath sounds equal, clear to auscultation. No wheezes HEART: Regular rate and rhythm, normal S1 and S2 ABDOMEN: Soft, nontender, not distended, normoactive bowel sounds UPPER EXTREMITIES: 2+ pulses, warm, well-perfused. No cyanosis. No clubbing. No peripheral edema. LOWER EXTREMITIES: LEFT: 3+ swelling, not tense, not as tender, erythema resolving NEUROLOGICAL: Cranial nerves II-XII intact. Normal speech. Laboratory Results - last 24 hr 04/28/18 04/28/18 04/29/18 09:31 21:23 05:54 WBC RBC Hgb Hct MCV MCH MCHC RDW Plt Count MPV Absolute Neuts (auto) Neutrophils % Lymphocytes % Monocytes % Eosinophils % Basophils % Nucleated RBC % Sodium Potassium Chloride Carbon Dioxide Anion Gap BUN Creatinine Creat Clearance w eGFR POC Glucometer 137 167 Random Glucose Calcium Magnesium Total Bilirubin AST ALT Alkaline Phosphatase Total Protein Albumin Hep C Ab Diagnostic <0.1 Liver Fibrosis Interp 04/29/18 04/29/18 04/29/18 06:20 06:20 11:43 WBC 6.0 RBC 4.00 Hgb 12.7 Hct 37.6 MCV 94.1 MCH 31.7 MCHC 33.7 RDW 14.7 Plt Count 189 MPV 7.3 L Absolute Neuts (auto) 3.8 Neutrophils % 63.4 Lymphocytes % 23.7 Monocytes % 8.8 Eosinophils % 3.5 Basophils % 0.6 Nucleated RBC % 0 Sodium 142 Potassium 4.2 Chloride 106 Carbon Dioxide 30 Anion Gap 6 L BUN 25 H Creatinine 1.2 Creat Clearance w eGFR 59.86 POC Glucometer 140 Random Glucose 122 H Calcium 8.5 Magnesium 2.4 Total Bilirubin 0.8 AST 26 ALT 27 Alkaline Phosphatase 75 Total Protein 6.8 Albumin 3.2 L Hep C Ab Diagnostic Liver Fibrosis Interp Active Medications Generic Name Dose Route Start Last Admin Trade Name Freq PRN Reason Stop Dose Admin Acetaminophen 500 mg 04/28/18 12:00 Tylenol - PO Q4H PRN PAIN LEVEL 1 - 3 Albuterol Sulfate 1 amp 04/29/18 12:30 Ventolin 0.083% Nebulizer Soln - NEB Q4H PRN SHORT OF BREATH/WHEEZING Albuterol/Ipratropium 1 amp 04/29/18 16:00 04/29/18 15:34 Duoneb - NEB 1 amp RQID MAXIMINO Administration Amitriptyline HCl 50 mg 04/28/18 22:00 04/28/18 21:13 Elavil - PO 50 mg HS MAXIMINO Administration Atorvastatin Calcium 20 mg 04/27/18 22:00 04/28/18 21:13 Lipitor - PO 20 mg HS MAXIMINO Administration Bisacodyl 10 mg 04/29/18 15:34 Dulcolax Suppository - RC PRN PRN CONSTIPATION Carvedilol 25 mg 04/27/18 22:00 04/29/18 10:05 Coreg - PO 25 mg BID MAXIMINO Administration Docusate Sodium 300 mg 04/29/18 22:00 Colace - PO HS MAXIMINO Gabapentin 300 mg 04/29/18 06:00 04/29/18 13:21 Neurontin - PO 300 mg TID MAXIMINO Administration Vancomycin HCl 1,000 mg/ 250 mls @ 166.667 mls/hr 04/28/18 16:00 04/29/18 16: 54 Dextrose IVPB 166.667 mls/hr BID@0400,1600 MAXIMINO Administration Protocol Insulin Aspart 1 vial 04/27/18 22:00 04/29/18 16:53 Novolog Vial Sliding Scale - SQ 4 units ACHS MAXIMINO Administration Protocol Methylprednisolone Sodium Succinate 40 mg 04/29/18 12:45 04/29/18 18:01 Solu-Medrol - IVPUSH 40 mg Q8H-IV MAXIMINO Administration Morphine Sulfate 4 mg 04/28/18 11:58 04/29/18 13:18 Morphine Sulfate IVPUSH 4 mg Q4H PRN Administration PAIN LEVEL 7 - 10 Oxycodone HCl 10 mg 04/28/18 11:59 04/28/18 17:18 Roxicodone - PO 10 mg Q4H PRN Administration PAIN LEVEL 4 - 6 Polyethylene Glycol 17 gm 04/29/18 22:00 Miralax (For Daily Use) - PO BID MAXIMINO Ramipril 10 mg 04/28/18 10:00 04/29/18 10:06 Altace - PO 10 mg DAILY MAXIMINO Administration Ranitidine HCl 150 mg 04/28/18 10:00 04/29/18 10:06 Zantac - PO 150 mg DAILY MAXIMINO Administration Torsemide 20 mg 04/28/18 10:00 04/29/18 10:05 Demadex - PO 20 mg DAILY MAXIMINO Administration Warfarin Sodium 5 mg 04/27/18 19:30 04/29/18 18:01 Coumadin - PO 5 mg 1800 MAXIMINO Administration Imaging --04/27 US LLE: negative DVT --04/27 CT LLE: 7.4 x 3.7 x 3cm structure within soleus muscle suggestive acute/ subacture hematoma; needs close f/u CT or MRI to exclude underlying pathology ASSESSMENT/PLAN 72 year-old male with a PMH significant for HTN, HLD, afib on coumadin, systolic heart failure, GERD, NIDDM, and peripheral arterial disease s/p superficial femoral artery drug-coated balloon (SFA DCB) with stent placement on 04/13/18. Admitted for post-procedure hematoma. LLE hematoma --afebrile, no leukocytosis --leg looks much better today, swelling and erythema resolving Atrial fibrillation --rate well-controlled, continue carvedilol --INR therapuetic, continue current dose coumadin --if hematoma worsens re-evaluate anticoagulation Systolic heart failure, chronic --10/25/16 echo: LV moderately dilated, function moderately reduced, moderate global hypokinesis; RV normal; moderate LAE; mild MR; moderate TR, mild pHTN; trace to mild PI --continue torsemide Acute bronchospasm v. COPD --per pulm, start short course IV steroids --inhaled bronchodilators --continue antibiotics --outpatient PFTs Sleep apnea --BiPAP at night Hypertension --BP stable --continue ramipril, carvedilol Hyperlipidemia --continue atorvastatin GERD --continue Zantac NIDDM --Novolog sliding scale coverage F/E/N Fluids: PO intake adequate Electrolytes: replete as indicated Nutrition: diabetic, low sodium DVT prophylaxis: on coumadin, INR therapeutic Dispo: continues to require inpatient care. Full Code. Visit type - Emergency Visit Emergency Visit: Yes ED Registration Date: 04/27/18 Care time: The patient presented to the Emergency Department on the above date and was hospitalized for further evaluation of their emergent condition. - New Patient This patient is new to me today: No - Critical Care Critical Care patient: No
[2018-04-29] MEDS: DOCUSATE SODIUM 100 MG CAPSULE (FP) PO SCH (21:23)
[2018-04-29] MEDS: ATORVASTATIN CA 40 MG TABLET (FP) PO SCH (21:23)
[2018-04-29] MEDS: POLYETHYLENE GLYCOL 3350 119 GM BTL PO SCH (21:24)
[2018-04-29] MEDS: AMITRIPTYLINE HCL 25 MG TABLET (FP) PO SCH (21:24)
[2018-04-30] MEDS: methylPREDNISolone NA SUCC 40 MG/1 ML VIAL IVPUSH SCH ×3 (02:33→18:23)
[2018-04-30] MEDS: morphine SULFATE 4 MG/ML VIAL IVPUSH PRN (03:01)
[2018-04-30] MEDS: VANCOMYCIN 1,000 MG in DEXTROSE 5%-WATER - 250 ML IVPB SCH ×2 (03:26→16:53)
[2018-04-30] MEDS: GABAPENTIN 300 MG CAPSULE (FP) PO SCH ×3 (05:51→21:30)
[2018-04-30] MEDS: INSULIN SLIDING SCALE (NOVOLOG) 1 VIAL SQ SCH ×4 (06:27→21:32)
[2018-04-30] MEDS: ALBUTEROL SO4 2.5/IPRATROPIUM 0.5 INH SOL 3 ML VIAL.NEB. NEB SCH ×4 (07:01→20:01)
[2018-04-30] MEDS: oxyCODONE HCL 5 MG TABLET PO PRN (08:39)
[2018-04-30] MEDS: RANITIDINE HCL 150 MG TABLET (FP) PO SCH (09:38)
[2018-04-30] MEDS: TORSEMIDE 20 MG TABLET (FP) PO SCH (09:38)
[2018-04-30] MEDS: CARVEDILOL 12.5 MG TABLET (FP) PO SCH ×2 (09:38→21:30)
[2018-04-30] MEDS: POLYETHYLENE GLYCOL 3350 119 GM BTL PO SCH ×3 (09:39→21:39)
[2018-04-30] MEDS: RAMIPRIL 5 MG CAPSULE (FP) PO SCH (09:39)
--- NOTE | 2018-04-30 10:29 | PN ---
Physical Exam: SUBJECTIVE: Patient seen and examined at bedside. Had an episode of wheezing while having a BM today which was difficult due to left leg pain. OBJECTIVE: Vital Signs Period Temp Pulse Resp BP Sys/Tamayo Pulse Ox Last 24 Hr 97.6 F-98.6 F 68-78 20-21 132-149/60-73 97-98 GENERAL: Awake, alert, and fully oriented, in no apparent distress. HEAD: Normal with no signs of trauma. EYES: Pupils equal, round and reactive to light, extraocular movements intact, sclera anicteric, conjunctiva clear. No lid lag. LUNGS: Breath sounds equal, clear to auscultation. No wheezes HEART: Regular rate and rhythm, normal S1 and S2 ABDOMEN: Soft, nontender, not distended, normoactive bowel sounds UPPER EXTREMITIES: 2+ pulses, warm, well-perfused. No cyanosis. No clubbing. No peripheral edema. LOWER EXTREMITIES: LEFT: 3+ swelling, erythema resolving NEUROLOGICAL: Cranial nerves II-XII intact. Normal speech. CBCD WBC 6.0 K/mm3 (4.0-10.0) 04/29/18 06:20 RBC 4.00 M/mm3 (4.00-5.60) 04/29/18 06:20 Hgb 12.7 GM/dL (11.7-16.9) 04/29/18 06:20 Hct 37.6 % (35.4-49) 04/29/18 06:20 MCV 94.1 fl (80-96) 04/29/18 06:20 MCHC 33.7 g/dl (32.0-35.9) 04/29/18 06:20 RDW 14.7 % (11.9-15.9) 04/29/18 06:20 Plt Count 189 K/MM3 (134-434) 04/29/18 06:20 MPV 7.3 fl (7.5-11.1) L 04/29/18 06:20 CMP Sodium 142 mmol/L (136-145) 04/29/18 06:20 Potassium 4.2 mmol/L (3.5-5.1) 04/29/18 06:20 Chloride 106 mmol/L (98-107) 04/29/18 06:20 Carbon Dioxide 30 mmol/L (21-32) 04/29/18 06:20 Anion Gap 6 MMOL/L (8-16) L 04/29/18 06:20 BUN 25 mg/dL (7-18) H 04/29/18 06:20 Creatinine 1.2 mg/dL (0.7-1.3) 04/29/18 06:20 Creat Clearance w eGFR 59.86 (>60) 04/29/18 06:20 Calcium 8.5 mg/dL (8.5-10.1) 04/29/18 06:20 Total Bilirubin 0.8 mg/dL (0.2-1.0) 04/29/18 06:20 AST 26 U/L (15-37) 04/29/18 06:20 ALT 27 U/L (12-78) 04/29/18 06:20 Alkaline Phosphatase 75 U/L (45-117) 04/29/18 06:20 Total Protein 6.8 g/dl (6.4-8.2) 04/29/18 06:20 Albumin 3.2 g/dl (3.4-5.0) L 04/29/18 06:20 Laboratory Results - last 24 hr 04/29/18 04/29/18 04/29/18 11:43 16:50 21:18 POC Glucometer 140 202 230 04/30/18 05:49 POC Glucometer 266 Active Medications Generic Name Dose Route Start Last Admin Trade Name Freq PRN Reason Stop Dose Admin Acetaminophen 500 mg 04/28/18 12:00 Tylenol - PO Q4H PRN PAIN LEVEL 1 - 3 Albuterol Sulfate 1 amp 04/29/18 12:30 Ventolin 0.083% Nebulizer Soln - NEB Q4H PRN SHORT OF BREATH/WHEEZING Albuterol/Ipratropium 1 amp 04/29/18 16:00 04/30/18 07:01 Duoneb - NEB 1 amp RQID MAXIMINO Administration Amitriptyline HCl 50 mg 04/28/18 22:00 04/29/18 21:24 Elavil - PO 50 mg HS MAXIMINO Administration Atorvastatin Calcium 20 mg 04/27/18 22:00 04/29/18 21:23 Lipitor - PO 20 mg HS MAXIMINO Administration Bisacodyl 10 mg 04/29/18 15:34 Dulcolax Suppository - RC PRN PRN CONSTIPATION Carvedilol 25 mg 04/27/18 22:00 04/30/18 09:38 Coreg - PO 25 mg BID MAXIMINO Administration Docusate Sodium 300 mg 04/29/18 22:00 04/29/18 21:23 Colace - PO 300 mg HS MAXIMINO Administration Gabapentin 300 mg 04/29/18 06:00 04/30/18 05:51 Neurontin - PO 300 mg TID MAXIMINO Administration Vancomycin HCl 1,000 mg/ 250 mls @ 166.667 mls/hr 04/28/18 16:00 04/30/18 03: 26 Dextrose IVPB 166.667 mls/hr BID@0400,1600 MAXIMINO Administration Protocol Insulin Aspart 1 vial 04/27/18 22:00 04/30/18 06:27 Novolog Vial Sliding Scale - SQ 6 units ACHS MAXIMINO Administration Protocol Methylprednisolone Sodium Succinate 40 mg 04/29/18 12:45 04/30/18 09:39 Solu-Medrol - IVPUSH 40 mg Q8H-IV MAXIMINO Administration Morphine Sulfate 4 mg 04/28/18 11:58 04/30/18 03:01 Morphine Sulfate IVPUSH 4 mg Q4H PRN Administration PAIN LEVEL 7 - 10 Oxycodone HCl 10 mg 04/28/18 11:59 04/30/18 08:39 Roxicodone - PO 10 mg Q4H PRN Administration PAIN LEVEL 4 - 6 Polyethylene Glycol 17 gm 04/29/18 22:00 04/30/18 09:39 Miralax (For Daily Use) - PO 17 gm BID MAXIMINO Administration Ramipril 10 mg 04/28/18 10:00 04/30/18 09:39 Altace - PO 10 mg DAILY MAXIMINO Administration Ranitidine HCl 150 mg 04/28/18 10:00 04/30/18 09:38 Zantac - PO 150 mg DAILY MAXIMINO Administration Torsemide 20 mg 04/28/18 10:00 04/30/18 09:38 Demadex - PO 20 mg DAILY MAXIMINO Administration Warfarin Sodium 5 mg 04/27/18 19:30 04/29/18 18:01 Coumadin - PO 5 mg 1800 MAXIMINO Administration Imaging --04/27 US LLE: negative DVT --04/27 CT LLE: 7.4 x 3.7 x 3cm structure within soleus muscle suggestive acute/ subacture hematoma; needs close f/u CT or MRI to exclude underlying pathology ASSESSMENT/PLAN 72 year-old male with a PMH significant for HTN, HLD, afib on coumadin, systolic heart failure, GERD, NIDDM, and peripheral arterial disease s/p superficial femoral artery drug-coated balloon (SFA DCB) with stent placement on 04/13/18. Admitted for post-procedure hematoma. LLE hematoma --afebrile, no leukocytosis --leg improved, swelling and erythema resolving --pain continues to be an issue and impeding progress in physical therapy --repeat CT in am Atrial fibrillation --rate well-controlled, continue carvedilol --INR therapuetic, continue current dose coumadin --check INR in am Systolic heart failure, chronic --10/25/16 echo: LV moderately dilated, function moderately reduced, moderate global hypokinesis; RV normal; moderate LAE; mild MR; moderate TR, mild pHTN; trace to mild PI --continue torsemide Acute bronchospasm v. COPD --per pulm, start short course IV steroids --inhaled bronchodilators --continue antibiotics --outpatient PFTs Sleep apnea --BiPAP at night Hypertension --BP stable --continue ramipril, carvedilol Hyperlipidemia --continue atorvastatin GERD --continue Zantac NIDDM --Novolog sliding scale coverage F/E/N Fluids: PO intake adequate Electrolytes: replete as indicated Nutrition: diabetic, low sodium DVT prophylaxis: on coumadin, INR therapeutic Dispo: continues to require inpatient care. Full Code. Visit type - Emergency Visit Emergency Visit: Yes ED Registration Date: 04/27/18 Care time: The patient presented to the Emergency Department on the above date and was hospitalized for further evaluation of their emergent condition. - New Patient This patient is new to me today: No - Critical Care Critical Care patient: No
--- NOTE | 2018-04-30 13:42 | PN ---
Progress Note (short form) - Note Progress Note: PULMONARY Still wheezing and some shortness of breath. Denies cough. Vital Signs Period Temp Pulse Resp BP Sys/Tamayo Pulse Ox Last 24 Hr 97.6 F-98.6 F 68-78 20-21 132-149/60-73 92-98 Gen: NAD at rest Heart: RRR Lung: scattered wheezes Abd: soft, nontender Ext: no edema CBC, BMP 04/29/18 06:20 04/29/18 06:20 Active Medications Acetaminophen (Tylenol -) 500 mg PO Q4H PRN PRN Reason: PAIN LEVEL 1 - 3 Albuterol Sulfate (Ventolin 0.083% Nebulizer Soln -) 1 amp NEB Q4H PRN PRN Reason: SHORT OF BREATH/WHEEZING Albuterol/Ipratropium (Duoneb -) 1 amp NEB RQID [facility] Last Admin: 04/30/18 11:47 Dose: 1 amp Amitriptyline HCl (Elavil -) 50 mg PO [facility] Last Admin: 04/29/18 21:24 Dose: 50 mg Atorvastatin Calcium (Lipitor -) 20 mg PO HS [facility] Last Admin: 04/29/18 21:23 Dose: 20 mg Bisacodyl (Dulcolax Suppository -) 10 mg RC PRN PRN PRN Reason: CONSTIPATION Carvedilol (Coreg -) 25 mg PO BID [facility] Last Admin: 04/30/18 09:38 Dose: 25 mg Docusate Sodium (Colace -) 300 mg PO [facility] Last Admin: 04/29/18 21:23 Dose: 300 mg Gabapentin (Neurontin -) 300 mg PO TID [facility] Last Admin: 04/30/18 05:51 Dose: 300 mg Vancomycin HCl 1,000 mg/ (Dextrose) 250 mls @ 166.667 mls/hr IVPB BID@0400, 1600 [facility]; Protocol Last Admin: 04/30/18 03:26 Dose: 166.667 mls/hr Insulin Aspart (Novolog Vial Sliding Scale -) 1 vial SQ ACHS [facility]; Protocol Last Admin: 04/30/18 11:33 Dose: 6 units Methylprednisolone Sodium Succinate (Solu-Medrol -) 40 mg IVPUSH Q8H-IV [facility] Last Admin: 04/30/18 09:39 Dose: 40 mg Morphine Sulfate (Morphine Sulfate) 4 mg IVPUSH Q4H PRN PRN Reason: PAIN LEVEL 7 - 10 Last Admin: 04/30/18 03:01 Dose: 4 mg Oxycodone HCl (Roxicodone -) 10 mg PO Q4H PRN PRN Reason: PAIN LEVEL 4 - 6 Last Admin: 04/30/18 08:39 Dose: 10 mg Polyethylene Glycol (Miralax (For Daily Use) -) 17 gm PO BID [facility] Last Admin: 04/30/18 09:39 Dose: 17 gm Ramipril (Altace -) 10 mg PO DAILY [facility] Last Admin: 04/30/18 09:39 Dose: 10 mg Ranitidine HCl (Zantac -) 150 mg PO DAILY [facility] Last Admin: 04/30/18 09:38 Dose: 150 mg Torsemide (Demadex -) 20 mg PO DAILY [facility] Last Admin: 04/30/18 09:38 Dose: 20 mg Warfarin Sodium (Coumadin -) 5 mg PO 1800 [facility] Last Admin: 04/29/18 18:01 Dose: 5 mg A/P Cellulitis r/o Acute Bronchospasm vs COPD LV Systolic Dysfunction Atrial Fibrillation PAD HTN DM PAD - continue antibiotics - continue medrol at current dose - inhaled bronchodilators standing and PRN - O2 to keep Spo2 >90% - will need outpt PFTs to evaluate for obstructive airways - rate controlled - continue anticoagulation Problem List - Problems (1) Cellulitis Code(s): L03.90 - CELLULITIS, UNSPECIFIED Qualifiers: Site of cellulitis: extremity Site of cellulitis of extremity: lower extremity Laterality: left Qualified Code(s): L03.116 - Cellulitis of left lower limb (2) Atrial fibrillation Code(s): I48.91 - UNSPECIFIED ATRIAL FIBRILLATION Qualifiers: Atrial fibrillation type: unspecified Qualified Code(s): I48.91 - Unspecified atrial fibrillation (3) Systolic CHF Code(s): I50.20 - UNSPECIFIED SYSTOLIC (CONGESTIVE) HEART FAILURE
[2018-04-30] MEDS ORDERED: INSULIN (NOVOLOG) ASPART 100 UNITS/ML 10ML VIAL ONE ×2 (17:09→21:28)
[2018-04-30] MEDS: WARFARIN NA 5 MG TABLET (UD) PO SCH (18:23)
[2018-04-30] MEDS ORDERED: PT OWN MED DRAWER 7, Y5N ONE (21:28)
[2018-04-30] MEDS: ATORVASTATIN CA 40 MG TABLET (FP) PO SCH (21:29)
[2018-04-30] MEDS: AMITRIPTYLINE HCL 25 MG TABLET (FP) PO SCH (21:30)
[2018-04-30] MEDS: DOCUSATE SODIUM 100 MG CAPSULE (FP) PO SCH (21:30)
[2018-05-01] MEDS ORDERED: PT OWN MED DRAWER 7, Y5N ONE ×2 (01:27→20:42)
[2018-05-01] MEDS: methylPREDNISolone NA SUCC 40 MG/1 ML VIAL IVPUSH SCH ×3 (01:50→21:49)
[2018-05-01] MEDS: VANCOMYCIN 1,000 MG in DEXTROSE 5%-WATER - 250 ML IVPB SCH ×2 (04:27→16:19)
[2018-05-01] MEDS: oxyCODONE HCL 5 MG TABLET PO PRN ×3 (04:30→14:41)
[2018-05-01] MEDS: GABAPENTIN 300 MG CAPSULE (FP) PO SCH ×3 (06:21→21:43)
[2018-05-01] MEDS: INSULIN SLIDING SCALE (NOVOLOG) 1 VIAL SQ SCH ×4 (06:21→21:45)
[2018-05-01] MEDS ORDERED: INSULIN (NOVOLOG) ASPART 100 UNITS/ML 10ML VIAL ONE (06:57)
[2018-05-01] MEDS: ALBUTEROL SO4 2.5/IPRATROPIUM 0.5 INH SOL 3 ML VIAL.NEB. NEB SCH ×4 (07:25→20:31)
[2018-05-01 08:23] LABS: INR 3.34 (0.83-1.09); PROTHROMBIN TIME (PATIENT) 37.7 SEC (9.7-13.0)
--- NOTE | 2018-05-01 09:46 | PN ---
Progress Note (short form) - Note Progress Note: PULMONARY Subjective improvement vss/afebrile Gen: NAD at rest Heart: RRR Lung: scattered wheezes Abd: soft, nontender Ext: no edema meds/notes/images/micro/labs noted A/P Cellulitis r/o Acute Bronchospasm vs COPD LV Systolic Dysfunction Atrial Fibrillation PAD HTN DM PAD - continue antibiotics - continue medrol at current dose - inhaled bronchodilators standing and PRN - O2 to keep Spo2 >90% - will need outpt PFTs to evaluate for obstructive airways - rate controlled - continue anticoagulation Vic OLIVA MD
[2018-05-01] MEDS: RANITIDINE HCL 150 MG TABLET (FP) PO SCH (10:08)
[2018-05-01] MEDS: CARVEDILOL 12.5 MG TABLET (FP) PO SCH ×2 (10:08→21:43)
[2018-05-01] MEDS: TORSEMIDE 20 MG TABLET (FP) PO SCH (10:08)
[2018-05-01] MEDS: POLYETHYLENE GLYCOL 3350 119 GM BTL PO SCH ×2 (10:09→21:45)
[2018-05-01] MEDS: RAMIPRIL 5 MG CAPSULE (FP) PO SCH (10:09)
--- NOTE | 2018-05-01 11:57 | PN ---
Physical Exam: SUBJECTIVE: Patient seen and examined. Pain persists, no improvement. Very difficult to stand, get to commode. OBJECTIVE: Vital Signs Period Temp Pulse Resp BP Sys/Tamayo Pulse Ox Last 24 Hr 97.7 F-98.6 F 73-89 16-20 97-137/56-69 96-96 GENERAL: Awake, alert, and fully oriented, in no apparent distress. LUNGS: Breath sounds equal, clear to auscultation. No wheezing. HEART: Regular rate and rhythm, S1 and S2 ABDOMEN: Soft, nontender, not distended, normoactive bowel sounds UPPER EXTREMITIES: 2+ pulses, warm, well-perfused. No cyanosis. No clubbing. No peripheral edema. LOWER EXTREMITIES: LEFT: 3+ swelling, more tense than yesterday, erythema resolving NEUROLOGICAL: Cranial nerves II-XII intact. Normal speech. CBCD WBC 6.0 K/mm3 (4.0-10.0) 04/29/18 06:20 RBC 4.00 M/mm3 (4.00-5.60) 04/29/18 06:20 Hgb 12.7 GM/dL (11.7-16.9) 04/29/18 06:20 Hct 37.6 % (35.4-49) 04/29/18 06:20 MCV 94.1 fl (80-96) 04/29/18 06:20 MCHC 33.7 g/dl (32.0-35.9) 04/29/18 06:20 RDW 14.7 % (11.9-15.9) 04/29/18 06:20 Plt Count 189 K/MM3 (134-434) 04/29/18 06:20 MPV 7.3 fl (7.5-11.1) L 04/29/18 06:20 CMP Sodium 142 mmol/L (136-145) 04/29/18 06:20 Potassium 4.2 mmol/L (3.5-5.1) 04/29/18 06:20 Chloride 106 mmol/L (98-107) 04/29/18 06:20 Carbon Dioxide 30 mmol/L (21-32) 04/29/18 06:20 Anion Gap 6 MMOL/L (8-16) L 04/29/18 06:20 BUN 25 mg/dL (7-18) H 04/29/18 06:20 Creatinine 1.2 mg/dL (0.7-1.3) 04/29/18 06:20 Creat Clearance w eGFR 59.86 (>60) 04/29/18 06:20 Calcium 8.5 mg/dL (8.5-10.1) 04/29/18 06:20 Total Bilirubin 0.8 mg/dL (0.2-1.0) 04/29/18 06:20 AST 26 U/L (15-37) 04/29/18 06:20 ALT 27 U/L (12-78) 04/29/18 06:20 Alkaline Phosphatase 75 U/L (45-117) 04/29/18 06:20 Total Protein 6.8 g/dl (6.4-8.2) 04/29/18 06:20 Albumin 3.2 g/dl (3.4-5.0) L 04/29/18 06:20 Laboratory Results - last 24 hr 04/28/18 04/30/18 04/30/18 09:31 16:52 21:25 PT with INR INR POC Glucometer 255 263 Hepatitis C RNA No Result Required. HCV RNA PCR w/Genot Rflx No Result Required. 05/01/18 05/01/18 05/01/18 06:02 06:45 11:02 PT with INR 37.70 H INR 3.34 H POC Glucometer 278 323 Hepatitis C RNA HCV RNA PCR w/Genot Rflx Active Medications Generic Name Dose Route Start Last Admin Trade Name Freq PRN Reason Stop Dose Admin Acetaminophen 500 mg 04/28/18 12:00 Tylenol - PO Q4H PRN PAIN LEVEL 1 - 3 Albuterol Sulfate 1 amp 04/29/18 12:30 Ventolin 0.083% Nebulizer Soln - NEB Q4H PRN SHORT OF BREATH/WHEEZING Albuterol/Ipratropium 1 amp 04/29/18 16:00 05/01/18 11:22 Duoneb - NEB 1 amp RQID MAXIMINO Administration Amitriptyline HCl 50 mg 04/28/18 22:00 04/30/18 21:30 Elavil - PO 50 mg HS MAXIMINO Administration Atorvastatin Calcium 20 mg 04/27/18 22:00 04/30/18 21:29 Lipitor - PO 20 mg HS MAXIMINO Administration Bisacodyl 10 mg 04/29/18 15:34 Dulcolax Suppository - RC PRN PRN CONSTIPATION Carvedilol 25 mg 04/27/18 22:00 05/01/18 10:08 Coreg - PO 25 mg BID MAXIMINO Administration Docusate Sodium 300 mg 04/29/18 22:00 04/30/18 21:30 Colace - PO 300 mg HS MAXIMINO Administration Gabapentin 300 mg 04/29/18 06:00 05/01/18 06:21 Neurontin - PO 300 mg TID MAXIMINO Administration Vancomycin HCl 1,000 mg/ 250 mls @ 166.667 mls/hr 04/28/18 16:00 05/01/18 04: 27 Dextrose IVPB 166.667 mls/hr BID@0400,1600 MAXIMINO Administration Protocol Insulin Aspart 1 vial 04/27/18 22:00 05/01/18 11:07 Novolog Vial Sliding Scale - SQ 8 units ACHS MAXIMINO Administration Protocol Methylprednisolone Sodium Succinate 40 mg 04/29/18 12:45 05/01/18 10:08 Solu-Medrol - IVPUSH 40 mg Q8H-IV MAXIMINO Administration Morphine Sulfate 4 mg 04/28/18 11:58 04/30/18 03:01 Morphine Sulfate IVPUSH 4 mg Q4H PRN Administration PAIN LEVEL 7 - 10 Oxycodone HCl 10 mg 04/28/18 11:59 05/01/18 10:11 Roxicodone - PO 10 mg Q4H PRN Administration PAIN LEVEL 4 - 6 Polyethylene Glycol 17 gm 04/29/18 22:00 05/01/18 10:09 Miralax (For Daily Use) - PO 17 gm BID MAXIMINO Administration Ramipril 10 mg 04/28/18 10:00 05/01/18 10:09 Altace - PO 10 mg DAILY MAXIMINO Administration Ranitidine HCl 150 mg 04/28/18 10:00 05/01/18 10:08 Zantac - PO 150 mg DAILY MAXIMINO Administration Torsemide 20 mg 04/28/18 10:00 05/01/18 10:08 Demadex - PO 20 mg DAILY MAXIMINO Administration Warfarin Sodium 5 mg 04/27/18 19:30 04/30/18 18:23 Coumadin - PO 5 mg 1800 MAXIMINO Administration Imaging --04/27 US LLE: negative DVT --04/27 CT LLE: 7.4 x 3.7 x 3cm structure within soleus muscle suggestive acute/ subacture hematoma; needs close f/u CT or MRI to exclude underlying pathology --05/01 CT LLE: 4.3 x 3.4 x 6.3cm structure, slightly decreased but hyperdense area suggests acute hemorrhage ASSESSMENT/PLAN 72 year-old male with a PMH significant for HTN, HLD, afib on coumadin, systolic heart failure, GERD, NIDDM, and peripheral arterial disease s/p superficial femoral artery drug-coated balloon (SFA DCB) with stent placement on 04/13/18. Admitted for post-procedure hematoma. LLE hematoma --little clinical progress; erythema has resolved but swelling has increased from 48 hours ago and pain persists; CT today shows slight decrease in size but hyperdense area suggests acute hemorrhage --will discuss with Dr. Abbott --continue Vanc (day #5); vanc trough in am Atrial fibrillation --rate well-controlled, continue carvedilol --INR supratherapeutic 3.34 (<--2.12), hold coumadin tonight, check INR in am Systolic heart failure, chronic --10/25/16 echo: LV moderately dilated, function moderately reduced, moderate global hypokinesis; RV normal; moderate LAE; mild MR; moderate TR, mild pHTN; trace to mild PI --continue torsemide Acute bronchospasm v. COPD --lungs clear, no episodes of wheezing past 24 hours --tapering IV sterids --inhaled bronchodilators --outpatient PFTs Sleep apnea --BiPAP at night Hypertension --BP stable --continue ramipril, carvedilol Hyperlipidemia --continue atorvastatin GERD --continue Zantac NIDDM --Novolog sliding scale coverage F/E/N Fluids: PO intake adequate Electrolytes: replete as indicated Nutrition: diabetic, low sodium DVT prophylaxis: on coumadin, INR therapeutic Dispo: continues to require inpatient care. Patient either wants [facility] [address] for rehab or home with services. No other choices. NICOLASA Gomez advised, she will start STEPHANIE. Full Code. Visit type - Emergency Visit Emergency Visit: Yes ED Registration Date: 04/27/18 Care time: The patient presented to the Emergency Department on the above date and was hospitalized for further evaluation of their emergent condition. - New Patient This patient is new to me today: No - Critical Care Critical Care patient: No
[2018-05-01] MEDS: ATORVASTATIN CA 40 MG TABLET (FP) PO SCH (21:43)
[2018-05-01] MEDS: AMITRIPTYLINE HCL 25 MG TABLET (FP) PO SCH (21:44)
[2018-05-01] MEDS: DOCUSATE SODIUM 100 MG CAPSULE (FP) PO SCH (21:45)
[2018-05-02] MEDS: VANCOMYCIN 1,000 MG in DEXTROSE 5%-WATER - 250 ML IVPB SCH ×2 (03:30→16:49)
[2018-05-02] MEDS: oxyCODONE HCL 5 MG TABLET PO PRN ×3 (04:41→16:49)
[2018-05-02] MEDS: GABAPENTIN 300 MG CAPSULE (FP) PO SCH ×3 (06:01→21:31)
[2018-05-02] MEDS: INSULIN SLIDING SCALE (NOVOLOG) 1 VIAL SQ SCH ×4 (06:40→21:30)
[2018-05-02] MEDS: ALBUTEROL SO4 2.5/IPRATROPIUM 0.5 INH SOL 3 ML VIAL.NEB. NEB SCH ×4 (07:20→20:48)
[2018-05-02 07:58] LABS: BASO % 0.4 % (0-2.0); HEMATOCRIT 38.5 % (35.4-49); HEMOGLOBIN 12.5 GM/dL (11.7-16.9); LYMPH % 7.4 % (8-40); MCH 30.9 pg (25.7-33.7); MCHC 32.4 g/dl (32.0-35.9); MEAN CELL VOLUME 95.3 fl (80-96); MEAN PLT VOLUME 8.1 fl (7.5-11.1); MONO % 3.7 % (3.8-10.2); NEUT % 88.5 % (42.8-82.8); PLATELET COUNT 224 K/MM3 (134-434); RBC 4.04 M/mm3 (4.00-5.60); RDW 14.7 % (11.9-15.9); WHITE BLOOD COUNT 11.4 K/mm3 (4.0-10.0)
--- NOTE | 2018-05-02 08:21 | PN ---
Physical Exam: SUBJECTIVE: Patient seen and examined at the bedside. Feels well, denies pain. OBJECTIVE: patient here for left calf swellng Vital Signs Period Temp Pulse Resp BP Sys/Tamayo Pulse Ox Last 24 Hr 97.6 F-98.7 F 67-78 14-18 133-147/81-84 94 GENERAL: The patient is awake, alert, and fully oriented, in no acute distress. HEAD: Normal with no signs of trauma. EYES: PERRL, extraocular movements intact, sclera anicteric, conjunctiva clear. No ptosis. ENT: Ears normal, nares patent, oropharynx clear without exudates, moist mucous membranes. NECK: Trachea midline, full range of motion, supple. LUNGS: Breath sounds equal, clear to auscultation bilaterally, no wheezes, no crackles, no accessory muscle use. ABDOMEN: Soft, nontender, nondistended, normoactive bowel sounds, no guarding, no rebound, no hepatosplenomegaly, no masses. EXTREMITIES: left lower ext edema from knee to foot, CT scan shows decrease in hematoma NEUROLOGICAL:Normal speech, gait not observed. PSYCH: Normal mood, normal affect. SKIN: Warm, dry, normal turgor, no rashes or lesions noted Laboratory Results - last 24 hr 05/01/18 05/01/18 05/01/18 06:45 11:02 16:20 WBC RBC Hgb Hct MCV MCH MCHC RDW Plt Count MPV Absolute Neuts (auto) Neutrophils % Lymphocytes % Monocytes % Eosinophils % Basophils % Nucleated RBC % PT with INR 37.70 H INR 3.34 H POC Glucometer 323 293 Vancomycin Pre-Dose 05/01/18 05/02/18 05/02/18 21:41 03:30 05:54 WBC RBC Hgb Hct MCV MCH MCHC RDW Plt Count MPV Absolute Neuts (auto) Neutrophils % Lymphocytes % Monocytes % Eosinophils % Basophils % Nucleated RBC % PT with INR INR POC Glucometer 229 297 Vancomycin Pre-Dose 15.12 H* 05/02/18 06:30 WBC 11.4 H RBC 4.04 Hgb 12.5 Hct 38.5 MCV 95.3 MCH 30.9 MCHC 32.4 RDW 14.7 Plt Count 224 MPV 8.1 D Absolute Neuts (auto) 10.1 H Neutrophils % 88.5 H D Lymphocytes % 7.4 L D Monocytes % 3.7 L Eosinophils % 0.0 D Basophils % 0.4 Nucleated RBC % 0 PT with INR INR POC Glucometer Vancomycin Pre-Dose Active Medications Generic Name Dose Route Start Last Admin Trade Name Freq PRN Reason Stop Dose Admin Acetaminophen 500 mg 04/28/18 12:00 Tylenol - PO Q4H PRN PAIN LEVEL 1 - 3 Albuterol Sulfate 1 amp 04/29/18 12:30 Ventolin 0.083% Nebulizer Soln - NEB Q4H PRN SHORT OF BREATH/WHEEZING Albuterol/Ipratropium 1 amp 04/29/18 16:00 05/02/18 07:20 Duoneb - NEB 1 amp RQID MAXIMINO Administration Amitriptyline HCl 50 mg 04/28/18 22:00 05/01/18 21:44 Elavil - PO 50 mg HS MAXIMINO Administration Atorvastatin Calcium 20 mg 04/27/18 22:00 05/01/18 21:43 Lipitor - PO 20 mg HS MAXIMINO Administration Bisacodyl 10 mg 04/29/18 15:34 Dulcolax Suppository - RC PRN PRN CONSTIPATION Carvedilol 25 mg 04/27/18 22:00 05/01/18 21:43 Coreg - PO 25 mg BID MAXIMINO Administration Docusate Sodium 300 mg 04/29/18 22:00 05/01/18 21:45 Colace - PO Not Given HS MAXIMINO Gabapentin 300 mg 04/29/18 06:00 05/02/18 06:01 Neurontin - PO 300 mg TID MAXIMINO Administration Vancomycin HCl 1,000 mg/ 250 mls @ 166.667 mls/hr 04/28/18 16:00 05/02/18 03: 30 Dextrose IVPB 166.667 mls/hr BID@0400,1600 MAXIMINO Administration Protocol Insulin Aspart 1 vial 04/27/18 22:00 05/02/18 06:40 Novolog Vial Sliding Scale - SQ 6 units ACHS MAXIMINO Administration Protocol Methylprednisolone Sodium Succinate 40 mg 05/01/18 22:00 05/01/18 21:49 Solu-Medrol - IVPUSH 40 mg Q12H MAXIMINO Administration Morphine Sulfate 4 mg 04/28/18 11:58 04/30/18 03:01 Morphine Sulfate IVPUSH 4 mg Q4H PRN Administration PAIN LEVEL 7 - 10 Oxycodone HCl 10 mg 04/28/18 11:59 05/02/18 04:41 Roxicodone - PO 10 mg Q4H PRN Administration PAIN LEVEL 4 - 6 Polyethylene Glycol 17 gm 04/29/18 22:00 05/01/18 21:45 Miralax (For Daily Use) - PO Not Given BID MAXIMINO Ramipril 10 mg 04/28/18 10:00 05/01/18 10:09 Altace - PO 10 mg DAILY MAXIMINO Administration Ranitidine HCl 150 mg 04/28/18 10:00 05/01/18 10:08 Zantac - PO 150 mg DAILY MAXIMINO Administration Torsemide 20 mg 04/28/18 10:00 05/01/18 10:08 Demadex - PO 20 mg DAILY MAXIMINO Administration ASSESSMENT/PLAN: Patient is a 72 year old male with a significant past medical history of atrial fibrillation (on coumadin), hypertension, hld, diabetes (on no home meds for dm ) PAD s/p stent. Patient presents to the ED with c/o of left lower calf pain, swelling and tenderness. Patient states he has had pain since surgery for one block claudication in left lower extremity/angiogram on 04/13/18. imaging: in comparison with study 04/27; there is heterogenous fluid collection within the scoliosis muscle of the left calf that now measures approximately 4.3x3.4x6.3cm. the collection consistent with a hematoma and may have slightly decreased in size. there remains hyperdense material with the collection suggesting acute hemorrhage. Vascular: Left Lower extremity Hematoma: CT noted above. Coumadin being held for both elevated inr and acute hemorrhage in LLE. Left leg edematous, but negative for DVT. No evidence of hemorrhage or redness on plain view of left leg. On antibiotics of vanco. Card: Atrial fib: On coumadin which is currently on hold. Patient inr elevated @ 3.8. also held for hematoma of left leg shown on CT. daily inr. Systolic heart failure, chronic: on torsemide. Monitor intake and output. low salt diet. Hypertension: controlled on altace, coreq HLD: on statin therapy. Pulm: STEPHEN: bipap nightly. pulm. following. Acute Bronchospasm vs COPD: on steriod taper bid. pulm following. maintain stable sats of 92% or better on room air. Endocrine diabetes mellitus: monitor bgms in the setting of steriod therapy. adjust as needed to maintain fasting <180. start low dose levemir. fen tolerating po monitor electrolytes daily low salt/diabetic diet prophy coumadin, holding for now zantac Visit type - Emergency Visit Emergency Visit: Yes ED Registration Date: 04/27/18 Care time: The patient presented to the Emergency Department on the above date and was hospitalized for further evaluation of their emergent condition. - New Patient This patient is new to me today: Yes Date on this admission: 05/02/18 - Critical Care Critical Care patient: No - Discharge Referral Referred to [facility] No
[2018-05-02 08:22] LABS: INR 3.85 (0.83-1.09); PROTHROMBIN TIME (PATIENT) 43.5 SEC (9.7-13.0)
[2018-05-02 08:49] LABS: ANION GAP 7 MMOL/L (8-16); BILIRUBIN,TOTAL 0.4 mg/dL (0.2-1.0); BLOOD UREA NITROGEN 35 mg/dL (7-18); CALCIUM 8.1 mg/dL (8.5-10.1); CHLORIDE 101 mmol/L (98-107); CO2 30 mmol/L (21-32); CREATININE 1.3 mg/dL (0.7-1.3); GLUCOSE,RANDOM 277 mg/dL (74-106); MAGNESIUM 2.3 mg/dL (1.8-2.4); POTASSIUM 5.1 mmol/L (3.5-5.1); SGOT/AST 21 U/L (15-37); SGPT/ALT 37 U/L (12-78); SODIUM 138 mmol/L (136-145); TOT PROT 6.7 g/dl (6.4-8.2)
[2018-05-02 08:50] LABS: ALK PHOS 76 U/L (45-117)
--- NOTE | 2018-05-02 08:59 | PN ---
Progress Note (short form) - Note Progress Note: Vascular Surgery Pt seen and examined. Left leg much better. Cellulitis is resolved. Motor and sensory is intact. All anticoagulation on hold due to INR greater than 3. CT showed hematoma left leg. Cont PT for ambulation. Pt wishes to not go to SNF Left foot is warm. Maximo marte DO
[2018-05-02] MEDS: RANITIDINE HCL 150 MG TABLET (FP) PO SCH (09:44)
[2018-05-02] MEDS: CARVEDILOL 12.5 MG TABLET (FP) PO SCH ×2 (09:44→21:31)
[2018-05-02] MEDS: methylPREDNISolone NA SUCC 40 MG/1 ML VIAL IVPUSH SCH ×2 (09:44→21:32)
[2018-05-02] MEDS: RAMIPRIL 5 MG CAPSULE (FP) PO SCH (09:45)
[2018-05-02] MEDS: TORSEMIDE 20 MG TABLET (FP) PO SCH (09:45)
[2018-05-02] MEDS: POLYETHYLENE GLYCOL 3350 119 GM BTL PO SCH ×2 (09:45→21:32)
--- NOTE | 2018-05-02 12:27 | PN ---
Progress Note (short form) - Note Progress Note: cc: left leg swelling/pain/redness s: no cp, palps, orthopnea, PND. stable L leg pain Vital Signs Period Temp Pulse Resp BP Sys/Tamayo Pulse Ox Last 24 Hr 97.6 F-98.7 F 67-78 14-18 118-147/68-84 94 NAD, calm jvd flat, neck supple ctab, nl effort irregular nl s1, s2 no mrg, pmi non-displaced + bs soft nt nd left le swelling, redness, tender + dp/pt, no carotid bruits aaox3 no jaundice, diaphoresis Current Medications Acetaminophen (Tylenol -) 500 mg PO Q4H PRN PRN Reason: PAIN LEVEL 1 - 3 Albuterol Sulfate (Ventolin 0.083% Nebulizer Soln -) 1 amp NEB Q4H PRN PRN Reason: SHORT OF BREATH/WHEEZING Albuterol/Ipratropium (Duoneb -) 1 amp NEB RQID [facility] Last Admin: 05/02/18 11:29 Dose: 1 amp Amitriptyline HCl (Elavil -) 50 mg PO [facility] Last Admin: 05/01/18 21:44 Dose: 50 mg Atorvastatin Calcium (Lipitor -) 20 mg PO [facility] Last Admin: 05/01/18 21:43 Dose: 20 mg Bisacodyl (Dulcolax Suppository -) 10 mg RC PRN PRN PRN Reason: CONSTIPATION Carvedilol (Coreg -) 25 mg PO BID [facility] Last Admin: 05/02/18 09:44 Dose: 25 mg Docusate Sodium (Colace -) 300 mg PO [facility] Last Admin: 05/01/18 21:45 Dose: Not Given Gabapentin (Neurontin -) 300 mg PO TID [facility] Last Admin: 05/02/18 06:01 Dose: 300 mg Vancomycin HCl 1,000 mg/ (Dextrose) 250 mls @ 166.667 mls/hr IVPB BID@0400, 1600 [facility]; Protocol Last Admin: 05/02/18 03:30 Dose: 166.667 mls/hr Insulin Aspart (Novolog Vial Sliding Scale -) 1 vial SQ ACHS [facility]; Protocol Last Admin: 05/02/18 11:04 Dose: 4 units Methylprednisolone Sodium Succinate (Solu-Medrol -) 40 mg IVPUSH Q12H [facility] Last Admin: 05/02/18 09:44 Dose: 40 mg Morphine Sulfate (Morphine Sulfate) 4 mg IVPUSH Q4H PRN PRN Reason: PAIN LEVEL 7 - 10 Last Admin: 04/30/18 03:01 Dose: 4 mg Oxycodone HCl (Roxicodone -) 10 mg PO Q4H PRN PRN Reason: PAIN LEVEL 4 - 6 Last Admin: 05/02/18 09:44 Dose: 10 mg Polyethylene Glycol (Miralax (For Daily Use) -) 17 gm PO BID [facility] Last Admin: 05/02/18 09:45 Dose: 17 gm Ramipril (Altace -) 10 mg PO DAILY [facility] Last Admin: 05/02/18 09:45 Dose: 10 mg Ranitidine HCl (Zantac -) 150 mg PO DAILY [facility] Last Admin: 05/02/18 09:44 Dose: 150 mg Torsemide (Demadex -) 20 mg PO DAILY [facility] Last Admin: 05/02/18 09:45 Dose: 20 mg Echo 09/2016: bline dilated LV. Mod decreased LV function(global), NL rv. Mod Lae 1+ MAC. 1+ MR. Mod TR. RVSP 30-40. Mild ao dilation. echo 07/2014: nl lv/rv, severe anna, mod MR, mild-mod TR, rvsp 40-50. mild ao dilation echo 11/2013: Mildly decreased systolic function, mild lae, mild mr/tr. rvsp 50- 60 cxr: clear lungs Assessment/Plan 72 yo m with h/o htn, gerd, afib, pad s/p recent left sfa stenting here with left leg swelling/pain/redness. le pain/swelling, cellulitis, hematoma: -has left soleus hematoma, also getting abx for cellulitis, on IV vanco -vascular and ID following atrial fibrillation - cont bb - on coumadin, held for supertherapeutic INR today pad: -s/p recent left sfa stenting -per vascular -cont statin, ac chronic systolic chf -stable. cont bb, lonnie, torsemide HTN -cont bb, lonnie hld: -cont statin
--- NOTE | 2018-05-02 15:41 | PN ---
Progress Note, Physician History of Present Illness: pulmonary alert,feeling better,less wheezes,still hoarse - Current Medication List Current Medications: Active Medications Acetaminophen (Tylenol -) 500 mg PO Q4H PRN PRN Reason: PAIN LEVEL 1 - 3 Albuterol Sulfate (Ventolin 0.083% Nebulizer Soln -) 1 amp NEB Q4H PRN PRN Reason: SHORT OF BREATH/WHEEZING Albuterol/Ipratropium (Duoneb -) 1 amp NEB RQID [facility] Last Admin: 05/02/18 11:29 Dose: 1 amp Amitriptyline HCl (Elavil -) 50 mg PO [facility] Last Admin: 05/01/18 21:44 Dose: 50 mg Atorvastatin Calcium (Lipitor -) 20 mg PO [facility] Last Admin: 05/01/18 21:43 Dose: 20 mg Bisacodyl (Dulcolax Suppository -) 10 mg RC PRN PRN PRN Reason: CONSTIPATION Carvedilol (Coreg -) 25 mg PO BID [facility] Last Admin: 05/02/18 09:44 Dose: 25 mg Docusate Sodium (Colace -) 300 mg PO [facility] Last Admin: 05/01/18 21:45 Dose: Not Given Gabapentin (Neurontin -) 300 mg PO TID [facility] Last Admin: 05/02/18 13:48 Dose: 300 mg Vancomycin HCl 1,000 mg/ (Dextrose) 250 mls @ 166.667 mls/hr IVPB BID@0400, 1600 [facility]; Protocol Last Admin: 05/02/18 03:30 Dose: 166.667 mls/hr Insulin Aspart (Novolog Vial Sliding Scale -) 1 vial SQ ACHS [facility]; Protocol Last Admin: 05/02/18 11:04 Dose: 4 units Methylprednisolone Sodium Succinate (Solu-Medrol -) 40 mg IVPUSH Q12H [facility] Last Admin: 05/02/18 09:44 Dose: 40 mg Morphine Sulfate (Morphine Sulfate) 4 mg IVPUSH Q4H PRN PRN Reason: PAIN LEVEL 7 - 10 Last Admin: 04/30/18 03:01 Dose: 4 mg Oxycodone HCl (Roxicodone -) 10 mg PO Q4H PRN PRN Reason: PAIN LEVEL 4 - 6 Last Admin: 05/02/18 09:44 Dose: 10 mg Polyethylene Glycol (Miralax (For Daily Use) -) 17 gm PO BID [facility] Last Admin: 05/02/18 09:45 Dose: 17 gm Ramipril (Altace -) 10 mg PO DAILY [facility] Last Admin: 05/02/18 09:45 Dose: 10 mg Ranitidine HCl (Zantac -) 150 mg PO DAILY [facility] Last Admin: 05/02/18 09:44 Dose: 150 mg Torsemide (Demadex -) 20 mg PO DAILY [facility] Last Admin: 05/02/18 09:45 Dose: 20 mg - Objective Vital Signs: Vital Signs Temperature 98.3 F 05/02/18 14:12 Pulse Rate 61 05/02/18 14:12 Respiratory Rate 16 05/02/18 10:00 Blood Pressure 137/66 05/02/18 14:12 O2 Sat by Pulse Oximetry (%) 94 L 05/02/18 10:00 Constitutional: Yes: Well Nourished, Calm Eyes: Yes: WNL HENT: Yes: WNL Neck: Yes: WNL Cardiovascular: Yes: Pulse Irregular, S1, S2 Respiratory: Yes: Wheezes (few scatttered jay wheezes) Gastrointestinal: Yes: Normal Bowel Sounds, Soft Extremities: Yes: WNL, Other (less lle sswelling) Edema: No Labs: CBC, BMP 05/02/18 06:30 05/02/18 06:30 INR, PTT INR 3.85 (0.83-1.09) H 05/02/18 06:30 Assessment/Plan A/P Cellulitis r/o Acute Bronchospasm vs COPD LV Systolic Dysfunction Atrial Fibrillation PAD HTN DM PAD - antibiotics - continue medrol - inhaled bronchodilators standing and PRN - O2 to keep Spo2 >90% - will need outpt PFTs to evaluate for obstructive airways - rate controlled - continue anticoagulation as per INR Problem List - Problems (1) Cellulitis Code(s): L03.90 - CELLULITIS, UNSPECIFIED Qualifiers: Site of cellulitis: extremity Site of cellulitis of extremity: lower extremity Laterality: left Qualified Code(s): L03.116 - Cellulitis of left lower limb (2) Atrial fibrillation Code(s): I48.91 - UNSPECIFIED ATRIAL FIBRILLATION Qualifiers: Atrial fibrillation type: unspecified Qualified Code(s): I48.91 - Unspecified atrial fibrillation (3) Systolic CHF Code(s): I50.20 - UNSPECIFIED SYSTOLIC (CONGESTIVE) HEART FAILURE
[2018-05-02] MEDS ORDERED: PT OWN MED DRAWER 7, Y5N ONE (20:44)
[2018-05-02] MEDS: ATORVASTATIN CA 40 MG TABLET (FP) PO SCH (21:31)
[2018-05-02] MEDS: AMITRIPTYLINE HCL 25 MG TABLET (FP) PO SCH (21:32)
[2018-05-02] MEDS: DOCUSATE SODIUM 100 MG CAPSULE (FP) PO SCH (21:32)
[2018-05-02] MEDS ORDERED: INSULIN (LEVEMIR) 100 UNITS/ML UNITS SQ SCH (22:00)
[2018-05-03] MEDS: VANCOMYCIN 1,000 MG in DEXTROSE 5%-WATER - 250 ML IVPB SCH ×2 (03:35→16:13)
[2018-05-03] MEDS: oxyCODONE HCL 5 MG TABLET PO PRN ×2 (03:43→10:42)
[2018-05-03] MEDS: GABAPENTIN 300 MG CAPSULE (FP) PO SCH ×3 (06:02→21:16)
[2018-05-03] MEDS: INSULIN SLIDING SCALE (NOVOLOG) 1 VIAL SQ SCH ×4 (06:45→21:21)
[2018-05-03] MEDS ORDERED: INSULIN (NOVOLOG) ASPART 100 UNITS/ML 10ML VIAL ONE ×3 (06:59→21:20)
[2018-05-03] MEDS: ALBUTEROL SO4 2.5/IPRATROPIUM 0.5 INH SOL 3 ML VIAL.NEB. NEB SCH ×4 (08:32→22:15)
[2018-05-03 08:35] LABS: BASO % 0.1 % (0-2.0); HEMATOCRIT 39.9 % (35.4-49); HEMOGLOBIN 12.9 GM/dL (11.7-16.9); LYMPH % 8.2 % (8-40); MCHC 32.5 g/dl (32.0-35.9); MEAN CELL VOLUME 95.4 fl (80-96); MEAN PLT VOLUME 7.6 fl (7.5-11.1); MONO % 4.6 % (3.8-10.2); NEUT % 87.1 % (42.8-82.8); PLATELET COUNT 209 K/MM3 (134-434); RBC 4.18 M/mm3 (4.00-5.60); RDW 14.7 % (11.9-15.9); WHITE BLOOD COUNT 9.7 K/mm3 (4.0-10.0)
[2018-05-03 09:01] LABS: ALBUMIN 3.1 g/dl (3.4-5.0); ANION GAP 5 MMOL/L (8-16); BILIRUBIN,TOTAL 0.4 mg/dL (0.2-1.0); BLOOD UREA NITROGEN 37 mg/dL (7-18); CALCIUM 8.4 mg/dL (8.5-10.1); CHLORIDE 101 mmol/L (98-107); CO2 32 mmol/L (21-32); CREATININE 1.2 mg/dL (0.7-1.3); GLUCOSE,RANDOM 287 mg/dL (74-106); MAGNESIUM 2.4 mg/dL (1.8-2.4); POTASSIUM 4.9 mmol/L (3.5-5.1); SGOT/AST 19 U/L (15-37); SGPT/ALT 42 U/L (12-78); SODIUM 138 mmol/L (136-145); TOT PROT 6.6 g/dl (6.4-8.2)
[2018-05-03 09:02] LABS: ALK PHOS 91 U/L (45-117)
[2018-05-03 09:26] LABS: INR 2.64 (0.83-1.09); PROTHROMBIN TIME (PATIENT) 29.8 SEC (9.7-13.0)
[2018-05-03] MEDS: CARVEDILOL 12.5 MG TABLET (FP) PO SCH ×2 (09:40→21:16)
[2018-05-03] MEDS: TORSEMIDE 20 MG TABLET (FP) PO SCH (09:40)
[2018-05-03] MEDS: methylPREDNISolone NA SUCC 40 MG/1 ML VIAL IVPUSH SCH (09:40)
[2018-05-03] MEDS: RANITIDINE HCL 150 MG TABLET (FP) PO SCH (09:40)
[2018-05-03] MEDS: RAMIPRIL 5 MG CAPSULE (FP) PO SCH (09:41)
[2018-05-03] MEDS: POLYETHYLENE GLYCOL 3350 119 GM BTL PO SCH ×2 (09:42→21:17)
--- NOTE | 2018-05-03 11:19 | PN ---
Physical Exam: SUBJECTIVE: Patient seen and examined at the bedside. Attempted to ambulate but had to sit and rest as he experienced left leg pain. OBJECTIVE: continue to hold coumadin Vital Signs Period Temp Pulse Resp BP Sys/Tamayo Pulse Ox Last 24 Hr 97.5 F-98.6 F 61-73 16-18 137-156/66-99 94-95 GENERAL: The patient is awake, alert, and fully oriented, in no acute distress. HEAD: Normal with no signs of trauma. EYES: PERRL, extraocular movements intact, sclera anicteric, conjunctiva clear. No ptosis. ENT: Ears normal, nares patent, oropharynx clear without exudates, moist mucous membranes. NECK: Trachea midline, full range of motion, supple. LUNGS: Breath sounds equal, clear to auscultation bilaterally, no wheezes, no crackles, no accessory muscle use. ABDOMEN: Soft, nontender, nondistended, normoactive bowel sounds, no guarding, no rebound, no hepatosplenomegaly, no masses. EXTREMITIES: left lower ext edema from knee to foot, CT scan shows decrease in hematoma NEUROLOGICAL:Normal speech, gait not observed. PSYCH: Normal mood, normal affect. SKIN: Warm, dry, normal turgor, no rashes or lesions noted Laboratory Results - last 24 hr 05/02/18 05/02/18 05/03/18 16:03 21:27 06:00 WBC RBC Hgb Hct MCV MCH MCHC RDW Plt Count MPV Absolute Neuts (auto) Neutrophils % Lymphocytes % Monocytes % Eosinophils % Basophils % Nucleated RBC % PT with INR INR Sodium Potassium Chloride Carbon Dioxide Anion Gap BUN Creatinine Creat Clearance w eGFR POC Glucometer 279 279 379 Random Glucose Calcium Magnesium Total Bilirubin AST ALT Alkaline Phosphatase Total Protein Albumin 05/03/18 05/03/18 05/03/18 07:45 07:45 07:45 WBC 9.7 RBC 4.18 Hgb 12.9 Hct 39.9 MCV 95.4 MCH 31.0 MCHC 32.5 RDW 14.7 Plt Count 209 MPV 7.6 Absolute Neuts (auto) 8.4 H Neutrophils % 87.1 H Lymphocytes % 8.2 Monocytes % 4.6 Eosinophils % 0.0 Basophils % 0.1 Nucleated RBC % 0 PT with INR 29.80 H INR 2.64 H Sodium 138 Potassium 4.9 Chloride 101 Carbon Dioxide 32 Anion Gap 5 L BUN 37 H Creatinine 1.2 Creat Clearance w eGFR 59.86 POC Glucometer Random Glucose 287 H Calcium 8.4 L Magnesium 2.4 Total Bilirubin 0.4 AST 19 ALT 42 Alkaline Phosphatase 91 D Total Protein 6.6 Albumin 3.1 L Active Medications Generic Name Dose Route Start Last Admin Trade Name Freq PRN Reason Stop Dose Admin Acetaminophen 500 mg 04/28/18 12:00 Tylenol - PO Q4H PRN PAIN LEVEL 1 - 3 Albuterol Sulfate 1 amp 04/29/18 12:30 Ventolin 0.083% Nebulizer Soln - NEB Q4H PRN SHORT OF BREATH/WHEEZING Albuterol/Ipratropium 1 amp 04/29/18 16:00 05/02/18 20:48 Duoneb - NEB 1 amp RQID MAXIMINO Administration Amitriptyline HCl 50 mg 04/28/18 22:00 05/02/18 21:32 Elavil - PO 50 mg HS MAXIMINO Administration Atorvastatin Calcium 20 mg 04/27/18 22:00 05/02/18 21:31 Lipitor - PO 20 mg HS MAXIMINO Administration Bisacodyl 10 mg 04/29/18 15:34 Dulcolax Suppository - RC PRN PRN CONSTIPATION Carvedilol 25 mg 04/27/18 22:00 05/03/18 09:40 Coreg - PO 25 mg BID MAXIMINO Administration Docusate Sodium 300 mg 04/29/18 22:00 05/02/18 21:32 Colace - PO Not Given HS MAXIMINO Gabapentin 300 mg 04/29/18 06:00 05/03/18 06:02 Neurontin - PO 300 mg TID MAXIMINO Administration Vancomycin HCl 1,000 mg/ 250 mls @ 166.667 mls/hr 04/28/18 16:00 05/03/18 03: 35 Dextrose IVPB 166.667 mls/hr BID@0400,1600 MAX[facility]INO Administration Protocol Insulin Aspart 1 vial 04/27/18 22:00 05/03/18 06:45 Novolog Vial Sliding Scale - SQ 10 units ACHS MAXIMINO Administration Protocol Insulin Detemir 5 units 05/02/18 22:00 05/02/18 22:17 Levemir Vial SQ 5 units HS MAXIMINO Administration Methylprednisolone Sodium Succinate 40 mg 05/01/18 22:00 05/03/18 09:40 Solu-Medrol - IVPUSH 40 mg Q12H MAXIMINO Administration Morphine Sulfate 4 mg 04/28/18 11:58 04/30/18 03:01 Morphine Sulfate IVPUSH 4 mg Q4H PRN Administration PAIN LEVEL 7 - 10 Oxycodone HCl 10 mg 04/28/18 11:59 05/03/18 10:42 Roxicodone - PO 10 mg Q4H PRN Administration PAIN LEVEL 4 - 6 Polyethylene Glycol 17 gm 04/29/18 22:00 05/03/18 09:42 Miralax (For Daily Use) - PO Not Given BID MAXIMINO Ramipril 10 mg 04/28/18 10:00 05/03/18 09:41 Altace - PO 10 mg DAILY MAX[facility] Administration Ranitidine HCl 150 mg 04/28/18 10:00 05/03/18 09:40 Zantac - PO 150 mg DAILY MAX[facility] Administration Torsemide 20 mg 04/28/18 10:00 05/03/18 09:40 Demadex - PO 20 mg DAILY [facility] Administration ASSESSMENT/PLAN: Patient is a 72 year old male with a significant past medical history of atrial fibrillation (on coumadin), hypertension, hld, diabetes (on no home meds for dm ) PAD s/p stent. Patient presents to the ED with c/o of left lower calf pain, swelling and tenderness. Patient states he has had pain since surgery for one block claudication in left lower extremity/angiogram on 04/13/18. imaging: in comparison with study 04/27; there is heterogenous fluid collection within the scoliosis muscle of the left calf that now measures approximately 4.3x3.4x6.3cm. the collection consistent with a hematoma and may have slightly decreased in size. there remains hyperdense material with the collection suggesting acute hemorrhage. Vascular: Left Lower extremity Hematoma: CT noted above. Coumadin being held for both elevated inr and acute hemorrhage in LLE. Left leg edematous, but negative for DVT. No evidence of hemorrhage or redness on plain view of left leg. On antibiotics of vanco. Card: Atrial fib: On coumadin which is currently on hold. Patient inr @ 2.6 also held for hematoma of left leg shown on CT. daily inr. Systolic heart failure, chronic: on torsemide. Monitor intake and output. low salt diet. Hypertension: controlled on altace, coreq HLD: on statin therapy. Pulm: STEPHEN: bipap nightly. pulm. following. Acute Bronchospasm vs COPD: on steriod taper bid. pulm following. maintain stable sats of 92% or better on room air. Endocrine diabetes mellitus: monitor bgms in the setting of steriod therapy. adjust as needed to maintain fasting <180. start low dose levemir. fen tolerating po monitor electrolytes daily low salt/diabetic diet prophy coumadin, holding for now zantac Visit type - Emergency Visit Emergency Visit: Yes ED Registration Date: 04/27/18 Care time: The patient presented to the Emergency Department on the above date and was hospitalized for further evaluation of their emergent condition. - New Patient This patient is new to me today: No - Critical Care Critical Care patient: No - Discharge Referral Referred to [facility] No
[2018-05-03 12:32] LABS: ANISOCYTOSIS 1+; MACROCYTOSIS 1+; PLATELET ESTIMATE NORMAL
--- NOTE | 2018-05-03 13:12 | PN ---
Progress Note (short form) - Note Progress Note: PULMONARY Still wheezing but better than prior. Denies cough. Vital Signs Period Temp Pulse Resp BP Sys/Tamayo Pulse Ox Last 24 Hr 97.5 F-98.6 F 61-73 16-18 137-156/66-99 94-95 Gen: NAD at rest Heart: RRR Lung: scattered wheezes Abd: soft, nontender Ext: no edema CBC, BMP 05/03/18 07:45 05/03/18 07:45 Active Medications Acetaminophen (Tylenol -) 500 mg PO Q4H PRN PRN Reason: PAIN LEVEL 1 - 3 Albuterol Sulfate (Ventolin 0.083% Nebulizer Soln -) 1 amp NEB Q4H PRN PRN Reason: SHORT OF BREATH/WHEEZING Albuterol/Ipratropium (Duoneb -) 1 amp NEB RQID [facility] Last Admin: 05/03/18 08:32 Dose: 1 amp Amitriptyline HCl (Elavil -) 50 mg PO [facility] Last Admin: 05/02/18 21:32 Dose: 50 mg Atorvastatin Calcium (Lipitor -) 20 mg PO [facility] Last Admin: 05/02/18 21:31 Dose: 20 mg Bisacodyl (Dulcolax Suppository -) 10 mg RC PRN PRN PRN Reason: CONSTIPATION Carvedilol (Coreg -) 25 mg PO BID [facility] Last Admin: 05/03/18 09:40 Dose: 25 mg Docusate Sodium (Colace -) 300 mg PO [facility] Last Admin: 05/02/18 21:32 Dose: Not Given Gabapentin (Neurontin -) 300 mg PO TID [facility] Last Admin: 05/03/18 06:02 Dose: 300 mg Vancomycin HCl 1,000 mg/ (Dextrose) 250 mls @ 166.667 mls/hr IVPB BID@0400, 1600 [facility]; Protocol Last Admin: 05/03/18 03:35 Dose: 166.667 mls/hr Insulin Aspart (Novolog Vial Sliding Scale -) 1 vial SQ [facility]; Protocol Last Admin: 05/03/18 11:42 Dose: 6 units Insulin Detemir (Levemir Vial) 5 units SQ [facility] Last Admin: 05/02/18 22:17 Dose: 5 units Methylprednisolone Sodium Succinate (Solu-Medrol -) 40 mg IVPUSH Q12H [facility] Last Admin: 05/03/18 09:40 Dose: 40 mg Morphine Sulfate (Morphine Sulfate) 4 mg IVPUSH Q4H PRN PRN Reason: PAIN LEVEL 7 - 10 Last Admin: 04/30/18 03:01 Dose: 4 mg Oxycodone HCl (Roxicodone -) 10 mg PO Q4H PRN PRN Reason: PAIN LEVEL 4 - 6 Last Admin: 05/03/18 10:42 Dose: 10 mg Polyethylene Glycol (Miralax (For Daily Use) -) 17 gm PO BID [facility] Last Admin: 05/03/18 09:42 Dose: Not Given Ramipril (Altace -) 10 mg PO DAILY [facility] Last Admin: 05/03/18 09:41 Dose: 10 mg Ranitidine HCl (Zantac -) 150 mg PO DAILY [facility] Last Admin: 05/03/18 09:40 Dose: 150 mg Torsemide (Demadex -) 20 mg PO DAILY [facility] Last Admin: 05/03/18 09:40 Dose: 20 mg A/P Cellulitis r/o Acute Bronchospasm vs COPD LV Systolic Dysfunction Atrial Fibrillation PAD HTN DM PAD - continue antibiotics - will change steroids to PO prednisone 40mg daily - inhaled bronchodilators standing and PRN - O2 to keep Spo2 >90% - will need outpt PFTs to evaluate for obstructive airways - rate controlled - continue anticoagulation Problem List - Problems (1) Cellulitis Code(s): L03.90 - CELLULITIS, UNSPECIFIED Qualifiers: Site of cellulitis: extremity Site of cellulitis of extremity: lower extremity Laterality: left Qualified Code(s): L03.116 - Cellulitis of left lower limb (2) Atrial fibrillation Code(s): I48.91 - UNSPECIFIED ATRIAL FIBRILLATION Qualifiers: Atrial fibrillation type: unspecified Qualified Code(s): I48.91 - Unspecified atrial fibrillation (3) Systolic CHF Code(s): I50.20 - UNSPECIFIED SYSTOLIC (CONGESTIVE) HEART FAILURE
--- NOTE | 2018-05-03 16:51 | PN ---
Progress Note (short form) - Note Progress Note: cc: left leg swelling/pain/redness s: no cp, palps, orthopnea, PND. stable L leg pain Vital Signs Period Temp Pulse Resp BP Sys/Tamayo Pulse Ox Last 24 Hr 97.5 F-98.6 F 61-73 16-18 124-156/63-99 94-98 NAD, calm jvd flat, neck supple ctab, nl effort irregular nl s1, s2 no mrg, pmi non-displaced + bs soft nt nd left le swelling, redness, tender aaox3 no jaundice, diaphoresis Current Medications Generic Name Dose Route Start Last Admin Trade Name Freq PRN Reason Stop Dose Admin Acetaminophen 500 mg 04/28/18 12:00 Tylenol - PO Q4H PRN PAIN LEVEL 1 - 3 Albuterol Sulfate 1 amp 04/29/18 12:30 Ventolin 0.083% Nebulizer Soln - NEB Q4H PRN SHORT OF BREATH/WHEEZING Albuterol/Ipratropium 1 amp 04/29/18 16:00 05/03/18 16:42 Duoneb - NEB 1 amp RQID [facility]IMINO Administration Amitriptyline HCl 50 mg 04/28/18 22:00 05/02/18 21:32 Elavil - PO 50 mg HS [facility]IMINO Administration Atorvastatin Calcium 20 mg 04/27/18 22:00 05/02/18 21:31 Lipitor - PO 20 mg HS MAXIMINO Administration Bisacodyl 10 mg 04/29/18 15:34 Dulcolax Suppository - RC PRN PRN CONSTIPATION Carvedilol 25 mg 04/27/18 22:00 05/03/18 09:40 Coreg - PO 25 mg BID MAX[facility] Administration Docusate Sodium 300 mg 04/29/18 22:00 05/02/18 21:32 Colace - PO Not Given HS MAXIMINO Gabapentin 300 mg 04/29/18 06:00 05/03/18 13:48 Neurontin - PO 300 mg TID [facility] Administration Vancomycin HCl 1,000 mg/ 250 mls @ 166.667 mls/hr 04/28/18 16:00 05/03/18 16: 13 Dextrose IVPB 166.667 mls/hr BID@0400,1600 [facility] Administration Protocol Insulin Aspart 1 vial 04/27/18 22:00 05/03/18 16:15 Novolog Vial Sliding Scale - SQ 10 units ACHS MAX[facility] Administration Protocol Insulin Detemir 5 units 05/02/18 22:00 05/02/18 22:17 Levemir Vial SQ 5 units HS [facility] Administration Morphine Sulfate 4 mg 04/28/18 11:58 04/30/18 03:01 Morphine Sulfate IVPUSH 4 mg Q4H PRN Administration PAIN LEVEL 7 - 10 Oxycodone HCl 10 mg 04/28/18 11:59 05/03/18 10:42 Roxicodone - PO 10 mg Q4H PRN Administration PAIN LEVEL 4 - 6 Polyethylene Glycol 17 gm 04/29/18 22:00 05/03/18 09:42 Miralax (For Daily Use) - PO Not Given BID MAXIMINO Prednisone 40 mg 05/04/18 10:00 Deltasone - PO DAILY [facility] Ramipril 10 mg 04/28/18 10:00 05/03/18 09:41 Altace - PO 10 mg DAILY [facility] Administration Ranitidine HCl 150 mg 04/28/18 10:00 05/03/18 09:40 Zantac - PO 150 mg DAILY [facility] Administration Torsemide 20 mg 04/28/18 10:00 05/03/18 09:40 Demadex - PO 20 mg DAILY [facility] Administration CBC, BMP 05/03/18 07:45 05/03/18 07:45 Echo 09/2016: bline dilated LV. Mod decreased LV function(global), NL rv. Mod Lae 1+ MAC. 1+ MR. Mod TR. RVSP 30-40. Mild ao dilation. echo 07/2014: nl lv/rv, severe anna, mod MR, mild-mod TR, rvsp 40-50. mild ao dilation echo 11/2013: Mildly decreased systolic function, mild lae, mild mr/tr. rvsp 50- 60 cxr: clear lungs Assessment/Plan 72 yo m with h/o htn, gerd, afib, pad s/p recent left sfa stenting here with left leg swelling/pain/redness. le pain/swelling, cellulitis, hematoma: -has left soleus hematoma, also getting abx for cellulitis -vascular and ID following atrial fibrillation - cont bb - on coumadin, being held for left soleus hematoma and risk of compartment syndrome if further bleeding. given risk of worsening hematoma, it is reasonable to hold AC temporarily until hematoma is stable. pad: -s/p recent left sfa stenting -per vascular -cont statin, ac chronic systolic chf -stable. cont bb, lonnie, torsemide HTN -cont bb, lonnie hld: -cont statin
[2018-05-03] MEDS ORDERED: PT OWN MED DRAWER 7, Y5N ONE (21:08)
[2018-05-03] MEDS: AMITRIPTYLINE HCL 25 MG TABLET (FP) PO SCH (21:16)
[2018-05-03] MEDS: ATORVASTATIN CA 40 MG TABLET (FP) PO SCH (21:16)
[2018-05-03] MEDS: DOCUSATE SODIUM 100 MG CAPSULE (FP) PO SCH (21:17)
[2018-05-03] MEDS: INSULIN (LEVEMIR) 100 UNITS/ML UNITS SQ SCH (21:22)
[2018-05-04] MEDS: VANCOMYCIN 1,000 MG in DEXTROSE 5%-WATER - 250 ML IVPB SCH (03:56)
[2018-05-04] MEDS: GABAPENTIN 300 MG CAPSULE (FP) PO SCH ×3 (05:29→23:02)
[2018-05-04] MEDS: INSULIN SLIDING SCALE (NOVOLOG) 1 VIAL SQ SCH ×4 (06:55→23:04)
[2018-05-04] MEDS: ALBUTEROL SO4 2.5/IPRATROPIUM 0.5 INH SOL 3 ML VIAL.NEB. NEB SCH ×4 (07:20→20:25)
[2018-05-04 07:53] LABS: EOS % 0.7 % (0-4.5); HEMATOCRIT 38.9 % (35.4-49); HEMOGLOBIN 12.8 GM/dL (11.7-16.9); LYMPH % 15.3 % (8-40); MCH 31.2 pg (25.7-33.7); MCHC 32.9 g/dl (32.0-35.9); MEAN CELL VOLUME 94.8 fl (80-96); MEAN PLT VOLUME 7.3 fl (7.5-11.1); PLATELET COUNT 187 K/MM3 (134-434); WHITE BLOOD COUNT 10.8 K/mm3 (4.0-10.0)
[2018-05-04 08:04] LABS: INR 1.83 (0.83-1.09); PROTHROMBIN TIME (PATIENT) 20.7 SEC (9.7-13.0)
[2018-05-04 10:25] LABS: ALBUMIN 2.9 g/dl (3.4-5.0); ALK PHOS 74 U/L (45-117); ANION GAP 8 MMOL/L (8-16); BILIRUBIN,TOTAL 0.4 mg/dL (0.2-1.0); BLOOD UREA NITROGEN 37 mg/dL (7-18); CALCIUM 8.2 mg/dL (8.5-10.1); CHLORIDE 103 mmol/L (98-107); CO2 29 mmol/L (21-32); CREATININE 1.2 mg/dL (0.7-1.3); GLUCOSE,RANDOM 194 mg/dL (74-106); MAGNESIUM 2.5 mg/dL (1.8-2.4); POTASSIUM 4.3 mmol/L (3.5-5.1); SGOT/AST 24 U/L (15-37); SGPT/ALT 45 U/L (12-78); SODIUM 140 mmol/L (136-145); TOT PROT 6.2 g/dl (6.4-8.2)
[2018-05-04] MEDS: RANITIDINE HCL 150 MG TABLET (FP) PO SCH (10:27)
[2018-05-04] MEDS: POLYETHYLENE GLYCOL 3350 119 GM BTL PO SCH ×2 (10:27→23:03)
[2018-05-04] MEDS: CARVEDILOL 12.5 MG TABLET (FP) PO SCH ×2 (10:27→23:01)
[2018-05-04] MEDS: predniSONE 20 MG TABLET (UD) PO SCH (10:27)
[2018-05-04] MEDS: TORSEMIDE 20 MG TABLET (FP) PO SCH (10:27)
[2018-05-04] MEDS: RAMIPRIL 5 MG CAPSULE (FP) PO SCH (10:27)
[2018-05-04] MEDS: oxyCODONE HCL 5 MG TABLET PO PRN ×3 (10:28→23:01)
[2018-05-04 11:15] LABS: ANISOCYTOSIS 0; MACROCYTOSIS 1+; PLATELET ESTIMATE NORMAL
--- NOTE | 2018-05-04 11:18 | PN ---
Progress Note (short form) - Note Progress Note: cc: left leg swelling/pain/redness s: no cp, palps, orthopnea, PND. stable L leg pain Vital Signs Period Temp Pulse Resp BP Sys/Tamayo Pulse Ox Last 24 Hr 97.8 F-98.4 F 70-80 20-20 120-140/63-90 92-98 NAD, calm jvd flat, neck supple ctab, nl effort irregular nl s1, s2 no mrg, pmi non-displaced + bs soft nt nd left le swelling, redness, tender aaox3 no jaundice, diaphoresis Current Medications Generic Name Dose Route Start Last Admin Trade Name Freq PRN Reason Stop Dose Admin Acetaminophen 500 mg 04/28/18 12:00 Tylenol - PO Q4H PRN PAIN LEVEL 1 - 3 Albuterol Sulfate 1 amp 04/29/18 12:30 Ventolin 0.083% Nebulizer Soln - NEB Q4H PRN SHORT OF BREATH/WHEEZING Albuterol/Ipratropium 1 amp 04/29/18 16:00 05/04/18 11:13 Duoneb - NEB 1 amp RQID MAXIMINO Administration Amitriptyline HCl 50 mg 04/28/18 22:00 05/03/18 21:16 Elavil - PO 50 mg HS MAXIMINO Administration Atorvastatin Calcium 20 mg 04/27/18 22:00 05/03/18 21:16 Lipitor - PO 20 mg HS MAXIMINO Administration Bisacodyl 10 mg 04/29/18 15:34 Dulcolax Suppository - RC PRN PRN CONSTIPATION Carvedilol 25 mg 04/27/18 22:00 05/04/18 10:27 Coreg - PO 25 mg BID MAX[facility]INO Administration Docusate Sodium 300 mg 04/29/18 22:00 05/03/18 21:17 Colace - PO Not Given HS [facility]INO Gabapentin 300 mg 04/29/18 06:00 05/04/18 05:29 Neurontin - PO 300 mg TID MAX[facility]INO Administration Vancomycin HCl 1,000 mg/ 250 mls @ 166.667 mls/hr 04/28/18 16:00 05/04/18 03: 56 Dextrose IVPB 166.667 mls/hr BID@0400,1600 [facility] Administration Protocol Insulin Aspart 1 vial 05/03/18 22:00 05/04/18 06:55 Novolog Vial Sliding Scale - SQ 6 units ACHS [facility] Administration Protocol Insulin Detemir 10 units 05/03/18 22:00 05/03/18 21:22 Levemir Vial SQ 10 units HS [facility] Administration Morphine Sulfate 4 mg 04/28/18 11:58 04/30/18 03:01 Morphine Sulfate IVPUSH 4 mg Q4H PRN Administration PAIN LEVEL 7 - 10 Oxycodone HCl 10 mg 04/28/18 11:59 05/04/18 10:28 Roxicodone - PO 10 mg Q4H PRN Administration PAIN LEVEL 4 - 6 Polyethylene Glycol 17 gm 04/29/18 22:00 05/04/18 10:27 Miralax (For Daily Use) - PO Not Given BID [facility]INO Prednisone 40 mg 05/04/18 10:00 05/04/18 10:27 Deltasone - PO 40 mg DAILY [facility] Administration Ramipril 10 mg 04/28/18 10:00 05/04/18 10:27 Altace - PO 10 mg DAILY [facility] Administration Ranitidine HCl 150 mg 04/28/18 10:00 05/04/18 10:27 Zantac - PO 150 mg DAILY [facility] Administration Torsemide 20 mg 04/28/18 10:00 05/04/18 10:27 Demadex - PO 20 mg DAILY [facility] Administration CBC, BMP 05/04/18 07:20 05/04/18 07:20 Echo 09/2016: bline dilated LV. Mod decreased LV function(global), NL rv. Mod Lae 1+ MAC. 1+ MR. Mod TR. RVSP 30-40. Mild ao dilation. echo 07/2014: nl lv/rv, severe anna, mod MR, mild-mod TR, rvsp 40-50. mild ao dilation echo 11/2013: Mildly decreased systolic function, mild lae, mild mr/tr. rvsp 50- 60 cxr: clear lungs Assessment/Plan 72 yo m with h/o htn, gerd, afib, pad s/p recent left sfa stenting here with left leg swelling/pain/redness. le pain/swelling, cellulitis, hematoma: -has left soleus hematoma, also getting abx for cellulitis -vascular and ID following atrial fibrillation - cont bb - on coumadin, being held for left soleus hematoma and risk of compartment syndrome if further bleeding. given risk of worsening hematoma, it is reasonable to hold AC temporarily until hematoma is stable. pad: -s/p recent left sfa stenting -per vascular -cont statin, ac chronic systolic chf -stable. cont bb, lonnie, torsemide HTN -cont bb, lonnie hld: -cont statin
[2018-05-04] MEDS ORDERED: INSULIN (NOVOLOG) ASPART 100 UNITS/ML 10ML VIAL ONE ×2 (11:30→17:38)
--- NOTE | 2018-05-04 14:57 | PN ---
Progress Note, Physician History of Present Illness: c/o L LE pain with weight bearing No c/o fever/ chills Erythema L LE resolved - Current Medication List Current Medications: Active Medications Acetaminophen (Tylenol -) 500 mg PO Q4H PRN PRN Reason: PAIN LEVEL 1 - 3 Albuterol Sulfate (Ventolin 0.083% Nebulizer Soln -) 1 amp NEB Q4H PRN PRN Reason: SHORT OF BREATH/WHEEZING Albuterol/Ipratropium (Duoneb -) 1 amp NEB RQID [facility] Last Admin: 05/04/18 11:13 Dose: 1 amp Amitriptyline HCl (Elavil -) 50 mg PO [facility] Last Admin: 05/03/18 21:16 Dose: 50 mg Atorvastatin Calcium (Lipitor -) 20 mg PO [facility] Last Admin: 05/03/18 21:16 Dose: 20 mg Bisacodyl (Dulcolax Suppository -) 10 mg RC PRN PRN PRN Reason: CONSTIPATION Carvedilol (Coreg -) 25 mg PO BID [facility] Last Admin: 05/04/18 10:27 Dose: 25 mg Docusate Sodium (Colace -) 300 mg PO [facility] Last Admin: 05/03/18 21:17 Dose: Not Given Gabapentin (Neurontin -) 300 mg PO TID [facility] Last Admin: 05/04/18 14:48 Dose: 300 mg Vancomycin HCl 1,000 mg/ (Dextrose) 250 mls @ 166.667 mls/hr IVPB BID@0400, 1600 [facility]; Protocol Last Admin: 05/04/18 03:56 Dose: 166.667 mls/hr Insulin Aspart (Novolog Vial Sliding Scale -) 1 vial SQ [facility]; Protocol Last Admin: 05/04/18 11:31 Dose: 4 units Insulin Detemir (Levemir Vial) 10 units SQ [facility] Last Admin: 05/03/18 21:22 Dose: 10 units Oxycodone HCl (Roxicodone -) 10 mg PO Q4H PRN PRN Reason: PAIN LEVEL 4 - 6 Last Admin: 05/04/18 14:48 Dose: 10 mg Polyethylene Glycol (Miralax (For Daily Use) -) 17 gm PO BID [facility] Last Admin: 05/04/18 10:27 Dose: Not Given Prednisone (Deltasone -) 40 mg PO DAILY [facility] Last Admin: 05/04/18 10:27 Dose: 40 mg Ramipril (Altace -) 10 mg PO DAILY [facility] Last Admin: 05/04/18 10:27 Dose: 10 mg Ranitidine HCl (Zantac -) 150 mg PO DAILY [facility] Last Admin: 05/04/18 10:27 Dose: 150 mg Torsemide (Demadex -) 20 mg PO DAILY [facility] Last Admin: 05/04/18 10:27 Dose: 20 mg Warfarin Sodium (Coumadin -) 5 mg PO DAILY@1800 [facility] - Objective Vital Signs: Vital Signs Temperature 98.5 F 05/04/18 13:56 Pulse Rate 85 05/04/18 13:56 Respiratory Rate 20 05/04/18 09:00 Blood Pressure 135/64 05/04/18 13:56 O2 Sat by Pulse Oximetry (%) 92 L 05/04/18 11:13 Constitutional: Yes: No Distress Eyes: Yes: Conjunctiva Clear Cardiovascular: Yes: Regular Rate and Rhythm, S1, S2 Respiratory: Yes: CTA Bilaterally Gastrointestinal: Yes: Soft. No: Normal Bowel Sounds, Tenderness Extremities: Yes: Other (+ L LE swelling Erythema resolved) Labs: CBC, BMP 05/04/18 07:20 05/04/18 07:20 INR, PTT INR 1.83 (0.83-1.09) H 05/04/18 07:20 Assessment/Plan Cellulitis L LE resolved Hematoma L LE S/P angioplasty / stent PCN allergy Hx MRSA D/C vancomycin Observe off antibiotics
--- NOTE | 2018-05-04 15:13 | DS ---
Physical Exam: SUBJECTIVE: Patient seen and examined, feels well, ambulating with RW OBJECTIVE: rehab today Vital Signs Period Temp Pulse Resp BP Sys/Tamayo Pulse Ox Last 24 Hr 97.8 F-98.8 F 70-85 20-20 120-147/63-90 92-98 PHYSICAL EXAM GENERAL: The patient is awake, alert, and fully oriented, in no acute distress. HEAD: Normal with no signs of trauma. EYES: PERRL, extraocular movements intact, sclera anicteric, conjunctiva clear. No ptosis. ENT: Ears normal, nares patent, oropharynx clear without exudates, moist mucous membranes. NECK: Trachea midline, full range of motion, supple. LUNGS: Breath sounds equal, clear to auscultation bilaterally, no wheezes, no crackles, no accessory muscle use. ABDOMEN: Soft, nontender, nondistended, normoactive bowel sounds, no guarding, no rebound, no hepatosplenomegaly, no masses. EXTREMITIES: left lower ext edema from knee to foot, CT scan shows decrease in hematoma, monitor off antibiotics. NEUROLOGICAL:Normal speech, gait not observed. PSYCH: Normal mood, normal affect. SKIN: Warm, dry, normal turgor, no rashes or lesions noted LABS Laboratory Results - last 24 hr 05/03/18 05/03/18 05/04/18 16:09 21:19 05:16 WBC RBC Hgb Hct MCV MCH MCHC RDW Plt Count MPV Absolute Neuts (auto) Neutrophils % Neutrophils % (Manual) Band Neutrophils % Lymphocytes % Lymphocytes % (Manual) Monocytes % Monocytes % (Manual) Eosinophils % Eosinophils % (Manual) Basophils % Basophils % (Manual) Myelocytes % (Man) Promyelocytes % (Man) Blast Cells % (Manual) Nucleated RBC % Metamyelocytes Hypochromia Platelet Estimate Polychromasia Poikilocytosis Anisocytosis Microcytosis Macrocytosis PT with INR INR Sodium Potassium Chloride Carbon Dioxide Anion Gap BUN Creatinine Creat Clearance w eGFR POC Glucometer 359 328 227 Random Glucose Calcium Magnesium Total Bilirubin AST ALT Alkaline Phosphatase Total Protein Albumin 05/04/18 05/04/18 05/04/18 07:20 07:20 07:20 WBC 10.8 H RBC 4.10 Hgb 12.8 Hct 38.9 MCV 94.8 MCH 31.2 MCHC 32.9 RDW 15.0 Plt Count 187 MPV 7.3 L Absolute Neuts (auto) 8.2 H Neutrophils % 76.0 Neutrophils % (Manual) 77.6 Band Neutrophils % 2.0 Lymphocytes % 15.3 D Lymphocytes % (Manual) 12.3 D Monocytes % 8.0 Monocytes % (Manual) 7 Eosinophils % 0.7 D Eosinophils % (Manual) 1.0 D Basophils % 0.0 Basophils % (Manual) 0.0 Myelocytes % (Man) 0 D Promyelocytes % (Man) 0 Blast Cells % (Manual) 0 Nucleated RBC % 1 H Metamyelocytes 0 Hypochromia 0 Platelet Estimate Normal Polychromasia 0 Poikilocytosis 0 Anisocytosis 0 Microcytosis 0 Macrocytosis 1+ PT with INR 20.70 H INR 1.83 H Sodium 140 Potassium 4.3 Chloride 103 Carbon Dioxide 29 Anion Gap 8 BUN 37 H Creatinine 1.2 Creat Clearance w eGFR 59.86 POC Glucometer Random Glucose 194 H D Calcium 8.2 L Magnesium 2.5 H Total Bilirubin 0.4 AST 24 D ALT 45 Alkaline Phosphatase 74 D Total Protein 6.2 L Albumin 2.9 L 05/04/18 11:27 WBC RBC Hgb Hct MCV MCH MCHC RDW Plt Count MPV Absolute Neuts (auto) Neutrophils % Neutrophils % (Manual) Band Neutrophils % Lymphocytes % Lymphocytes % (Manual) Monocytes % Monocytes % (Manual) Eosinophils % Eosinophils % (Manual) Basophils % Basophils % (Manual) Myelocytes % (Man) Promyelocytes % (Man) Blast Cells % (Manual) Nucleated RBC % Metamyelocytes Hypochromia Platelet Estimate Polychromasia Poikilocytosis Anisocytosis Microcytosis Macrocytosis PT with INR INR Sodium Potassium Chloride Carbon Dioxide Anion Gap BUN Creatinine Creat Clearance w eGFR POC Glucometer 155 Random Glucose Calcium Magnesium Total Bilirubin AST ALT Alkaline Phosphatase Total Protein Albumin HOSPITAL COURSE: Date of Admission:04/27/18 Date of Discharge: 05/04/18 ASSESSMENT/PLAN: Patient is a 72 year old male with a significant past medical history of atrial fibrillation (on coumadin), hypertension, hld, diabetes (on no home meds for dm ) PAD s/p stent. Patient presents to the ED with c/o of left lower calf pain, swelling and tenderness. Patient states he has had pain since surgery for one block claudication in left lower extremity/angiogram on 04/13/18. imaging: in comparison with study 8/30; there is heterogenous fluid collection within the scoliosis muscle of the left calf that now measures approximately 4.3x3.4x6.3cm. the collection consistent with a hematoma and may have slightly decreased in size. there remains hyperdense material with the collection suggesting acute hemorrhage. Vascular: Left Lower extremity Hematoma: CT noted above. Coumadin was held during hospitalzation. Will resume on discharge as inr is 1.8. Repeat INR tomorrow with goal inr between 2-3. Continue physical therapy as tolerated. Left leg edematous, but negative for DVT. No evidence of hemorrhage or redness on plain view of left leg. Antibiotics stopped today. Patient to see Dr. Abbott within 1 week of discharge at wound care clinic. Card: Atrial fib: On coumadin. monitor inr. goal inr between 2-3 Systolic heart failure, chronic: on torsemide. Monitor intake and output. low salt diet. Hypertension: controlled on altace, coreq HLD: on statin therapy. Pulm: STEPHEN: bipap nightly. pulm. follow up outpatient. Acute Bronchospasm vs COPD: on steriod 40mg daily. will need outpatient pulmonary follow up. Endocrine diabetes mellitus: monitor bgms in the setting of steriod therapy. restart metformin and continue levemir. full code Minutes to complete discharge: 60 Discharge Summary Reason For Visit: CELLULITIS Current Active Problems Cellulitis (Acute) Condition: Stable - Instructions Diet, Activity, Other Instructions: Mr. Carias: you were admitted with a hematoma of the left leg. As per vascular surgery, this make some time to heal, likely about a month but please continue rehab as tolerated. It is important that you have your INR drawn tomorrow for close monitoring. Please continue the medications as outlined in your discharge instructions. continue the bipap nightly and follow up with Dr. Gutiérrez as an outpatient. Continue the Prednisone 40mg daily. It is important that you make an appointment with either Dr. Villa or Dr. Gutiérrez of when to stop your Prednisone and to perform further tests as an outpatient. Their information is listed on the discharge instructions. We will put you back on your home metformin. Please have your blood sugar monitored closely as you are on steriods. You may need to go back on insulin if your blood sugars are elevated. For now we recommend that you continue the levemir for night use. Continue diabetic diet. Dr. Abbott would like to see you within 1 week of discharge. Please make an appointment at the wound care clinic. [facility] [phone] Referrals: Aguilar Pierre MD [Primary Care Provider] - Disposition: CARE HOME FACILITY - Home Medications Comprehensive Discharge Medication List: Ambulatory Orders Ranitidine [Zantac -] 150 mg PO DAILY 01/03/17 Amitriptyline HCl [Elavil -] 50 mg PO HS 01/24/18 Atorvastatin Ca [Lipitor] 20 mg PO HS 01/24/18 Carvedilol [Coreg -] 25 mg PO BID 01/24/18 Gabapentin [Neurontin] 300 mg PO TID 01/24/18 Metformin HCl [Metformin HCl ER] 500 mg PO BID 01/24/18 Ramipril [Altace] 10 mg PO DAILY 01/24/18 Torsemide [Demadex -] 20 mg PO DAILY 01/24/18 Albuterol 0.083% Nebulizer [place] [Ventolin 0.083% Nebulizer Soln -] 1 amp NEB Q4H PRN amp 05/04/18 Albuterol 2.5/Ipratropium 0.5 [Duoneb -] 1 amp NEB RQID amp 05/04/18 Docusate Sodium [Colace -] 300 mg PO HS capsule 05/04/18 Warfarin Na [Coumadin -] 5 mg PO DAILY@1800 tablet 05/04/18 predniSONE [Deltasone -] 40 mg PO DAILY tablet 05/04/18 This patient is new to me today: No Emergency Visit: Yes ED Registration Date: 04/27/18 Care time: The patient presented to the Emergency Department on the above date and was hospitalized for further evaluation of their emergent condition. Critical Care patient: No - Discharge Referral Referred to [facility] No
--- NOTE | 2018-05-04 16:51 | PN ---
Progress Note (short form) - Note Progress Note: PULMONARY Denies shortness of breath. Mild wheezing. Denies cough. Vital Signs Period Temp Pulse Resp BP Sys/Tamayo Pulse Ox Last 24 Hr 98.3 F-98.8 F 70-85 20-20 120-147/64-90 92-98 Gen: NAD at rest Heart: RRR Lung: decreased breath sounds at the bases Abd: soft, nontender Ext: no edema CBC, BMP 05/04/18 07:20 05/04/18 07:20 Active Medications Acetaminophen (Tylenol -) 500 mg PO Q4H PRN PRN Reason: PAIN LEVEL 1 - 3 Albuterol Sulfate (Ventolin 0.083% Nebulizer Soln -) 1 amp NEB Q4H PRN PRN Reason: SHORT OF BREATH/WHEEZING Albuterol/Ipratropium (Duoneb -) 1 amp NEB RQID [facility] Last Admin: 05/04/18 16:46 Dose: 1 amp Amitriptyline HCl (Elavil -) 50 mg PO [facility] Last Admin: 05/03/18 21:16 Dose: 50 mg Atorvastatin Calcium (Lipitor -) 20 mg PO [facility] Last Admin: 05/03/18 21:16 Dose: 20 mg Bisacodyl (Dulcolax Suppository -) 10 mg RC PRN PRN PRN Reason: CONSTIPATION Carvedilol (Coreg -) 25 mg PO BID [facility] Last Admin: 05/04/18 10:27 Dose: 25 mg Docusate Sodium (Colace -) 300 mg PO [facility] Last Admin: 05/03/18 21:17 Dose: Not Given Gabapentin (Neurontin -) 300 mg PO TID [facility] Last Admin: 05/04/18 14:48 Dose: 300 mg Insulin Aspart (Novolog Vial Sliding Scale -) 1 vial SQ [facility]; Protocol Last Admin: 05/04/18 11:31 Dose: 4 units Insulin Detemir (Levemir Vial) 10 units SQ [facility] Last Admin: 05/03/18 21:22 Dose: 10 units Oxycodone HCl (Roxicodone -) 10 mg PO Q4H PRN PRN Reason: PAIN LEVEL 4 - 6 Last Admin: 05/04/18 14:48 Dose: 10 mg Polyethylene Glycol (Miralax (For Daily Use) -) 17 gm PO BID [facility] Last Admin: 05/04/18 10:27 Dose: Not Given Prednisone (Deltasone -) 40 mg PO DAILY [facility] Last Admin: 05/04/18 10:27 Dose: 40 mg Ramipril (Altace -) 10 mg PO DAILY [facility] Last Admin: 05/04/18 10:27 Dose: 10 mg Ranitidine HCl (Zantac -) 150 mg PO DAILY [facility] Last Admin: 05/04/18 10:27 Dose: 150 mg Torsemide (Demadex -) 20 mg PO DAILY [facility] Last Admin: 05/04/18 10:27 Dose: 20 mg Warfarin Sodium (Coumadin -) 5 mg PO DAILY@1800 [facility] A/P Cellulitis r/o Acute Bronchospasm vs COPD LV Systolic Dysfunction Atrial Fibrillation PAD HTN DM PAD - continue antibiotics - prednisone taper - inhaled bronchodilators standing and PRN - O2 to keep Spo2 >90% - will need outpt PFTs to evaluate for obstructive airways - rate controlled - continue anticoagulation Problem List - Problems (1) Cellulitis Code(s): L03.90 - CELLULITIS, UNSPECIFIED Qualifiers: Site of cellulitis: extremity Site of cellulitis of extremity: lower extremity Laterality: left Qualified Code(s): L03.116 - Cellulitis of left lower limb (2) Atrial fibrillation Code(s): I48.91 - UNSPECIFIED ATRIAL FIBRILLATION Qualifiers: Atrial fibrillation type: unspecified Qualified Code(s): I48.91 - Unspecified atrial fibrillation (3) Systolic CHF Code(s): I50.20 - UNSPECIFIED SYSTOLIC (CONGESTIVE) HEART FAILURE
[2018-05-04] MEDS ORDERED: WARFARIN NA 5 MG TABLET (UD) PO SCH (18:00)
[2018-05-04] MEDS: ATORVASTATIN CA 40 MG TABLET (FP) PO SCH (22:59)
[2018-05-04] MEDS: INSULIN (LEVEMIR) 100 UNITS/ML UNITS SQ SCH (23:02)
[2018-05-04] MEDS: AMITRIPTYLINE HCL 25 MG TABLET (FP) PO SCH (23:02)
[2018-05-04] MEDS: DOCUSATE SODIUM 100 MG CAPSULE (FP) PO SCH (23:05)
[2018-05-05] MEDS: GABAPENTIN 300 MG CAPSULE (FP) PO SCH (05:54)
[2018-05-05] MEDS: INSULIN SLIDING SCALE (NOVOLOG) 1 VIAL SQ SCH ×2 (06:37→11:37)
[2018-05-05] MEDS ORDERED: INSULIN (LEVEMIR) 100 UNITS/ML UNITS SQ ONE (06:44)
[2018-05-05] MEDS: ALBUTEROL SO4 2.5/IPRATROPIUM 0.5 INH SOL 3 ML VIAL.NEB. NEB SCH ×2 (07:20→11:53)
[2018-05-05] MEDS: RAMIPRIL 5 MG CAPSULE (FP) PO SCH (09:01)
[2018-05-05] MEDS: RANITIDINE HCL 150 MG TABLET (FP) PO SCH (09:02)
[2018-05-05] MEDS: POLYETHYLENE GLYCOL 3350 119 GM BTL PO SCH (09:02)
[2018-05-05] MEDS: oxyCODONE HCL 5 MG TABLET PO PRN (09:02)
[2018-05-05] MEDS: CARVEDILOL 12.5 MG TABLET (FP) PO SCH (09:02)
[2018-05-05] MEDS: predniSONE 20 MG TABLET (UD) PO SCH (09:02)
[2018-05-05] MEDS: TORSEMIDE 20 MG TABLET (FP) PO SCH (09:02)
--- NOTE | 2018-05-05 10:16 | PN ---
Progress Note (short form) - Note Progress Note: cc: left leg swelling/pain/redness s: no cp, palps, orthopnea, PND. stable L leg pain Vital Signs Period Temp Pulse Resp BP Sys/Tamayo Pulse Ox Last 24 Hr 98.2 F-98.5 F 70-85 19-20 135-150/64-68 92-98 NAD, calm jvd flat, neck supple ctab, nl effort irregular nl s1, s2 no mrg, pmi non-displaced + bs soft nt nd left le swelling, redness, tender aaox3 no jaundice, diaphoresis Current Medications Generic Name Dose Route Start Last Admin Trade Name Freq PRN Reason Stop Dose Admin Acetaminophen 500 mg 04/28/18 12:00 Tylenol - PO Q4H PRN PAIN LEVEL 1 - 3 Albuterol Sulfate 1 amp 04/29/18 12:30 Ventolin 0.083% Nebulizer Soln - NEB Q4H PRN SHORT OF BREATH/WHEEZING Albuterol/Ipratropium 1 amp 04/29/18 16:00 05/05/18 07:20 Duoneb - NEB 1 amp RQID MAXIMINO Administration Amitriptyline HCl 50 mg 04/28/18 22:00 05/04/18 23:02 Elavil - PO 50 mg HS MAXIMINO Administration Atorvastatin Calcium 20 mg 04/27/18 22:00 05/04/18 22:59 Lipitor - PO 20 mg HS MAXIMINO Administration Bisacodyl 10 mg 04/29/18 15:34 Dulcolax Suppository - RC PRN PRN CONSTIPATION Carvedilol 25 mg 04/27/18 22:00 05/05/18 09:02 Coreg - PO 25 mg BID MAXIMINO Administration Docusate Sodium 300 mg 04/29/18 22:00 05/04/18 23:05 Colace - PO Not Given HS MAXIMINO Gabapentin 300 mg 04/29/18 06:00 05/05/18 05:54 Neurontin - PO 300 mg TID MAXIMINO Administration Insulin Aspart 1 vial 05/03/18 22:00 05/05/18 06:37 Novolog Vial Sliding Scale - SQ 4 units ACHS MAXIMINO Administration Protocol Insulin Detemir 10 units 05/03/18 22:00 05/04/18 23:02 Levemir Vial SQ 10 units HS MAXIMINO Administration Oxycodone HCl 10 mg 04/28/18 11:59 05/05/18 09:02 Roxicodone - PO 10 mg Q4H PRN Administration PAIN LEVEL 4 - 6 Polyethylene Glycol 17 gm 04/29/18 22:00 05/05/18 09:02 Miralax (For Daily Use) - PO Not Given BID MAXIMINO Prednisone 40 mg 05/04/18 10:00 05/05/18 09:02 Deltasone - PO 40 mg DAILY MAXIMINO Administration Ramipril 10 mg 04/28/18 10:00 05/05/18 09:01 Altace - PO 10 mg DAILY MAXIMINO Administration Ranitidine HCl 150 mg 04/28/18 10:00 05/05/18 09:02 Zantac - PO 150 mg DAILY MAXIMINO Administration Torsemide 20 mg 04/28/18 10:00 05/05/18 09:02 Demadex - PO 20 mg DAILY MAXIMINO Administration Warfarin Sodium 5 mg 05/04/18 18:00 05/04/18 17:47 Coumadin - PO 5 mg DAILY@1800 MAXIMINO Administration CBC, BMP 05/04/18 07:20 05/04/18 07:20 Echo 09/2016: bline dilated LV. Mod decreased LV function(global), NL rv. Mod Lae 1+ MAC. 1+ MR. Mod TR. RVSP 30-40. Mild ao dilation. echo 07/2014: nl lv/rv, severe anna, mod MR, mild-mod TR, rvsp 40-50. mild ao dilation echo 11/2013: Mildly decreased systolic function, mild lae, mild mr/tr. rvsp 50- 60 cxr: clear lungs Assessment/Plan 72 yo m with h/o htn, gerd, afib, pad s/p recent left sfa stenting here with left leg swelling/pain/redness. le pain/swelling, cellulitis, hematoma: -has left soleus hematoma, also getting abx for cellulitis -vascular and ID following atrial fibrillation - cont bb - on coumadin, was held temporarily for left soleus hematoma and risk of compartment syndrome, now ok to resume per vacsular. pad: -s/p recent left sfa stenting -per vascular -cont statin, ac chronic systolic chf -stable. cont bb, lonnie, torsemide HTN -cont bb, lonnie hld: -cont statin cardiac welsh stable for dc
[2018-05-05 10:35] VITALS: BP 155/89; PULSE 69; TEMP 97.7
== END 2018-05-05 12:35 | DRG 920 ==
LOC: JER 12:17 → JERBED 16:25 → J6S 04-28 04:02
PROVIDERS: ADMIT Hospitalist; ATTEND Nurse Practitioner Family
DX: I97.638 Postprocedural hematoma of a circulatory system organ or structure following other circulatory system procedure (principal); D68.32 Hemorrhagic disorder due to extrinsic circulating anticoagulants; I50.22 Chronic systolic (congestive) heart failure; L03.116 Cellulitis of left lower limb; Y83.8 Other surgical procedures as the cause of abnormal reaction of the patient, or of later complication, without mention of misadventure at the time of the procedure; I48.91 Unspecified atrial fibrillation; I11.0 Hypertensive heart disease with heart failure; E11.9 Type 2 diabetes mellitus without complications; Z79.01 Long term (current) use of anticoagulants; I73.9 Peripheral vascular disease, unspecified; Z79.84 Long term (current) use of oral hypoglycemic drugs; K21.9 Gastro-esophageal reflux disease without esophagitis; Z87.891 Personal history of nicotine dependence; I27.20 Pulmonary hypertension, unspecified; E78.5 Hyperlipidemia, unspecified; Z88.0 Allergy status to penicillin; Z99.89 Dependence on other enabling machines and devices; G47.33 Obstructive sleep apnea (adult) (pediatric)
CPT/HCPCS: 36415; 71045-TC-FY; 73700-TC-RT; 80053; 82962; 83605; 83735; 84100; 85025; 85610; 86803; 87040; 87081; 93971-TC; 94640; 94660; 97116-GP; 97161-GP; 99284-25; G0463-25; G0480; J0131; J7030; J7620

== ENCOUNTER 2018-12-26 09:30 | Emergency (ER) | payer OTHER ==
[2018-12-26 09:34] VITALS: BP 114/62; PULSE 57; TEMP 98.3; BMI 36.1
--- NOTE | 2018-12-26 11:16 | PDOC ---
History of Present Illness - General Chief Complaint: Sore Throat Stated Complaint: SORE THROAT Time Seen by Provider: 12/26/18 09:46 History Source: Patient Exam Limitations: No Limitations (sorethroat X 2 days) - History of Present Illness Associated Symptoms: reports: denies symptoms. denies: chest pain, cough, fever /chills, headaches, loss of appetite, nausea/vomiting Past History - Travel Traveled outside of the country in the last 30 days: No Close contact w/someone who was outside of country & ill: No - Past Medical History Allergies/Adverse Reactions: Allergies Allergy/AdvReac Type Severity Reaction Status Date / Time Penicillins Allergy Verified 12/26/18 09:34 Home Medications: Ambulatory Orders Ranitidine [Zantac -] 150 mg PO DAILY 01/03/17 Amitriptyline HCl [Elavil -] 50 mg PO HS 01/24/18 Carvedilol [Coreg -] 25 mg PO BID 01/24/18 Ramipril [Altace] 10 mg PO DAILY 01/24/18 Torsemide [Demadex -] 40 mg PO DAILY 01/24/18 metFORMIN HCL [Metformin ER Osmotic] 500 mg PO BID 01/24/18 Acetaminophen 325 mg PO ACDIN 7 Days #21 tablet 12/26/18 Chlorhexidine Gluconate [Peridex -] 15 ml MM ONCE 5 Days #150 ml 12/26/18 Duloxetine HCl [Cymbalta] 30 mg PO BID 12/26/18 Pregabalin [Lyrica] 100 mg PO TID 12/26/18 Warfarin Na [Coumadin -] 5 mg PO ASDIR 12/26/18 Warfarin Sodium 3 mg PO DAILY 12/26/18 Anemia: No Asthma: No Cancer: No Cardiac Disorders: Yes (afib) CVA: No COPD: No CHF: No Dementia: No Diabetes: Yes GI Disorders: Yes (ACID REFLUX) Disorders: No HTN: Yes Hypercholesterolemia: No Liver Disease: No Seizures: No Thyroid Disease: No - Surgical History Abdominal Surgery: Yes (umbilical hernia repair 12/2017) Appendectomy: Yes Cardiac Surgery: No Cholecystectomy: No Lung Surgery: No Neurologic Surgery: No Orthopedic Surgery: No - Suicide/Smoking/Psychosocial Hx Smoking History: Former smoker Have you smoked in the past 12 months: No If you are a former smoker, when did you quit?: 24 YEARS AGO Information on smoking cessation initiated: No Hx Alcohol Use: No Drug/Substance Use Hx: No Substance Use Type: None Hx Substance Use Treatment: No Review of Systems - Review of Systems Is the patient limited Swedish proficient: No Constitutional: No: Chills, Fever HEENTM: Yes: Throat Pain. No: Ocular Prothesis, Ear Discharge, Tinnitus, Nose Bleeding, Hearing Loss, Throat Swelling Respiratory: No: Cough, Shortness of Breath, Productive cough Cardiac (ROS): No: Chest Pain Neurological: No: Headache *Physical Exam - Vital Signs Last Vital Signs Temp Pulse Resp BP Pulse Ox 98.3 F 57 L 20 114/62 98 12/26/18 09:31 12/26/18 09:31 12/26/18 09:31 12/26/18 09:31 12/26/18 09:31 - Physical Exam General Appearance: Yes: Nourished HEENT: positive: EOMI, AMADA, TMs Normal, Pharyngeal Erythema, Other (no LINE WELDER). negative: Tonsillar Exudate, Tonsillar Erythema, Excessive drooling, Thrush Respiratory/Chest: positive: Lungs Clear, Normal Breath Sounds Cardiovascular: positive: Regular Rhythm, Regular Rate, S1, S2 Integumentary: positive: Normal Color Neurologic: positive: veterinary toxicologist II-XII NML intact, Fully Oriented, Alert Medical Decision Making - Medical Decision Making 12/26/18 11:12 73y/o M with sorethroat X 2 days denies f/c, drooling or cough exam with mildy erythematous oropharyx Rapid strep neg Rx for motrin, peridex f/u with PCP *DC/Admit/Observation/Transfer Diagnosis at time of Disposition: Sorethroat - Discharge Dispostion Disposition: HOME Condition at time of disposition: Stable - Prescriptions Prescriptions: Acetaminophen 325 mg PO ACDIN 7 Days #21 tablet Chlorhexidine Gluconate [Peridex -] 15 ml MM ONCE 5 Days #150 ml - Referrals Referrals: Aguilar Pierre MD [Primary Care Provider] - - Patient Instructions Printed Discharge Instructions: Sore Throat Additional Instructions: Your strep test was negative today A culture will be sent out to the lab, if it become positive you will be contacted for antibiotics please take Tylenol as prescribed, gargle with peridex or salt warm water follow up with our primary car doctor Return to the Emergency Department if worsening symptom occurs - Post Discharge Activity
== END 2018-12-26 11:25 | disposition home or self-care (01) ==
LOC: JERFT 09:30
DX: J02.9 Acute pharyngitis, unspecified (principal); I48.91 Unspecified atrial fibrillation; Z79.01 Long term (current) use of anticoagulants; E11.9 Type 2 diabetes mellitus without complications; Z79.84 Long term (current) use of oral hypoglycemic drugs; I10 Essential (primary) hypertension; K21.9 Gastro-esophageal reflux disease without esophagitis; Z87.891 Personal history of nicotine dependence
CPT/HCPCS: 87070; 87880; 99281-25

== ENCOUNTER 2019-04-06 19:08 | Inpatient (IN) | payer OTHER ==
[2019-04-06] MEDS ORDERED: ALBUTEROL SO4 2.5/IPRATROPIUM 0.5 INH SOL 3 ML VIAL.NEB. NEB ONE ×3 (19:45→20:06)
[2019-04-06] MEDS ORDERED: MAGNESIUM 1GM/D5W - 1 GM/100 ML IVPB IVPB ONE (19:46)
[2019-04-06] MEDS ORDERED: methylPREDNISolone NA SUCC 125 MG/2 ML VIAL ONE (19:46)
[2019-04-06] MEDS ORDERED: FUROSEMIDE 40 MG/4 ML INJECTABLE VIAL ONE (19:51)
[2019-04-06] MEDS ORDERED: FUROSEMIDE 40 MG/4 ML INJECTABLE VIAL IVPUSH ONE (19:51)
[2019-04-06] MEDS ORDERED: ACETAMINOPHEN 1000 MG/100 ML VIAL (NON FORMULARY) IVPB ONE (19:57)
[2019-04-06] MEDS ORDERED: methylPREDNISolone NA SUCC 125 MG/2 ML VIAL IVPB ONE (20:00)
[2019-04-06] MEDS: NITROGLYCERIN SUBLINGUAL 1/150 0.4 MG TAB SL SCH ×4 (20:00→22:09)
[2019-04-06] MEDS ORDERED: MAGNESIUM SULF 50% (8.12 MEQ/2 ML-1 GM VIAL) IVPB ONE (20:00)
--- NOTE | 2019-04-06 20:02 | PDOC ---
History of Present Illness <Teresa aRnd - Last Filed: 04/06/19 22:09> - History of Present Illness Initial Comments: Mr. Carias is a 73 y/o male with PMH of a-fib (on warfarin) and HTN presenting today with worsening shortness of breath. Reports that this started 3 days ago. Associated with wheezes. Denies fever, denies cough, denies chest pain, denies abdominal pain. Denies lower extremity swelling. Made worse by laying back. PMH: a-fib, HTN, neuropathy <Zac Douglass - Last Filed: 04/06/19 23:04> - General Chief Complaint: Respiratory Stated Complaint: DIFFICULTY BREATHING Time Seen by Provider: 04/06/19 19:59 Past History <Teresa Rand - Last Filed: 04/06/19 22:09> - Past Medical History Cardiac Disorders: Yes (afib) CVA: No COPD: No CHF: No HTN: Yes - Suicide/Smoking/Psychosocial Hx Smoking History: Never smoked <Zac Douglass - Last Filed: 04/06/19 23:04> - Past Medical History Allergies/Adverse Reactions: Allergies Allergy/AdvReac Type Severity Reaction Status Date / Time No Known Allergies Allergy Verified 04/06/19 19:50 Review of Systems - Review of Systems Comments:: ROS GENERAL/CONSTITUTIONAL: No fever or chills. No weakness._ HEAD, EYES, EARS, NOSE AND THROAT: No change in vision. No ear pain or discharge. No sore throat._ CARDIOVASCULAR: No chest pain. Reports shortness of breath. RESPIRATORY: Denies cough, hemoptysis_ GASTROINTESTINAL: No nausea, vomiting, diarrhea or constipation._ GENITOURINARY: No dysuria, frequency, or change in urination._ MUSCULOSKELETAL: No joint or muscle swelling or pain. No neck or back pain._ SKIN: No rash_ NEUROLOGIC: No headache, vertigo, loss of consciousness, or change in strength/ sensation._ ENDOCRINE: No increased thirst. No abnormal weight change_ HEMATOLOGIC/LYMPHATIC: No anemia, easy bleeding, or history of blood clots._ ALLERGIC/IMMUNOLOGIC: No hives or skin allergy._ <Zac Douglass - Last Filed: 04/06/19 23:04> *Physical Exam - Vital Signs Last Vital Signs Temp Pulse Resp BP Pulse Ox 97.8 F 110 H 24 H 160/102 H 99 04/06/19 19:51 04/06/19 19:51 04/06/19 19:51 04/06/19 19:51 04/06/19 20:03 <Teresa Rand - Last Filed: 04/06/19 22:09> - Vital Signs Last Vital Signs Temp Pulse Resp BP Pulse Ox 97.8 F 110 H 24 H 160/102 H 93 L 04/06/19 19:51 04/06/19 19:51 04/06/19 19:51 04/06/19 19:51 04/06/19 19:51 - Physical Exam Comments: GENERAL: Awake, alert, and oriented to person/place/time, in no acute distress_ HEAD: No signs of trauma, normocephalic, atraumatic _ EYES: PERRLA, EOMI, sclera anicteric, conjunctiva clear_ ENT: Hearing grossly normal, nares patent, oropharynx clear without exudates. No uvular deviation. Moist mucosa_ NECK: Normal ROM, supple, no lymphadenopathy, JVD, or masses_ LUNGS: Respiratory distress, accessory muscle use. Bibasilar crackles and decreased air movement bilaterally. HEART: Regular rate and rhythm, normal S1 and S2, no murmurs appreciated, peripheral pulses normal and equal bilaterally._ ABDOMEN: Soft, nontender, normoactive bowel sounds. No guarding, no rebound. No masses_ EXTREMITIES: Normal inspection, Normal range of motion. No clubbing or cyanosis. Pitting edema 1+ bilateral lower extremities. NEUROLOGICAL: Cranial nerves II through XII grossly intact. Normal speech, normal gait, no focal sensorimotor deficits _ SKIN: Warm, Dry, normal turgor, no rashes or lesions noted_ <Zac Douglass - Last Filed: 04/06/19 23:04> ED Treatment Course - LABORATORY CBC & Chemistry Diagram: 04/06/19 20:00 04/06/19 20:00 - ADDITIONAL ORDERS Additional order review: Laboratory Results 04/06/19 04/06/19 04/06/19 20:00 20:00 20:00 PT with INR 23.50 H INR 1.98 H PTT (Actin FS) Sodium Potassium Chloride Carbon Dioxide Anion Gap BUN Creatinine Est GFR (CKD-EPI)AfAm Est GFR (CKD-EPI)NonAf Random Glucose Calcium Magnesium Total Bilirubin AST ALT Alkaline Phosphatase Creatine Kinase Troponin I B-Natriuretic Peptide 3123.4 H Total Protein Albumin Blood Type O POSITIVE Antibody Screen Negative 04/06/19 04/06/19 20:00 20:00 PT with INR INR PTT (Actin FS) 43.9 H Sodium 139 Potassium 4.8 Chloride 106 Carbon Dioxide 29 Anion Gap 4 L BUN 12.1 Creatinine 1.1 Est GFR (CKD-EPI)AfAm 77.86 Est GFR (CKD-EPI)NonAf 67.18 Random Glucose 149 H Calcium 8.8 Magnesium 2.2 Total Bilirubin 1.1 H AST 37 ALT 68 H Alkaline Phosphatase 99 Creatine Kinase 96 Troponin I < 0.02 B-Natriuretic Peptide Total Protein 7.1 Albumin 3.8 Blood Type Antibody Screen 04/06/19 20:00 RBC 4.42 MCV 93.3 MCHC 33.1 RDW 15.5 MPV 8.1 Neutrophils % 70.5 Lymphocytes % 20.2 Monocytes % 7.3 Eosinophils % 1.5 Basophils % 0.5 - Medications Given in the ED: ED Medications Discontinued Medications Generic Name Dose Route Start Last Admin Trade Name Autumn PRN Reason Stop Dose Admin Acetaminophen 1,000 mg 04/06/19 19:57 04/06/19 20:15 Ofirmev Injection - IVPB 04/06/19 19:58 1,000 mg ONCE ONE Administration Albuterol/Ipratropium 3 amp 04/06/19 19:59 04/06/19 20:00 Duoneb - NEB 04/06/19 20:00 3 amp ONCE ONE Administration Furosemide 80 mg 04/06/19 19:51 04/06/19 20:00 Lasix Injection - IVPUSH 04/06/19 19:52 80 mg ONCE ONE Administration Magnesium Sulfate 1 gm 04/06/19 20:00 04/06/19 20:40 Magnesium Sulfate IVPB 04/06/19 20:01 1 gm ONCE ONE Administration Methylprednisolone Sodium Succinate 125 mg 04/06/19 20:00 04/06/19 20:20 Solu-Medrol - IVPB 04/06/19 20:01 125 mg ONCE ONE Administration <Teresa Rand - Last Filed: 04/06/19 22:09> - LABORATORY CBC & Chemistry Diagram: 04/06/19 20:00 04/06/19 20:00 <Zac oDuglass - Last Filed: 04/06/19 23:04> Medical Decision Making - Medical Decision Making 73M with hx of a-fib and HTN presenting with worsening SOB over the last 3 days. Bibasilar crackles and bilateral LE edema. DDx includes pulmonary edema and CHF exacerbation vs COPD exacerbation. Will obtain CBC, CMP, BNP, Mg, EKG, CXR, ABG. Patient assessed immediately and started on Lasix, BIPAP, duonebs, solumedrol. 04/06/19 2030 EKG shows atrial fibrillation, 96 bpm. 04/06/19 2230 Labs wnl, except for elevated BNP and elevated PT/PTT/INR (on warfarin). Spoke with the hospitalist who agrees to admit the patient. <Zac Douglass - Last Filed: 04/06/19 23:04> *DC/Admit/Observation/Transfer - Discharge Dispostion Decision to Admit order: Yes <Teresa Rand - Last Filed: 04/06/19 22:09> - Discharge Dispostion Decision to Admit order: Yes <Zac Douglass - Last Filed: 04/06/19 23:04> Diagnosis at time of Disposition: Acute pulmonary edema, Afib - Discharge Dispostion Condition at time of disposition: Guarded
[2019-04-06] MEDS ORDERED: ACETAMINOPHEN INJECTION 100 ML IVPB ONE (20:07)
[2019-04-06 20:21] LABS: BASO % 0.5 % (0-2.0); EOS % 1.5 % (0-4.5); HEMATOCRIT 41.3 % (35.4-49); HEMOGLOBIN 13.7 GM/dL (11.7-16.9); LYMPH % 20.2 % (8-40); MCH 30.9 pg (25.7-33.7); MCHC 33.1 g/dl (32.0-35.9); MEAN CELL VOLUME 93.3 fl (80-96); MEAN PLT VOLUME 8.1 fl (7.5-11.1); MONO % 7.3 % (3.8-10.2); NEUT % 70.5 % (42.8-82.8); PLATELET COUNT 195 K/MM3 (134-434); RBC 4.42 M/mm3 (4.00-5.60); RDW 15.5 % (11.9-15.9); WHITE BLOOD COUNT 7.2 K/mm3 (4.0-10.0)
[2019-04-06] MEDS ORDERED: RAMIPRIL 5 MG CAPSULE (FP) PO ONE ×2 (20:21→21:42)
[2019-04-06 20:34] LABS: INR 1.98 (0.83-1.09); PROTHROMBIN TIME (PATIENT) 23.5 SEC (9.7-13.0)
[2019-04-06 20:50] LABS: ALBUMIN 3.8 g/dl (3.4-5.0); ALK PHOS 99 U/L (45-117); ANION GAP 4 MMOL/L (8-16); BILIRUBIN,TOTAL 1.1 mg/dL (0.2-1); BLOOD UREA NITROGEN 12.1 mg/dL (7-18); CALCIUM 8.8 mg/dL (8.5-10.1); CHLORIDE 106 mmol/L (98-107); CO2 29 mmol/L (21-32); CREATININE 1.1 mg/dL (0.55-1.3); GLUCOSE,RANDOM 149 mg/dL (74-106); MAGNESIUM 2.2 mg/dL (1.8-2.4); POTASSIUM 4.8 mmol/L (3.5-5.1); SGOT/AST 37 U/L (15-37); SGPT/ALT 68 U/L (13-61); SODIUM 139 mmol/L (136-145); TOT PROT 7.1 g/dl (6.4-8.2)
[2019-04-06] MEDS ORDERED: RAMIPRIL 5 MG CAPSULE (FP) ONE (22:00)
--- NOTE | 2019-04-06 22:08 | PDOC ---
Documentation entered by Nena Hernandes SCRIBE, acting as scribe for Teresa Rand MD. Teresa Rand MD: This documentation has been prepared by the Cecilio lopez Brenda, SCRIBE, under my direction and personally reviewed by me in its entirety. I confirm that the documentation accurately reflects all work, treatment, procedures, and medical decision making performed by me. Attending Attestation - Resident Resident Name: Zac Douglass - ED Attending Attestation I have performed the following: I have examined & evaluated the patient, The case was reviewed & discussed with the resident, I agree w/resident's findings & plan, Exceptions are as noted - HPI HPI: 04/06/19 20:25 The patient is a 73 year old male, with a significant PMH of Afib (on blood thinners) and neuropathy, who presents to the emergency department with 3 days of difficulty breathing. As per friend, on the bedside, he has not been himself for 3 days, however between yesterday and today he has been getting progressively worse. As per friend, he tested his pulse ox at home, which was found to be 91%-92%, prompting his arrival to the ED. The friend reports that the patient uses uses a C-pap machine at home. Patient endorses decreased exercise tolerance at home. The patient denies chest pain, headache and dizziness. Denies fever, chills, nausea, vomiting, diarrhea and constipation. Denies any urinary symptoms. Allergies: NKA Social history: Denies any tobacco use. PCP: Dr. Pierre - Physicial Exam PE: 04/06/19 20:25 GENERAL: Awake, alert, and fully oriented, in no acute distress. Afebrile. HEAD: No signs of trauma EYES: PERRLA, EOMI, sclera anicteric, conjunctiva clear ENT: Auricles normal inspection, hearing grossly normal, nares patent, oropharynx clear without exudates. Moist mucosa NECK: Normal ROM, supple, no lymphadenopathy, JVD, or masses LUNGS: Breath sounds equal, clear to auscultation bilaterally. No crackles HEART: (+) Irregularly irregular. Normal S1 and S2, no murmurs, rubs or gallops ABDOMEN: (+) Distended. (+) Tympanitic bowel sounds on upper quadrants (+)Dull bowel sounds on lower quadrants. Nontender. No guarding, no rebound. No masses EXTREMITIES: (+) 2+ pitting edema on bilateral lower extremities. Normal range of motion. No clubbing or cyanosis. No cords, erythema, or tenderness NEUROLOGICAL: Cranial nerves II through XII grossly intact. Normal speech. SKIN: Warm, Dry, normal turgor, no rashes or lesions noted. - Medical Decision Making 04/06/19 20:01 We immediately saw the patient; BP was 206/100s and he was given 2 SLNTG; we repeated 2 SLNTG and pt was started on BiPAP. He was given 80mg lasix and labs were sent. EKG and CXR ordered. 04/06/19 20:17 BP 160s systolic now 04/06/19 21:30 EKG shows afib; blood tests are normal; BNP elevated. BP is 186/114 at this time 04/06/19 22:07 Pt will be admitted to hospitalists.
[2019-04-06] MEDS ORDERED: NITROGLYCERIN SUBLINGUAL 1/150 0.4 MG TAB SL PRN (23:18)
[2019-04-06 23:20] LABS: ALLENS TEST POSITIVE
[2019-04-06 23:27] LABS: ARTERIAL BLD GAS O2 SATURATION 90.4 % (95-98); ARTERIAL BLOOD GAS BASE EXCESS 2.2 meq/l (-2-2); ARTERIAL BLOOD GAS PCO2 37.4 mmHg (35-45); ARTERIAL BLOOD GAS PO2 56.1 mmHg (80-105); ARTERIAL BLOOD GAS pH 7.45 (7.35-7.45); CARBOXYHEMOGLOBIN 1.6 % (0-2)
--- NOTE | 2019-04-06 23:31 | HP ---
CHIEF COMPLAINT: Wheezing PCP: Dr. López CARDS: Dr. Aldana HISTORY OF PRESENT ILLNESS: 73 y/o M w PMH A fib, HTN, and STEPHEN on CPAP presenting to ED w c/o wheezing. Pt says he would not have come to the hospital but is here on the insistence of his friend whom observed progressive wheezing over the last 2 days. Pt states that he has not experienced SOB, CP, and cough. He denies exercise intolerance and can walk several blocks w/o SOB. ER course was notable for: (1) CXR: (2) (3) Recent Travel: PAST MEDICAL HISTORY: PAST SURGICAL HISTORY: Social History: Smoking: Alcohol: Drugs: Family History: Allergies No Known Allergies Allergy (Verified 04/06/19 19:50) HOME MEDICATIONS: REVIEW OF SYSTEMS CONSTITUTIONAL: Absent: fever, chills, diaphoresis, generalized weakness, malaise, loss of appetite, weight change HEENT: Absent: rhinorrhea, nasal congestion, throat pain, throat swelling, difficulty swallowing, mouth swelling, ear pain, eye pain, visual changes CARDIOVASCULAR: Absent: chest pain, syncope, palpitations, irregular heart rate, lightheadedness , peripheral edema RESPIRATORY: Absent: cough, shortness of breath, dyspnea with exertion, orthopnea, wheezing, stridor, hemoptysis GASTROINTESTINAL: Absent: abdominal pain, abdominal distension, nausea, vomiting, diarrhea, constipation, melena, hematochezia GENITOURINARY: Absent: dysuria, frequency, urgency, hesitancy, hematuria, flank pain, genital pain MUSCULOSKELETAL: Absent: myalgia, arthralgia, joint swelling, back pain, neck pain SKIN: Absent: rash, itching, pallor HEMATOLOGIC/IMMUNOLOGIC: Absent: easy bleeding, easy bruising, lymphadenopathy, frequent infections ENDOCRINE: Absent: unexplained weight gain, unexplained weight loss, heat intolerance, cold intolerance NEUROLOGIC: Absent: headache, focal weakness or paresthesias, dizziness, unsteady gait, seizure, mental status changes, bladder or bowel incontinence PSYCHIATRIC: Absent: anxiety, depression, suicidal or homicidal ideation, hallucinations. PHYSICAL EXAMINATION Vital Signs - 24 hr 04/06/19 04/06/19 04/06/19 19:51 19:55 20:03 Temperature 97.8 F Pulse Rate 110 H 104 H Pulse Rate [ Apical] Respiratory 24 H Rate Blood Pressure 160/102 H Blood Pressure [Right Arm] O2 Sat by Pulse 93 L 99 99 Oximetry (%) 04/06/19 22:14 Temperature Pulse Rate Pulse Rate [ 96 H Apical] Respiratory 20 Rate Blood Pressure Blood Pressure 166/101 H [Right Arm] O2 Sat by Pulse 99 Oximetry (%) GENERAL: Awake, alert, and fully oriented, in no acute distress. HEAD: Normal with no signs of trauma. EYES: Pupils equal, round and reactive to light, extraocular movements intact, sclera anicteric, conjunctiva clear. No lid lag. EARS, NOSE, THROAT: Ears normal, nares patent, oropharynx clear without exudates. Moist mucous membranes. NECK: Normal range of motion, supple without lymphadenopathy, JVD, or masses. LUNGS: Breath sounds equal, clear to auscultation bilaterally. No wheezes, and no crackles. No accessory muscle use. HEART: Regular rate and rhythm, normal S1 and S2 without murmur, rub or gallop. ABDOMEN: Soft, nontender, not distended, normoactive bowel sounds, no guarding, no rebound, no masses. No hepatomegaly or splenomegaly. MUSCULOSKELETAL: Normal range of motion at all joints. No bony deformities or tenderness. No CVA tenderness. UPPER EXTREMITIES: 2+ pulses, warm, well-perfused. No cyanosis. No clubbing. No peripheral edema. LOWER EXTREMITIES: 2+ pulses, warm, well-perfused. No calf tenderness. No peripheral edema. NEUROLOGICAL: Cranial nerves II-XII intact. Normal speech. Normal gait. PSYCHIATRIC: Cooperative. Good eye contact. Appropriate mood and affect. SKIN: Warm, dry, normal turgor, no rashes or lesions noted, normal capillary refill. Laboratory Results - last 24 hr 04/06/19 04/06/19 04/06/19 20:00 20:00 20:00 WBC 7.2 RBC 4.42 Hgb 13.7 Hct 41.3 MCV 93.3 MCH 30.9 MCHC 33.1 RDW 15.5 Plt Count 195 MPV 8.1 Absolute Neuts (auto) 5.1 Neutrophils % 70.5 Lymphocytes % 20.2 Monocytes % 7.3 Eosinophils % 1.5 Basophils % 0.5 Nucleated RBC % 0 PT with INR INR PTT (Actin FS) 43.9 H Sodium 139 Potassium 4.8 Chloride 106 Carbon Dioxide 29 Anion Gap 4 L BUN 12.1 Creatinine 1.1 Est GFR (CKD-EPI)AfAm 77.86 Est GFR (CKD-EPI)NonAf 67.18 Random Glucose 149 H Calcium 8.8 Magnesium 2.2 Total Bilirubin 1.1 H AST 37 ALT 68 H Alkaline Phosphatase 99 Creatine Kinase 96 Troponin I < 0.02 B-Natriuretic Peptide Total Protein 7.1 Albumin 3.8 Blood Type Antibody Screen 04/06/19 04/06/19 04/06/19 20:00 20:00 20:00 WBC RBC Hgb Hct MCV MCH MCHC RDW Plt Count MPV Absolute Neuts (auto) Neutrophils % Lymphocytes % Monocytes % Eosinophils % Basophils % Nucleated RBC % PT with INR 23.50 H INR 1.98 H PTT (Actin FS) Sodium Potassium Chloride Carbon Dioxide Anion Gap BUN Creatinine Est GFR (CKD-EPI)AfAm Est GFR (CKD-EPI)NonAf Random Glucose Calcium Magnesium Total Bilirubin AST ALT Alkaline Phosphatase Creatine Kinase Troponin I B-Natriuretic Peptide 3123.4 H Total Protein Albumin Blood Type O POSITIVE Antibody Screen Negative ASSESSMENT/PLAN: ATTENDING PHYSICIAN STATEMENT I saw and evaluated the patient. I reviewed the resident's note and discussed the case with the resident. I agree with the resident's findings and plan as documented. SUBJECTIVE: OBJECTIVE: ASSESSMENT AND PLAN:
[2019-04-06] MEDS ORDERED: CARVEDILOL 25 MG TABLET (FP) PO ONE ×2 (23:39→23:45)
[2019-04-06] MEDS ORDERED: WARFARIN NA 2.5 MG TABLET (FP) PO ONE (23:39)
[2019-04-06] MEDS ORDERED: PREGABALIN 100 MG CAPSULE PO ONE (23:40)
[2019-04-06] MEDS ORDERED: ATORVASTATIN CA 20 MG TABLET (FP) PO ONE ×2 (23:41→23:46)
--- NOTE | 2019-04-06 23:42 | PN ---
Teaching Attending Note Name of Resident: Jason Razo Please see H and P from [employer]; entered in error
--- NOTE | 2019-04-06 23:46 | HP ---
CHIEF COMPLAINT: sob, wheezing PCP: Dr. Landaverde HISTORY OF PRESENT ILLNESS: 73 year old male, with PMH of Afib (on coumadin ), HTN, Depression, DM and neuropathy, who arrived to ED with 2-3 days complain of wheezing and difficulty breathing. According to ED record patient uses C-pap machine at home. Patient denies chest pain, headache and dizziness. Denies fever , chills, nausea, vomiting, diarrhea and constipation. Denies any urinary symptoms. ER course was notable for: (1) acute CHF exacerbation ? given lasix 80 mg x1, nebs and steriod IVPB (2) Nitroglycerin, Ramipril given for hypertension Recent Travel: no PAST MEDICAL HISTORY: A-fib, HTN, neuropathy PAST SURGICAL HISTORY: denies Social History: Smoking:no Alcohol:no Drugs: no Family History: Father/ Mother ( ) stroke, HTN Allergies: No Known Allergies Allergy (Verified 04/06/19 19:50) HOME MEDICATIONS: Amitriptyline 50 mg PO daily Duloxetine 30 mg PO BID Ramipril 10 mg PO daily Lyrica 100 mg PO TID Metformin 500 mg PO BID Coreg 25 mg PO BID Coumadin 2.5 mg PO at night Lipitor 20 mg PO at night REVIEW OF SYSTEMS CONSTITUTIONAL: Absent: fever, chills, diaphoresis, generalized weakness, malaise, loss of appetite, weight change HEENT: Absent: rhinorrhea, nasal congestion, throat pain, throat swelling, difficulty swallowing, mouth swelling, ear pain, eye pain, visual changes CARDIOVASCULAR: Absent: chest pain, syncope, palpitations, irregular heart rate , lightheadedness, peripheral edema RESPIRATORY: + wheezing, sob GASTROINTESTINAL: Absent: abdominal pain, abdominal distension, nausea, vomiting , diarrhea, constipation, melena, hematochezia GENITOURINARY: Absent: dysuria, frequency, urgency, hesitancy, hematuria, flank pain, genital pain MUSCULOSKELETAL: Absent: myalgia, arthralgia, joint swelling, back pain, neck pain SKIN: Absent: rash, itching, pallor NEUROLOGIC: Absent: headache, focal weakness or paresthesias, dizziness, unsteady gait, seizure, mental status changes, bladder or bowel incontinence PSYCHIATRIC: Absent: anxiety, depression, suicidal or homicidal ideation, hallucinations. PHYSICAL EXAMINATION Vital Signs - 24 hr 04/06/19 04/06/19 04/06/19 19:51 20:03 22:14 Temperature 97.8 F Pulse Rate 110 H Pulse Rate [ 96 H Apical] Respiratory 24 H 20 Rate Blood Pressure 160/102 H Blood Pressure 166/101 H [Right Arm] O2 Sat by Pulse 93 L 99 99 Oximetry (%) GENERAL: Awake, alert, and fully oriented, in no acute distress. + BiPAP in place HEENT: NC/AT, EOMI, PERRLA, NO JVD LUNGS: Breath sounds equal, clear to auscultation bilaterally.+ Bibasilar crackles noted HEART: Regular rate and rhythm, normal S1 and S2 without murmur, rub or gallop. ABDOMEN: Soft, nontender, not distended, normoactive bowel sounds, no guarding, no rebound, no masses. MUSCULOSKELETAL: Normal range of motion at all joints. No bony deformities or tenderness. No CVA tenderness. Extremity: + [place] NEUROLOGICAL: Cranial nerves II-XII intact. Normal speech. Normal gait. PSYCHIATRIC: Cooperative. Good eye contact. Appropriate mood and affect. SKIN: Warm, dry Laboratory Results - last 24 hr 04/06/19 04/06/19 04/06/19 20:00 20:00 20:00 WBC 7.2 RBC 4.42 Hgb 13.7 Hct 41.3 MCV 93.3 MCH 30.9 MCHC 33.1 RDW 15.5 Plt Count 195 MPV 8.1 Absolute Neuts (auto) 5.1 Neutrophils % 70.5 Lymphocytes % 20.2 Monocytes % 7.3 Eosinophils % 1.5 Basophils % 0.5 Nucleated RBC % 0 PT with INR INR PTT (Actin FS) 43.9 H Sodium 139 Potassium 4.8 Chloride 106 Carbon Dioxide 29 Anion Gap 4 L BUN 12.1 Creatinine 1.1 Est GFR (CKD-EPI)AfAm 77.86 Est GFR (CKD-EPI)NonAf 67.18 Random Glucose 149 H Calcium 8.8 Magnesium 2.2 Total Bilirubin 1.1 H AST 37 ALT 68 H Alkaline Phosphatase 99 Creatine Kinase 96 Troponin I < 0.02 B-Natriuretic Peptide Total Protein 7.1 Albumin 3.8 Blood Type Antibody Screen 04/06/19 04/06/19 04/06/19 20:00 20:00 20:00 WBC RBC Hgb Hct MCV MCH MCHC RDW Plt Count MPV Absolute Neuts (auto) Neutrophils % Lymphocytes % Monocytes % Eosinophils % Basophils % Nucleated RBC % PT with INR 23.50 H INR 1.98 H PTT (Actin FS) Sodium Potassium Chloride Carbon Dioxide Anion Gap BUN Creatinine Est GFR (CKD-EPI)AfAm Est GFR (CKD-EPI)NonAf Random Glucose Calcium Magnesium Total Bilirubin AST ALT Alkaline Phosphatase Creatine Kinase Troponin I B-Natriuretic Peptide 3123.4 H Total Protein Albumin Blood Type O POSITIVE Antibody Screen Negative ASSESSMENT/PLAN: 73 year old male, with PMH of Afib (on coumadin ), HTN, Depression, DM and neuropathy, who arrived to ED with 2-3 days complain of wheezing and difficulty breathing. # CHF exacerbation vs COPD exacerbation -EKG shows afib -BNP elevated -in ED given Lasix, BIPAP, duonebs, solumedrol and magnsium sulfate given #HTN BP 206/100 given Nitroglycerin 0.4 mg LS x2 then another 5 min in ED - Rechecked Bp: 166/101 - Ramipril given 10 mg x1 - Ramipril 10 mg PO daily - Coreg 25 mg PO daily # A-fib - Continue with Coumadin 2.5 mg ( as per patient) - follow INR # DM # DM Neuropathy -Lyrica 100 mg PO TID -Metformin 500 mg PO BID #HLD -Lipitor 20 mg PO at night # Depression - Amitriptyline 50 mg PO at night Problem List - Problem (1) Acute CHF (congestive heart failure) Code(s): I50.9 - HEART FAILURE, UNSPECIFIED (2) Diabetes Code(s): E11.9 - TYPE 2 DIABETES MELLITUS WITHOUT COMPLICATIONS (3) Diabetes mellitus with neuropathy Code(s): E11.40 - TYPE 2 DIABETES MELLITUS WITH DIABETIC NEUROPATHY, UNSP (4) Depression Code(s): F32.9 - MAJOR DEPRESSIVE DISORDER, SINGLE EPISODE, UNSPECIFIED (5) HLD (hyperlipidemia) Code(s): E78.5 - HYPERLIPIDEMIA, UNSPECIFIED (6) HTN (hypertension) Code(s): I10 - ESSENTIAL (PRIMARY) HYPERTENSION (7) Afib Code(s): I48.91 - UNSPECIFIED ATRIAL FIBRILLATION Visit type - Emergency Visit Emergency Visit: Yes Care time: The patient presented to the Emergency Department on the above date and was hospitalized for further evaluation of their emergent condition. - New Patient This patient is new to me today: Yes Date on this admission: 04/06/19 - Critical Care Critical Care patient: No
[2019-04-06] MEDS ORDERED: ATORVASTATIN CA 20 MG TABLET (FP) ONE (23:55)
[2019-04-06] MEDS ORDERED: ALBUTEROL SO4 0.083% IH SOL 2.5 MG/3 ML VIAL.NEB. NEB ONE (23:55)
[2019-04-06] MEDS ORDERED: CARVEDILOL 12.5 MG TABLET (FP) ONE (23:56)
[2019-04-07] MEDS: ALBUTEROL SO4 0.083% IH SOL 2.5 MG/3 ML VIAL.NEB. NEB SCH ×6 (00:12→20:26)
[2019-04-07] MEDS ORDERED: WARFARIN NA 5 MG TABLET (UD) ONE (00:17)
[2019-04-07] MEDS: NITROGLYCERIN SUBLINGUAL 1/150 0.4 MG TAB SL SCH ×3 (01:04→13:09)
[2019-04-07] MEDS ORDERED: ALBUTEROL SO4 0.083% IH SOL 2.5 MG/3 ML VIAL.NEB. NEB ONE ×3 (04:01→20:15)
[2019-04-07] MEDS ORDERED: PREGABALIN 100 MG CAPSULE ONE ×2 (05:59→15:08)
[2019-04-07] MEDS: PREGABALIN 100 MG CAPSULE PO SCH ×3 (06:04→23:50)
[2019-04-07] MEDS ORDERED: metFORMIN HCL 500 MG TABLET (FP) ONE (06:31)
[2019-04-07] MEDS ORDERED: metFORMIN HCL 500 MG TABLET (FP) PO SCH (07:00)
[2019-04-07 07:09] LABS: INR 2.02 (0.83-1.09)
[2019-04-07 07:11] LABS: ALBUMIN 3.6 g/dl (3.4-5.0); BILIRUBIN,DIRECT 0.2 mg/dL (0.0-0.2); BILIRUBIN,TOTAL 0.9 mg/dL (0.2-1); BLOOD UREA NITROGEN 14.6 mg/dL (7-18); CALCIUM 8.6 mg/dL (8.5-10.1); CREATININE 1.1 mg/dL (0.55-1.3); MAGNESIUM 2.3 mg/dL (1.8-2.4); PHOSPHOROUS 3.4 mg/dL (2.5-4.9); POTASSIUM 4.5 mmol/L (3.5-5.1); TOT PROT 7.2 g/dl (6.4-8.2)
[2019-04-07 07:18] LABS: BASO % 0.1 % (0-2.0); EOS % 0.1 % (0-4.5); HEMATOCRIT 40.7 % (35.4-49); HEMOGLOBIN 13.8 GM/dL (11.7-16.9); LYMPH % 19.6 % (8-40); MCH 31.6 pg (25.7-33.7); MCHC 33.9 g/dl (32.0-35.9); MEAN CELL VOLUME 93.1 fl (80-96); MEAN PLT VOLUME 8.2 fl (7.5-11.1); MONO % 1.9 % (3.8-10.2); NEUT % 78.3 % (42.8-82.8); PLATELET COUNT 187 K/MM3 (134-434); RBC 4.37 M/mm3 (4.00-5.60); RDW 15.6 % (11.9-15.9); WHITE BLOOD COUNT 3.2 K/mm3 (4.0-10.0)
--- NOTE | 2019-04-07 07:44 | PN ---
Progress Note (short form) - Note Progress Note: c/o dyspnea but overall improved. no recent changes to medications. claims compliance. seems he is not compliant with diet and will not admit if been eating higher in salt content food. denies CP, fever, chills, N/V/C/D had stress test >2 years ago does not know results Current Medications Generic Name Dose Route Start Last Admin Trade Name Freq PRN Reason Stop Dose Admin Albuterol Sulfate 1 amp 04/07/19 00:00 04/07/19 03:56 Ventolin 0.083% Nebulizer Soln - NEB 1 amp RQ4H MAXIMINO Administration Amitriptyline HCl 50 mg 04/07/19 22:00 Elavil - PO HS MAXIMINO Furosemide 40 mg 04/07/19 10:00 Lasix Injection - IVPUSH DAILY MAXIMINO Metformin HCl 500 mg 04/07/19 07:00 04/07/19 06:37 Glucophage - PO 500 mg BIDAC MAXIMINO Administration Nitroglycerin 0.4 mg 04/06/19 23:18 Nitrostat - SL Q5M PRN FOR CHEST PAIN Pregabalin 100 mg 04/07/19 06:00 04/07/19 06:04 Lyrica - PO 100 mg TID MAXIMINO Administration Ramipril 10 mg 04/07/19 10:00 Altace - PO DAILY [facility] Last Vital Signs Temp Pulse Resp BP Pulse Ox 98.3 F 74 16 148/88 98 04/07/19 00:07 04/07/19 06:20 04/07/19 05:57 04/07/19 06:20 04/07/19 06:20 Intake & Output 04/04/19 04/05/19 04/06/19 04/07/19 23:59 23:59 23:59 23:59 Output Total 1200 Balance -1200 Weight 204 lb General NAD CV S1 S2 + Lungs coarse breath sounds, decreased R base Abdomen soft NT/ND obese Extremities 1+ edema LLE trace RLE CBCD WBC 3.2 K/mm3 (4.0-10.0) L 04/07/19 06:18 RBC 4.37 M/mm3 (4.00-5.60) 04/07/19 06:18 Hgb 13.8 GM/dL (11.7-16.9) 04/07/19 06:18 Hct 40.7 % (35.4-49) 04/07/19 06:18 MCV 93.1 fl (80-96) 04/07/19 06:18 MCHC 33.9 g/dl (32.0-35.9) 04/07/19 06:18 RDW 15.6 % (11.9-15.9) 04/07/19 06:18 Plt Count 187 K/MM3 (134-434) 04/07/19 06:18 MPV 8.2 fl (7.5-11.1) 04/07/19 06:18 CMP Sodium 140 mmol/L (136-145) 04/07/19 06:18 Potassium 4.5 mmol/L (3.5-5.1) 04/07/19 06:18 Chloride 103 mmol/L (98-107) 04/07/19 06:18 Carbon Dioxide 30 mmol/L (21-32) 04/07/19 06:18 Anion Gap 6 MMOL/L (8-16) L 04/07/19 06:18 BUN 14.6 mg/dL (7-18) 04/07/19 06:18 Creatinine 1.1 mg/dL (0.55-1.3) 04/07/19 06:18 Random Glucose 201 mg/dL (74-106) H 04/07/19 06:18 Calcium 8.6 mg/dL (8.5-10.1) 04/07/19 06:18 Total Bilirubin 0.9 mg/dL (0.2-1) 04/07/19 06:18 AST 29 U/L (15-37) 04/07/19 06:18 ALT 60 U/L (13-61) 04/07/19 06:18 Alkaline Phosphatase 100 U/L (45-117) 04/07/19 06:18 Total Protein 7.2 g/dl (6.4-8.2) 04/07/19 06:18 Albumin 3.6 g/dl (3.4-5.0) 04/07/19 06:18 CARDIAC ENZYMES Creatine Kinase 96 U/L (26-308) 04/06/19 20:00 Troponin I < 0.02 ng/ml (0.00-0.05) 04/06/19 20:00 A/P 73yo M with PMH afib on coumadin, HTN, DM and depression presented to the ER with wheezing and SOB for 2 days and found to be in acute hypoxic respiratory failure due to volume overload 1. Acute hypoxic respiratory failure- currently on bipap. satuarting 99%. will titrate down supplemental oxygen as tolerated. diurese. received solumedrol on arrival. will hold steroids at this time. will need to be evaluated for home O2 prior to discharge 2. Acute CHF exacerbation- no known hx of CHF. will obtain echo. cont with lasix 40mg IV. daily weights, strict I&O, monitor electrolytes. cardio consulted. will need to determine if needs ischemia eval prior to discharge. will need optimization of meds, betablocker when stable 3. HTN urgency- received NTG with good response. re-started home meds. will titrate meds to optimize dose 4. DM- hold oral agents. ixx and bgm 5. afib- rate control. cont coumadin. 6. DVT ppx- coumadin Visit type - Emergency Visit Emergency Visit: Yes ED Registration Date: 04/06/19 Care time: The patient presented to the Emergency Department on the above date and was hospitalized for further evaluation of their emergent condition. - New Patient This patient is new to me today: Yes Date on this admission: 04/07/19 - Critical Care Critical Care patient: No - Discharge Referral Referred to [facility] No
--- NOTE | 2019-04-07 08:54 | CON.CARD ---
Consult Consult Specialty:: Cardiology Referred by:: Dr. Kan Reason for Consultation:: CHF - History of Present Illness Chief Complaint: Wheezing History of Present Illness: 73M with history of AF, STEPHEN on CPAP, PAD, DVT on AC presents to ER with one week of progressively worsening wheezing and CARBAJAL. Initially very hypertensive in ER. BNP elevated, CXR with increased PVC. Feeling better after receiving 80mg IV Lasix , Solumedrol and NIPPV overnight. Afebrile, denies productive cough. No CP or palps. No reported increase in edema. 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: No: Alzheimer's, CVA, Dementia, Migraine, Multiple Sclerosis, Peripheral Neuropathy, Parkinson's, Seizure, Syncope, TIA, Vertigo, Other Cardio/Vascular: Yes: AFIB, Deep Vein Thrombosis, Other (STEPHEN) Pulmonary: Yes: Sleep Apnea Gastrointestinal: No: Ascites, Cancer, Constipation, Crohn's Disease, Diverticulitis, Diverticulosis, Esophageal Varices, Gastritis, GERD, GI Bleed, Hemorrhoids, Hiatal Hernia, Inflamatory Bowel Disease, Irritable Bowel Disease, Pancreatitis, Peptic Ulcer Disease, Ulcerative Colitis, Other Hepatobiliary: No: Cirrhosis, Cholelithiasis, Cholecystitis, Choledocholithiasis , Hepatitis A, Hepatitis B, Hepatitis C, Other Renal/: No: Renal Failure, Renal Inusuff, BPH, Cancer, Hematuria, Hemodialysis , Neurogenic Bladder, Renal Calculi, UTI, Other Heme/Onc: No: Anemia, B12 Deficiency, Bleeding Disorder, Cancer, Current Chemotherapy, Current Radiation Therapy, Hemochromatosis, Hypercoaguable State, Myeloproliferative Synd, Sickle Cell Disease, Sickle Cell Trait, Thrombocytopenia, Other Infectious Disease: No: AIDS, C-Diff, Herpes Zoster, HIV, MRSA, STD's, Tuberculosis, VREF, Other Psych: No: Addictions, Anxiety, Bipolar, Depression, Panic, Psychosis, Schizophrenia, Other Musculoskeletal: No: Bursitis, Chronic low back pain, Hemiparesis, Hemiplegia, Osteoarthritis, Paraplegia, Other Endocrine: Yes: Diabetes Mellitus (with neuropathy) - Smoking History Smoking history: Never smoked - Social History History of Recent Travel: No Home Medications - Allergies Allergies/Adverse Reactions: Allergies Allergy/AdvReac Type Severity Reaction Status Date / Time No Known Allergies Allergy Verified 04/06/19 19:50 - Home Medications Home Medications: Ambulatory Orders Amitriptyline HCl [Elavil -] 50 mg PO DAILY 04/07/19 Carvedilol 25 mg PO BID 04/07/19 Chlorhexidine Gluconate [Paroex] 30 ml MM DAILY 04/07/19 Duloxetine HCl 30 mg PO DAILY 04/07/19 Pregabalin [Lyrica] 25 mg PO DAILY 04/07/19 Ramipril 10 mg PO DAILY 04/07/19 Warfarin Sodium [Coumadin] 2.5 mg PO DAILY 04/07/19 metFORMIN HCL [Metformin HCl] 500 mg PO BID 04/07/19 Family Disease History - Family Disease History Family History: Unremarkable (denies early CAD or SCD) Review of Systems Findings/Remarks: see HPI - Review of Systems Constitutional: reports: No Symptoms Eyes: reports: No Symptoms HENT: reports: No Symptoms Neck: reports: No Symptoms Cardiovascular: reports: Shortness of Breath Respiratory: reports: Exercise Intolerance, Snoring, SOB on Exertion Gastrointestinal: denies: No Symptoms, Abdominal Pain, Bloating, Constipation, Diarrhea, Dysphagia, Indigestion, Melena, Nausea, Rectal Bleeding, Vomiting, Vomiting Blood, Other Genitourinary: denies: No Symptoms, Burning, Discharge, Dysuria, Flank Pain, Frequency, Hematuria, Incontinence, Lesions, Menses, Pain, Testicular Mass, Testicular Pain, Testicular Swelling, Urgency, Vaginal Bleeding, Other Breasts: denies: No Symptoms Reported, See HPI, Breast Implants, Discharge from Nipple, Lumps, Pain, Skin Changes, Other Musculoskeletal: denies: No Symptoms, Back Pain, Crepitus, Decreased ROM, Extremity Pain, Joint Pain, Joint Swelling, Muscle Pain, Muscle Cramps, Muscle Weakness, Other Integumentary: denies: No Symptoms, Blister, Bruising, Change in Color, Eczema, Erythema, Incision, Lesions, Lump, Pallor, Pruritis, Rash, Wound, Other Neurological: denies: No Symptoms, Change in LOC, Change in Speech, Confusion, Dizziness, Headache, Incoordination, Numbness, Parasthesia, Pre-Existing Deficit , Seizure, Syncope, Tremors, Unsteady Gait, Weakness, Other Endocrine: denies: No Symptoms, Excessive Sweating, Flushing, Increased Hunger, Increased Thirst, Intolerance to Cold, Intolerance to Heat, Unexplained Weight Gain, Unexplained Weight Loss, Other Hematology/Lymphatic: denies: No Symptoms, Easily Bruised, Excessive Bleeding, Swollen Glands, Other Psychiatric: denies: No Symptoms, Altered Sleep Pattern, Anxiety, Depression, Hallucinations, Panic, Paranoia, Suicidal, Other - Risk Factors Known Risk Factors: Yes: Diabetes Mellitus Vital Signs: Vital Signs Temperature 98.3 F 04/07/19 00:07 Pulse Rate 75 04/07/19 08:00 Respiratory Rate 18 04/07/19 08:00 Blood Pressure 157/79 04/07/19 08:00 O2 Sat by Pulse Oximetry (%) 100 04/07/19 08:00 Constitutional: Yes: No Distress Eyes: Yes: Conjunctiva Clear Respiratory: Yes: Other (decreased breath sounds at bases, mild expiratory wheezing persists) Gastrointestinal: Yes: Soft, Abdomen, Obese Cardiovascular: Yes: Pulse Irregular JVD: No Carotid Bruit: No Heart Sounds: Yes: S1, S2 (irregular) Edema: Yes Edema: LLE: 1+ (venous stasis), RLE: 1+ (venous stasis) Neurological: Yes: Alert, Oriented ...Motor Strength: WNL - Other Data Labs, Other Data: CBC, BMP 04/07/19 06:18 04/07/19 06:18 INR, PTT INR 2.02 (0.83-1.09) H 04/07/19 06:18 Troponin, BNP 04/06/19 04/06/19 20:00 20:00 Troponin I < 0.02 B-Natriuretic Peptide 3123.4 H Troponin, BNP 04/06/19 04/06/19 20:00 20:00 Troponin I < 0.02 B-Natriuretic Peptide 3123.4 H Laboratory Tests 04/06/19 04/06/19 04/06/19 20:00 20:00 23:07 WBC Hgb Plt Count INR ABG pH 7.45 ABG pCO2 at Pt Temp 37.4 ABG pO2 at Pt Temp 56.1 L Oxygen Flow Rate 35% Sodium Potassium Creatinine Total Bilirubin Direct Bilirubin AST Troponin I < 0.02 B-Natriuretic Peptide 3123.4 H 04/07/19 04/07/19 04/07/19 06:18 06:18 06:18 WBC 3.2 L Hgb 13.8 Plt Count 187 INR 2.02 H ABG pH ABG pCO2 at Pt Temp ABG pO2 at Pt Temp Oxygen Flow Rate Sodium 140 Potassium 4.5 Creatinine 1.1 Total Bilirubin 0.9 Direct Bilirubin 0.2 AST 29 Troponin I B-Natriuretic Peptide AF, controlled, NSST changes. Echo: Pending Imaging - Results Chest X-ray: Image Reviewed EKG: Image Reviewed Assessment/Plan IMP: 1. Acute on chronic CHF (systolic vs diastolic?), likely triggered by uncontrolled chronic HTN 2. STEPHEN 3. Acute on chronic hypoxic respiratory failure 4. Permanent atrial fibrillation on Warfarin 5. History of DVT 6. PAD REC: 1. Admit to telemetry for IV Lasix, daily weights and BMP to monitor renal fx 2. Echo for EF assessment, RVSP estimate 3. Serial cardiac enzymes. 4. Recommend stress MPI when euvolemic to r/o ischemic component, if not done recently- office records to be reviewed. 5. Continue IV Lasix 6. Continue Ramipril and resume usual Coreg dose this evening. 7. NIPPV 8. Maintain INR 2-3 for h/o AF and DVT.
[2019-04-07] MEDS: FUROSEMIDE 40 MG/4 ML INJECTABLE VIAL IVPUSH SCH (10:00)
[2019-04-07] MEDS ORDERED: RAMIPRIL 5 MG CAPSULE (FP) PO SCH (10:00)
[2019-04-07] MEDS: INSULIN SLIDING SCALE (NOVOLOG) 1 VIAL SQ SCH ×3 (11:53→23:50)
--- NOTE | 2019-04-07 15:19 | EKG ---
Test Reason : Blood Pressure : / mmHG Vent. Rate : 096 BPM Atrial Rate : 096 BPM P-R Int : 000 ms QRS Dur : 086 ms QT Int : 348 ms P-R-T Axes : 000 019 060 degrees QTc Int : 439 ms POOR DATA QUALITY, INTERPRETATION MAY BE ADVERSELY AFFECTED ATRIAL FIBRILLATION NONSPECIFIC ST AND T WAVE ABNORMALITY ABNORMAL ECG NO PREVIOUS ECGS AVAILABLE Confirmed by MD Humble, Yaya ([id number]) on 04/07/2019 3:18:37 PM Referred By: Confirmed By:Yaya Kate MD
[2019-04-07] MEDS: WARFARIN NA 2.5 MG TABLET (FP) PO SCH (19:00)
[2019-04-07] MEDS ORDERED: ALBUTEROL SO4 2.5/IPRATROPIUM 0.5 INH SOL 3 ML VIAL.NEB. NEB ONE ×2 (19:12→19:33)
[2019-04-07 23:43] VITALS: BMI 34.7
[2019-04-07] MEDS: AMITRIPTYLINE HCL 50 MG TABLET PO SCH (23:49)
[2019-04-08] MEDS: ALBUTEROL SO4 0.083% IH SOL 2.5 MG/3 ML VIAL.NEB. NEB SCH ×6 (00:15→20:40)
[2019-04-08] MEDS: PREGABALIN 100 MG CAPSULE PO SCH ×3 (06:28→21:28)
[2019-04-08] MEDS: INSULIN SLIDING SCALE (NOVOLOG) 1 VIAL SQ SCH ×4 (06:29→21:28)
[2019-04-08 08:13] LABS: INR 2.78 (0.83-1.09); PROTHROMBIN TIME (PATIENT) 33.1 SEC (9.7-13.0)
--- NOTE | 2019-04-08 08:29 | PN ---
Physical Exam: SUBJECTIVE: Patient seen and examined no acute events overnight; patient states that he did not sleep well and that he felt he was wheezing a little throughout the night though he did wear the BIPAP through the night; he states he is having good urine output; he denies any CP/SOB/N/V put out 2.4 L: in 24 hours OBJECTIVE: Vital Signs Period Temp Pulse Resp BP Sys/Tamayo Pulse Ox Last 24 Hr 97.6 F-98.4 F 64-86 14-20 121-151/75-100 97-100 GENERAL: The patient is awake, alert, and fully oriented, in no acute distress, wearing 2L NC EYES: PEERLA: EOMI; no scleral icterus NECK:no JVD; no lymphadenopathy LUNGS: diffuse wheezes auscultated B/L HEART: irregularly irregular +s1 s2 ABDOMEN: soft; NT/ND +BS EXTREMITIES: 2+ pulses, warm, well-perfused, trace edema B/L. PSYCH: Normal mood, normal affect. SKIN: Warm, dry, normal turgor, no rashes or lesions noted Laboratory Results - last 24 hr 04/07/19 04/07/19 04/07/19 06:18 11:52 16:07 PT with INR INR POC Glucometer 190 207 Hemoglobin A1c % 6.6 H 04/07/19 04/07/19 04/08/19 16:36 22:27 05:51 PT with INR INR POC Glucometer 225 157 155 Hemoglobin A1c % 04/08/19 06:05 PT with INR 33.10 H INR 2.78 H POC Glucometer Hemoglobin A1c % Active Medications Generic Name Dose Route Start Last Admin Trade Name Autumn PRN Reason Stop Dose Admin Albuterol Sulfate 1 amp 04/07/19 00:00 04/08/19 04:10 Ventolin 0.083% Nebulizer Soln - NEB Not Given RQ4H MAXIMINO Amitriptyline HCl 50 mg 04/07/19 22:00 04/07/19 23:49 Elavil - PO 50 mg HS MAXIMINO Administration Furosemide 40 mg 04/07/19 10:00 04/07/19 10:00 Lasix Injection - IVPUSH 40 mg DAILY MAXIMINO Administration Insulin Aspart 1 vial 04/07/19 11:00 04/08/19 06:29 Novolog Vial Sliding Scale - SQ Not Given ACHS MAXIMINO Protocol Nitroglycerin 0.4 mg 04/06/19 23:18 Nitrostat - SL Q5M PRN FOR CHEST PAIN Pneumococcal 13-Valent Conj Vacc 0.5 ml 04/08/19 10:00 Prevnar 13 Syringe - IM 04/08/19 10:01 .ONCE ONE Pregabalin 100 mg 04/07/19 06:00 04/08/19 06:28 Lyrica - PO 100 mg TID MAXIMINO Administration Ramipril 10 mg 04/07/19 10:00 04/07/19 10:00 Altace - PO 10 mg DAILY MAXIMINO Administration Warfarin Sodium 2.5 mg 04/07/19 18:00 04/07/19 19:00 Coumadin - PO 2.5 mg DAILY@1800 MAXIMINO Administration ASSESSMENT/PLAN: 73 year old male, with PMH of Afib (on coumadin ), HTN, Depression, DM and neuropathy, who arrived to ED with 2-3 days complain of wheezing and difficulty breathing found to be in acute hypoxic respiratory failure. #Acute Hypoxic Respiratory Failure likely 2/2 volume overload -patient saturating well on nasal cannula and using BIPAP at night -still having wheezing on exam this AM; will give 40mg prednisone and nebulizer treatment and reassess -will monitor o2 saturation and titrate accordingly #CHF exacerbation patient presented with volume overload -output was 2.4 L in 24 hours -IV lasix 40; can most likely transition to PO tomorrow as patient appears more euvolemic -echo ordered -cardio on board; will likely need stress test -monitor I's and O's; daily weights #GLORIA patients Cr this AM went from 1.1 to 1.4 -possibly medication induced; will hold AM lasix #HTN patient had hypertenisve urgency initially on arrival which has since resolved -will c/w home meds #Afib patient on coumadin -INR this am 2.7 -maintain INR between 2-3 #DM BGMS ACHS ISS ACHS lyrica for neuropathy F/E/N not on fluids monitor electrolytes diabetic diet DVT PPX: coumadin Problem List - Problems (1) Acute CHF (congestive heart failure) Code(s): I50.9 - HEART FAILURE, UNSPECIFIED (2) CHF (congestive heart failure) Code(s): I50.9 - HEART FAILURE, UNSPECIFIED (3) Diabetes mellitus with neuropathy Code(s): E11.40 - TYPE 2 DIABETES MELLITUS WITH DIABETIC NEUROPATHY, UNSP (4) HTN (hypertension) Code(s): I10 - ESSENTIAL (PRIMARY) HYPERTENSION Visit type - Emergency Visit Emergency Visit: Yes ED Registration Date: 04/06/19 Care time: The patient presented to the Emergency Department on the above date and was hospitalized for further evaluation of their emergent condition. - New Patient This patient is new to me today: Yes Date on this admission: 04/08/19 - Critical Care Critical Care patient: No ATTENDING PHYSICIAN STATEMENT I saw and evaluated the patient. I reviewed the resident's note and discussed the case with the resident. I agree with the resident's findings and plan as documented. SUBJECTIVE: OBJECTIVE: ASSESSMENT AND PLAN:
[2019-04-08 08:39] LABS: BLOOD UREA NITROGEN 30.6 mg/dL (7-18); CALCIUM 8.8 mg/dL (8.5-10.1); CREATININE 1.4 mg/dL (0.55-1.3); MAGNESIUM 2.4 mg/dL (1.8-2.4); POTASSIUM 4.3 mmol/L (3.5-5.1)
[2019-04-08] MEDS ORDERED: PT OWN MED DRAWER 7, Y5N ONE ×2 (09:08→13:39)
--- NOTE | 2019-04-08 09:23 | PN ---
Teaching Attending Note Name of Resident: Lynette Rice ATTENDING PHYSICIAN STATEMENT I saw and evaluated the patient. I reviewed the resident's note and discussed the case with the resident. I agree with the resident's findings and plan as documented. SUBJECTIVE:c/o wheezing. denies CP, SOB< fever, chills, N/V/C/D, cough, orthopnea OBJECTIVE: Last Vital Signs Temp Pulse Resp BP Pulse Ox 97.6 F 85 20 151/82 98 04/08/19 05:00 04/08/19 05:00 04/08/19 05:00 04/08/19 05:00 04/08/19 05:05 Intake & Output 04/05/19 04/06/19 04/07/19 04/08/19 23:59 23:59 23:59 23:59 Intake Total 320 Output Total 1800 600 Balance -1480 -600 Weight 204 lb 255 lb 9.6 oz 252 lb 9.6 oz General NAD CV S1 S2 + Lungs diffuse wheezing. decrease R base ABdomen soft NT/ND obese Extremities trace pitting edema ASSESSMENT AND PLAN: 73yo M with PMH afib on coumadin, HTN, DM and depression presented to the ER with wheezing and SOB for 2 days and found to be in acute hypoxic respiratory failure due to volume overload 1. Acute hypoxic respiratory failure-saturating 98% on 2L NC. diffuse wheezing. will give pred 40mg and nebulizer at this time and re-assess. titrate down supplemental oxygen as tolerated. will need to be evaluated for home O2 prior to discharge 2. Acute CHF exacerbation- no known hx of CHF. clinically improved. would hold lasix dose given rapid increase in GLORIA and not appearing volume overloaded today. 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 daily weights, strict I&O, monitor electrolytes. cardio consulted. will need to determine if needs ischemia eval prior to discharge. will need optimization of meds, betablocker when stable 3. HTN urgency- received NTG with good response. re-started home meds. will titrate meds to optimize dose 4. GLORIA- likely medication induced vs HTN episode on arrival. will hold lasix. stating having good UOP. will monitor. avoid nephrotoxic agents 5. DM- A1c 6.6 hold oral agents. iss and bgm 6. afib- rate control. cont coumadin. 7. DVT ppx- coumadin
[2019-04-08] MEDS ORDERED: PNEUMOC 13-VAL CONJ-DIP CRM/PF 0.5 ML DISP.SYRIN IM ONE (10:00)
--- NOTE | 2019-04-08 10:30 | PN ---
Progress Note, Physician Chief Complaint: down 3lbs But c/o "wheezing" with breakfast TELE: Controlled AF, 3 beat run NSVT History of Present Illness: CHF - Current Medication List Current Medications: Active Medications Albuterol Sulfate (Ventolin 0.083% Nebulizer Soln -) 1 amp NEB RQ4H [facility] Last Admin: 04/08/19 09:00 Dose: 1 amp Amitriptyline HCl (Elavil -) 50 mg PO HS [facility] Last Admin: 04/07/19 23:49 Dose: 50 mg Carvedilol (Coreg -) 25 mg PO BID [facility] Furosemide (Lasix Injection -) 40 mg IVPUSH DAILY [facility] Last Admin: 04/07/19 10:00 Dose: 40 mg Insulin Aspart (Novolog Vial Sliding Scale -) 1 vial SQ ACHS [facility]; Protocol Last Admin: 04/08/19 06:29 Dose: Not Given Nitroglycerin (Nitrostat -) 0.4 mg SL Q5M PRN PRN Reason: FOR CHEST PAIN Pregabalin (Lyrica -) 100 mg PO TID [facility] Last Admin: 04/08/19 06:28 Dose: 100 mg Warfarin Sodium (Coumadin -) 2.5 mg PO DAILY@1800 [facility] Last Admin: 04/07/19 19:00 Dose: 2.5 mg - Objective Vital Signs: Vital Signs Temperature 97.6 F 04/08/19 05:00 Pulse Rate 85 04/08/19 05:00 Respiratory Rate 20 04/08/19 05:00 Blood Pressure 151/82 04/08/19 05:00 O2 Sat by Pulse Oximetry (%) 98 04/08/19 05:05 Constitutional: Yes: Calm Cardiovascular: Yes: Pulse Irregular Respiratory: Yes: Other (rales at bases) Gastrointestinal: Yes: Soft, Abdomen, Obese Edema: Yes Edema: LLE: 2+ (venous stasis), RLE: 2+ (venous stasis) Neurological: Yes: Alert, Oriented Labs: CBC, BMP 04/07/19 06:18 04/08/19 06:05 INR, PTT INR 2.78 (0.83-1.09) H 04/08/19 06:05 - ....Imaging EKG: Image Reviewed Assessment/Plan IMP: 1. Acute on chronic CHF (systolic vs diastolic?), likely triggered by uncontrolled chronic HTN 2. STEPHEN 3. Acute on chronic hypoxic respiratory failure 4. Permanent atrial fibrillation on Warfarin 5. History of DVT 6. PAD 7. Acute renal insuffiency REC: 1. Admit to telemetry for IV Lasix, daily weights and BMP to monitor renal fx. Weight is down. Would like to diurese more aggressively but noted bump in BUN and creat, may be due to relatively brisk drop in BP. Continue current dose for now. Ramipril held due to fluctuation in renal fx 2. Echo for EF assessment, RVSP estimate 3. Serial cardiac enzymes. 4. Recommend stress MPI when euvolemic to r/o ischemic component, if not done recently- office records to be reviewed. 5. NIPPV 6. Maintain INR 2-3 for h/o AF and DVT.
[2019-04-08] MEDS: FUROSEMIDE 40 MG/4 ML INJECTABLE VIAL IVPUSH SCH (10:32)
[2019-04-08] MEDS: CARVEDILOL 25 MG TABLET (FP) PO SCH ×2 (10:35→21:27)
[2019-04-08] MEDS ORDERED: predniSONE 20 MG TABLET (UD) PO ONE (10:53)
[2019-04-08] MEDS: WARFARIN NA 2.5 MG TABLET (FP) PO SCH (17:44)
[2019-04-08] MEDS: AMITRIPTYLINE HCL 50 MG TABLET PO SCH (21:28)
[2019-04-09] MEDS: ALBUTEROL SO4 0.083% IH SOL 2.5 MG/3 ML VIAL.NEB. NEB SCH ×3 (00:08→07:25)
[2019-04-09] MEDS: PREGABALIN 100 MG CAPSULE PO SCH ×3 (06:15→21:38)
[2019-04-09] MEDS: INSULIN SLIDING SCALE (NOVOLOG) 1 VIAL SQ SCH ×4 (06:16→21:38)
[2019-04-09] MEDS ORDERED: ALBUTEROL SO4 0.083% IH SOL 2.5 MG/3 ML VIAL.NEB. NEB PRN (08:03)
[2019-04-09 08:40] LABS: BLOOD UREA NITROGEN 28.2 mg/dL (7-18); CALCIUM 8.7 mg/dL (8.5-10.1); CREATININE 1.1 mg/dL (0.55-1.3); MAGNESIUM 2.5 mg/dL (1.8-2.4); POTASSIUM 5.1 mmol/L (3.5-5.1)
[2019-04-09 09:16] LABS: INR 2.9 (0.83-1.09); PROTHROMBIN TIME (PATIENT) 34.6 SEC (9.7-13.0)
--- NOTE | 2019-04-09 09:41 | PN ---
Progress Note, Physician Chief Complaint: sob History of Present Illness: thinks sob is a bit better--still sob walking short distance bed to chair. also legs feel weak no chest pain. no palpitations. no syncope no cigs - Current Medication List Current Medications: Active Medications Albuterol Sulfate (Ventolin 0.083% Nebulizer Soln -) 1 amp NEB Q4H PRN PRN Reason: WHEEZING Amitriptyline HCl (Elavil -) 50 mg PO HS [facility] Last Admin: 04/08/19 21:28 Dose: 50 mg Carvedilol (Coreg -) 25 mg PO BID [facility] Last Admin: 04/08/19 21:27 Dose: 25 mg Furosemide (Lasix Injection -) 40 mg IVPUSH DAILY [facility] Last Admin: 04/08/19 10:32 Dose: 40 mg Insulin Aspart (Novolog Vial Sliding Scale -) 1 vial SQ ACHS [facility]; Protocol Last Admin: 04/09/19 06:16 Dose: Not Given Nitroglycerin (Nitrostat -) 0.4 mg SL Q5M PRN PRN Reason: FOR CHEST PAIN Pregabalin (Lyrica -) 100 mg PO TID [facility] Last Admin: 04/09/19 06:15 Dose: 100 mg Warfarin Sodium (Coumadin -) 2.5 mg PO DAILY@1800 [facility] Last Admin: 04/08/19 17:44 Dose: 2.5 mg - Objective Vital Signs: Vital Signs Temperature 97.0 F L 04/09/19 05:00 Pulse Rate 78 04/09/19 05:00 Respiratory Rate 20 04/09/19 05:00 Blood Pressure 148/76 04/09/19 05:00 O2 Sat by Pulse Oximetry (%) 95 04/09/19 04:14 Constitutional: Yes: No Distress, Calm Eyes: No: Sclera Icterus HENT: No: Nasal Congestion Cardiovascular: Yes: Pulse Irregular, S1, S2, Other (PMI non diplaced). No: JVD , Gallop, Murmur Respiratory: Yes: CTA Bilaterally, Diminished (L base). No: Accessory Muscle Use, Rales, Wheezes Gastrointestinal: Yes: Normal Bowel Sounds, Soft. No: Tenderness Musculoskeletal: Yes: Other (No kyphosis) Extremities: No: Cyanosis Edema: No Integumentary: No: Jaundice Neurological: Yes: Alert, Oriented (x3) Psychiatric: No: Agitated Labs: CBC, BMP 04/07/19 06:18 04/09/19 05:44 INR, PTT INR 2.90 (0.83-1.09) H 04/09/19 05:44 Assessment/Plan Echo 08/15: EF 35-40%, RV mod dilated, sev LAE. valve fxn not described. ao sinus 4.3 cm. elevated PAEDP. [facility] 2017: 30% LM bifurcation, mild LCX and RCA disease. RA 8, PA 46/22, PCWP 22, CI 2.0. tele: AF, slow conduction to 30s at 3:20 pm yesterday. artifact IMP: 1. Acute on chronic systolic CHF (nonisch CMP), likely triggered by uncontrolled chronic HTN. troponins negative, no suspicion of ACS. 2. STEPHEN 3. Acute on chronic hypoxic respiratory failure 4. Permanent atrial fibrillation on Warfarin, prior peripheral artery occludsion felt embolic 5. History of DVT 6. PAD (2018: occluded L SFA, collaterals with distal reconst of flow. severe stenosis L A.T., decr SELENA) 7. Acute renal insuffiency REC: 1. on torsemide 20 qd at home per admit notes. receiving IV Lasix 40 qd. wt down 255 to 252 (dry wt unknown). renal fxn stable. BNP 3K, no priors. 2. repeat echo for EF assessment, RVSP estimate 4. Recommend stress MPI when euvolemic to r/o ischemic component, if not done recently- office records to be reviewed. 5. NIPPV 6. Maintain INR 2-3 for h/o AF and DVT. 7. suspect transient slow AF is vagally mediated (benign process) in pt with STEPHEN. cont carvedilol 25 bid for now, monitor tele--consider reduce dose later. 8. on ramipril 10 qd at home--resume here at 5mg given episode of hypotension (bp currently stable)
[2019-04-09] MEDS: FUROSEMIDE 40 MG/4 ML INJECTABLE VIAL IVPUSH SCH (10:22)
[2019-04-09] MEDS: CARVEDILOL 25 MG TABLET (FP) PO SCH ×2 (10:22→21:38)
--- NOTE | 2019-04-09 12:13 | ECHO ---
Name: MEENUIVETTE JAZZY Exam:Adult Echocardiogram Study Date: 04/09/2019 08:35 AM Age: 73 yrs Reason For Study: baseline chf Height: 72 in Weight: 204 lb BSA: 2.1 m2 MMode/2D Measurements & Calculations IVSd: 1.1 cm Ao root diam: 3.7 cm LVIDd: 5.2 cm LA dimension: 4.6 cm LVIDs: 3.9 cm LVPWd: 1.3 cm LVPWs: 1.8 cm EDV(Teich): 130.8 ml ESV(Teich): 66.6 ml LVOT diam: 1.8 cm RV S Jeromy: 15.0 cm/sec Doppler Measurements & Calculations Ao V2 max: 99.7 cm/sec LV V1 max P.0 mmHg Ao max P.0 mmHg LV V1 mean P.55 mmHg Ao V2 mean: 71.1 cm/sec LV V1 max: 50.6 cm/sec Ao mean P.3 mmHg LV V1 mean: 35.0 cm/sec Ao V2 VTI: 21.6 cm LV V1 VTI: 10.0 cm SUMEET(I,D): 1.2 cm2 SUMEET(V,D): 1.3 cm2 SV(LVOT): 25.3 ml TR max jeromy: 238.1 cm/sec TR max P.8 mmHg PA V2 max: 86.9 cm/sec Med Peak E' Jeromy: 7.2 cm/sec PA max P.0 mmHg Lat Peak E' Jeromy: 11.1 cm/sec Procedure A complete two-dimensional transthoracic echocardiogram was performed (2D, M-mode, Doppler and color flow Doppler). Technically limiteed study. Left Ventricle The left ventricle is normal in size. There is mild concentric left ventricular hypertrophy. Left tim tricular systolic function is low normal. Ejection Fraction = 50-55%. No regional wall motion abnormalities no jacklyn. Right Ventricle The right ventricle is not well visualized. Atria The left atrial size is normal. Right atrial size is normal. Mitral Valve The mitral valve is normal in structure and function. There is mild mitral regurgitation. Tricuspid Valve The tricuspid valve is normal in structure and function. There is mild tricuspid regurgitation. Right ventricular systolic pressure is normal. Aortic Valve The aortic valve is normal in structure and function. No aortic regurgitation is present. Pulmonic Valve The pulmonic valve is not well visualized. Great Vessels The aortic root is normal size. Pericardium/Pleura There is no pericardial effusion. Interpretation Summary Technically limiteed study The left ventricle is normal in size. There is mild concentric left ventricular hypertrophy. Left ventricular systolic function is low normal. No regional wall motion abnormalities noted. Ejection Fraction = 50-55%. The left atrial size is normal. Right atrial size is normal. There is mild mitral regurgitation. There is mild tricuspid regurgitation. Right ventricular systolic pressure is normal. There is no pericardial effusion. Previous study is not available for comparison Sharif Moreau MD 04/09/2019 12:12 PM
--- NOTE | 2019-04-09 13:56 | PN ---
Teaching Attending Note Name of Resident: Jason Razo ATTENDING PHYSICIAN STATEMENT I saw and evaluated the patient. I reviewed the resident's note and discussed the case with the resident. I agree with the resident's findings and plan as documented. SUBJECTIVE:asymptomatic. denies CP, SOB, fevfer, chills, N/V/C/D OBJECTIVE: Last Vital Signs Temp Pulse Resp BP Pulse Ox 98.1 F 71 18 152/85 94 L 04/09/19 09:00 04/09/19 12:06 04/09/19 09:00 04/09/19 09:00 04/09/19 12:06 Intake & Output 04/06/19 04/07/19 04/08/19 04/09/19 23:59 23:59 23:59 23:59 Intake Total 320 1220 420 Output Total 1800 1900 300 Balance -1480 -680 120 Weight 204 lb 255 lb 9.6 oz 252 lb 9.6 oz 252 lb 9.6 oz General NAD CV S1 S2 + Lungs CTA B/L no wheezing/rales/rhonchi ABdomen soft NT/ND obese Extremities trace pitting edema ASSESSMENT AND PLAN: 73yo M with PMH afib on coumadin, HTN, DM and depression presented to the ER with wheezing and SOB for 2 days and found to be in acute hypoxic respiratory failure due to volume overload 1. Acute hypoxic respiratory failure- clinically improved. was tested and qualifies for home O2. nebs prn 2. Acute CHF exacerbation- no known hx of CHF. clinically improved. appears mostly euvolemic and switched to lasix po. echo pending. will liekly require stress test as per patient has not had one for >5 years. will plan for tomorrow. daily weights, strict I&O, monitor electrolytes. cardio consulted. will need optimization of meds, started on lisinopril. can titrate as needed. 3. HTN urgency- improved but above goal. started on lisinopril. titrate as needed. 4. GLORIA- likely medication induced vs HTN episode on arrival. now improved. avoid nephrotoxic agents 5. DM- A1c 6.6 hold oral agents. iss and bgm 6. afib- rate control. cont coumadin. 7. DVT ppx- coumadin 8. was unable to ambulate well with PT. recommending [facility]. as per patient he is not financially stable at this time and can not go to [facility]. understands that being weak and then requiring home O2 will be difficult but states his girlfriend will move in with him to assist but adamant that he can not go to rehab,. understands risks of going home and falling due to being weak as he is on a blood thinner which poses risks of fatal bleeding and fractures. plan tomorrow after stress test
--- NOTE | 2019-04-09 17:10 | PN ---
Physical Exam: SUBJECTIVE: 73 y/o M with PMH of Afib (on coumadin ), HTN, major depression, DM , who presented to the ED w wheezing and SOB. Pt put on c-pap in ED. Patient denies CP, PERALES, dizziness, and NVFD. He denies urinary symptoms. Pt was given lasix, nebs, and steriod IVPB in ED w some relief. OBJECTIVE: Vital Signs Temp Pulse Resp BP Pulse Ox 98.1 F 64 20 133/76 94 L 04/09/19 15:07 04/09/19 15:07 04/09/19 15:04/09/19 15:04/09/19 12:06 GENERAL: The patient is awake, alert, and fully oriented, in no acute distress. HEAD: Normal with no signs of trauma. EYES: VALERIE, EOMI, conjunctiva clear. No ptosis. ENT: Ears normal, nares patent, oropharynx clear without exudates, moist mucous membranes. NECK: Trachea midline, full range of motion, supple. LUNGS: Breath sounds equal, clear to auscultation bilaterally, no wheezes, no crackles, no accessory muscle use. HEART: Regular rate and rhythm, S1, S2 without murmur, rub or gallop. ABDOMEN: Soft, nontender, nondistended, normoactive bowel sounds, no guarding, no rebound, no hepatosplenomegaly, no masses. EXTREMITIES: 2+ pulses, warm, well-perfused, no edema. NEUROLOGICAL: Cranial nerves II through XII grossly intact. Normal speech, gait not observed. PSYCH: Normal mood, normal affect. SKIN: Dry crust around mouth. Warm, dry, normal turgor, no rashes or lesions noted Laboratory Results - last 24 hr 04/08/19 04/09/19 04/09/19 21:23 05:14 05:44 PT with INR INR Sodium 140 Potassium 5.1 Chloride 105 Carbon Dioxide 33 H Anion Gap 2 L BUN 28.2 H Creatinine 1.1 Est GFR (CKD-EPI)AfAm 77.86 Est GFR (CKD-EPI)NonAf 67.18 POC Glucometer 193 197 Random Glucose 185 H Calcium 8.7 Magnesium 2.5 H 04/09/19 04/09/19 04/09/19 05:44 10:28 16:49 PT with INR 34.60 H INR 2.90 H Sodium Potassium Chloride Carbon Dioxide Anion Gap BUN Creatinine Est GFR (CKD-EPI)AfAm Est GFR (CKD-EPI)NonAf POC Glucometer 171 205 Random Glucose Calcium Magnesium Active Medications Albuterol Sulfate (Ventolin 0.083% Nebulizer Soln -) 1 amp NEB Q4H PRN PRN Reason: WHEEZING Amitriptyline HCl (Elavil -) 50 mg PO HS [facility] Last Admin: 04/08/19 21:28 Dose: 50 mg Carvedilol (Coreg -) 25 mg PO BID [facility] Last Admin: 04/09/19 10:22 Dose: 25 mg Furosemide (Lasix Injection -) 40 mg IVPUSH DAILY [facility] Last Admin: 04/09/19 10:22 Dose: 40 mg Insulin Aspart (Novolog Vial Sliding Scale -) 1 vial SQ ACHS [facility]; Protocol Last Admin: 04/09/19 10:31 Dose: Not Given Nitroglycerin (Nitrostat -) 0.4 mg SL Q5M PRN PRN Reason: FOR CHEST PAIN Pregabalin (Lyrica -) 100 mg PO TID [facility] Last Admin: 04/09/19 14:51 Dose: 100 mg Ramipril (Altace -) 5 mg PO DAILY [facility] Warfarin Sodium (Coumadin -) 2.5 mg PO DAILY@1800 [facility] Last Admin: 04/08/19 17:44 Dose: 2.5 mg ASSESSMENT/PLAN: 73 y/o M w PMH of Afib (on coumadin ), HTN, major depression, DM, who presented to the ED w wheezing and SOB, found to be in acute hypoxic respiratory failure due to volume overload. Today, pt was unable to ambulate well with PT. Recommending [facility]URYN but declined by pt 2/2 financial inability. Pt informed and understands risks of going home and falling, including additional r/o treatment w blood thinner and concurrent risks of fatal bleeding and fractures. Pt wishes to return home with help from girlfriend. Current plan is to f/u stress test tomorrow. # Acute hypoxic respiratory failure - Clinically improved - Pre/post performed: Qualifies for home O2 and nebs prn # Acute CHF exacerbation - Clinically improved - No known h/o CHF - PO lasix - POS echo today > echo tomorrow - Daily weights - Strict I&O - Monitor electrolytes - Cardio consulted. will need optimization of meds, started on lisinopril. can titrate as needed. # HTN urgency - Cont. lisinopril # GLORIA - Most likely d/t medication on arrival - Improving - Avoid nephrotoxic agents # DM - A1c 6.6 - Hold oral agents - ISS - BGM # A. fib - Rate control - Cont coumadin # DVT prophylaxis - Pt on coumadin Jason Razo MD Visit type - Emergency Visit Emergency Visit: No - New Patient This patient is new to me today: No - Critical Care Critical Care patient: No - Discharge Referral Referred to [facility] No ATTENDING PHYSICIAN STATEMENT I saw and evaluated the patient. I reviewed the resident's note and discussed the case with the resident. I agree with the resident's findings and plan as documented. SUBJECTIVE: OBJECTIVE: ASSESSMENT AND PLAN:
[2019-04-09] MEDS ORDERED: INSULIN (NOVOLOG) ASPART 100 UNITS/ML 10ML VIAL ONE (17:29)
[2019-04-09] MEDS: WARFARIN NA 2.5 MG TABLET (FP) PO SCH (17:36)
[2019-04-09] MEDS: AMITRIPTYLINE HCL 50 MG TABLET PO SCH (21:38)
[2019-04-10] MEDS: PREGABALIN 100 MG CAPSULE PO SCH ×2 (06:01→13:55)
[2019-04-10] MEDS: INSULIN SLIDING SCALE (NOVOLOG) 1 VIAL SQ SCH ×2 (06:03→12:43)
[2019-04-10 07:14] LABS: INR 3.22 (0.83-1.09); PROTHROMBIN TIME (PATIENT) 38.4 SEC (9.7-13.0)
[2019-04-10 07:17] LABS: ALBUMIN 3.2 g/dl (3.4-5.0); BILIRUBIN,TOTAL 0.4 mg/dL (0.2-1); BLOOD UREA NITROGEN 24.3 mg/dL (7-18); CALCIUM 8.5 mg/dL (8.5-10.1); MAGNESIUM 2.4 mg/dL (1.8-2.4); PHOSPHOROUS 3.3 mg/dL (2.5-4.9); POTASSIUM 4.1 mmol/L (3.5-5.1); TOT PROT 6.1 g/dl (6.4-8.2)
[2019-04-10] MEDS ORDERED: RAMIPRIL 5 MG CAPSULE (FP) PO SCH ×2 (08:00→10:00)
[2019-04-10] MEDS: FUROSEMIDE 40 MG/4 ML INJECTABLE VIAL IVPUSH SCH (08:20)
[2019-04-10] MEDS ORDERED: REGADENOSON 0.4 MG/5 ML PRE-FILLED SYRINGE IVPUSH ONE ×2 (09:15→09:30)
[2019-04-10] MEDS: CARVEDILOL 25 MG TABLET (FP) PO SCH (12:43)
--- NOTE | 2019-04-10 12:46 | PN ---
Teaching Attending Note Name of Resident: Jason Razo ATTENDING PHYSICIAN STATEMENT I saw and evaluated the patient. I reviewed the resident's note and discussed the case with the resident. I agree with the resident's findings and plan as documented. SUBJECTIVE: Feeling better. SOB improved. No CP/palps. OBJECTIVE: Afebrile, Hemodynamically Stable. Last Vital Signs Temp Pulse Resp BP Pulse Ox 98.2 F 65 18 145/95 98 04/10/19 07:50 04/10/19 07:50 04/10/19 07:50 04/10/19 07:50 04/09/19 21:00 HEENT - Atrauamtic. No pharyngeal erythema/exudate Heart - S1, S2, Lungs - Clear to auscultation Abdomen - soft, non-tender. Bowel Sounds normal. Extremities - No calf tenderness Laboratory Results - last 24 hr 04/09/19 04/09/19 04/10/19 16:49 20:56 05:54 PT with INR INR Sodium Potassium Chloride Carbon Dioxide Anion Gap BUN Creatinine Est GFR (CKD-EPI)AfAm Est GFR (CKD-EPI)NonAf POC Glucometer 205 194 144 Random Glucose Calcium Phosphorus Magnesium Total Bilirubin AST ALT Alkaline Phosphatase Total Protein Albumin 04/10/19 04/10/19 06:25 06:25 PT with INR 38.40 H INR 3.22 H Sodium 142 Potassium 4.1 Chloride 106 Carbon Dioxide 34 H Anion Gap 2 L BUN 24.3 H Creatinine 1.0 Est GFR (CKD-EPI)AfAm 87.37 Est GFR (CKD-EPI)NonAf 75.39 POC Glucometer Random Glucose 144 H Calcium 8.5 Phosphorus 3.3 Magnesium 2.4 Total Bilirubin 0.4 AST 17 ALT 38 Alkaline Phosphatase 79 Total Protein 6.1 L Albumin 3.2 L Current Medications Generic Name Dose Route Start Last Admin Trade Name Freq PRN Reason Stop Dose Admin Albuterol Sulfate 1 amp 04/09/19 08:03 Ventolin 0.083% Nebulizer Soln - NEB Q4H PRN WHEEZING Amitriptyline HCl 50 mg 04/07/19 22:00 04/09/19 21:38 Elavil - PO 50 mg HS [facility]IMINO Administration Carvedilol 25 mg 04/08/19 10:00 04/09/19 21:38 Coreg - PO 25 mg BID MAXIMINO Administration Furosemide 40 mg 04/07/19 10:00 04/10/19 08:20 Lasix Injection - IVPUSH 40 mg DAILY [facility] Administration Insulin Aspart 1 vial 04/07/19 11:00 04/10/19 06:03 Novolog Vial Sliding Scale - SQ Not Given ACHS COUNT [facility]CLUD[facility] Protocol Nitroglycerin 0.4 mg 04/06/19 23:18 Nitrostat - SL Q5M PRN FOR CHEST PAIN Pregabalin 100 mg 04/07/19 06:00 04/10/19 06:01 Lyrica - PO 100 mg TID MAXIMINO Administration Ramipril 5 mg 04/10/19 08:00 04/10/19 08:20 Altace - PO 5 mg DAILY MAXIMINO Administration Warfarin Sodium 2.5 mg 04/07/19 18:00 04/09/19 17:36 Coumadin - PO 2.5 mg DAILY@1800 MAXIMINO Administration Home Medications Medication Instructions Recorded Amitriptyline HCl [Elavil -] 50 mg PO DAILY 04/07/19 Carvedilol 25 mg PO BID 04/07/19 Chlorhexidine Gluconate [Paroex] 30 ml MM DAILY 04/07/19 Duloxetine HCl 30 mg PO DAILY 04/07/19 Pregabalin [Lyrica] 25 mg PO DAILY 04/07/19 Ramipril 10 mg PO DAILY 04/07/19 Warfarin Sodium [Coumadin] 2.5 mg PO DAILY 04/07/19 metFORMIN HCL [Metformin HCl] 500 mg PO BID 04/07/19 ASSESSMENT AND PLAN: 73 year old male with history of Atrial fibrillation on Coumadin, HTN, DM 2, and Depression, presented with 2 day history of wheezing and SOB. 1. Acute Hypoxic Respiratory Failure secondary to Acute decompensation of diastolic CHF CXR - Cardiomegaly, congestive changes. Echo - EF 50-55%, LVH. Improved with IV Lasix diuresis. On Torsemide at home - Cardiology to advise regarding appropriate diuretic on discharge. Failed weaning trial - qualifies for home O2 - will be discharged on O2. Evaluated by Cardiology - recommendation for stress test - result pending. If negative, patient is optimized for discharge. 2. Hypertensive urgency - resolved but BPs above goal. Continue Ramipril and Coreg. If HTN persists, will up-titrate ramipril dose, with out-patient renal function monitoring as out-patient in 2-3 weeks. 3. GLORIA - resolved. Resumed on SATNAM-I. 4. DM 2 - Controlled. A1C 6.6. Metformin held - covered with Sliding Scale. 5. Atrial fibrillation, rate controlled. Continue Coreg and AC with Coumadin. INR 3.22 today - hold Coumadin today - for INR check in AM and further Coumadin dosing as per INR. 6. Depression - continue Duloxetine, Amitriptyline. No SI. DVT Px - On Coumadin Dispo - Declines SNF/[facility]
--- NOTE | 2019-04-10 14:08 | PN ---
Progress Note, Physician Chief Complaint: seen and examined Feels well, improved. TELE: Controlled AF, pauses all less than 3 seconds History of Present Illness: weight is up today: ?compliance with fluid restrictions - Current Medication List Current Medications: Active Medications Albuterol Sulfate (Ventolin 0.083% Nebulizer Soln -) 1 amp NEB Q4H PRN PRN Reason: WHEEZING Amitriptyline HCl (Elavil -) 50 mg PO HS [facility] Last Admin: 04/09/19 21:38 Dose: 50 mg Carvedilol (Coreg -) 25 mg PO BID [facility] Last Admin: 04/10/19 12:43 Dose: 25 mg Furosemide (Lasix Injection -) 40 mg IVPUSH DAILY [facility] Last Admin: 04/10/19 08:20 Dose: 40 mg Insulin Aspart (Novolog Vial Sliding Scale -) 1 vial SQ ACHS [facility]; Protocol Last Admin: 04/10/19 12:43 Dose: Not Given Nitroglycerin (Nitrostat -) 0.4 mg SL Q5M PRN PRN Reason: FOR CHEST PAIN Pregabalin (Lyrica -) 100 mg PO TID [facility] Last Admin: 04/10/19 13:55 Dose: 100 mg Ramipril (Altace -) 5 mg PO DAILY [facility] Last Admin: 04/10/19 08:20 Dose: 5 mg Warfarin Sodium (Coumadin -) 2.5 mg PO DAILY@1800 [facility] Last Admin: 04/09/19 17:36 Dose: 2.5 mg - Objective Vital Signs: Vital Signs Temperature 98.2 F 04/10/19 07:50 Pulse Rate 65 04/10/19 07:50 Respiratory Rate 18 04/10/19 09:00 Blood Pressure 145/95 04/10/19 07:50 O2 Sat by Pulse Oximetry (%) 100 04/10/19 09:00 Constitutional: Yes: No Distress Cardiovascular: Yes: Pulse Irregular Respiratory: Yes: Rhonchi (no rales, lung exam improved.) Gastrointestinal: Yes: Soft, Abdomen, Obese Edema: No Neurological: Yes: Alert, Oriented Labs: CBC, BMP 04/07/19 06:18 04/10/19 06:25 INR, PTT INR 3.22 (0.83-1.09) H 04/10/19 06:25 - ....Imaging EKG: Image Reviewed Assessment/Plan Assessment/Plan Echo 08/15: EF 35-40%, RV mod dilated, sev LAE. valve fxn not described. ao sinus 4.3 cm. elevated PAEDP. [facility] 2017: 30% LM bifurcation, mild LCX and RCA disease. RA 8, PA 46/22, PCWP 22, CI 2.0. tele: AF, slow conduction to 30s at 3:20 pm yesterday. artifact IMP: 1. Acute on chronic systolic CHF (nonisch CMP), likely triggered by uncontrolled chronic HTN. troponins negative, no suspicion of ACS. 2. STEPHEN 3. Acute on chronic hypoxic respiratory failure 4. Permanent atrial fibrillation on Warfarin, prior peripheral artery occludsion felt embolic 5. History of DVT 6. PAD (2018: occluded L SFA, collaterals with distal reconst of flow. severe stenosis L A.T., decr SELENA) 7. Acute renal insuffiency REC: 1. Clinically improved from admission but weight up today. ?Compliance with fluid restriction? Can change to Lasix 40mg PO BID, with K suppliment. Will need close outpatient f/u of renal fxn 2. Echo EF 50-55%, nl RVSP 4. Nuclear stress today, LV dilated, no ischemia, EF 36% 5. NIPPV 6. Maintain INR 2-3 for h/o AF and DVT. Holding Coumadin today for supratherapeutic INR. 7. Suspect transient slow AF is vagally mediated (benign process) in pt with STEPHEN. No sig pauses noted to necessitate reduction of Coreg now. 8. Cont ramipril at adjusted dose
[2019-04-10 16:17] VITALS: BP 134/65; PULSE 62; TEMP 98.8
--- NOTE | 2019-04-10 17:31 | DS ---
Physical Exam: SUBJECTIVE: 73 y/o M with PMH of Afib (on coumadin ), HTN, major depression, DM , whom presented to the ED w wheezing and SOB. Pt put on c-pap in ED. Patient denies CP, PERALES, dizziness, and NVFD. He denies urinary and GI symptoms. Never experienced LOC, numbness, and tingling. Pt was given lasix, nebs, and steroid IVPB in ED w some relief. While here, pt's symptoms resolved. CHF with preserved EF found this admission. Cardiology recommends PO lasix. Pt also seen by PT whom determined pt need subacute rehab. Pt d/c to [facility]. OBJECTIVE: Vital Signs Temp Pulse Resp BP Pulse Ox 98.8 F 62 18 134/65 100 04/10/19 14:00 04/10/19 14:00 04/10/19 14:00 04/10/19 14:00 04/10/19 09:00 PHYSICAL EXAM GENERAL: Tattoos difusely placed on body. The patient is awake, alert, and fully oriented, in no acute distress. HEAD: Normal with no signs of trauma. EYES: VALERIE, EOMI, conjunctiva clear. No ptosis. ENT: Ears normal, nares patent, oropharynx clear without exudates, moist mucous membranes. NECK: Trachea midline, full range of motion, supple. LUNGS: Breath sounds equal, clear to auscultation bilaterally, no wheezes, no crackles, no accessory muscle use. HEART: Regular rate and rhythm, S1, S2 without murmur, rub or gallop. ABDOMEN: Soft, nontender, nondistended, normoactive bowel sounds, no guarding, no rebound, no hepatosplenomegaly, no masses. EXTREMITIES: 2+ pulses, warm, well-perfused, no edema. NEUROLOGICAL: Cranial nerves III through XII grossly intact. Normal speech, gait not observed. PSYCH: Normal mood, normal affect. SKIN: Warm, dry, normal turgor, no rashes or lesions noted LABS Laboratory Results - last 24 hr 04/09/19 04/10/19 04/10/19 20:56 05:54 06:25 PT with INR INR Sodium 142 Potassium 4.1 Chloride 106 Carbon Dioxide 34 H Anion Gap 2 L BUN 24.3 H Creatinine 1.0 Est GFR (CKD-EPI)AfAm 87.37 Est GFR (CKD-EPI)NonAf 75.39 POC Glucometer 194 144 Random Glucose 144 H Calcium 8.5 Phosphorus 3.3 Magnesium 2.4 Total Bilirubin 0.4 AST 17 ALT 38 Alkaline Phosphatase 79 Total Protein 6.1 L Albumin 3.2 L 04/10/19 04/10/19 06:25 12:41 PT with INR 38.40 H INR 3.22 H Sodium Potassium Chloride Carbon Dioxide Anion Gap BUN Creatinine Est GFR (CKD-EPI)AfAm Est GFR (CKD-EPI)NonAf POC Glucometer 132 Random Glucose Calcium Phosphorus Magnesium Total Bilirubin AST ALT Alkaline Phosphatase Total Protein Albumin HOSPITAL COURSE: Date of Admission:04/06/19 73 y/o M w PMH of Afib (on coumadin ), HTN, major depression, DM, who presented to the ED w wheezing and SOB, found to be in acute hypoxic respiratory decompensation 2/2 diastolic heart failure with preserved ejection fraction. Pre /post demonstrated pt need for home 02. Acute hypoxic respiratory failure clinically improved. CHF w preserved EF to be treated with PO lasix per cardiology. HTN and DM regimen unchanged through stay and will cont. home meds. A. fib regimen will remain: cont. coumadin and follow INR. PT recommeneds [facility]; [facility]. Date of Discharge: 04/10/19 Minutes to complete discharge: 40 Discharge Summary Reason For Visit: ARTIAL FIBRILLATION Current Active Problems Acute CHF (congestive heart failure) (Acute) Acute pulmonary edema (Acute) Afib (Acute) CHF (congestive heart failure) (Acute) Depression (Acute) Diabetes (Acute) Diabetes mellitus with neuropathy (Acute) HLD (hyperlipidemia) (Acute) HTN (hypertension) (Acute) Condition: Improved - Instructions Diet, Activity, Other Instructions: YOUR VISIT You were admitted to the hospital because you had shortness of breath. This was likely because your heart doesn't pump blood as well as it should. This caused fluid to go to your lungs resulting difficulty breathing.You were given water pills which helped you excrete the fluids. You will also be sent home on oxygen. [facility]. Your INR was also noted to be low on admission, we continued your warfarin dose of 2.5mg daily. Your INR today (04/10) is elevated at 3.22. Please hold your warfarin dose tonight. You will need an INR level tomorrow. Continue warfarin to keep INR level between 2-3. MEDICATIONS You were started on new medications. Please take them as prescribed. 1. Carvedilol (Coreg) 25mg twice a day. 2. Ramipril 5mg daily. 3. Lasix 40mg twice a day at 6am and 2pm. You may resume your home medications: - Amytriptyline 50 mg every day - Duloxetine 30 mg every day - Pregabalin 25 mg every day - Ramipril 10 mg every day - Warfarin 2.5 mg every day - Atorvastatin 20mg daily ADDITIONAL CARE 1. It is important you follow up with a primary care provider, Dr. Pierre, 1 week from today. You should also have blood work done in 3 weeks to check your kidney function. 2. Please follow up with your still runner (Dr. Arias). You have an appointment on Tuesday, 04/13. Please call the office to schedule the time. ADDITIONAL INFORMATION Please call 911 or come to the emergency department if you feel short of breath , chest pain, loss of energy, headache, fever, chills, abdominal pain, unusual bleeding or any other significant symptoms. Referrals: Aguilar Pierre MD [Primary Care Provider] - 1 Week Giselle Arias MD [Staff Physician] - 04/13/19 Disposition: [facility] - Home Medications Comprehensive Discharge Medication List: Ambulatory Orders Amitriptyline HCl [Elavil -] 50 mg PO DAILY 04/07/19 Carvedilol 25 mg PO BID 04/07/19 Chlorhexidine Gluconate [Paroex] 30 ml MM DAILY 04/07/19 Duloxetine HCl 30 mg PO DAILY 04/07/19 Pregabalin [Lyrica] 25 mg PO DAILY 04/07/19 metFORMIN HCL [Metformin HCl] 500 mg PO BID 04/07/19 Furosemide [Lasix -] 40 mg PO BID@0600,1400 tablet 04/10/19 Ramipril [Altace] 5 mg PO DAILY #0 capsule 04/10/19 Warfarin Na [Coumadin -] 2.5 mg PO DAILY@1800 tablet 04/10/19 This patient is new to me today: No Emergency Visit: No Critical Care patient: No - Discharge Referral Referred to [facility] Med [facility] No ATTENDING PHYSICIAN STATEMENT I saw and evaluated the patient. I reviewed the resident's note and discussed the case with the resident. I agree with the resident's findings and plan as documented. SUBJECTIVE: OBJECTIVE: ASSESSMENT AND PLAN:
[2019-04-11] MEDS ORDERED: FUROSEMIDE 40 MG TABLET (FP) PO SCH (06:00)
== END 2019-04-10 17:17 | DRG 291 ==
LOC: JER 19:08 → MERGE 22:01 → JERBED 22:01 → J4W 04-07 21:25
PROVIDERS: ADMIT Internal Medicine
DX: I11.0 Hypertensive heart disease with heart failure (principal); J96.21 Acute and chronic respiratory failure with hypoxia; N17.9 Acute kidney failure, unspecified; E11.9 Type 2 diabetes mellitus without complications; I50.23 Acute on chronic systolic (congestive) heart failure; G47.30 Sleep apnea, unspecified; I48.2 Chronic atrial fibrillation; E78.5 Hyperlipidemia, unspecified; I16.0 Hypertensive urgency; F32.9 Major depressive disorder, single episode, unspecified; E11.40 Type 2 diabetes mellitus with diabetic neuropathy, unspecified
CPT/HCPCS: 36415; 36600; 71045-TC-FY; 78452-TC; 80048; 80053; 80061; 82248; 82375; 82550; 82553; 82803; 82962; 83036; 83050; 83721; 83735; 83880; 84100; 84443; 84484; 85025; 85610; 85730; 86850; 86900; 86901; 90670; 93005; 93010; 93017; 93306-TC; 94640; 94660; 94761; 97116-GP; 97161-GP; 99285-25; A9502; J0131; J2785

== ENCOUNTER 2022-12-18 21:48 | Inpatient (IN) | payer OTHER ==
[2022-12-18] MEDS ORDERED: SODIUM CHLORIDE 0.9% 500 ML INFUS.BAG IV ONE (23:05)
[2022-12-18] MEDS ORDERED: CEFTRIAXONE 1,000 MG in DEXTROSE 5%-WATER - 50 ML IVPB ONE (23:57)
[2022-12-18] MEDS ORDERED: AZITHROMYCIN IVPB 500 MG in DEXTROSE 5%-WATER - 250 ML IVPB ONE (23:57)
[2022-12-19 00:06] LABS: VENOUS BASE EXCESS 7.5 mmol/L (-2-2); VENOUS O2 SATURATION 65.7 % (70-80); VENOUS PCO2 51.4 mmHg (38-52); VENOUS PH 7.43 (7.310-7.410)
[2022-12-19 00:13] LABS: BASO % 0.1 % (0-2.0); HEMATOCRIT 38.2 % (35.4-49); HEMOGLOBIN 13.1 GM/dL (11.7-16.9); LYMPH % 11.1 % (8-40); MCH 30.1 pg (25.7-33.7); MCHC 34.2 g/dl (32.0-35.9); MEAN CELL VOLUME 88.1 fl (80-96); MEAN PLT VOLUME 8.7 fl (7.5-11.1); MONO % 7.8 % (3.8-10.2); PLATELET COUNT 276 10^3/uL (134-434); RBC 4.33 M/mm3 (4.00-5.60); RDW 14.4 % (11.9-15.9)
[2022-12-19 00:18] LABS: INR 3.81 (0.83-1.09); PROTHROMBIN TIME (PATIENT) 43.6 SEC (9.7-13.0)
[2022-12-19 00:21] LABS: ACTIVATED PTT 45.9 SECONDS (25.2-36.5)
[2022-12-19 00:26] LABS: CHLORIDE 102 mmol/L (98-107); SODIUM 142 mmol/L (136-145)
[2022-12-19] MEDS ORDERED: CEFTRIAXONE 1 GM/50 ML BAG ONE (00:31)
[2022-12-19] MEDS ORDERED: AZITHROMYCIN IVPB 500 MG/250 ML BAG IVPB ONE (00:32)
[2022-12-19] MEDS ORDERED: ALBUTEROL SO4 2.5/IPRATROPIUM 0.5 INH SOL 3 ML VIAL.NEB. NEB ONE (00:45)
[2022-12-19] MEDS: ALBUTEROL SO4 2.5/IPRATROPIUM 0.5 INH SOL 3 ML VIAL.NEB. NEB SCH ×2 (00:49→02:51)
[2022-12-19 00:50] LABS: LACTIC ACID 2.1 mmol/L (0.4-2.0)
[2022-12-19 00:55] LABS: ALBUMIN 3.1 g/dl (3.4-5.0); ALK PHOS 65 U/L (45-117); ANION GAP 10 MMOL/L (8-16); BILIRUBIN,TOTAL 1.3 mg/dL (0.2-1); BLOOD UREA NITROGEN 21.9 mg/dL (7-18); CALCIUM 8.3 mg/dL (8.5-10.1); CO2 31 mmol/L (21-32); CREATININE 1.7 mg/dL (0.55-1.3); GLUCOSE,RANDOM 141 mg/dL (74-106); N-TERMINAL BNP 21820.2 pg/ml (5-450); PHOSPHOROUS 2.3 mg/dL (2.5-4.9); SGOT/AST 28 U/L (15-37); SGPT/ALT 29 U/L (13-61); TOT PROT 6.5 g/dl (6.4-8.2)
[2022-12-19] MEDS ORDERED: POTASSIUM CHLORIDE ORAL LIQUID 20 MEQ/15 ML PO ONE ×2 (03:45→08:36)
[2022-12-19 03:57] LABS: BLOOD UREA NITROGEN 21.5 mg/dL (7-18)
[2022-12-19 03:58] LABS: CHLORIDE 100 mmol/L (98-107); CO2 31 mmol/L (21-32); CREATININE 1.7 mg/dL (0.55-1.3); GLUCOSE,RANDOM 173 mg/dL (74-106); POTASSIUM 2.8 mmol/L (3.5-5.1); SODIUM 139 mmol/L (136-145)
[2022-12-19 03:59] LABS: CALCIUM 8.2 mg/dL (8.5-10.1); MAGNESIUM 1.2 mg/dL (1.8-2.4)
[2022-12-19] MEDS ORDERED: MAGNESIUM SULFATE IN WATER 2 GM/50 ML IVPB IVPB ONE (03:59)
[2022-12-19] MEDS ORDERED: POTASSIUM CHLORIDE ORAL LIQUID 20 MEQ/15 ML ONE (04:07)
[2022-12-19] MEDS ORDERED: DOCUSATE SODIUM 100 MG CAPSULE (FP) PO ONE (06:44)
[2022-12-19] MEDS ORDERED: SENNOSIDES 8.8 MG/5 ML SYRUP PO ONE (06:44)
[2022-12-19] MEDS: INSULIN SLIDING SCALE (NOVOLOG) 1 VIAL SQ SCH ×4 (06:59→22:25)
[2022-12-19] MEDS: KCL 10 MEQ IVPB 10 MEQ/100 ML INFUS.BAG IVPB SCH ×6 (07:02→15:20)
[2022-12-19] MEDS: FUROSEMIDE 40 MG/4 ML INJECTABLE VIAL IVPB SCH ×2 (07:02→15:19)
[2022-12-19 07:46] LABS: INR 3.94 (0.83-1.09); PROTHROMBIN TIME (PATIENT) 45.1 SEC (9.7-13.0)
[2022-12-19 07:52] LABS: HEMATOCRIT 37.7 % (35.4-49); MCH 30.7 pg (25.7-33.7); MCHC 34.5 g/dl (32.0-35.9); MEAN CELL VOLUME 89.1 fl (80-96); MEAN PLT VOLUME 9.7 fl (7.5-11.1); PLATELET COUNT 235 10^3/uL (134-434); RBC 4.23 M/mm3 (4.00-5.60); RDW 14.5 % (11.9-15.9)
[2022-12-19 07:57] LABS: CHLORIDE 101 mmol/L (98-107); SODIUM 141 mmol/L (136-145)
[2022-12-19 08:00] LABS: CALCIUM 8.2 mg/dL (8.5-10.1); GLUCOSE,RANDOM 154 mg/dL (74-106)
[2022-12-19 08:01] LABS: BLOOD UREA NITROGEN 21.8 mg/dL (7-18); CO2 32 mmol/L (21-32); MAGNESIUM 1.7 mg/dL (1.8-2.4)
[2022-12-19 08:04] LABS: CREATININE 1.7 mg/dL (0.55-1.3); PHOSPHOROUS 2.4 mg/dL (2.5-4.9); SGOT/AST 25 U/L (15-37); SGPT/ALT 25 U/L (13-61)
[2022-12-19 08:05] LABS: BILIRUBIN,TOTAL 1.1 mg/dL (0.2-1)
[2022-12-19 08:06] LABS: TOT PROT 6.3 g/dl (6.4-8.2)
[2022-12-19 08:07] LABS: ALK PHOS 64 U/L (45-117)
[2022-12-19 08:26] LABS: ANION GAP 8 MMOL/L (8-16); POTASSIUM 2.7 mmol/L (3.5-5.1)
[2022-12-19] MEDS ORDERED: NAPH,MB-DB/K PH,MBDB POWDER PACKET PO ONE (08:30)
[2022-12-19] MEDS ORDERED: MAGNESIUM 2GM/50ML STERILE WATER IVPB IVPB ONE (08:31)
[2022-12-19] MEDS ORDERED: ASPIRIN 81 MG CHEWABLE TABLETS PO SCH (10:00)
[2022-12-19] MEDS: RAMIPRIL 5 MG CAPSULE PO SCH (11:17)
[2022-12-19] MEDS: POTASSIUM CHLORIDE TABS 20 MEQ TABLET.ER (FP) PO SCH ×2 (11:48→22:24)
[2022-12-19] MEDS ORDERED: INSULIN (NOVOLOG) ASPART 100 UNITS/ML 10ML VIAL ONE ×3 (12:36→21:45)
[2022-12-19] MEDS: NAPH,MB-DB/K PH,MBDB POWDER PACKET PO SCH ×2 (14:05→22:25)
[2022-12-19 14:15] LABS: EPI CELLS 8 /uL (0-25.1); HYALINE CASTS 1 /uL (0-3.1); URINE APPEARANCE CLEAR; URINE BACTERIA 15 /uL (0-1359); URINE BILIRUBIN NEGATIVE (NEGATIVE); URINE COLOR YELLOW; URINE GLUCOSE (UA) NEGATIVE (NEGATIVE); URINE KETONE TRACE (NEGATIVE); URINE LEUK ESTERASE NEGATIVE (NEGATIVE); URINE NITRITE NEGATIVE (NEGATIVE); URINE PROTEIN 2+ (NEGATIVE); URINE RBC 36 /uL (0-23.9); URINE WBC 14 /uL (0-25.8)
[2022-12-19] MEDS ORDERED: PREGABALIN 100 MG CAPSULE PO PRN (14:41)
[2022-12-19] MEDS ORDERED: KCL 10 MEQ IVPB 10 MEQ/100 ML INFUS.BAG IVPB SCH (15:15)
[2022-12-19] MEDS: PREGABALIN 100 MG CAPSULE PO PRN ×2 (15:20→23:18)
[2022-12-19] MEDS ORDERED: ACETAMINOPHEN 325 MG TABLET (FP) PO ONE (15:31)
[2022-12-19] MEDS ORDERED: amLODIPine BESYLATE 5 MG TABLET (FP) PO ONE (15:32)
[2022-12-19 22:10] LABS: POTASSIUM 3.5 mmol/L (3.5-5.1)
[2022-12-19 22:11] LABS: CALCIUM 8.2 mg/dL (8.5-10.1)
[2022-12-19 22:12] LABS: BLOOD UREA NITROGEN 27.6 mg/dL (7-18)
[2022-12-19 22:15] LABS: CREATININE 1.9 mg/dL (0.55-1.3)
[2022-12-19] MEDS: CEFTRIAXONE 2 GM in DEXTROSE 5%-WATER 100 ML IVPB SCH (22:23)
[2022-12-19] MEDS: AZITHROMYCIN IVPB 500 MG/250 ML BAG IVPB SCH (22:23)
[2022-12-20] MEDS ORDERED: ACETAMINOPHEN 325 MG TABLET (FP) PO ONE (04:51)
[2022-12-20] MEDS ORDERED: INSULIN (NOVOLOG) ASPART 100 UNITS/ML 10ML VIAL ONE ×3 (06:14→22:33)
[2022-12-20] MEDS: INSULIN SLIDING SCALE (NOVOLOG) 1 VIAL SQ SCH ×4 (06:15→22:34)
[2022-12-20] MEDS: FUROSEMIDE 40 MG/4 ML INJECTABLE VIAL IVPB SCH ×2 (06:15→14:36)
[2022-12-20 07:51] LABS: HEMATOCRIT 34.2 % (35.4-49); HEMOGLOBIN 11.6 GM/dL (11.7-16.9); MCH 30.3 pg (25.7-33.7); MEAN CELL VOLUME 89.1 fl (80-96); MEAN PLT VOLUME 8.8 fl (7.5-11.1); PLATELET COUNT 260 10^3/uL (134-434); RBC 3.84 M/mm3 (4.00-5.60); RDW 14.4 % (11.9-15.9); WHITE BLOOD COUNT 8.4 K/mm3 (4.0-10.0)
[2022-12-20 08:05] LABS: INR 3.5 (0.83-1.09); PROTHROMBIN TIME (PATIENT) 40.1 SEC (9.7-13.0)
[2022-12-20 08:07] LABS: POTASSIUM 3.5 mmol/L (3.5-5.1)
[2022-12-20 08:20] LABS: ALBUMIN 2.7 g/dl (3.4-5.0)
[2022-12-20 08:21] LABS: BLOOD UREA NITROGEN 24.9 mg/dL (7-18)
[2022-12-20 08:23] LABS: CREATININE 1.6 mg/dL (0.55-1.3)
[2022-12-20 08:24] LABS: PHOSPHOROUS 2.4 mg/dL (2.5-4.9)
[2022-12-20 08:25] LABS: BILIRUBIN,TOTAL 1.1 mg/dL (0.2-1); TOT PROT 5.8 g/dl (6.4-8.2)
[2022-12-20] MEDS ORDERED: NAPH,MB-DB/K PH,MBDB POWDER PACKET PO ONE (08:27)
[2022-12-20] MEDS: POTASSIUM CHLORIDE TABS 20 MEQ TABLET.ER (FP) PO SCH ×2 (10:16→22:13)
[2022-12-20] MEDS: ASPIRIN COATED 81 MG TABLET.EC PO SCH (10:16)
[2022-12-20] MEDS: RAMIPRIL 5 MG CAPSULE PO SCH (10:17)
[2022-12-20] MEDS ORDERED: ALBUTEROL SO4 HFA INHALER IH PRN (10:49)
[2022-12-20] MEDS ORDERED: FUROSEMIDE 40 MG/4 ML INJECTABLE VIAL IVPUSH ONE (10:57)
[2022-12-20] MEDS: POLYETHYLENE GLYCOL (HEALTHYLAX) 3350 17 GM PACKET PO SCH ×2 (11:34→22:14)
[2022-12-20] MEDS: ALBUTEROL SO4 2.5/IPRATROPIUM 0.5 INH SOL 3 ML VIAL.NEB. NEB SCH ×3 (12:30→20:03)
[2022-12-20] MEDS ORDERED: VANCOMYCIN/WATER FOR INJ (PEG) 1,000 MG/200 ML BAG IVPB ONE (18:24)
[2022-12-20] MEDS ORDERED: ACETAMINOPHEN 1000 MG/100 ML BAG IVPB ONE (22:02)
[2022-12-20] MEDS: CEFTRIAXONE 2 GM in DEXTROSE 5%-WATER 100 ML IVPB SCH (22:14)
[2022-12-20] MEDS: AZITHROMYCIN IVPB 500 MG/250 ML BAG IVPB SCH (22:14)
[2022-12-20] MEDS: SENNOSIDES 8.8 MG/5 ML SYRUP PO SCH (22:17)
[2022-12-21] MEDS: ALBUTEROL SO4 2.5/IPRATROPIUM 0.5 INH SOL 3 ML VIAL.NEB. NEB SCH ×7 (00:30→23:18)
[2022-12-21] MEDS: INSULIN SLIDING SCALE (NOVOLOG) 1 VIAL SQ SCH ×4 (06:29→21:55)
[2022-12-21] MEDS: FUROSEMIDE 40 MG/4 ML INJECTABLE VIAL IVPB SCH ×2 (06:57→13:22)
[2022-12-21 07:56] LABS: HEMATOCRIT 35.8 % (35.4-49); HEMOGLOBIN 12.4 GM/dL (11.7-16.9); MCHC 34.6 g/dl (32.0-35.9); MEAN CELL VOLUME 89.7 fl (80-96); MEAN PLT VOLUME 9.8 fl (7.5-11.1); PLATELET COUNT 249 10^3/uL (134-434); RDW 14.7 % (11.9-15.9); WHITE BLOOD COUNT 8.1 K/mm3 (4.0-10.0)
[2022-12-21 08:17] LABS: CALCIUM 8.1 mg/dL (8.5-10.1)
[2022-12-21 08:18] LABS: ALBUMIN 2.6 g/dl (3.4-5.0); BLOOD UREA NITROGEN 30.2 mg/dL (7-18); MAGNESIUM 1.7 mg/dL (1.8-2.4)
[2022-12-21 08:20] LABS: CREATININE 1.7 mg/dL (0.55-1.3)
[2022-12-21 08:21] LABS: PHOSPHOROUS 3.7 mg/dL (2.5-4.9)
[2022-12-21 08:23] LABS: BILIRUBIN,TOTAL 0.7 mg/dL (0.2-1)
[2022-12-21] MEDS ORDERED: MAGNESIUM SULF 50% (8.12 MEQ/2 ML-1 GM VIAL) IVPB ONE (08:26)
[2022-12-21 08:33] LABS: INR 2.37 (0.83-1.09); PROTHROMBIN TIME (PATIENT) 27.3 SEC (9.7-13.0)
[2022-12-21] MEDS: TAMSULOSIN HCL 0.4 MG CAP PO SCH (09:55)
[2022-12-21] MEDS: RAMIPRIL 5 MG CAPSULE PO SCH (09:55)
[2022-12-21] MEDS: POLYETHYLENE GLYCOL (HEALTHYLAX) 3350 17 GM PACKET PO SCH ×2 (09:56→22:04)
[2022-12-21] MEDS: ASPIRIN COATED 81 MG TABLET.EC PO SCH (09:56)
[2022-12-21] MEDS ORDERED: INSULIN (NOVOLOG) ASPART 100 UNITS/ML 10ML VIAL ONE (12:12)
[2022-12-21] MEDS: PREGABALIN 100 MG CAPSULE PO SCH ×3 (14:08→22:02)
[2022-12-21] MEDS ORDERED: WARFARIN NA 2 MG TABLET PO SCH (18:00)
[2022-12-21] MEDS: NYSTATIN 100000 UNIT/GM TOPICAL OINTMENT 15 GM TUBE TP SCH (21:56)
[2022-12-21] MEDS: SENNOSIDES 8.8 MG/5 ML SYRUP PO SCH (21:56)
[2022-12-21] MEDS: CARVEDILOL 12.5 MG TABLET (FP) PO SCH (22:02)
[2022-12-21] MEDS: CEFTRIAXONE 2 GM in DEXTROSE 5%-WATER 100 ML IVPB SCH (22:02)
[2022-12-22] MEDS ORDERED: ACETAMINOPHEN 500 MG TABLET (FP) PO ONE ×2 (02:46→03:15)
[2022-12-22] MEDS: ALBUTEROL SO4 2.5/IPRATROPIUM 0.5 INH SOL 3 ML VIAL.NEB. NEB SCH ×5 (04:53→19:45)
[2022-12-22] MEDS: INSULIN SLIDING SCALE (NOVOLOG) 1 VIAL SQ SCH ×4 (06:31→22:14)
[2022-12-22] MEDS: FUROSEMIDE 40 MG/4 ML INJECTABLE VIAL IVPB SCH ×2 (07:05→13:20)
[2022-12-22] MEDS: PREGABALIN 100 MG CAPSULE PO SCH ×3 (07:05→21:45)
[2022-12-22] MEDS: POLYETHYLENE GLYCOL (HEALTHYLAX) 3350 17 GM PACKET PO SCH ×3 (07:06→21:45)
[2022-12-22 07:25] LABS: HEMATOCRIT 34.3 % (35.4-49); HEMOGLOBIN 11.8 GM/dL (11.7-16.9); MCH 30.8 pg (25.7-33.7); MCHC 34.4 g/dl (32.0-35.9); MEAN CELL VOLUME 89.6 fl (80-96); MEAN PLT VOLUME 9.2 fl (7.5-11.1); PLATELET COUNT 271 10^3/uL (134-434); RBC 3.84 M/mm3 (4.00-5.60); RDW 14.4 % (11.9-15.9); WHITE BLOOD COUNT 7.4 K/mm3 (4.0-10.0)
[2022-12-22 07:40] LABS: INR 1.71 (0.83-1.09); PROTHROMBIN TIME (PATIENT) 19.7 SEC (9.7-13.0)
[2022-12-22 07:45] LABS: POTASSIUM 3.9 mmol/L (3.5-5.1)
[2022-12-22 07:48] LABS: CALCIUM 8.1 mg/dL (8.5-10.1)
[2022-12-22 07:49] LABS: ALBUMIN 2.5 g/dl (3.4-5.0); BLOOD UREA NITROGEN 31.6 mg/dL (7-18)
[2022-12-22 07:52] LABS: CREATININE 1.6 mg/dL (0.55-1.3); PHOSPHOROUS 4.5 mg/dL (2.5-4.9)
[2022-12-22 07:53] LABS: BILIRUBIN,TOTAL 1.3 mg/dL (0.2-1); TOT PROT 5.8 g/dl (6.4-8.2)
[2022-12-22] MEDS: ASPIRIN COATED 81 MG TABLET.EC PO SCH (09:16)
[2022-12-22] MEDS: TAMSULOSIN HCL 0.4 MG CAP PO SCH (09:16)
[2022-12-22] MEDS: CARVEDILOL 12.5 MG TABLET (FP) PO SCH (09:16)
[2022-12-22] MEDS: NYSTATIN 100000 UNIT/GM TOPICAL OINTMENT 15 GM TUBE TP SCH ×2 (09:17→21:46)
[2022-12-22] MEDS: AZITHROMYCIN 250 MG TABLET PO SCH (09:20)
[2022-12-22] MEDS: CEFTRIAXONE 1 GM in DEXTROSE 5%-WATER - 50 ML IVPB SCH (09:20)
[2022-12-22] MEDS ORDERED: INSULIN (NOVOLOG) ASPART 100 UNITS/ML 10ML VIAL ONE (11:20)
[2022-12-22] MEDS: WARFARIN NA 2.5 MG TABLET PO SCH (18:22)
[2022-12-22] MEDS: CARVEDILOL 3.125 MG TABLET (FP) PO SCH (21:45)
[2022-12-22] MEDS: SENNOSIDES 8.8 MG/5 ML SYRUP PO SCH (21:45)
[2022-12-22] MEDS: SENNOSIDES/DOCUSATE COMBO (SENNA PLUS) TABLET (UD) PO PRN (21:45)
[2022-12-23] MEDS: ALBUTEROL SO4 2.5/IPRATROPIUM 0.5 INH SOL 3 ML VIAL.NEB. NEB SCH ×6 (04:00→20:45)
[2022-12-23] MEDS ORDERED: INSULIN (NOVOLOG) ASPART 100 UNITS/ML 10ML VIAL ONE (06:35)
[2022-12-23] MEDS: INSULIN SLIDING SCALE (NOVOLOG) 1 VIAL SQ SCH ×4 (06:36→22:19)
[2022-12-23] MEDS: FUROSEMIDE 40 MG/4 ML INJECTABLE VIAL IVPB SCH ×2 (06:36→14:03)
[2022-12-23] MEDS: POLYETHYLENE GLYCOL (HEALTHYLAX) 3350 17 GM PACKET PO SCH ×3 (06:36→22:19)
[2022-12-23] MEDS: PREGABALIN 100 MG CAPSULE PO SCH ×3 (06:36→22:19)
[2022-12-23 08:19] LABS: HEMATOCRIT 32.7 % (35.4-49); HEMOGLOBIN 11.1 GM/dL (11.7-16.9); MCH 30.5 pg (25.7-33.7); MEAN CELL VOLUME 89.7 fl (80-96); MEAN PLT VOLUME 9.3 fl (7.5-11.1); PLATELET COUNT 296 10^3/uL (134-434); RBC 3.65 M/mm3 (4.00-5.60); RDW 14.6 % (11.9-15.9); WHITE BLOOD COUNT 7.4 K/mm3 (4.0-10.0)
[2022-12-23 08:30] LABS: INR 1.53 (0.83-1.09); PROTHROMBIN TIME (PATIENT) 17.7 SEC (9.7-13.0)
[2022-12-23 08:37] LABS: POTASSIUM 4.2 mmol/L (3.5-5.1)
[2022-12-23 08:43] LABS: BLOOD UREA NITROGEN 42.9 mg/dL (7-18)
[2022-12-23 08:44] LABS: ALBUMIN 2.4 g/dl (3.4-5.0); CALCIUM 8.6 mg/dL (8.5-10.1); MAGNESIUM 2.1 mg/dL (1.8-2.4)
[2022-12-23 08:46] LABS: PHOSPHOROUS 3.9 mg/dL (2.5-4.9)
[2022-12-23 08:47] LABS: CREATININE 1.9 mg/dL (0.55-1.3)
[2022-12-23 08:48] LABS: BILIRUBIN,TOTAL 0.3 mg/dL (0.2-1)
[2022-12-23] MEDS: TAMSULOSIN HCL 0.4 MG CAP PO SCH (09:39)
[2022-12-23] MEDS: CARVEDILOL 3.125 MG TABLET (FP) PO SCH ×2 (09:39→22:19)
[2022-12-23] MEDS: CEFTRIAXONE 1 GM in DEXTROSE 5%-WATER - 50 ML IVPB SCH (09:40)
[2022-12-23] MEDS: SACUBITRIL/VALSARTAN 49 MG-51 MG TABLET PO SCH ×2 (09:40→22:20)
[2022-12-23] MEDS: AZITHROMYCIN 250 MG TABLET PO SCH (09:41)
[2022-12-23] MEDS: NYSTATIN 100000 UNIT/GM TOPICAL OINTMENT 15 GM TUBE TP SCH ×2 (09:41→22:19)
[2022-12-23] MEDS ORDERED: MAGNESIUM HYDROX 2400MG/30ML ORAL SUSPENSION 30 ML CUP PO ONE (10:33)
[2022-12-23] MEDS: WARFARIN NA 2.5 MG TABLET PO SCH (17:40)
[2022-12-23] MEDS: SENNOSIDES 8.8 MG/5 ML SYRUP PO SCH (22:19)
[2022-12-24] MEDS: ALBUTEROL SO4 2.5/IPRATROPIUM 0.5 INH SOL 3 ML VIAL.NEB. NEB SCH ×7 (00:55→23:20)
[2022-12-24] MEDS: INSULIN SLIDING SCALE (NOVOLOG) 1 VIAL SQ SCH ×4 (06:15→21:33)
[2022-12-24] MEDS: POLYETHYLENE GLYCOL (HEALTHYLAX) 3350 17 GM PACKET PO SCH ×3 (06:21→21:33)
[2022-12-24] MEDS: PREGABALIN 100 MG CAPSULE PO SCH ×3 (06:21→21:21)
[2022-12-24 06:31] LABS: HEMATOCRIT 33.5 % (35.4-49); HEMOGLOBIN 11.4 GM/dL (11.7-16.9); MCH 30.8 pg (25.7-33.7); MCHC 34.2 g/dl (32.0-35.9); MEAN CELL VOLUME 90.3 fl (80-96); PLATELET COUNT 296 10^3/uL (134-434); RBC 3.71 M/mm3 (4.00-5.60); RDW 14.4 % (11.9-15.9); WHITE BLOOD COUNT 6.8 K/mm3 (4.0-10.0)
[2022-12-24 06:42] LABS: INR 1.49 (0.83-1.09); PROTHROMBIN TIME (PATIENT) 17.2 SEC (9.7-13.0)
[2022-12-24 06:55] LABS: POTASSIUM 4.8 mmol/L (3.5-5.1)
[2022-12-24 06:58] LABS: ALBUMIN 2.4 g/dl (3.4-5.0); CALCIUM 8.3 mg/dL (8.5-10.1)
[2022-12-24 06:59] LABS: BLOOD UREA NITROGEN 40.9 mg/dL (7-18); MAGNESIUM 2.1 mg/dL (1.8-2.4)
[2022-12-24 07:01] LABS: CREATININE 1.8 mg/dL (0.55-1.3); PHOSPHOROUS 3.4 mg/dL (2.5-4.9)
[2022-12-24 07:03] LABS: BILIRUBIN,TOTAL 0.5 mg/dL (0.2-1); TOT PROT 5.9 g/dl (6.4-8.2)
[2022-12-24] MEDS: AZITHROMYCIN 250 MG TABLET PO SCH (09:28)
[2022-12-24] MEDS: TAMSULOSIN HCL 0.4 MG CAP PO SCH (09:29)
[2022-12-24] MEDS: CARVEDILOL 3.125 MG TABLET (FP) PO SCH ×2 (09:29→21:20)
[2022-12-24] MEDS: FUROSEMIDE 40 MG TABLET (FP) PO SCH (09:29)
[2022-12-24] MEDS: NYSTATIN 100000 UNIT/GM TOPICAL OINTMENT 15 GM TUBE TP SCH ×2 (09:30→21:23)
[2022-12-24] MEDS: SACUBITRIL/VALSARTAN 49 MG-51 MG TABLET PO SCH ×2 (09:30→21:20)
[2022-12-24] MEDS ORDERED: FUROSEMIDE 40 MG/4 ML INJECTABLE VIAL IVPB SCH (10:00)
[2022-12-24] MEDS ORDERED: INSULIN (NOVOLOG) ASPART 100 UNITS/ML 10ML VIAL ONE ×2 (11:53→17:35)
[2022-12-24] MEDS: CEFTRIAXONE 1 GM in DEXTROSE 5%-WATER - 50 ML IVPB SCH (15:00)
[2022-12-24] MEDS: WARFARIN NA 3 MG TABLET PO SCH (17:37)
[2022-12-24] MEDS: SENNOSIDES 8.8 MG/5 ML SYRUP PO SCH (21:20)
[2022-12-25] MEDS: ALBUTEROL SO4 2.5/IPRATROPIUM 0.5 INH SOL 3 ML VIAL.NEB. NEB SCH ×6 (03:01→23:51)
[2022-12-25] MEDS: POLYETHYLENE GLYCOL (HEALTHYLAX) 3350 17 GM PACKET PO SCH ×3 (05:56→22:16)
[2022-12-25] MEDS: PREGABALIN 100 MG CAPSULE PO SCH ×3 (05:56→22:16)
[2022-12-25] MEDS ORDERED: INSULIN (NOVOLOG) ASPART 100 UNITS/ML 10ML VIAL ONE ×4 (06:03→22:08)
[2022-12-25] MEDS: INSULIN SLIDING SCALE (NOVOLOG) 1 VIAL SQ SCH ×4 (06:14→22:15)
[2022-12-25 07:25] LABS: HEMATOCRIT 34.2 % (35.4-49); HEMOGLOBIN 11.9 GM/dL (11.7-16.9); MCH 31.5 pg (25.7-33.7); MCHC 34.8 g/dl (32.0-35.9); MEAN CELL VOLUME 90.4 fl (80-96); PLATELET COUNT 335 10^3/uL (134-434); RBC 3.78 M/mm3 (4.00-5.60); RDW 14.7 % (11.9-15.9); WHITE BLOOD COUNT 6.6 K/mm3 (4.0-10.0)
[2022-12-25 07:34] LABS: INR 1.49 (0.83-1.09); PROTHROMBIN TIME (PATIENT) 17.2 SEC (9.7-13.0)
[2022-12-25 07:43] LABS: POTASSIUM 4.8 mmol/L (3.5-5.1)
[2022-12-25] MEDS: TAMSULOSIN HCL 0.4 MG CAP PO SCH (07:46)
[2022-12-25 07:49] LABS: ALBUMIN 2.4 g/dl (3.4-5.0); BLOOD UREA NITROGEN 38.8 mg/dL (7-18); CALCIUM 8.7 mg/dL (8.5-10.1); MAGNESIUM 2.5 mg/dL (1.8-2.4)
[2022-12-25 07:52] LABS: CREATININE 1.7 mg/dL (0.55-1.3); PHOSPHOROUS 3.6 mg/dL (2.5-4.9)
[2022-12-25 07:54] LABS: BILIRUBIN,TOTAL 0.4 mg/dL (0.2-1)
[2022-12-25] MEDS: CARVEDILOL 3.125 MG TABLET (FP) PO SCH ×2 (09:42→22:16)
[2022-12-25] MEDS: SACUBITRIL/VALSARTAN 49 MG-51 MG TABLET PO SCH ×2 (09:42→22:16)
[2022-12-25] MEDS: FUROSEMIDE 40 MG TABLET (FP) PO SCH (09:42)
[2022-12-25] MEDS: CEFTRIAXONE 1 GM in DEXTROSE 5%-WATER - 50 ML IVPB SCH (09:42)
[2022-12-25] MEDS: NYSTATIN 100000 UNIT/GM TOPICAL OINTMENT 15 GM TUBE TP SCH ×2 (09:51→22:16)
[2022-12-25] MEDS ORDERED: ACETAMINOPHEN 325 MG TABLET (FP) PO ONE (15:15)
[2022-12-25] MEDS: WARFARIN NA 3 MG TABLET PO SCH (17:05)
[2022-12-25] MEDS: SENNOSIDES 8.8 MG/5 ML SYRUP PO SCH (22:17)
[2022-12-26] MEDS: ALBUTEROL SO4 2.5/IPRATROPIUM 0.5 INH SOL 3 ML VIAL.NEB. NEB SCH ×5 (04:00→20:00)
[2022-12-26] MEDS: POLYETHYLENE GLYCOL (HEALTHYLAX) 3350 17 GM PACKET PO SCH ×3 (06:08→21:22)
[2022-12-26] MEDS: PREGABALIN 100 MG CAPSULE PO SCH ×3 (06:08→21:22)
[2022-12-26] MEDS: SENNOSIDES/DOCUSATE COMBO (SENNA PLUS) TABLET (UD) PO PRN (06:09)
[2022-12-26] MEDS ORDERED: INSULIN (NOVOLOG) ASPART 100 UNITS/ML 10ML VIAL ONE ×3 (06:11→22:36)
[2022-12-26] MEDS: INSULIN SLIDING SCALE (NOVOLOG) 1 VIAL SQ SCH ×4 (06:25→22:36)
[2022-12-26] MEDS: TAMSULOSIN HCL 0.4 MG CAP PO SCH (07:39)
[2022-12-26 08:38] LABS: HEMATOCRIT 34.6 % (35.4-49); HEMOGLOBIN 11.6 GM/dL (11.7-16.9); MCH 30.2 pg (25.7-33.7); MCHC 33.5 g/dl (32.0-35.9); MEAN CELL VOLUME 90.1 fl (80-96); MEAN PLT VOLUME 8.5 fl (7.5-11.1); PLATELET COUNT 371 10^3/uL (134-434); RBC 3.84 M/mm3 (4.00-5.60); RDW 14.9 % (11.9-15.9); WHITE BLOOD COUNT 6.6 K/mm3 (4.0-10.0)
[2022-12-26 08:48] LABS: POTASSIUM 5.1 mmol/L (3.5-5.1)
[2022-12-26 08:52] LABS: ALBUMIN 2.4 g/dl (3.4-5.0); MAGNESIUM 2.3 mg/dL (1.8-2.4)
[2022-12-26 08:55] LABS: CREATININE 1.6 mg/dL (0.55-1.3)
[2022-12-26 08:56] LABS: BILIRUBIN,TOTAL 0.3 mg/dL (0.2-1)
[2022-12-26 08:57] LABS: TOT PROT 5.8 g/dl (6.4-8.2)
[2022-12-26] MEDS: SACUBITRIL/VALSARTAN 49 MG-51 MG TABLET PO SCH ×2 (09:07→21:22)
[2022-12-26] MEDS: FUROSEMIDE 40 MG TABLET (FP) PO SCH (09:07)
[2022-12-26] MEDS: CARVEDILOL 3.125 MG TABLET (FP) PO SCH ×2 (09:07→21:22)
[2022-12-26] MEDS: NYSTATIN 100000 UNIT/GM TOPICAL OINTMENT 15 GM TUBE TP SCH ×2 (09:09→21:22)
[2022-12-26] MEDS ORDERED: FUROSEMIDE 40 MG/4 ML INJECTABLE VIAL IVPUSH ONE (13:30)
[2022-12-26] MEDS ORDERED: morphine CARPU-JECT 4 MG/1 ML DISP.SYRIN IVPUSH PRN (16:17)
[2022-12-26] MEDS: WARFARIN NA 3 MG TABLET PO SCH (17:23)
[2022-12-26] MEDS: SENNOSIDES 8.8 MG/5 ML SYRUP PO SCH (21:22)
[2022-12-27] MEDS: ALBUTEROL SO4 2.5/IPRATROPIUM 0.5 INH SOL 3 ML VIAL.NEB. NEB SCH ×6 (00:02→20:40)
[2022-12-27] MEDS ORDERED: INSULIN (NOVOLOG) ASPART 100 UNITS/ML 10ML VIAL ONE ×2 (06:21→12:24)
[2022-12-27] MEDS: INSULIN SLIDING SCALE (NOVOLOG) 1 VIAL SQ SCH ×3 (06:23→17:03)
[2022-12-27] MEDS: PREGABALIN 100 MG CAPSULE PO SCH ×3 (06:23→22:31)
[2022-12-27] MEDS: POLYETHYLENE GLYCOL (HEALTHYLAX) 3350 17 GM PACKET PO SCH ×3 (06:23→22:31)
[2022-12-27 08:42] LABS: INR 1.41 (0.83-1.09); PROTHROMBIN TIME (PATIENT) 16.3 SEC (9.7-13.0)
[2022-12-27 08:44] LABS: ACTIVATED PTT 37.1 SECONDS (25.2-36.5); EOS % 2.1 % (0-4.5); HEMOGLOBIN 12.4 GM/dL (11.7-16.9); LYMPH % 16.9 % (8-40); MCH 29.9 pg (25.7-33.7); MCHC 33.6 g/dl (32.0-35.9); MEAN CELL VOLUME 89.2 fl (80-96); MEAN PLT VOLUME 8.4 fl (7.5-11.1); MONO % 7.3 % (3.8-10.2); NEUT % 72.7 % (42.8-82.8); PLATELET COUNT 473 10^3/uL (134-434); RBC 4.14 M/mm3 (4.00-5.60); RDW 14.9 % (11.9-15.9); WHITE BLOOD COUNT 7.7 K/mm3 (4.0-10.0)
[2022-12-27 09:04] LABS: POTASSIUM 5.9 mmol/L (3.5-5.1)
[2022-12-27 09:30] LABS: ALBUMIN 2.6 g/dl (3.4-5.0); BLOOD UREA NITROGEN 43.2 mg/dL (7-18); MAGNESIUM 2.3 mg/dL (1.8-2.4)
[2022-12-27 09:33] LABS: BILIRUBIN,TOTAL 0.4 mg/dL (0.2-1); CREATININE 1.9 mg/dL (0.55-1.3); PHOSPHOROUS 3.6 mg/dL (2.5-4.9)
[2022-12-27 09:34] LABS: TOT PROT 6.4 g/dl (6.4-8.2)
[2022-12-27] MEDS: FUROSEMIDE 40 MG TABLET (FP) PO SCH (10:03)
[2022-12-27] MEDS: SACUBITRIL/VALSARTAN 49 MG-51 MG TABLET PO SCH ×2 (10:03→22:31)
[2022-12-27] MEDS: CARVEDILOL 3.125 MG TABLET (FP) PO SCH ×2 (10:03→22:31)
[2022-12-27] MEDS: TAMSULOSIN HCL 0.4 MG CAP PO SCH (10:03)
[2022-12-27] MEDS: NYSTATIN 100000 UNIT/GM TOPICAL OINTMENT 15 GM TUBE TP SCH ×2 (10:06→22:31)
[2022-12-27] MEDS: SODIUM ZIRCONIUM CYCLOSILICATE (LOKELMA) 5 GM PACKET PO SCH (15:54)
[2022-12-27] MEDS ORDERED: FUROSEMIDE 40 MG/4 ML INJECTABLE VIAL IVPUSH ONE (16:52)
[2022-12-27] MEDS: WARFARIN NA 3 MG TABLET PO SCH (18:19)
[2022-12-28] MEDS: ALBUTEROL SO4 2.5/IPRATROPIUM 0.5 INH SOL 3 ML VIAL.NEB. NEB SCH ×6 (00:05→20:15)
[2022-12-28] MEDS ORDERED: INSULIN (NOVOLOG) ASPART 100 UNITS/ML 10ML VIAL ONE ×2 (01:07→11:13)
[2022-12-28] MEDS: SENNOSIDES 8.8 MG/5 ML SYRUP PO SCH ×2 (01:08→22:03)
[2022-12-28] MEDS: INSULIN SLIDING SCALE (NOVOLOG) 1 VIAL SQ SCH ×5 (01:08→22:04)
[2022-12-28] MEDS: PREGABALIN 100 MG CAPSULE PO SCH (06:34)
[2022-12-28] MEDS: POLYETHYLENE GLYCOL (HEALTHYLAX) 3350 17 GM PACKET PO SCH ×3 (06:34→22:02)
[2022-12-28] MEDS: FUROSEMIDE 40 MG/4 ML INJECTABLE VIAL IVPUSH SCH ×2 (06:34→13:50)
[2022-12-28 08:25] LABS: HEMATOCRIT 36.4 % (35.4-49); HEMOGLOBIN 12.3 GM/dL (11.7-16.9); MCH 30.2 pg (25.7-33.7); MCHC 33.8 g/dl (32.0-35.9); MEAN CELL VOLUME 89.2 fl (80-96); MEAN PLT VOLUME 8.2 fl (7.5-11.1); PLATELET COUNT 410 10^3/uL (134-434); RBC 4.08 M/mm3 (4.00-5.60); RDW 14.6 % (11.9-15.9); WHITE BLOOD COUNT 6.5 K/mm3 (4.0-10.0)
[2022-12-28 08:35] LABS: ALBUMIN 2.5 g/dl (3.4-5.0); CALCIUM 9.1 mg/dL (8.5-10.1)
[2022-12-28 08:36] LABS: BLOOD UREA NITROGEN 48.3 mg/dL (7-18); MAGNESIUM 2.3 mg/dL (1.8-2.4)
[2022-12-28 08:37] LABS: CREATININE 1.8 mg/dL (0.55-1.3)
[2022-12-28 08:39] LABS: PHOSPHOROUS 3.9 mg/dL (2.5-4.9)
[2022-12-28 08:40] LABS: BILIRUBIN,TOTAL 0.5 mg/dL (0.2-1); TOT PROT 6.2 g/dl (6.4-8.2)
[2022-12-28] MEDS: TAMSULOSIN HCL 0.4 MG CAP PO SCH (09:20)
[2022-12-28] MEDS: SACUBITRIL/VALSARTAN 49 MG-51 MG TABLET PO SCH (09:20)
[2022-12-28] MEDS: CARVEDILOL 3.125 MG TABLET (FP) PO SCH ×2 (09:20→22:02)
[2022-12-28] MEDS: SODIUM ZIRCONIUM CYCLOSILICATE (LOKELMA) 5 GM PACKET PO SCH ×3 (09:20→22:03)
[2022-12-28] MEDS: NYSTATIN 100000 UNIT/GM TOPICAL OINTMENT 15 GM TUBE TP SCH ×2 (09:22→22:04)
[2022-12-28] MEDS: FAMOTIDINE 20 MG TABLET PO SCH (10:09)
[2022-12-28 11:02] LABS: ERYTHROCYTE SEDIMENTATION RATE 79 mm/hr (0-20)
[2022-12-28] MEDS ORDERED: SODIUM ZIRCONIUM CYCLOSILICATE (LOKELMA) 5 GM PACKET PO SCH (13:45)
[2022-12-28 18:24] LABS: INR 1.51 (0.83-1.09); PROTHROMBIN TIME (PATIENT) 17.5 SEC (9.7-13.0)
[2022-12-28] MEDS: WARFARIN NA 3 MG TABLET PO SCH (18:41)
[2022-12-28] MEDS ORDERED: WARFARIN NA 2 MG TABLET PO ONE (20:42)
[2022-12-28] MEDS ORDERED: ENOXAPARIN NA (PORCINE) 100 MG/1 ML DISP.SYRIN SQ ONE (20:46)
[2022-12-28 21:17] LABS: ANTIGLOMERULAR BASEMENT MEN.AB <0.2 units (0.0-0.9)
[2022-12-28] MEDS ORDERED: APIXABAN 5 MG TABLET PO ONE (21:29)
[2022-12-28 21:43] LABS: POTASSIUM 5.5 mmol/L (3.5-5.1)
[2022-12-28 21:44] LABS: CALCIUM 8.9 mg/dL (8.5-10.1)
[2022-12-28 21:45] LABS: BLOOD UREA NITROGEN 55.8 mg/dL (7-18)
[2022-12-29] MEDS: ALBUTEROL SO4 2.5/IPRATROPIUM 0.5 INH SOL 3 ML VIAL.NEB. NEB SCH ×6 (00:05→20:30)
[2022-12-29] MEDS: FUROSEMIDE 40 MG/4 ML INJECTABLE VIAL IVPUSH SCH ×2 (06:40→13:31)
[2022-12-29] MEDS: INSULIN SLIDING SCALE (NOVOLOG) 1 VIAL SQ SCH ×4 (06:40→22:00)
[2022-12-29] MEDS: POLYETHYLENE GLYCOL (HEALTHYLAX) 3350 17 GM PACKET PO SCH ×3 (06:44→21:32)
[2022-12-29 07:58] LABS: HEMATOCRIT 36.2 % (35.4-49); HEMOGLOBIN 12.4 GM/dL (11.7-16.9); MCH 30.4 pg (25.7-33.7); MCHC 34.1 g/dl (32.0-35.9); MEAN CELL VOLUME 89.2 fl (80-96); MEAN PLT VOLUME 8.7 fl (7.5-11.1); PLATELET COUNT 369 10^3/uL (134-434); RBC 4.06 M/mm3 (4.00-5.60); RDW 14.4 % (11.9-15.9); WHITE BLOOD COUNT 5.7 K/mm3 (4.0-10.0)
[2022-12-29 08:10] LABS: POTASSIUM 5.1 mmol/L (3.5-5.1)
[2022-12-29 08:13] LABS: ALBUMIN 2.6 g/dl (3.4-5.0); BLOOD UREA NITROGEN 57.8 mg/dL (7-18); MAGNESIUM 2.5 mg/dL (1.8-2.4)
[2022-12-29 08:16] LABS: INR 1.79 (0.83-1.09); PHOSPHOROUS 5.6 mg/dL (2.5-4.9); PROTHROMBIN TIME (PATIENT) 20.7 SEC (9.7-13.0)
[2022-12-29 08:17] LABS: BILIRUBIN,TOTAL 0.3 mg/dL (0.2-1); TOT PROT 6.2 g/dl (6.4-8.2)
[2022-12-29 08:19] LABS: ACTIVATED PTT 38.5 SECONDS (25.2-36.5)
[2022-12-29] MEDS: TAMSULOSIN HCL 0.4 MG CAP PO SCH (09:14)
[2022-12-29] MEDS: CARVEDILOL 3.125 MG TABLET (FP) PO SCH ×2 (09:14→21:31)
[2022-12-29] MEDS: SODIUM ZIRCONIUM CYCLOSILICATE (LOKELMA) 5 GM PACKET PO SCH ×2 (09:14→21:32)
[2022-12-29] MEDS: FAMOTIDINE 20 MG TABLET PO SCH (09:14)
[2022-12-29] MEDS: NYSTATIN 100000 UNIT/GM TOPICAL OINTMENT 15 GM TUBE TP SCH ×2 (09:15→21:33)
[2022-12-29] MEDS ORDERED: APIXABAN 5 MG TABLET PO ONE (09:49)
[2022-12-29 16:11] LABS: ATYPICAL pANCA <1:20 titer (Neg:<1:20); C-ANCA <1:20 titer (Neg:<1:20)
[2022-12-29] MEDS: CALCIUM ACETATE 667 MG CAPSULE (FP) PO SCH (17:51)
[2022-12-29] MEDS: WARFARIN NA 5 MG TABLET PO SCH (17:51)
[2022-12-29] MEDS ORDERED: INSULIN (NOVOLOG) ASPART 100 UNITS/ML 10ML VIAL ONE ×2 (17:52→21:59)
[2022-12-29 20:47] LABS: ARTERIAL BLD GAS O2 SATURATION 96.5 % (95-98); ARTERIAL BLOOD GAS BASE EXCESS 3.5 mmol/L (-2-2); ARTERIAL BLOOD GAS PO2 83.6 mmHg (80-100); ARTERIAL BLOOD GAS pH 7.431 (7.350-7.450)
[2022-12-29 20:50] LABS: ALLENS TEST POSITIVE
[2022-12-29 20:52] LABS: BASO % 0.9 % (0-2.0); EOS % 2.3 % (0-4.5); HEMATOCRIT 37.1 % (35.4-49); HEMOGLOBIN 12.5 GM/dL (11.7-16.9); LYMPH % 22.9 % (8-40); MCH 29.9 pg (25.7-33.7); MCHC 33.7 g/dl (32.0-35.9); MEAN CELL VOLUME 88.7 fl (80-96); MONO % 7.2 % (3.8-10.2); NEUT % 66.7 % (42.8-82.8); PLATELET COUNT 432 10^3/uL (134-434); RBC 4.18 M/mm3 (4.00-5.60); RDW 14.8 % (11.9-15.9); WHITE BLOOD COUNT 6.5 K/mm3 (4.0-10.0)
[2022-12-29 21:13] LABS: INR 2.18 (0.83-1.09); PROTHROMBIN TIME (PATIENT) 25.1 SEC (9.7-13.0)
[2022-12-29 21:18] LABS: POTASSIUM 5.1 mmol/L (3.5-5.1)
[2022-12-29 21:20] LABS: CALCIUM 9.3 mg/dL (8.5-10.1)
[2022-12-29 21:21] LABS: ALBUMIN 2.7 g/dl (3.4-5.0); BLOOD UREA NITROGEN 67.9 mg/dL (7-18)
[2022-12-29 21:24] LABS: CREATININE 2.4 mg/dL (0.55-1.3)
[2022-12-29 21:26] LABS: BILIRUBIN,TOTAL 0.3 mg/dL (0.2-1); TOT PROT 6.6 g/dl (6.4-8.2)
[2022-12-29] MEDS: SENNOSIDES 8.8 MG/5 ML SYRUP PO SCH (21:33)
[2022-12-29 23:44] LABS: PH,URINE 5.5 (5.0-8.0); URINE APPEARANCE CLEAR; URINE BILIRUBIN NEGATIVE (NEGATIVE); URINE COLOR YELLOW; URINE GLUCOSE (UA) NEGATIVE (NEGATIVE); URINE KETONE NEGATIVE (NEGATIVE); URINE LEUK ESTERASE NEGATIVE (NEGATIVE); URINE NITRITE NEGATIVE (NEGATIVE); URINE PROTEIN NEGATIVE (NEGATIVE); URINE UROBILINOGEN 0.2 mg/dL (0.2-1.0)
[2022-12-30] MEDS: ALBUTEROL SO4 2.5/IPRATROPIUM 0.5 INH SOL 3 ML VIAL.NEB. NEB SCH ×6 (00:30→20:27)
[2022-12-30] MEDS: POLYETHYLENE GLYCOL (HEALTHYLAX) 3350 17 GM PACKET PO SCH ×3 (06:06→21:12)
[2022-12-30] MEDS ORDERED: INSULIN (NOVOLOG) ASPART 100 UNITS/ML 10ML VIAL ONE (06:16)
[2022-12-30] MEDS: INSULIN SLIDING SCALE (NOVOLOG) 1 VIAL SQ SCH ×4 (06:33→21:12)
[2022-12-30] MEDS: FUROSEMIDE 40 MG/4 ML INJECTABLE VIAL IVPUSH SCH ×2 (06:33→11:26)
[2022-12-30 07:48] LABS: HEMATOCRIT 35.1 % (35.4-49); HEMOGLOBIN 11.9 GM/dL (11.7-16.9); MCHC 33.9 g/dl (32.0-35.9); MEAN CELL VOLUME 88.5 fl (80-96); MEAN PLT VOLUME 8.4 fl (7.5-11.1); PLATELET COUNT 394 10^3/uL (134-434); RBC 3.96 M/mm3 (4.00-5.60); WHITE BLOOD COUNT 6.6 K/mm3 (4.0-10.0)
[2022-12-30 08:11] LABS: POTASSIUM 4.8 mmol/L (3.5-5.1)
[2022-12-30 08:27] LABS: CALCIUM 9.2 mg/dL (8.5-10.1)
[2022-12-30 08:28] LABS: ALBUMIN 2.6 g/dl (3.4-5.0); BLOOD UREA NITROGEN 70.1 mg/dL (7-18); MAGNESIUM 2.6 mg/dL (1.8-2.4)
[2022-12-30 08:31] LABS: CREATININE 2.2 mg/dL (0.55-1.3)
[2022-12-30 08:32] LABS: BILIRUBIN,TOTAL 0.3 mg/dL (0.2-1); PHOSPHOROUS 4.9 mg/dL (2.5-4.9); TOT PROT 6.3 g/dl (6.4-8.2)
[2022-12-30] MEDS: TAMSULOSIN HCL 0.4 MG CAP PO SCH (09:31)
[2022-12-30] MEDS: CALCIUM ACETATE 667 MG CAPSULE (FP) PO SCH ×3 (09:31→17:31)
[2022-12-30] MEDS: CARVEDILOL 3.125 MG TABLET (FP) PO SCH ×2 (09:32→21:12)
[2022-12-30] MEDS: NYSTATIN 100000 UNIT/GM TOPICAL OINTMENT 15 GM TUBE TP SCH ×2 (09:32→21:12)
[2022-12-30] MEDS: FAMOTIDINE 20 MG TABLET PO SCH (09:32)
[2022-12-30] MEDS: SODIUM ZIRCONIUM CYCLOSILICATE (LOKELMA) 5 GM PACKET PO SCH ×2 (09:32→21:12)
[2022-12-30 10:14] LABS: INR 1.85 (0.83-1.09); PROTHROMBIN TIME (PATIENT) 21.3 SEC (9.7-13.0)
[2022-12-30] MEDS ORDERED: APIXABAN 5 MG TABLET PO ONE (10:37)
[2022-12-30 15:57] LABS: INR 1.95 (0.83-1.09); PROTHROMBIN TIME (PATIENT) 22.5 SEC (9.7-13.0)
[2022-12-30 15:59] LABS: ACTIVATED PTT 37.3 SECONDS (25.2-36.5)
[2022-12-30] MEDS: WARFARIN NA 5 MG TABLET PO SCH (17:31)
[2022-12-30] MEDS: SENNOSIDES 8.8 MG/5 ML SYRUP PO SCH ×2 (21:14→21:19)
[2022-12-30] MEDS: GABAPENTIN 100 MG CAPSULE PO SCH (21:14)
[2022-12-31] MEDS: ALBUTEROL SO4 2.5/IPRATROPIUM 0.5 INH SOL 3 ML VIAL.NEB. NEB SCH ×6 (00:05→20:45)
[2022-12-31] MEDS: INSULIN SLIDING SCALE (NOVOLOG) 1 VIAL SQ SCH ×4 (06:31→22:14)
[2022-12-31] MEDS: POLYETHYLENE GLYCOL (HEALTHYLAX) 3350 17 GM PACKET PO SCH ×4 (06:31→22:18)
[2022-12-31 07:10] LABS: HEMATOCRIT 36.3 % (35.4-49); HEMOGLOBIN 12.2 GM/dL (11.7-16.9); MCH 29.6 pg (25.7-33.7); MCHC 33.5 g/dl (32.0-35.9); MEAN CELL VOLUME 88.4 fl (80-96); PLATELET COUNT 391 10^3/uL (134-434); RBC 4.11 M/mm3 (4.00-5.60); RDW 14.4 % (11.9-15.9)
[2022-12-31 07:19] LABS: INR 1.85 (0.83-1.09); PROTHROMBIN TIME (PATIENT) 21.3 SEC (9.7-13.0)
[2022-12-31 07:21] LABS: ACTIVATED PTT 37.5 SECONDS (25.2-36.5)
[2022-12-31 07:34] LABS: POTASSIUM 4.4 mmol/L (3.5-5.1)
[2022-12-31] MEDS: CALCIUM ACETATE 667 MG CAPSULE (FP) PO SCH ×3 (07:39→17:26)
[2022-12-31 07:46] LABS: CALCIUM 9.1 mg/dL (8.5-10.1)
[2022-12-31 07:47] LABS: ALBUMIN 2.7 g/dl (3.4-5.0); MAGNESIUM 2.4 mg/dL (1.8-2.4)
[2022-12-31 07:50] LABS: PHOSPHOROUS 4.6 mg/dL (2.5-4.9)
[2022-12-31 07:51] LABS: TOT PROT 6.3 g/dl (6.4-8.2)
[2022-12-31 07:52] LABS: BILIRUBIN,TOTAL 0.4 mg/dL (0.2-1)
[2022-12-31 09:10] LABS: ERYTHROCYTE SEDIMENTATION RATE 67 mm/hr (0-20)
[2022-12-31] MEDS: FUROSEMIDE 40 MG/4 ML INJECTABLE VIAL IVPUSH SCH (09:16)
[2022-12-31] MEDS: FAMOTIDINE 20 MG TABLET PO SCH (09:16)
[2022-12-31] MEDS: CARVEDILOL 3.125 MG TABLET (FP) PO SCH ×2 (09:17→22:13)
[2022-12-31] MEDS: TAMSULOSIN HCL 0.4 MG CAP PO SCH (09:17)
[2022-12-31] MEDS: SODIUM ZIRCONIUM CYCLOSILICATE (LOKELMA) 5 GM PACKET PO SCH (09:55)
[2022-12-31] MEDS: NYSTATIN 100000 UNIT/GM TOPICAL OINTMENT 15 GM TUBE TP SCH ×2 (09:58→22:19)
[2022-12-31] MEDS ORDERED: SODIUM CHLORIDE 0.9% 500 ML INFUS.BAG IV ONE (11:39)
[2022-12-31] MEDS: WARFARIN NA 3 MG TABLET PO SCH (17:25)
[2022-12-31] MEDS: GABAPENTIN 100 MG CAPSULE PO SCH (22:13)
[2022-12-31] MEDS ORDERED: INSULIN (NOVOLOG) ASPART 100 UNITS/ML 10ML VIAL ONE (22:13)
[2022-12-31] MEDS: SENNOSIDES 8.8 MG/5 ML SYRUP PO SCH (22:16)
[2023-01-01] MEDS: ALBUTEROL SO4 2.5/IPRATROPIUM 0.5 INH SOL 3 ML VIAL.NEB. NEB SCH ×7 (04:00→20:29)
[2023-01-01] MEDS: INSULIN SLIDING SCALE (NOVOLOG) 1 VIAL SQ SCH ×4 (06:41→22:17)
[2023-01-01] MEDS: POLYETHYLENE GLYCOL (HEALTHYLAX) 3350 17 GM PACKET PO SCH ×4 (06:46→22:35)
[2023-01-01] MEDS: CALCIUM ACETATE 667 MG CAPSULE (FP) PO SCH ×3 (07:39→17:22)
[2023-01-01 08:19] LABS: HEMATOCRIT 35.3 % (35.4-49); HEMOGLOBIN 12.1 GM/dL (11.7-16.9); MCH 30.6 pg (25.7-33.7); MCHC 34.3 g/dl (32.0-35.9); MEAN CELL VOLUME 89.2 fl (80-96); MEAN PLT VOLUME 8.3 fl (7.5-11.1); PLATELET COUNT 345 10^3/uL (134-434); RBC 3.96 M/mm3 (4.00-5.60); RDW 14.5 % (11.9-15.9); WHITE BLOOD COUNT 6.2 K/mm3 (4.0-10.0)
[2023-01-01 08:26] LABS: INR 1.86 (0.83-1.09); POTASSIUM 4.7 mmol/L (3.5-5.1); PROTHROMBIN TIME (PATIENT) 21.4 SEC (9.7-13.0)
[2023-01-01 08:29] LABS: ACTIVATED PTT 39.2 SECONDS (25.2-36.5); ALBUMIN 2.7 g/dl (3.4-5.0); BLOOD UREA NITROGEN 58.8 mg/dL (7-18); CALCIUM 9.4 mg/dL (8.5-10.1); MAGNESIUM 2.3 mg/dL (1.8-2.4)
[2023-01-01 08:32] LABS: CREATININE 1.8 mg/dL (0.55-1.3); PHOSPHOROUS 4.2 mg/dL (2.5-4.9)
[2023-01-01 08:34] LABS: BILIRUBIN,TOTAL 0.4 mg/dL (0.2-1); TOT PROT 6.3 g/dl (6.4-8.2)
[2023-01-01] MEDS: TAMSULOSIN HCL 0.4 MG CAP PO SCH (10:17)
[2023-01-01] MEDS: FUROSEMIDE 40 MG/4 ML INJECTABLE VIAL IVPUSH SCH (10:17)
[2023-01-01] MEDS: FAMOTIDINE 20 MG TABLET PO SCH (10:17)
[2023-01-01] MEDS: CARVEDILOL 3.125 MG TABLET (FP) PO SCH ×2 (10:17→22:23)
[2023-01-01] MEDS: NYSTATIN 100000 UNIT/GM TOPICAL OINTMENT 15 GM TUBE TP SCH ×2 (10:18→22:24)
[2023-01-01] MEDS: SODIUM ZIRCONIUM CYCLOSILICATE (LOKELMA) 5 GM PACKET PO SCH (10:18)
[2023-01-01] MEDS ORDERED: INSULIN (NOVOLOG) ASPART 100 UNITS/ML 10ML VIAL ONE ×3 (11:57→22:18)
[2023-01-01] MEDS: WARFARIN NA 3 MG TABLET PO SCH (17:22)
[2023-01-01] MEDS: SENNOSIDES 8.8 MG/5 ML SYRUP PO SCH ×2 (22:23→22:34)
[2023-01-01] MEDS: GABAPENTIN 100 MG CAPSULE PO SCH (22:23)
[2023-01-02] MEDS: ALBUTEROL SO4 2.5/IPRATROPIUM 0.5 INH SOL 3 ML VIAL.NEB. NEB SCH ×6 (00:12→20:25)
[2023-01-02] MEDS: INSULIN SLIDING SCALE (NOVOLOG) 1 VIAL SQ SCH ×4 (06:28→22:41)
[2023-01-02] MEDS: POLYETHYLENE GLYCOL (HEALTHYLAX) 3350 17 GM PACKET PO SCH ×3 (06:29→22:40)
[2023-01-02 07:22] LABS: HEMATOCRIT 36.9 % (35.4-49); HEMOGLOBIN 12.4 GM/dL (11.7-16.9); MCH 29.8 pg (25.7-33.7); MCHC 33.6 g/dl (32.0-35.9); MEAN CELL VOLUME 88.6 fl (80-96); MEAN PLT VOLUME 7.7 fl (7.5-11.1); PLATELET COUNT 361 10^3/uL (134-434); RBC 4.16 M/mm3 (4.00-5.60); RDW 14.6 % (11.9-15.9); WHITE BLOOD COUNT 6.2 K/mm3 (4.0-10.0)
[2023-01-02 07:26] LABS: INR 2.01 (0.83-1.09); PROTHROMBIN TIME (PATIENT) 23.2 SEC (9.7-13.0)
[2023-01-02 07:29] LABS: ACTIVATED PTT 43.1 SECONDS (25.2-36.5)
[2023-01-02 07:35] LABS: POTASSIUM 4.7 mmol/L (3.5-5.1)
[2023-01-02 07:37] LABS: CALCIUM 9.3 mg/dL (8.5-10.1)
[2023-01-02 07:38] LABS: ALBUMIN 2.8 g/dl (3.4-5.0); BLOOD UREA NITROGEN 52.4 mg/dL (7-18); MAGNESIUM 2.2 mg/dL (1.8-2.4)
[2023-01-02 07:41] LABS: CREATININE 1.9 mg/dL (0.55-1.3); PHOSPHOROUS 3.9 mg/dL (2.5-4.9)
[2023-01-02 07:42] LABS: BILIRUBIN,TOTAL 0.4 mg/dL (0.2-1); TOT PROT 6.5 g/dl (6.4-8.2)
[2023-01-02] MEDS: FUROSEMIDE 40 MG/4 ML INJECTABLE VIAL IVPUSH SCH (09:54)
[2023-01-02] MEDS: NYSTATIN 100000 UNIT/GM TOPICAL OINTMENT 15 GM TUBE TP SCH ×2 (09:54→22:41)
[2023-01-02] MEDS: FAMOTIDINE 20 MG TABLET PO SCH (09:54)
[2023-01-02] MEDS: TAMSULOSIN HCL 0.4 MG CAP PO SCH (09:54)
[2023-01-02] MEDS: CALCIUM ACETATE 667 MG CAPSULE (FP) PO SCH ×3 (09:54→17:01)
[2023-01-02] MEDS: SODIUM ZIRCONIUM CYCLOSILICATE (LOKELMA) 5 GM PACKET PO SCH (09:54)
[2023-01-02] MEDS: CARVEDILOL 3.125 MG TABLET (FP) PO SCH (09:54)
[2023-01-02 12:39] VITALS: BMI 34.7
[2023-01-02] MEDS ORDERED: INSULIN (NOVOLOG) ASPART 100 UNITS/ML 10ML VIAL ONE ×2 (15:33→22:38)
[2023-01-02] MEDS: WARFARIN NA 3 MG TABLET PO SCH (17:01)
[2023-01-02] MEDS: SENNOSIDES 8.8 MG/5 ML SYRUP PO SCH (22:40)
[2023-01-02] MEDS: CARVEDILOL 6.25 MG TABLET (FP) PO SCH (22:40)
[2023-01-02] MEDS: GABAPENTIN 100 MG CAPSULE PO SCH (22:41)
[2023-01-03] MEDS: ALBUTEROL SO4 2.5/IPRATROPIUM 0.5 INH SOL 3 ML VIAL.NEB. NEB SCH ×7 (00:16→23:52)
[2023-01-03] MEDS: INSULIN SLIDING SCALE (NOVOLOG) 1 VIAL SQ SCH ×4 (06:45→22:04)
[2023-01-03] MEDS: POLYETHYLENE GLYCOL (HEALTHYLAX) 3350 17 GM PACKET PO SCH ×3 (06:45→22:02)
[2023-01-03 07:34] LABS: HEMATOCRIT 35.4 % (35.4-49); HEMOGLOBIN 12.4 GM/dL (11.7-16.9); INR 2.22 (0.83-1.09); MCHC 35.1 g/dl (32.0-35.9); MEAN CELL VOLUME 88.1 fl (80-96); MEAN PLT VOLUME 8.4 fl (7.5-11.1); PLATELET COUNT 347 10^3/uL (134-434); PROTHROMBIN TIME (PATIENT) 25.5 SEC (9.7-13.0); RBC 4.01 M/mm3 (4.00-5.60); RDW 14.7 % (11.9-15.9)
[2023-01-03 07:40] LABS: POTASSIUM 4.8 mmol/L (3.5-5.1)
[2023-01-03 07:46] LABS: CALCIUM 9.3 mg/dL (8.5-10.1)
[2023-01-03 07:47] LABS: ALBUMIN 2.9 g/dl (3.4-5.0); CREATININE 1.9 mg/dL (0.55-1.3); MAGNESIUM 2.2 mg/dL (1.8-2.4)
[2023-01-03 07:49] LABS: BILIRUBIN,TOTAL 0.9 mg/dL (0.2-1); TOT PROT 6.6 g/dl (6.4-8.2)
[2023-01-03] MEDS: CALCIUM ACETATE 667 MG CAPSULE (FP) PO SCH ×3 (07:58→17:18)
[2023-01-03] MEDS: TAMSULOSIN HCL 0.4 MG CAP PO SCH (07:58)
[2023-01-03] MEDS: FUROSEMIDE 40 MG/4 ML INJECTABLE VIAL IVPUSH SCH (09:05)
[2023-01-03] MEDS: CARVEDILOL 6.25 MG TABLET (FP) PO SCH ×2 (09:05→22:02)
[2023-01-03] MEDS: SODIUM ZIRCONIUM CYCLOSILICATE (LOKELMA) 5 GM PACKET PO SCH (09:05)
[2023-01-03] MEDS: FAMOTIDINE 20 MG TABLET PO SCH (09:05)
[2023-01-03] MEDS: NYSTATIN 100000 UNIT/GM TOPICAL OINTMENT 15 GM TUBE TP SCH (09:08)
[2023-01-03] MEDS: TRIAMCINOLONE ACET 0.1% OINT 15 GM TUBE TP SCH (12:22)
[2023-01-03 13:36] LABS: PH,URINE 6.5 (5.0-8.0); URINE APPEARANCE CLEAR; URINE BILIRUBIN NEGATIVE (NEGATIVE); URINE COLOR YELLOW; URINE GLUCOSE (UA) NEGATIVE (NEGATIVE); URINE KETONE NEGATIVE (NEGATIVE); URINE LEUK ESTERASE NEGATIVE (NEGATIVE); URINE NITRITE NEGATIVE (NEGATIVE); URINE PROTEIN NEGATIVE (NEGATIVE); URINE UROBILINOGEN 0.2 mg/dL (0.2-1.0)
[2023-01-03] MEDS: WARFARIN NA 3 MG TABLET PO SCH (17:18)
[2023-01-03] MEDS ORDERED: INSULIN (NOVOLOG) ASPART 100 UNITS/ML 10ML VIAL ONE (21:59)
[2023-01-03] MEDS: GABAPENTIN 100 MG CAPSULE PO SCH (22:02)
[2023-01-04] MEDS: SENNOSIDES 8.8 MG/5 ML SYRUP PO SCH (00:51)
[2023-01-04] MEDS: NYSTATIN 100000 UNIT/GM TOPICAL OINTMENT 15 GM TUBE TP SCH ×2 (04:22→09:28)
[2023-01-04] MEDS: ALBUTEROL SO4 2.5/IPRATROPIUM 0.5 INH SOL 3 ML VIAL.NEB. NEB SCH ×5 (04:23→20:40)
[2023-01-04] MEDS: POLYETHYLENE GLYCOL (HEALTHYLAX) 3350 17 GM PACKET PO SCH ×2 (06:23→13:12)
[2023-01-04] MEDS: INSULIN SLIDING SCALE (NOVOLOG) 1 VIAL SQ SCH ×3 (06:24→17:14)
[2023-01-04 07:09] LABS: HEMATOCRIT 36.3 % (35.4-49); HEMOGLOBIN 12.4 GM/dL (11.7-16.9); MCH 30.2 pg (25.7-33.7); MCHC 34.1 g/dl (32.0-35.9); MEAN CELL VOLUME 88.5 fl (80-96); MEAN PLT VOLUME 8.3 fl (7.5-11.1); PLATELET COUNT 322 10^3/uL (134-434); RBC 4.11 M/mm3 (4.00-5.60); RDW 14.5 % (11.9-15.9); WHITE BLOOD COUNT 5.8 K/mm3 (4.0-10.0)
[2023-01-04 07:12] LABS: INR 2.66 (0.83-1.09); PROTHROMBIN TIME (PATIENT) 30.6 SEC (9.7-13.0)
[2023-01-04 07:15] LABS: ACTIVATED PTT 45.3 SECONDS (25.2-36.5)
[2023-01-04 07:27] LABS: POTASSIUM 4.5 mmol/L (3.5-5.1)
[2023-01-04 07:34] LABS: ALBUMIN 2.9 g/dl (3.4-5.0); BLOOD UREA NITROGEN 47.9 mg/dL (7-18); MAGNESIUM 2.2 mg/dL (1.8-2.4)
[2023-01-04 07:37] LABS: CREATININE 1.7 mg/dL (0.55-1.3); PHOSPHOROUS 4.2 mg/dL (2.5-4.9)
[2023-01-04 07:39] LABS: BILIRUBIN,TOTAL 0.6 mg/dL (0.2-1); TOT PROT 6.6 g/dl (6.4-8.2)
[2023-01-04] MEDS: CALCIUM ACETATE 667 MG CAPSULE (FP) PO SCH ×3 (08:25→17:14)
[2023-01-04] MEDS: TAMSULOSIN HCL 0.4 MG CAP PO SCH (08:25)
[2023-01-04] MEDS: SODIUM ZIRCONIUM CYCLOSILICATE (LOKELMA) 5 GM PACKET PO SCH (09:26)
[2023-01-04] MEDS: CARVEDILOL 6.25 MG TABLET (FP) PO SCH (09:26)
[2023-01-04] MEDS: FUROSEMIDE 40 MG/4 ML INJECTABLE VIAL IVPUSH SCH (09:26)
[2023-01-04] MEDS: FAMOTIDINE 20 MG TABLET PO SCH (09:26)
[2023-01-04] MEDS: TRIAMCINOLONE ACET 0.1% OINT 15 GM TUBE TP SCH (09:29)
[2023-01-04 14:45] VITALS: RESP 20
[2023-01-04] MEDS: WARFARIN NA 3 MG TABLET PO SCH (17:16)
[2023-01-04 18:17] VITALS: BP 140/75; PULSE 70; TEMP 97.6
== END 2023-01-04 18:30 | DRG 291 ==
LOC: JER 21:48 → JERBED 12-19 03:46 → J4W 12-19 06:16
PROVIDERS: ADMIT Internal Medicine; ATTEND Internal Medicine
DX: I11.0 Hypertensive heart disease with heart failure (principal); I50.23 Acute on chronic systolic (congestive) heart failure; J18.9 Pneumonia, unspecified organism; N17.9 Acute kidney failure, unspecified; I42.0 Dilated cardiomyopathy; I48.91 Unspecified atrial fibrillation; E78.5 Hyperlipidemia, unspecified; E11.9 Type 2 diabetes mellitus without complications; E11.40 Type 2 diabetes mellitus with diabetic neuropathy, unspecified; J44.9 Chronic obstructive pulmonary disease, unspecified; R77.8 Other specified abnormalities of plasma proteins; R62.7 Adult failure to thrive; R09.02 Hypoxemia; E87.5 Hyperkalemia; N40.0 Benign prostatic hyperplasia without lower urinary tract symptoms; E66.9 Obesity, unspecified; Z68.35 Body mass index [BMI] 35.0-35.9, adult; R74.01 Elevation of levels of liver transaminase levels; R31.29 Other microscopic hematuria; B35.3 Tinea pedis; K21.9 Gastro-esophageal reflux disease without esophagitis; E87.6 Hypokalemia; E83.42 Hypomagnesemia; E83.39 Other disorders of phosphorus metabolism
CPT/HCPCS: 0241U-QW; 36415; 36600; 71045-TC-FY; 73560-TC-RT-FY; 73610-TC-RT-FY; 73630-TC-RT-FY; 76775-TC; 76856-TC; 80048; 80053; 81003; 82550; 82553; 82803; 82962; 83036; 83516; 83520; 83605; 83735; 83880; 84100; 84153; 84155; 84165; 84484; 85025; 85027; 85610; 85651; 85730; 86038; 86140; 86225; 86256; 86850; 86900; 86901; 87040; 87070; 87077; 87086; 87205; 87899; 93005; 93010; 93306-TC; 93970-TC; 94010; 94150; 94640; 94761; 97116-GP; 97162-GP; 99285-25; C9803-CS; U0003; U0005

== ENCOUNTER 2023-07-28 15:33 | Inpatient (IN) | payer OTHER ==
[2023-07-28 17:53] LABS: BASO % 0.4 % (0-2.0); HEMATOCRIT 44.8 % (35.4-49); HEMOGLOBIN 14.9 GM/dL (11.7-16.9); LYMPH % 16.9 % (8-40); MCHC 33.3 g/dl (32.0-35.9); MEAN PLT VOLUME 7.5 fl (7.5-11.1); MONO % 13.4 % (3.8-10.2); NEUT % 69.3 % (42.8-82.8); PLATELET COUNT 226 10^3/uL (134-434); RBC 5.34 M/mm3 (4.00-5.60); RDW 17.1 % (11.9-15.9); WHITE BLOOD COUNT 5.5 K/mm3 (4.0-10.0)
[2023-07-28 17:55] LABS: VENOUS O2 SATURATION 37.8 % (70-80); VENOUS PCO2 48.9 mmHg (38-52); VENOUS PH 7.377 (7.310-7.410)
[2023-07-28 18:03] LABS: INR 1.43 (0.83-1.09); PROTHROMBIN TIME (PATIENT) 16.5 SEC (9.7-13.0)
[2023-07-28 18:06] LABS: ACTIVATED PTT 37.1 SECONDS (25.2-36.5)
[2023-07-28] MEDS ORDERED: ACETAMINOPHEN 1000 MG/100 ML BAG IVPB ONE (18:20)
[2023-07-28] MEDS ORDERED: ACETAMINOPHEN INJECTION 100 ML IVPB ONE (18:23)
[2023-07-28 18:40] LABS: POTASSIUM 4.3 mmol/L (3.5-5.1)
[2023-07-28] MEDS ORDERED: methylPREDNISolone NA SUCC 125 MG/2 ML VIAL IVPB ONE (18:40)
[2023-07-28] MEDS ORDERED: SODIUM CHLORIDE 500 ML IV STA (18:40)
[2023-07-28 18:42] LABS: CALCIUM 8.8 mg/dL (8.5-10.1)
[2023-07-28 18:43] LABS: ALBUMIN 3.4 g/dl (3.4-5.0); BLOOD UREA NITROGEN 38.6 mg/dL (7-18); MAGNESIUM 2.2 mg/dL (1.8-2.4)
[2023-07-28 18:46] LABS: CREATININE 2.1 mg/dL (0.55-1.3); PHOSPHOROUS 3.5 mg/dL (2.5-4.9)
[2023-07-28 18:46] LABS: EPI CELLS 4 /uL (0-25.1); HYALINE CASTS 2 /uL (0-3.1); PH,URINE 5.5 (5.0-8.0); URINE APPEARANCE CLOUDY; URINE BACTERIA 0 /uL (0-1359); URINE BILIRUBIN NEGATIVE (NEGATIVE); URINE COLOR YELLOW; URINE GLUCOSE (UA) NEGATIVE (NEGATIVE); URINE KETONE NEGATIVE (NEGATIVE); URINE LEUK ESTERASE NEGATIVE (NEGATIVE); URINE NITRITE NEGATIVE (NEGATIVE); URINE PROTEIN 2+ (NEGATIVE); URINE RBC 43 /uL (0-23.9); URINE UROBILINOGEN 0.2 mg/dL (0.2-1.0); URINE WBC 6 /uL (0-25.8)
[2023-07-28] MEDS ORDERED: DEXAMETHASONE SOD PHOSPHATE 10 MG/1 ML VIAL IVPUSH ONE (18:46)
[2023-07-28 18:47] LABS: BILIRUBIN,TOTAL 1.2 mg/dL (0.2-1); TOT PROT 7.1 g/dl (6.4-8.2)
[2023-07-28] MEDS ORDERED: DEXAMETHASONE SOD PHOSPHATE 10 MG/1 ML VIAL ONE (18:50)
[2023-07-28] MEDS ORDERED: REMDESIVIR 200 MG in SODIUM CHLORIDE 250 ML IVPB ONE (21:27)
[2023-07-28] MEDS ORDERED: GABAPENTIN 100 MG CAPSULE PO SCH (22:00)
[2023-07-28] MEDS ORDERED: APIXABAN 5 MG TABLET ONE (23:44)
[2023-07-28] MEDS ORDERED: CARVEDILOL 6.25 MG TABLET (FP) ONE (23:44)
[2023-07-28] MEDS ORDERED: ATORVASTATIN CA 20 MG TABLET (FP) ONE (23:44)
[2023-07-28] MEDS ORDERED: GABAPENTIN 300 MG CAPSULE ONE (23:44)
[2023-07-28] MEDS: CARVEDILOL 6.25 MG TABLET (FP) PO SCH (23:50)
[2023-07-28] MEDS: APIXABAN 5 MG TABLET PO SCH (23:50)
[2023-07-28] MEDS: ATORVASTATIN CA 20 MG TABLET (FP) PO SCH (23:50)
[2023-07-28] MEDS: INSULIN SLIDING SCALE (NOVOLOG) 1 VIAL SQ SCH (23:51)
[2023-07-29] MEDS ORDERED: FUROSEMIDE 40 MG TABLET (FP) ONE ×2 (06:07→13:55)
[2023-07-29] MEDS: FUROSEMIDE 40 MG TABLET (FP) PO SCH ×2 (06:11→13:55)
[2023-07-29] MEDS: INSULIN SLIDING SCALE (NOVOLOG) 1 VIAL SQ SCH ×4 (07:35→21:43)
[2023-07-29 07:38] LABS: HEMATOCRIT 45.1 % (35.4-49); HEMOGLOBIN 14.3 GM/dL (11.7-16.9); MCH 27.5 pg (25.7-33.7); MCHC 31.7 g/dl (32.0-35.9); MEAN CELL VOLUME 86.9 fl (80-96); MEAN PLT VOLUME 7.7 fl (7.5-11.1); PLATELET COUNT 213 10^3/uL (134-434); RBC 5.19 M/mm3 (4.00-5.60); RDW 17.1 % (11.9-15.9); WHITE BLOOD COUNT 4.4 K/mm3 (4.0-10.0)
[2023-07-29 07:50] LABS: POTASSIUM 4.5 mmol/L (3.5-5.1)
[2023-07-29 07:53] LABS: BLOOD UREA NITROGEN 43.6 mg/dL (7-18); CALCIUM 8.2 mg/dL (8.5-10.1)
[2023-07-29 07:56] LABS: CREATININE 1.8 mg/dL (0.55-1.3)
[2023-07-29 07:58] LABS: BILIRUBIN,TOTAL 0.9 mg/dL (0.2-1); TOT PROT 6.5 g/dl (6.4-8.2)
[2023-07-29] MEDS: FAMOTIDINE 20 MG TABLET PO SCH (09:09)
[2023-07-29] MEDS: RAMIPRIL 5 MG CAPSULE PO SCH (09:09)
[2023-07-29] MEDS: APIXABAN 5 MG TABLET PO SCH ×2 (09:09→21:37)
[2023-07-29] MEDS: DEXAMETHASONE SOD PHOSPHATE 10 MG/1 ML VIAL IVPUSH SCH (09:09)
[2023-07-29] MEDS: CARVEDILOL 6.25 MG TABLET (FP) PO SCH ×2 (09:09→21:37)
[2023-07-29] MEDS ORDERED: PANTOPRAZOLE 40 MG TABLET PO ONE (14:38)
[2023-07-29] MEDS: PANTOPRAZOLE 40 MG TABLET PO SCH (14:40)
[2023-07-29] MEDS ORDERED: DEXAMETHASONE SOD PHOSPHATE 10 MG/1 ML VIAL IVPUSH ONE (18:46)
[2023-07-29 20:55] VITALS: BMI 31.0
[2023-07-29] MEDS ORDERED: REMDESIVIR 100 MG in SODIUM CHLORIDE 250 ML IVPB SCH (21:00)
[2023-07-29] MEDS: GABAPENTIN 300 MG CAPSULE PO SCH (21:37)
[2023-07-29] MEDS: ATORVASTATIN CA 20 MG TABLET (FP) PO SCH (21:37)
[2023-07-30] MEDS: INSULIN SLIDING SCALE (NOVOLOG) 1 VIAL SQ SCH ×4 (06:04→21:01)
[2023-07-30] MEDS: FUROSEMIDE 40 MG TABLET (FP) PO SCH ×2 (06:04→14:06)
[2023-07-30 09:23] LABS: BASO % 0.2 % (0-2.0); HEMATOCRIT 43.7 % (35.4-49); HEMOGLOBIN 14.3 GM/dL (11.7-16.9); LYMPH % 13.1 % (8-40); MCH 28.1 pg (25.7-33.7); MCHC 32.6 g/dl (32.0-35.9); MEAN PLT VOLUME 8.1 fl (7.5-11.1); MONO % 4.5 % (3.8-10.2); NEUT % 82.2 % (42.8-82.8); PLATELET COUNT 231 10^3/uL (134-434); RBC 5.08 M/mm3 (4.00-5.60); RDW 17.3 % (11.9-15.9); WHITE BLOOD COUNT 7.9 K/mm3 (4.0-10.0)
[2023-07-30] MEDS: FAMOTIDINE 20 MG TABLET PO SCH (09:45)
[2023-07-30] MEDS: CARVEDILOL 6.25 MG TABLET (FP) PO SCH ×2 (09:45→21:01)
[2023-07-30] MEDS: DEXAMETHASONE SOD PHOSPHATE 10 MG/1 ML VIAL IVPUSH SCH (09:45)
[2023-07-30] MEDS: PANTOPRAZOLE 40 MG TABLET PO SCH (09:45)
[2023-07-30] MEDS: APIXABAN 5 MG TABLET PO SCH ×2 (09:45→21:01)
[2023-07-30] MEDS: RAMIPRIL 5 MG CAPSULE PO SCH (10:42)
[2023-07-30 11:07] LABS: BILIRUBIN,TOTAL 0.8 mg/dL (0.2-1); BLOOD UREA NITROGEN 53.4 mg/dL (7-18); CALCIUM 8.2 mg/dL (8.5-10.1); TOT PROT 6.6 g/dl (6.4-8.2)
[2023-07-30] MEDS ORDERED: REMDESIVIR 100 MG in SODIUM CHLORIDE 250 ML IVPB SCH (21:00)
[2023-07-30] MEDS: ATORVASTATIN CA 20 MG TABLET (FP) PO SCH (21:01)
[2023-07-30] MEDS: GABAPENTIN 300 MG CAPSULE PO SCH (21:01)
[2023-07-31] MEDS ORDERED: FUROSEMIDE 40 MG TABLET (FP) PO SCH (06:00)
[2023-07-31] MEDS: INSULIN SLIDING SCALE (NOVOLOG) 1 VIAL SQ SCH ×4 (06:12→21:28)
[2023-07-31 09:03] LABS: HEMATOCRIT 42.8 % (35.4-49); LYMPH % 9.8 % (8-40); MCH 28.1 pg (25.7-33.7); MCHC 32.6 g/dl (32.0-35.9); MEAN CELL VOLUME 86.1 fl (80-96); MEAN PLT VOLUME 8.1 fl (7.5-11.1); MONO % 3.5 % (3.8-10.2); NEUT % 86.7 % (42.8-82.8); PLATELET COUNT 214 10^3/uL (134-434); RBC 4.97 M/mm3 (4.00-5.60); RDW 17.6 % (11.9-15.9); WHITE BLOOD COUNT 4.7 K/mm3 (4.0-10.0)
[2023-07-31 09:47] LABS: ERYTHROCYTE SEDIMENTATION RATE 17 mm/hr (0-20)
[2023-07-31 09:49] LABS: ALBUMIN 2.9 g/dl (3.4-5.0); BILIRUBIN,TOTAL 0.5 mg/dL (0.2-1); BLOOD UREA NITROGEN 51.7 mg/dL (7-18); CREATININE 1.9 mg/dL (0.55-1.3); MAGNESIUM 2.1 mg/dL (1.8-2.4); PHOSPHOROUS 4.2 mg/dL (2.5-4.9); POTASSIUM 4.2 mmol/L (3.5-5.1); TOT PROT 6.4 g/dl (6.4-8.2)
[2023-07-31] MEDS: FAMOTIDINE 20 MG TABLET PO SCH (09:57)
[2023-07-31] MEDS: PANTOPRAZOLE 40 MG TABLET PO SCH (09:57)
[2023-07-31] MEDS: DEXAMETHASONE SOD PHOSPHATE 10 MG/1 ML VIAL IVPUSH SCH (09:57)
[2023-07-31] MEDS: CARVEDILOL 6.25 MG TABLET (FP) PO SCH ×2 (09:57→21:29)
[2023-07-31] MEDS: APIXABAN 5 MG TABLET PO SCH ×2 (09:57→21:28)
[2023-07-31] MEDS ORDERED: ACETAMINOPHEN 325 MG TABLET (FP) PO PRN (10:11)
[2023-07-31] MEDS: guaiFENesin 600 MG TABLET.ER (FP) PO SCH ×2 (10:59→21:29)
[2023-07-31] MEDS: REMDESIVIR 100 MG in SODIUM CHLORIDE 230 ML IVPB SCH (21:20)
[2023-07-31] MEDS: GABAPENTIN 300 MG CAPSULE PO SCH (21:28)
[2023-07-31] MEDS: ATORVASTATIN CA 20 MG TABLET (FP) PO SCH (21:29)
[2023-07-31] MEDS: CODEINE SO4 30 MG TABLET PO PRN (22:57)
[2023-08-01] MEDS: INSULIN SLIDING SCALE (NOVOLOG) 1 VIAL SQ SCH ×4 (06:52→22:00)
[2023-08-01] MEDS: DEXAMETHASONE SOD PHOSPHATE 10 MG/1 ML VIAL IVPUSH SCH (10:23)
[2023-08-01] MEDS: APIXABAN 5 MG TABLET PO SCH ×2 (10:24→21:45)
[2023-08-01] MEDS: guaiFENesin 600 MG TABLET.ER (FP) PO SCH ×2 (10:24→21:45)
[2023-08-01] MEDS: FAMOTIDINE 20 MG TABLET PO SCH (10:24)
[2023-08-01] MEDS: CARVEDILOL 6.25 MG TABLET (FP) PO SCH ×2 (10:24→21:44)
[2023-08-01] MEDS: CODEINE SO4 30 MG TABLET PO PRN (10:25)
[2023-08-01] MEDS: PANTOPRAZOLE 40 MG TABLET PO SCH (10:26)
[2023-08-01 10:41] LABS: HEMATOCRIT 40.5 % (35.4-49); LYMPH % 9.6 % (8-40); MCH 28.2 pg (25.7-33.7); MCHC 32.2 g/dl (32.0-35.9); MEAN CELL VOLUME 87.5 fl (80-96); MEAN PLT VOLUME 8.3 fl (7.5-11.1); MONO % 4.6 % (3.8-10.2); NEUT % 85.8 % (42.8-82.8); PLATELET COUNT 192 10^3/uL (134-434); RBC 4.63 M/mm3 (4.00-5.60); RDW 16.9 % (11.9-15.9); WHITE BLOOD COUNT 8.7 K/mm3 (4.0-10.0)
[2023-08-01 11:15] LABS: POTASSIUM 4.2 mmol/L (3.5-5.1)
[2023-08-01 11:17] LABS: ALBUMIN 2.7 g/dl (3.4-5.0); CALCIUM 8.1 mg/dL (8.5-10.1)
[2023-08-01 11:21] LABS: TOT PROT 5.8 g/dl (6.4-8.2)
[2023-08-01 11:22] LABS: BILIRUBIN,TOTAL 0.6 mg/dL (0.2-1)
[2023-08-01] MEDS: REMDESIVIR 100 MG in SODIUM CHLORIDE 230 ML IVPB SCH (20:54)
[2023-08-01] MEDS: GABAPENTIN 300 MG CAPSULE PO SCH (21:43)
[2023-08-01] MEDS: ATORVASTATIN CA 20 MG TABLET (FP) PO SCH (21:43)
[2023-08-01] MEDS: INSULIN (LEVEMIR) 100 UNITS/ML UNITS SQ SCH (21:59)
[2023-08-02] MEDS: INSULIN SLIDING SCALE (NOVOLOG) 1 VIAL SQ SCH ×4 (06:55→21:53)
[2023-08-02 09:01] LABS: BASO % 0.1 % (0-2.0); HEMATOCRIT 40.4 % (35.4-49); LYMPH % 10.1 % (8-40); MCH 28.2 pg (25.7-33.7); MCHC 32.3 g/dl (32.0-35.9); MEAN CELL VOLUME 87.3 fl (80-96); MEAN PLT VOLUME 8.8 fl (7.5-11.1); MONO % 5.3 % (3.8-10.2); NEUT % 84.5 % (42.8-82.8); PLATELET COUNT 181 10^3/uL (134-434); RBC 4.63 M/mm3 (4.00-5.60); RDW 17.2 % (11.9-15.9); WHITE BLOOD COUNT 9.5 K/mm3 (4.0-10.0)
[2023-08-02 09:21] LABS: POTASSIUM 4.2 mmol/L (3.5-5.1)
[2023-08-02 09:25] LABS: CALCIUM 8.5 mg/dL (8.5-10.1)
[2023-08-02 09:26] LABS: ALBUMIN 2.7 g/dl (3.4-5.0)
[2023-08-02 09:28] LABS: CREATININE 1.7 mg/dL (0.55-1.3)
[2023-08-02 09:30] LABS: BILIRUBIN,TOTAL 0.5 mg/dL (0.2-1)
[2023-08-02] MEDS: CARVEDILOL 6.25 MG TABLET (FP) PO SCH (09:51)
[2023-08-02] MEDS: PANTOPRAZOLE 40 MG TABLET PO SCH (09:51)
[2023-08-02] MEDS: APIXABAN 5 MG TABLET PO SCH ×2 (09:51→21:45)
[2023-08-02] MEDS: guaiFENesin 600 MG TABLET.ER (FP) PO SCH ×2 (09:51→21:45)
[2023-08-02] MEDS: DEXAMETHASONE SOD PHOSPHATE 10 MG/1 ML VIAL IVPUSH SCH (09:51)
[2023-08-02] MEDS: FAMOTIDINE 20 MG TABLET PO SCH (09:51)
[2023-08-02] MEDS: ATORVASTATIN CA 20 MG TABLET (FP) PO SCH (21:45)
[2023-08-02] MEDS: GABAPENTIN 300 MG CAPSULE PO SCH (21:46)
[2023-08-02] MEDS: INSULIN (LEVEMIR) 100 UNITS/ML UNITS SQ SCH (21:53)
[2023-08-03] MEDS: INSULIN SLIDING SCALE (NOVOLOG) 1 VIAL SQ SCH ×4 (06:26→21:15)
[2023-08-03] MEDS: DEXAMETHASONE SOD PHOSPHATE 10 MG/1 ML VIAL IVPUSH SCH (09:16)
[2023-08-03] MEDS: FAMOTIDINE 20 MG TABLET PO SCH (09:17)
[2023-08-03] MEDS: APIXABAN 5 MG TABLET PO SCH ×2 (09:17→21:09)
[2023-08-03] MEDS: PANTOPRAZOLE 40 MG TABLET PO SCH (09:17)
[2023-08-03] MEDS: guaiFENesin 600 MG TABLET.ER (FP) PO SCH ×2 (09:17→21:09)
[2023-08-03 10:27] LABS: EOS % 0.3 % (0-4.5); HEMATOCRIT 40.4 % (35.4-49); HEMOGLOBIN 13.1 GM/dL (11.7-16.9); MCH 28.3 pg (25.7-33.7); MCHC 32.5 g/dl (32.0-35.9); MEAN CELL VOLUME 86.9 fl (80-96); MEAN PLT VOLUME 8.8 fl (7.5-11.1); MONO % 6.6 % (3.8-10.2); NEUT % 80.1 % (42.8-82.8); PLATELET COUNT 195 10^3/uL (134-434); RBC 4.65 M/mm3 (4.00-5.60); RDW 17.2 % (11.9-15.9); WHITE BLOOD COUNT 10.7 K/mm3 (4.0-10.0)
[2023-08-03 10:43] LABS: POTASSIUM 4.3 mmol/L (3.5-5.1)
[2023-08-03 10:49] LABS: CALCIUM 8.2 mg/dL (8.5-10.1)
[2023-08-03 10:50] LABS: ALBUMIN 2.8 g/dl (3.4-5.0); MAGNESIUM 2.1 mg/dL (1.8-2.4)
[2023-08-03 10:53] LABS: CREATININE 1.6 mg/dL (0.55-1.3); PHOSPHOROUS 2.6 mg/dL (2.5-4.9)
[2023-08-03 10:56] LABS: BILIRUBIN,TOTAL 0.6 mg/dL (0.2-1)
[2023-08-03] MEDS ORDERED: INSULIN (NOVOLOG) ASPART 100 UNITS/ML 10ML VIAL ONE (21:03)
[2023-08-03] MEDS: ATORVASTATIN CA 20 MG TABLET (FP) PO SCH (21:09)
[2023-08-03] MEDS: GABAPENTIN 300 MG CAPSULE PO SCH (21:09)
[2023-08-03] MEDS: INSULIN (LEVEMIR) 100 UNITS/ML UNITS SQ SCH (21:10)
[2023-08-04] MEDS: INSULIN SLIDING SCALE (NOVOLOG) 1 VIAL SQ SCH ×4 (06:09→23:03)
[2023-08-04 06:52] LABS: BASO % 0.3 % (0-2.0); EOS % 0.3 % (0-4.5); HEMATOCRIT 39.5 % (35.4-49); HEMOGLOBIN 12.9 GM/dL (11.7-16.9); LYMPH % 11.3 % (8-40); MCH 28.3 pg (25.7-33.7); MCHC 32.6 g/dl (32.0-35.9); MEAN CELL VOLUME 86.6 fl (80-96); MEAN PLT VOLUME 8.5 fl (7.5-11.1); MONO % 7.9 % (3.8-10.2); NEUT % 80.2 % (42.8-82.8); PLATELET COUNT 214 10^3/uL (134-434); RBC 4.56 M/mm3 (4.00-5.60); RDW 16.8 % (11.9-15.9); WHITE BLOOD COUNT 9.7 K/mm3 (4.0-10.0)
[2023-08-04 07:10] LABS: POTASSIUM 4.5 mmol/L (3.5-5.1)
[2023-08-04 07:16] LABS: ALBUMIN 2.8 g/dl (3.4-5.0); CALCIUM 8.2 mg/dL (8.5-10.1); MAGNESIUM 2.1 mg/dL (1.8-2.4)
[2023-08-04 07:19] LABS: CREATININE 1.4 mg/dL (0.55-1.3); PHOSPHOROUS 2.7 mg/dL (2.5-4.9)
[2023-08-04 07:21] LABS: BILIRUBIN,TOTAL 0.9 mg/dL (0.2-1); TOT PROT 5.8 g/dl (6.4-8.2)
[2023-08-04] MEDS ORDERED: ACETAMINOPHEN 325 MG TABLET (FP) PO PRN (09:15)
[2023-08-04] MEDS: APIXABAN 5 MG TABLET PO SCH ×2 (10:38→22:56)
[2023-08-04] MEDS: FAMOTIDINE 20 MG TABLET PO SCH (10:38)
[2023-08-04] MEDS: guaiFENesin 600 MG TABLET.ER (FP) PO SCH ×2 (10:38→22:56)
[2023-08-04] MEDS: DEXAMETHASONE SOD PHOSPHATE 10 MG/1 ML VIAL IVPUSH SCH (10:38)
[2023-08-04] MEDS: PANTOPRAZOLE 40 MG TABLET PO SCH (12:25)
[2023-08-04] MEDS: SACUBITRIL/VALSARTAN 24 MG-26 MG TABLET PO SCH (22:56)
[2023-08-04] MEDS: ATORVASTATIN CA 20 MG TABLET (FP) PO SCH (22:56)
[2023-08-04] MEDS: GABAPENTIN 300 MG CAPSULE PO SCH (22:56)
[2023-08-04] MEDS: INSULIN (LEVEMIR) 100 UNITS/ML UNITS SQ SCH (22:59)
[2023-08-05 06:37] LABS: BASO % 0.4 % (0-2.0); EOS % 0.6 % (0-4.5); HEMATOCRIT 42.8 % (35.4-49); HEMOGLOBIN 13.8 GM/dL (11.7-16.9); LYMPH % 12.4 % (8-40); MCH 27.9 pg (25.7-33.7); MCHC 32.2 g/dl (32.0-35.9); MEAN CELL VOLUME 86.7 fl (80-96); MEAN PLT VOLUME 8.7 fl (7.5-11.1); MONO % 8.4 % (3.8-10.2); NEUT % 78.2 % (42.8-82.8); PLATELET COUNT 248 10^3/uL (134-434); RBC 4.93 M/mm3 (4.00-5.60); RDW 17.2 % (11.9-15.9); WHITE BLOOD COUNT 8.8 K/mm3 (4.0-10.0)
[2023-08-05] MEDS: INSULIN SLIDING SCALE (NOVOLOG) 1 VIAL SQ SCH ×4 (06:44→22:48)
[2023-08-05 06:55] LABS: POTASSIUM 4.8 mmol/L (3.5-5.1)
[2023-08-05 06:57] LABS: CALCIUM 8.8 mg/dL (8.5-10.1)
[2023-08-05 06:58] LABS: ALBUMIN 2.9 g/dl (3.4-5.0); BLOOD UREA NITROGEN 41.7 mg/dL (7-18); MAGNESIUM 2.1 mg/dL (1.8-2.4)
[2023-08-05 07:01] LABS: CREATININE 1.6 mg/dL (0.55-1.3); PHOSPHOROUS 2.6 mg/dL (2.5-4.9)
[2023-08-05 07:02] LABS: BILIRUBIN,TOTAL 1.1 mg/dL (0.2-1); TOT PROT 6.3 g/dl (6.4-8.2)
[2023-08-05] MEDS: DEXAMETHASONE SOD PHOSPHATE 10 MG/1 ML VIAL IVPUSH SCH (10:11)
[2023-08-05] MEDS: APIXABAN 5 MG TABLET PO SCH ×2 (10:11→22:32)
[2023-08-05] MEDS: PANTOPRAZOLE 40 MG TABLET PO SCH (10:11)
[2023-08-05] MEDS: guaiFENesin 600 MG TABLET.ER (FP) PO SCH ×2 (10:11→22:33)
[2023-08-05] MEDS: SACUBITRIL/VALSARTAN 24 MG-26 MG TABLET PO SCH ×2 (10:11→22:32)
[2023-08-05] MEDS: FAMOTIDINE 20 MG TABLET PO SCH (10:11)
[2023-08-05] MEDS: GABAPENTIN 300 MG CAPSULE PO SCH (22:32)
[2023-08-05] MEDS: ATORVASTATIN CA 20 MG TABLET (FP) PO SCH (22:33)
[2023-08-05] MEDS: INSULIN (LEVEMIR) 100 UNITS/ML UNITS SQ SCH (22:35)
[2023-08-06] MEDS: INSULIN SLIDING SCALE (NOVOLOG) 1 VIAL SQ SCH ×4 (06:38→21:53)
[2023-08-06 07:27] LABS: BASO % 0.1 % (0-2.0); EOS % 1.3 % (0-4.5); HEMATOCRIT 42.2 % (35.4-49); HEMOGLOBIN 13.6 GM/dL (11.7-16.9); LYMPH % 13.8 % (8-40); MCH 27.8 pg (25.7-33.7); MCHC 32.2 g/dl (32.0-35.9); MEAN CELL VOLUME 86.3 fl (80-96); MEAN PLT VOLUME 8.9 fl (7.5-11.1); MONO % 11.1 % (3.8-10.2); NEUT % 73.7 % (42.8-82.8); PLATELET COUNT 256 10^3/uL (134-434); RBC 4.88 M/mm3 (4.00-5.60); RDW 16.9 % (11.9-15.9); WHITE BLOOD COUNT 7.1 K/mm3 (4.0-10.0)
[2023-08-06 07:48] LABS: POTASSIUM 4.5 mmol/L (3.5-5.1)
[2023-08-06 07:51] LABS: ALBUMIN 2.7 g/dl (3.4-5.0); BLOOD UREA NITROGEN 39.2 mg/dL (7-18); CALCIUM 8.1 mg/dL (8.5-10.1)
[2023-08-06 07:54] LABS: CREATININE 1.6 mg/dL (0.55-1.3)
[2023-08-06 07:56] LABS: BILIRUBIN,TOTAL 0.7 mg/dL (0.2-1); TOT PROT 5.7 g/dl (6.4-8.2)
[2023-08-06] MEDS: DEXAMETHASONE SOD PHOSPHATE 10 MG/1 ML VIAL IVPUSH SCH (09:09)
[2023-08-06] MEDS: FAMOTIDINE 20 MG TABLET PO SCH (09:12)
[2023-08-06] MEDS: guaiFENesin 600 MG TABLET.ER (FP) PO SCH ×2 (09:12→21:53)
[2023-08-06] MEDS: PANTOPRAZOLE 40 MG TABLET PO SCH (09:12)
[2023-08-06] MEDS: SACUBITRIL/VALSARTAN 24 MG-26 MG TABLET PO SCH ×2 (09:12→21:53)
[2023-08-06] MEDS: APIXABAN 5 MG TABLET PO SCH ×2 (09:12→21:53)
[2023-08-06] MEDS ORDERED: PATIENT'S OWN MEDICATION (NON-FORMULARY) (Dapagliflozin Propanediol [Farxiga] 5 MG Tablet) PO SCH (10:00)
[2023-08-06] MEDS: ATORVASTATIN CA 20 MG TABLET (FP) PO SCH (21:53)
[2023-08-06] MEDS: GABAPENTIN 300 MG CAPSULE PO SCH (21:53)
[2023-08-06] MEDS: INSULIN (LEVEMIR) 100 UNITS/ML UNITS SQ SCH (21:54)
[2023-08-07] MEDS: INSULIN SLIDING SCALE (NOVOLOG) 1 VIAL SQ SCH ×3 (06:11→16:35)
[2023-08-07 06:56] VITALS: RESP 20
[2023-08-07] MEDS: DEXAMETHASONE SOD PHOSPHATE 10 MG/1 ML VIAL IVPUSH SCH (09:11)
[2023-08-07] MEDS: guaiFENesin 600 MG TABLET.ER (FP) PO SCH (09:11)
[2023-08-07] MEDS: FAMOTIDINE 20 MG TABLET PO SCH (09:11)
[2023-08-07] MEDS: SACUBITRIL/VALSARTAN 24 MG-26 MG TABLET PO SCH (09:11)
[2023-08-07] MEDS: PANTOPRAZOLE 40 MG TABLET PO SCH (09:11)
[2023-08-07] MEDS: APIXABAN 5 MG TABLET PO SCH (09:11)
[2023-08-07 16:05] VITALS: BP 142/76; PULSE 60; TEMP 98.1
== END 2023-08-07 17:48 | DRG 178 ==
LOC: JER 15:33 → JERBED 19:48 → J6S 07-29 18:48 → OBSVTOIN 07-31 15:33 → J8W 08-03 18:43 → J4S 08-03 21:53
PROVIDERS: ADMIT Internal Medicine; ATTEND Internal Medicine
PROC: XW033E5 Introduction of Remdesivir Anti-infective into Peripheral Vein, Percutaneous Approach, New Technology Group 5 (ICD-10-PCS; principal; 2023-07-31)
DX: U07.1 COVID-19 (principal); I13.0 Hypertensive heart and chronic kidney disease with heart failure and stage 1 through stage 4 chronic kidney disease, or unspecified chronic kidney disease; N17.9 Acute kidney failure, unspecified; I48.19 Other persistent atrial fibrillation; I50.22 Chronic systolic (congestive) heart failure; E11.65 Type 2 diabetes mellitus with hyperglycemia; R00.1 Bradycardia, unspecified; N18.2 Chronic kidney disease, stage 2 (mild); K21.9 Gastro-esophageal reflux disease without esophagitis; E11.42 Type 2 diabetes mellitus with diabetic polyneuropathy; N40.0 Benign prostatic hyperplasia without lower urinary tract symptoms; E78.5 Hyperlipidemia, unspecified
CPT/HCPCS: 0241U-QW; 36415; 71045-TC-FY; 76775-TC; 80053; 81003; 82550; 82553; 82803; 82962; 83605; 83735; 83880; 84100; 84484; 85025; 85027; 85610; 85651; 85730; 86140; 87086; 93005; 93010; 93971-TC; 94761; 97116-GP; 97162-GP; 99285-25; G0378; J0248; J1100

== ENCOUNTER 2024-01-03 13:31 | Emergency (ER) | payer OTHER ==
[2024-01-03 13:51] VITALS: BP 185/90; PULSE 67; RESP 20; TEMP 98.3; BMI 33.5
[2024-01-03] MEDS ORDERED: ACETAMINOPHEN INJECTION 100 ML IVPB ONE (14:49)
[2024-01-03] MEDS ORDERED: FAMOTIDINE 10 MG/ML VIAL IVPB ONE (14:49)
[2024-01-03] MEDS ORDERED: MAG HYDROX/AL HYDROX/SIMETH 30 ML UNIT-DOSE CUP ONE (14:49)
[2024-01-03] MEDS: MAG HYDROX/AL HYDROX/SIMETH 30 ML UNIT-DOSE CUP PO ONE (15:05)
[2024-01-03] MEDS: SODIUM CHLORIDE 0.9% 500 ML INFUS.BAG IV ONE (15:15)
[2024-01-03] MEDS: ACETAMINOPHEN 1000 MG/100 ML BAG IVPB ONE (15:15)
[2024-01-03] MEDS: FAMOTIDINE 20 MG/50 ML IVPB 20 MG/50 ML MG IVPB ONE (15:20)
[2024-01-03 15:35] LABS: BASO % 0.9 % (0-2.0); HEMATOCRIT 43.4 % (35.4-49); HEMOGLOBIN 14.2 GM/dL (11.7-16.9); LYMPH % 27.2 % (8-40); MCH 28.8 pg (25.7-33.7); MCHC 32.7 g/dl (32.0-35.9); MEAN CELL VOLUME 88.2 fl (80-96); MEAN PLT VOLUME 8.6 fl (7.5-11.1); MONO % 8.4 % (3.8-10.2); NEUT % 61.5 % (42.8-82.8); PLATELET COUNT 231 10^3/uL (134-434); RBC 4.92 M/mm3 (4.00-5.60); RDW 17.3 % (11.9-15.9); WHITE BLOOD COUNT 5.8 K/mm3 (4.0-10.0)
[2024-01-03 15:42] LABS: INR 1.55 (0.83-1.09); PROTHROMBIN TIME (PATIENT) 17.3 SEC (9.7-13.0)
[2024-01-03 15:45] LABS: ACTIVATED PTT 39.6 SECONDS (25.2-36.5)
[2024-01-03 15:52] LABS: POTASSIUM 4.5 mmol/L (3.5-5.1)
[2024-01-03 15:54] LABS: CALCIUM 8.7 mg/dL (8.5-10.1)
[2024-01-03 15:55] LABS: ALBUMIN 3.1 g/dl (3.4-5.0); BLOOD UREA NITROGEN 21.6 mg/dL (7-18); MAGNESIUM 2.3 mg/dL (1.8-2.4)
[2024-01-03 15:58] LABS: CREATININE 1.4 mg/dL (0.55-1.3)
[2024-01-03 15:59] LABS: BILIRUBIN,TOTAL 0.7 mg/dL (0.2-1); TOT PROT 6.8 g/dl (6.4-8.2)
== END 2024-01-03 18:16 | disposition home or self-care (01) ==
LOC: JER 13:31
PROC: 3E033GC Introduction of Other Therapeutic Substance into Peripheral Vein, Percutaneous Approach (ICD-10-PCS; principal; 2024-01-03)
PROC: 3E033NZ Introduction of Analgesics, Hypnotics, Sedatives into Peripheral Vein, Percutaneous Approach (ICD-10-PCS; 2024-01-03)
DX: R10.84 Generalized abdominal pain (principal); K92.1 Melena; R63.0 Anorexia; R11.0 Nausea
CPT/HCPCS: 36415; 74177-TC; 80053; 82272; 83690; 83735; 84484; 85025; 85610; 85730; 86850; 86900; 86901; 99285-25; J0131; Q9967

== ENCOUNTER 2024-02-28 17:28 | Observation (INO) | payer OTHER ==
[2024-02-28 19:46] LABS: BASO % 0.7 % (0-2.0); HEMATOCRIT 44.3 % (35.4-49); HEMOGLOBIN 14.8 GM/dL (11.7-16.9); LYMPH % 28.7 % (8-40); MCH 29.2 pg (25.7-33.7); MCHC 33.5 g/dl (32.0-35.9); MEAN CELL VOLUME 87.3 fl (80-96); MEAN PLT VOLUME 8.2 fl (7.5-11.1); MONO % 9.4 % (3.8-10.2); NEUT % 59.2 % (42.8-82.8); PLATELET COUNT 212 10^3/uL (134-434); RBC 5.08 M/mm3 (4.00-5.60); RDW 16.1 % (11.9-15.9); WHITE BLOOD COUNT 5.8 K/mm3 (4.0-10.0)
[2024-02-28 19:51] LABS: INR 1.38 (0.83-1.09); PROTHROMBIN TIME (PATIENT) 15.4 SEC (9.7-13.0)
[2024-02-28 19:54] LABS: ACTIVATED PTT 35.7 SECONDS (25.2-36.5)
[2024-02-28 19:55] LABS: VENOUS BASE EXCESS -1.1 mmol/L (-2-2); VENOUS O2 SATURATION 73.3 % (70-80); VENOUS PCO2 55.7 mmHg (38-52); VENOUS PH 7.296 (7.310-7.410)
[2024-02-28 20:08] LABS: POTASSIUM 3.6 mmol/L (3.5-5.1)
[2024-02-28 20:11] LABS: ALBUMIN 3.5 g/dl (3.4-5.0)
[2024-02-28 20:14] LABS: CREATININE 2.1 mg/dL (0.55-1.3)
[2024-02-28 20:16] LABS: TOT PROT 7.2 g/dl (6.4-8.2)
[2024-02-28] MEDS ORDERED: ACETAMINOPHEN INJECTION 100 ML IVPB ONE (20:28)
[2024-02-28] MEDS ORDERED: ceFAZolin SODIUM 1 GM VIAL ONE (20:29)
[2024-02-28] MEDS ORDERED: DEXTROSE 5%-WATER 100 ML IVPB ONE (20:29)
[2024-02-28] MEDS: SODIUM CHLORIDE 0.9% 500 ML INFUS.BAG IV ONE (20:38)
[2024-02-28] MEDS: ACETAMINOPHEN 1000 MG/100 ML BAG IVPB ONE (20:38)
[2024-02-28] MEDS: CEFAZOLIN 1 GM in DEXTROSE 5%-WATER - 50 ML IVPB ONE (21:05)
[2024-02-28 21:19] LABS: PH,URINE 5.5 (5.0-8.0); URINE APPEARANCE CLEAR; URINE BILIRUBIN NEGATIVE (NEGATIVE); URINE COLOR YELLOW; URINE GLUCOSE (UA) NEGATIVE (NEGATIVE); URINE KETONE NEGATIVE (NEGATIVE); URINE LEUK ESTERASE NEGATIVE (NEGATIVE); URINE NITRITE NEGATIVE (NEGATIVE); URINE PROTEIN NEGATIVE (NEGATIVE); URINE UROBILINOGEN 0.2 mg/dL (0.2-1.0)
[2024-02-29] MEDS: INSULIN ASPART SLIDING SCALE (NOVOLOG) 1 VIAL SQ SCH (06:08)
[2024-02-29 08:47] LABS: HEMATOCRIT 43.3 % (35.4-49); HEMOGLOBIN 14.4 GM/dL (11.7-16.9); MCH 29.3 pg (25.7-33.7); MCHC 33.2 g/dl (32.0-35.9); MEAN CELL VOLUME 88.1 fl (80-96); MEAN PLT VOLUME 8.1 fl (7.5-11.1); PLATELET COUNT 181 10^3/uL (134-434); RBC 4.92 M/mm3 (4.00-5.60); RDW 16.2 % (11.9-15.9); WHITE BLOOD COUNT 4.2 K/mm3 (4.0-10.0)
[2024-02-29 09:23] LABS: POTASSIUM 3.5 mmol/L (3.5-5.1)
[2024-02-29 09:26] LABS: CALCIUM 8.2 mg/dL (8.5-10.1)
[2024-02-29 09:27] LABS: ALBUMIN 2.9 g/dl (3.4-5.0); BLOOD UREA NITROGEN 42.4 mg/dL (7-18); MAGNESIUM 2.3 mg/dL (1.8-2.4)
[2024-02-29 09:29] LABS: CREATININE 1.7 mg/dL (0.55-1.3)
[2024-02-29 09:30] LABS: BILIRUBIN,TOTAL 1.1 mg/dL (0.2-1); TOT PROT 6.3 g/dl (6.4-8.2)
[2024-02-29] MEDS: FUROSEMIDE 20 MG TABLET (FP) PO SCH (09:46)
[2024-02-29] MEDS: APIXABAN 5 MG TABLET PO SCH (09:46)
[2024-02-29] MEDS ORDERED: CARVEDILOL 6.25 MG TABLET (FP) PO SCH (10:00)
[2024-02-29] MEDS: CARVEDILOL 6.25 MG TABLET (FP) PO SCH (10:48)
[2024-02-29] MEDS: POLYETHYLENE GLYCOL (HEALTHYLAX) 3350 17 GM PACKET PO SCH (18:32)
[2024-02-29] MEDS: ATORVASTATIN CA 20 MG TABLET (FP) PO SCH (21:40)
[2024-02-29] MEDS: GABAPENTIN 300 MG CAPSULE PO SCH (21:41)
[2024-03-01] MEDS: BISMUTH SUBSALICYLATE 262 MG/15 ML BTL PO ONE (04:08)
[2024-03-01] MEDS: ACETAMINOPHEN 500 MG TABLET (FP) PO ONE (04:12)
[2024-03-01] MEDS ORDERED: GABAPENTIN 300 MG CAPSULE PO SCH (10:41)
[2024-03-01] MEDS ORDERED: INSULIN ASPART SLIDING SCALE (NOVOLOG) 1 VIAL SQ ONE ×2 (11:41→20:54)
[2024-03-01] MEDS: SODIUM CHLORIDE 0.9% 500 ML INFUS.BAG IV ONE (11:46)
[2024-03-01 11:49] VITALS: BMI 32.8
[2024-03-01] MEDS: GABAPENTIN 400 MG CAPSULE PO SCH (13:49)
[2024-03-02] MEDS: LABETALOL HCL 5 MG/1 ML (100MG/20 ML VIAL) IVPUSH ONE (02:50)
[2024-03-02] MEDS: hydrALAZINE HCL 20 MG/ML VIAL IVPUSH ONE (02:51)
[2024-03-02] MEDS: hydrALAZINE HCL 20 MG/ML VIAL IVPB ONE (03:04)
[2024-03-02] MEDS: ACETAMINOPHEN 1000 MG/100 ML BAG IVPB ONE (04:15)
[2024-03-02] MEDS: FUROSEMIDE 40 MG/4 ML INJECTABLE VIAL IVPUSH ONE (06:44)
[2024-03-02 07:55] LABS: BASO % 0.5 % (0-2.0); EOS % 1.2 % (0-4.5); HEMATOCRIT 44.9 % (35.4-49); HEMOGLOBIN 14.7 GM/dL (11.7-16.9); LYMPH % 13.1 % (8-40); MCH 29.1 pg (25.7-33.7); MCHC 32.8 g/dl (32.0-35.9); MEAN CELL VOLUME 88.8 fl (80-96); MEAN PLT VOLUME 8.4 fl (7.5-11.1); MONO % 6.4 % (3.8-10.2); NEUT % 78.8 % (42.8-82.8); PLATELET COUNT 193 10^3/uL (134-434); RBC 5.05 M/mm3 (4.00-5.60); RDW 16.5 % (11.9-15.9); WHITE BLOOD COUNT 8.6 K/mm3 (4.0-10.0)
[2024-03-02 08:11] LABS: POTASSIUM 4.3 mmol/L (3.5-5.1)
[2024-03-02 08:13] LABS: CALCIUM 8.8 mg/dL (8.5-10.1)
[2024-03-02 08:14] LABS: ALBUMIN 3.1 g/dl (3.4-5.0); BLOOD UREA NITROGEN 30.2 mg/dL (7-18)
[2024-03-02 08:17] LABS: CREATININE 1.3 mg/dL (0.55-1.3)
[2024-03-02 08:18] LABS: TOT PROT 6.5 g/dl (6.4-8.2)
[2024-03-02 08:19] LABS: BILIRUBIN,TOTAL 0.7 mg/dL (0.2-1)
[2024-03-02 08:22] LABS: N-TERMINAL BNP 6972.7 pg/ml (5-450)
[2024-03-02] MEDS: amLODIPine BESYLATE 5 MG TABLET (FP) PO SCH (09:40)
[2024-03-02] MEDS: PANTOPRAZOLE 40 MG TABLET PO SCH (09:40)
[2024-03-02] MEDS ORDERED: TORSEMIDE 100 MG TABLET PO SCH ×2 (10:00)
[2024-03-02] MEDS: ACETAMINOPHEN 325 MG TABLET (FP) PO ONE (21:16)
[2024-03-02] MEDS ORDERED: INSULIN ASPART SLIDING SCALE (NOVOLOG) 1 VIAL SQ ONE (21:32)
[2024-03-02] MEDS ORDERED: TORSEMIDE 20 MG TABLET (FP) PO SCH (22:00)
[2024-03-03] MEDS: ACETAMINOPHEN 325 MG TABLET (FP) PO ONE (02:49)
[2024-03-03] MEDS: hydrALAZINE HCL 10 MG TABLET PO ONE (03:16)
[2024-03-03] MEDS: hydrALAZINE HCL 20 MG/ML VIAL IVPB ONE (06:23)
[2024-03-03] MEDS: FUROSEMIDE 40 MG TABLET (FP) PO ONE (06:23)
[2024-03-03 08:52] LABS: POTASSIUM 3.8 mmol/L (3.5-5.1)
[2024-03-03 08:57] LABS: CALCIUM 8.9 mg/dL (8.5-10.1)
[2024-03-03 08:58] LABS: MAGNESIUM 2.1 mg/dL (1.8-2.4)
[2024-03-03 09:01] LABS: CREATININE 1.3 mg/dL (0.55-1.3)
[2024-03-03 09:02] LABS: TOT PROT 6.5 g/dl (6.4-8.2)
[2024-03-03 09:06] LABS: BASO % 0.7 % (0-2.0); EOS % 2.9 % (0-4.5); HEMATOCRIT 44.8 % (35.4-49); HEMOGLOBIN 14.9 GM/dL (11.7-16.9); LYMPH % 25.6 % (8-40); MCH 29.3 pg (25.7-33.7); MCHC 33.3 g/dl (32.0-35.9); MEAN CELL VOLUME 88.1 fl (80-96); MEAN PLT VOLUME 8.5 fl (7.5-11.1); MONO % 7.3 % (3.8-10.2); NEUT % 63.5 % (42.8-82.8); PLATELET COUNT 201 10^3/uL (134-434); RBC 5.08 M/mm3 (4.00-5.60); RDW 16.7 % (11.9-15.9); WHITE BLOOD COUNT 5.4 K/mm3 (4.0-10.0)
[2024-03-03] MEDS: amLODIPine BESYLATE 5 MG TABLET (FP) PO SCH (10:18)
[2024-03-03] MEDS: BISACODYL 10 MG SUPP.RECT PR ONE ×2 (17:36)
[2024-03-03] MEDS: hydrALAZINE HCL 10 MG TABLET PO SCH (22:20)
[2024-03-04 09:24] LABS: BASO % 0.7 % (0-2.0); EOS % 3.3 % (0-4.5); HEMOGLOBIN 14.5 GM/dL (11.7-16.9); LYMPH % 24.5 % (8-40); MCH 29.2 pg (25.7-33.7); MCHC 33.1 g/dl (32.0-35.9); MEAN CELL VOLUME 88.3 fl (80-96); MEAN PLT VOLUME 8.5 fl (7.5-11.1); MONO % 7.9 % (3.8-10.2); NEUT % 63.6 % (42.8-82.8); PLATELET COUNT 195 10^3/uL (134-434); RBC 4.98 M/mm3 (4.00-5.60); RDW 16.6 % (11.9-15.9); WHITE BLOOD COUNT 5.5 K/mm3 (4.0-10.0)
[2024-03-04 09:45] LABS: POTASSIUM 4.7 mmol/L (3.5-5.1)
[2024-03-04] MEDS: FUROSEMIDE 40 MG TABLET (FP) PO SCH (09:51)
[2024-03-04 09:54] LABS: BLOOD UREA NITROGEN 27.8 mg/dL (7-18); CALCIUM 8.8 mg/dL (8.5-10.1)
[2024-03-04 09:55] LABS: BILIRUBIN,TOTAL 0.8 mg/dL (0.2-1); MAGNESIUM 2.1 mg/dL (1.8-2.4)
[2024-03-04 09:56] LABS: CREATININE 1.3 mg/dL (0.55-1.3); TOT PROT 6.6 g/dl (6.4-8.2)
[2024-03-04 16:04] VITALS: RESP 18
[2024-03-05] MEDS: ACETAMINOPHEN 1000 MG/100 ML BAG IVPB ONE (06:20)
[2024-03-05] MEDS: LIDOCAINE 5% TOPICAL PATCH TP SCH (06:20)
[2024-03-05] MEDS ORDERED: INSULIN ASPART SLIDING SCALE (NOVOLOG) 1 VIAL SQ ONE (12:03)
[2024-03-05] MEDS: ACETAMINOPHEN 325 MG TABLET (FP) PO SCH (15:33)
[2024-03-05] MEDS: LIDOCAINE PATCH REMOVAL MC SCH (22:18)
[2024-03-06 06:38] VITALS: PULSE 60
[2024-03-06 11:46] VITALS: BP 140/70; TEMP 97.5
== END 2024-03-06 10:49 ==
LOC: JER 17:28 → JERBED 21:30 → J8W 02-29 03:47 → UNDODISOB 03-04 17:05
PROVIDERS: ADMIT Internal Medicine; ATTEND Nurse Practitioner Acute Care
PROC: 3E033NZ Introduction of Analgesics, Hypnotics, Sedatives into Peripheral Vein, Percutaneous Approach (ICD-10-PCS; principal; 2024-02-28)
PROC: 3E033GC Introduction of Other Therapeutic Substance into Peripheral Vein, Percutaneous Approach (ICD-10-PCS; 2024-02-28)
PROC: 3E0337Z Introduction of Electrolytic and Water Balance Substance into Peripheral Vein, Percutaneous Approach (ICD-10-PCS; 2024-02-28)
DX: S09.90XA Unspecified injury of head, initial encounter (principal); W18.39XA Other fall on same level, initial encounter; Y93.89 Activity, other specified; I50.20 Unspecified systolic (congestive) heart failure; I11.0 Hypertensive heart disease with heart failure; Y92.89 Other specified places as the place of occurrence of the external cause; G62.9 Polyneuropathy, unspecified; K21.9 Gastro-esophageal reflux disease without esophagitis; I48.91 Unspecified atrial fibrillation; E78.5 Hyperlipidemia, unspecified; E11.9 Type 2 diabetes mellitus without complications; R29.6 Repeated falls; Z79.01 Long term (current) use of anticoagulants; Z88.0 Allergy status to penicillin; N17.9 Acute kidney failure, unspecified; Z90.49 Acquired absence of other specified parts of digestive tract; Z86.718 Personal history of other venous thrombosis and embolism; Z87.891 Personal history of nicotine dependence
CPT/HCPCS: 0241U-QW; 36415; 70450-TC; 71045-TC-FY; 72125-TC; 72170-TC-FY; 73070-TC-RT-FY; 73090-TC-RT-FY; 73110-TC-RT-FY; 73130-TC-RT-FY; 80053; 81003; 82550; 82607; 82746; 82803; 82962; 83036; 83605; 83735; 83880; 84439; 84443; 84484; 85025; 85027; 85610; 85730; 86850; 86900; 86901; 87040; 87086; 87635; 93005; 93010; 93306-TC; 96365; 96375; 96376; 97116-GP; 97161-GP; 99285-25; G0378; J0131

== ENCOUNTER 2024-04-28 13:33 | Inpatient (IN) | payer OTHER ==
[2024-04-28 14:21] VITALS: BMI 35.2
[2024-04-28] MEDS: FUROSEMIDE 100 MG/10 ML INJECTABLE VIAL IVPB ONE (14:50)
[2024-04-28] MEDS ORDERED: FUROSEMIDE 40 MG/4 ML INJECTABLE VIAL ONE (14:50)
[2024-04-28 14:53] LABS: HEMATOCRIT 37.9 % (35.4-49); HEMOGLOBIN 12.2 GM/dL (11.7-16.9); MCH 28.9 pg (25.7-33.7); MCHC 32.2 g/dl (32.0-35.9); MEAN CELL VOLUME 89.5 fl (80-96); MEAN PLT VOLUME 7.7 fl (7.5-11.1); PLATELET COUNT 195 10^3/uL (134-434); RBC 4.23 M/mm3 (4.00-5.60); RDW 18.4 % (11.9-15.9); WHITE BLOOD COUNT 4.6 K/mm3 (4.0-10.0)
[2024-04-28 15:01] LABS: INR 1.28 (0.83-1.09); PROTHROMBIN TIME (PATIENT) 14.6 SEC (9.7-13.0)
[2024-04-28 15:04] LABS: ACTIVATED PTT 49.8 SECONDS (25.2-36.5)
[2024-04-28] MEDS ORDERED: methylPREDNISolone NA SUCC 40 MG/1 ML VIAL ONE (15:20)
[2024-04-28 15:23] LABS: CALCIUM 8.9 mg/dL (8.5-10.1); POTASSIUM 4.8 mmol/L (3.5-5.1)
[2024-04-28 15:25] LABS: ALBUMIN 3.5 g/dl (3.4-5.0); BLOOD UREA NITROGEN 33.8 mg/dL (7-18)
[2024-04-28] MEDS: methylPREDNISolone NA SUCC 40 MG/1 ML VIAL IVPUSH SCH (15:25)
[2024-04-28 15:28] LABS: CREATININE 1.8 mg/dL (0.55-1.3)
[2024-04-28 15:30] LABS: BILIRUBIN,TOTAL 0.7 mg/dL (0.2-1)
[2024-04-28 15:33] LABS: N-TERMINAL BNP 4039.4 pg/ml (5-450)
[2024-04-28] MEDS: INSULIN ASPART SLIDING SCALE (NOVOLOG) 1 VIAL SQ SCH (16:50)
[2024-04-28] MEDS ORDERED: GABAPENTIN 300 MG CAPSULE PO SCH (22:00)
[2024-04-28] MEDS: ATORVASTATIN CA 20 MG TABLET (FP) PO SCH (22:27)
[2024-04-28] MEDS: CARVEDILOL 6.25 MG TABLET (FP) PO SCH (22:27)
[2024-04-28] MEDS: GABAPENTIN 400 MG, GABAPENTIN 100 MG PO SCH (22:27)
[2024-04-28] MEDS: APIXABAN 5 MG TABLET PO SCH (22:28)
[2024-04-28] MEDS: amLODIPine BESYLATE 5 MG TABLET (FP) PO SCH (22:28)
[2024-04-28] MEDS: LIDOCAINE PATCH REMOVAL MC SCH (22:28)
[2024-04-28] MEDS: hydrALAZINE HCL 10 MG TABLET PO SCH (22:30)
[2024-04-29] MEDS ORDERED: INSULIN ASPART SLIDING SCALE (NOVOLOG) 1 VIAL SQ ONE ×2 (06:10→22:51)
[2024-04-29] MEDS: guaiFENesin/D-METHORPHAN HB 10 ML UNIT-DOSE CUPS PO PRN (06:52)
[2024-04-29 07:58] LABS: CALCIUM 8.8 mg/dL (8.5-10.1)
[2024-04-29 08:00] LABS: ALBUMIN 3.3 g/dl (3.4-5.0); BLOOD UREA NITROGEN 37.1 mg/dL (7-18); MAGNESIUM 2.2 mg/dL (1.8-2.4)
[2024-04-29 08:03] LABS: BILIRUBIN,TOTAL 0.8 mg/dL (0.2-1); CREATININE 1.8 mg/dL (0.55-1.3); PHOSPHOROUS 4.3 mg/dL (2.5-4.9); TOT PROT 6.9 g/dl (6.4-8.2)
[2024-04-29 08:19] LABS: BASO % 0.2 % (0-2.0); HEMATOCRIT 36.7 % (35.4-49); HEMOGLOBIN 12.2 GM/dL (11.7-16.9); MCH 29.4 pg (25.7-33.7); MCHC 33.3 g/dl (32.0-35.9); MEAN CELL VOLUME 88.5 fl (80-96); MEAN PLT VOLUME 7.8 fl (7.5-11.1); MONO % 1.9 % (3.8-10.2); NEUT % 83.9 % (42.8-82.8); PLATELET COUNT 197 10^3/uL (134-434); RBC 4.14 M/mm3 (4.00-5.60); RDW 18.3 % (11.9-15.9); WHITE BLOOD COUNT 2.8 K/mm3 (4.0-10.0)
[2024-04-29] MEDS ORDERED: FUROSEMIDE 40 MG/4 ML INJECTABLE VIAL IVPUSH SCH (10:00)
[2024-04-29] MEDS: FUROSEMIDE 40 MG/4 ML INJECTABLE VIAL IVPUSH SCH (10:05)
[2024-04-29] MEDS: CARVEDILOL 3.125 MG TABLET (FP) PO SCH (10:06)
[2024-04-29] MEDS: EMPAGLIFLOZIN (JARDIANCE) 25 MG TABLET PO SCH (10:07)
[2024-04-29] MEDS: LIDOCAINE 5% TOPICAL PATCH TP SCH (10:20)
[2024-04-30] MEDS ORDERED: INSULIN ASPART SLIDING SCALE (NOVOLOG) 1 VIAL SQ ONE (06:18)
[2024-04-30 09:11] LABS: BASO % 0.2 % (0-2.0); EOS % 0.1 % (0-4.5); HEMATOCRIT 36.8 % (35.4-49); HEMOGLOBIN 11.8 GM/dL (11.7-16.9); LYMPH % 10.3 % (8-40); MCHC 31.9 g/dl (32.0-35.9); MEAN CELL VOLUME 90.9 fl (80-96); MEAN PLT VOLUME 7.8 fl (7.5-11.1); MONO % 8.2 % (3.8-10.2); NEUT % 81.2 % (42.8-82.8); PLATELET COUNT 192 10^3/uL (134-434); RBC 4.05 M/mm3 (4.00-5.60); RDW 18.6 % (11.9-15.9); WHITE BLOOD COUNT 8.5 K/mm3 (4.0-10.0)
[2024-04-30 09:36] LABS: POTASSIUM 4.8 mmol/L (3.5-5.1)
[2024-04-30 09:37] LABS: CALCIUM 8.7 mg/dL (8.5-10.1)
[2024-04-30 09:38] LABS: ALBUMIN 3.5 g/dl (3.4-5.0); BLOOD UREA NITROGEN 50.3 mg/dL (7-18)
[2024-04-30 09:41] LABS: CREATININE 2.2 mg/dL (0.55-1.3)
[2024-04-30 09:43] LABS: BILIRUBIN,TOTAL 0.5 mg/dL (0.2-1); TOT PROT 6.8 g/dl (6.4-8.2)
[2024-05-01 09:36] LABS: BASO % 0.5 % (0-2.0); EOS % 1.2 % (0-4.5); HEMATOCRIT 37.3 % (35.4-49); HEMOGLOBIN 12.2 GM/dL (11.7-16.9); LYMPH % 11.7 % (8-40); MCH 29.1 pg (25.7-33.7); MCHC 32.6 g/dl (32.0-35.9); MEAN PLT VOLUME 7.7 fl (7.5-11.1); MONO % 8.9 % (3.8-10.2); NEUT % 77.7 % (42.8-82.8); PLATELET COUNT 194 10^3/uL (134-434); RBC 4.19 M/mm3 (4.00-5.60); RDW 18.3 % (11.9-15.9); WHITE BLOOD COUNT 6.4 K/mm3 (4.0-10.0)
[2024-05-01 10:01] LABS: ALBUMIN 3.5 g/dl (3.4-5.0); BLOOD UREA NITROGEN 51.9 mg/dL (7-18); CALCIUM 8.4 mg/dL (8.5-10.1); POTASSIUM 4.3 mmol/L (3.5-5.1)
[2024-05-01 10:09] LABS: CREATININE 2.3 mg/dL (0.55-1.3)
[2024-05-01 10:25] LABS: ARTERIAL BLD GAS O2 SATURATION 93.6 % (95-98); ARTERIAL BLOOD GAS BASE EXCESS 5.5 mmol/L (-2-2); ARTERIAL BLOOD GAS PO2 78.1 mmHg (80-100); ARTERIAL BLOOD GAS pH 7.289 (7.350-7.450)
[2024-05-01 10:26] LABS: ALLENS TEST POSITIVE
[2024-05-01] MEDS ORDERED: ATORVASTATIN CA 20 MG TABLET (FP) PO SCH (18:33)
[2024-05-01] MEDS: ATORVASTATIN CA 40 MG TABLET (FP) PO SCH (20:18)
[2024-05-02] MEDS: AMINO ACIDS 4.25%/D5W 1,000 ML IV SCH (10:40)
[2024-05-02] MEDS: ENOXAPARIN NA (PORCINE) 100 MG/1 ML DISP.SYRIN SQ SCH (10:41)
[2024-05-02] MEDS: LACTULOSE 20 GM/30 ML UDC (FOR ORAL USE ONLY) PO SCH (10:59)
[2024-05-02 11:10] LABS: POTASSIUM 4.2 mmol/L (3.5-5.1)
[2024-05-02 11:18] LABS: CALCIUM 8.7 mg/dL (8.5-10.1)
[2024-05-02 11:19] LABS: ALBUMIN 3.5 g/dl (3.4-5.0); BLOOD UREA NITROGEN 57.8 mg/dL (7-18)
[2024-05-02 11:20] LABS: BILIRUBIN,TOTAL 1.4 mg/dL (0.2-1); TOT PROT 6.9 g/dl (6.4-8.2)
[2024-05-02 11:22] LABS: CREATININE 2.1 mg/dL (0.55-1.3)
[2024-05-02 14:25] LABS: BILIRUBIN,DIRECT 0.4 mg/dL (0.0-0.2)
[2024-05-03 07:47] LABS: BASO % 0.5 % (0-2.0); HEMATOCRIT 36.4 % (35.4-49); HEMOGLOBIN 11.6 GM/dL (11.7-16.9); LYMPH % 7.2 % (8-40); MCH 28.6 pg (25.7-33.7); MCHC 31.9 g/dl (32.0-35.9); MEAN CELL VOLUME 89.5 fl (80-96); MEAN PLT VOLUME 8.4 fl (7.5-11.1); MONO % 9.9 % (3.8-10.2); NEUT % 80.4 % (42.8-82.8); PLATELET COUNT 163 10^3/uL (134-434); RBC 4.07 M/mm3 (4.00-5.60); RDW 17.7 % (11.9-15.9)
[2024-05-03 07:56] LABS: ALBUMIN 3.2 g/dl (3.4-5.0); BLOOD UREA NITROGEN 57.2 mg/dL (7-18); CALCIUM 8.7 mg/dL (8.5-10.1); POTASSIUM 4.2 mmol/L (3.5-5.1)
[2024-05-03 07:59] LABS: CREATININE 1.7 mg/dL (0.55-1.3)
[2024-05-03 08:00] LABS: BILIRUBIN,TOTAL 1.4 mg/dL (0.2-1); TOT PROT 6.4 g/dl (6.4-8.2)
[2024-05-03] MEDS ORDERED: INSULIN ASPART SLIDING SCALE (NOVOLOG) 1 VIAL SQ ONE (11:31)
[2024-05-04 07:40] LABS: POTASSIUM 4.2 mmol/L (3.5-5.1)
[2024-05-04 07:42] LABS: CALCIUM 8.9 mg/dL (8.5-10.1)
[2024-05-04 07:43] LABS: ALBUMIN 3.2 g/dl (3.4-5.0); BLOOD UREA NITROGEN 52.8 mg/dL (7-18)
[2024-05-04 07:46] LABS: CREATININE 1.5 mg/dL (0.55-1.3)
[2024-05-04 07:47] LABS: BILIRUBIN,TOTAL 1.4 mg/dL (0.2-1)
[2024-05-04 07:48] LABS: TOT PROT 6.6 g/dl (6.4-8.2)
[2024-05-04] MEDS: FUROSEMIDE 40 MG TABLET (FP) PO SCH (09:15)
[2024-05-04] MEDS: APIXABAN 5 MG TABLET PO SCH (09:15)
[2024-05-04 15:34] VITALS: BP 137/79; PULSE 67; RESP 20; TEMP 98.4
== END 2024-05-04 19:27 | DRG 291 ==
LOC: JER 13:33 → JERBED 14:31 → J4W 20:31
PROVIDERS: ADMIT Internal Medicine; ATTEND Internal Medicine
DX: I13.0 Hypertensive heart and chronic kidney disease with heart failure and stage 1 through stage 4 chronic kidney disease, or unspecified chronic kidney disease (principal); I50.23 Acute on chronic systolic (congestive) heart failure; I48.19 Other persistent atrial fibrillation; N17.9 Acute kidney failure, unspecified; Z79.01 Long term (current) use of anticoagulants; N40.0 Benign prostatic hyperplasia without lower urinary tract symptoms; N18.32 Chronic kidney disease, stage 3b; Z99.81 Dependence on supplemental oxygen; E11.22 Type 2 diabetes mellitus with diabetic chronic kidney disease; G47.30 Sleep apnea, unspecified; E11.51 Type 2 diabetes mellitus with diabetic peripheral angiopathy without gangrene; F32.A Depression, unspecified; I87.2 Venous insufficiency (chronic) (peripheral)
CPT/HCPCS: 0241U-QW; 36415; 36600; 70450-TC; 71045-TC-FY; 76700-TC; 76856-TC; 80053; 80061; 82140; 82248; 82803; 82962; 83036; 83735; 83880; 84100; 84443; 84484; 85025; 85027; 85610; 85730; 93005; 93010; 93880-TC; 93970-TC; 97116-GP; 99285-25

== ENCOUNTER 2024-05-05 06:46 | Inpatient (IN) | payer OTHER ==
[2024-05-05] MEDS ORDERED: ALBUTEROL SO4 0.083% IH SOL 2.5 MG/3 ML VIAL.NEB. NEB ONE (07:34)
[2024-05-05 08:25] LABS: VENOUS BASE EXCESS 8.2 mmol/L (-2-2); VENOUS O2 SATURATION 94.8 % (70-80); VENOUS PH 7.403 (7.310-7.410)
[2024-05-05 08:31] LABS: BASO % 0.2 % (0-2.0); EOS % 0.3 % (0-4.5); HEMATOCRIT 39.1 % (35.4-49); HEMOGLOBIN 12.6 GM/dL (11.7-16.9); LYMPH % 4.4 % (8-40); MCH 28.6 pg (25.7-33.7); MCHC 32.3 g/dl (32.0-35.9); MEAN CELL VOLUME 88.3 fl (80-96); MEAN PLT VOLUME 8.5 fl (7.5-11.1); MONO % 5.3 % (3.8-10.2); NEUT % 89.8 % (42.8-82.8); PLATELET COUNT 192 10^3/uL (134-434); RBC 4.42 M/mm3 (4.00-5.60); RDW 17.4 % (11.9-15.9); WHITE BLOOD COUNT 7.8 K/mm3 (4.0-10.0)
[2024-05-05 08:40] LABS: URINE APPEARANCE CLEAR; URINE BILIRUBIN NEGATIVE (NEGATIVE); URINE COLOR YELLOW; URINE GLUCOSE (UA) 2+ (NEGATIVE); URINE KETONE NEGATIVE (NEGATIVE); URINE LEUK ESTERASE NEGATIVE (NEGATIVE); URINE NITRITE NEGATIVE (NEGATIVE); URINE PROTEIN TRACE (NEGATIVE); URINE UROBILINOGEN 0.2 mg/dL (0.2-1.0)
[2024-05-05 08:50] LABS: CHLORIDE 100 mmol/L (98-107); SODIUM 134 mmol/L (136-145)
[2024-05-05 08:53] LABS: BLOOD UREA NITROGEN 48.2 mg/dL (7-18); CALCIUM 8.7 mg/dL (8.5-10.1); CO2 33 mmol/L (21-32); GLUCOSE,RANDOM 154 mg/dL (74-106); MAGNESIUM 2.7 mg/dL (1.8-2.4)
[2024-05-05 08:55] LABS: CREATININE 1.6 mg/dL (0.55-1.3)
[2024-05-05 08:57] LABS: BILIRUBIN,TOTAL 1.4 mg/dL (0.2-1); TOT PROT 7.4 g/dl (6.4-8.2)
[2024-05-05 08:58] LABS: ALK PHOS 75 U/L (45-117)
[2024-05-05 09:01] LABS: ANION GAP 0 mmol/L (4-13); POTASSIUM > 10.0 mmol/L (3.5-5.1); SGOT/AST 140 U/L (15-37); SGPT/ALT 30 U/L (13-61)
[2024-05-05] MEDS: ALBUTEROL SO4 2.5/IPRATROPIUM 0.5 INH SOL 3 ML VIAL.NEB. NEB ONE (09:03)
[2024-05-05] MEDS ORDERED: FUROSEMIDE 40 MG/4 ML INJECTABLE VIAL ONE (09:04)
[2024-05-05] MEDS: FUROSEMIDE 40 MG/4 ML INJECTABLE VIAL IVPUSH ONE (09:08)
[2024-05-05 09:44] LABS: CHLORIDE 100 mmol/L (98-107); POTASSIUM 4.7 mmol/L (3.5-5.1); SODIUM 142 mmol/L (136-145)
[2024-05-05 09:45] LABS: CALCIUM 9.4 mg/dL (8.5-10.1)
[2024-05-05 09:46] LABS: ANION GAP 7 mmol/L (4-13); BLOOD UREA NITROGEN 48.9 mg/dL (7-18); CO2 34 mmol/L (21-32); GLUCOSE,RANDOM 162 mg/dL (74-106)
[2024-05-05 09:49] LABS: CREATININE 1.7 mg/dL (0.55-1.3)
[2024-05-05 15:50] LABS: ARTERIAL BLD GAS O2 SATURATION 98.1 % (95-98); ARTERIAL BLOOD GAS BASE EXCESS 8.2 mmol/L (-2-2); ARTERIAL BLOOD GAS PO2 108.1 mmHg (80-100); ARTERIAL BLOOD GAS pH 7.456 (7.350-7.450)
[2024-05-05] MEDS: INSULIN ASPART SLIDING SCALE (NOVOLOG) 1 VIAL SQ SCH (17:00)
[2024-05-05] MEDS ORDERED: INSULIN ASPART SLIDING SCALE (NOVOLOG) 1 VIAL SQ ONE (17:01)
[2024-05-05] MEDS ORDERED: methylPREDNISolone NA SUCC 40 MG/1 ML VIAL ONE (18:21)
[2024-05-05] MEDS: methylPREDNISolone NA SUCC 40 MG/1 ML VIAL IVPUSH SCH (18:22)
[2024-05-05 20:03] VITALS: BMI 35.4
[2024-05-05] MEDS: CARVEDILOL 6.25 MG TABLET (FP) PO SCH (21:57)
[2024-05-05] MEDS: ATORVASTATIN CA 20 MG TABLET (FP) PO SCH (22:01)
[2024-05-05] MEDS: APIXABAN 5 MG TABLET PO SCH (22:01)
[2024-05-05] MEDS: hydrALAZINE HCL 10 MG TABLET PO SCH (22:01)
[2024-05-05] MEDS: GABAPENTIN 100 MG CAPSULE PO SCH (22:01)
[2024-05-05] MEDS: amLODIPine BESYLATE 5 MG TABLET (FP) PO SCH (22:01)
[2024-05-06 08:32] LABS: HEMATOCRIT 37.1 % (35.4-49); HEMOGLOBIN 12.2 GM/dL (11.7-16.9); LYMPH % 6.7 % (8-40); MCH 28.7 pg (25.7-33.7); MCHC 32.8 g/dl (32.0-35.9); MEAN CELL VOLUME 87.7 fl (80-96); MEAN PLT VOLUME 8.4 fl (7.5-11.1); MONO % 2.6 % (3.8-10.2); NEUT % 90.7 % (42.8-82.8); PLATELET COUNT 195 10^3/uL (134-434); RBC 4.23 M/mm3 (4.00-5.60); RDW 17.2 % (11.9-15.9); WHITE BLOOD COUNT 6.3 K/mm3 (4.0-10.0)
[2024-05-06 08:53] LABS: POTASSIUM 4.5 mmol/L (3.5-5.1)
[2024-05-06 08:58] LABS: BLOOD UREA NITROGEN 56.7 mg/dL (7-18); CALCIUM 9.4 mg/dL (8.5-10.1)
[2024-05-06 09:01] LABS: BILIRUBIN,TOTAL 1.5 mg/dL (0.2-1); CREATININE 1.6 mg/dL (0.55-1.3)
[2024-05-06 09:02] LABS: TOT PROT 6.4 g/dl (6.4-8.2)
[2024-05-06] MEDS: FUROSEMIDE 40 MG/4 ML INJECTABLE VIAL IVPUSH SCH (12:20)
[2024-05-06] MEDS: VANCOMYCIN/WATER FOR INJ (PEG) 1,000 MG/200 ML BAG IVPB ONE (20:38)
[2024-05-06] MEDS: PANTOPRAZOLE 40 MG TABLET PO ONE (23:06)
[2024-05-07 09:46] LABS: POTASSIUM 4.7 mmol/L (3.5-5.1)
[2024-05-07 09:53] LABS: CALCIUM 9.1 mg/dL (8.5-10.1)
[2024-05-07 09:57] LABS: CREATININE 1.9 mg/dL (0.55-1.3)
[2024-05-07 09:58] LABS: TOT PROT 6.4 g/dl (6.4-8.2)
[2024-05-07 10:03] LABS: BASO % 0.2 % (0-2.0); HEMATOCRIT 37.1 % (35.4-49); HEMOGLOBIN 12.3 GM/dL (11.7-16.9); LYMPH % 5.9 % (8-40); MCH 29.1 pg (25.7-33.7); MCHC 33.2 g/dl (32.0-35.9); MEAN CELL VOLUME 87.8 fl (80-96); MEAN PLT VOLUME 8.5 fl (7.5-11.1); NEUT % 88.9 % (42.8-82.8); PLATELET COUNT 221 10^3/uL (134-434); RBC 4.22 M/mm3 (4.00-5.60); RDW 17.5 % (11.9-15.9); WHITE BLOOD COUNT 10.6 K/mm3 (4.0-10.0)
[2024-05-07] MEDS: EMPAGLIFLOZIN (JARDIANCE) 10 MG TABLET PO SCH (10:38)
[2024-05-07] MEDS: SACUBITRIL/VALSARTAN 24 MG-26 MG TABLET PO SCH (10:38)
[2024-05-07] MEDS: ALBUTEROL SO4 2.5/IPRATROPIUM 0.5 INH SOL 3 ML VIAL.NEB. NEB PRN (20:37)
[2024-05-08] MEDS ORDERED: INSULIN ASPART SLIDING SCALE (NOVOLOG) 1 VIAL SQ ONE (06:46)
[2024-05-08 08:42] LABS: BASO % 0.4 % (0-2.0); EOS % 1.2 % (0-4.5); HEMATOCRIT 40.4 % (35.4-49); HEMOGLOBIN 12.9 GM/dL (11.7-16.9); LYMPH % 13.9 % (8-40); MCH 28.6 pg (25.7-33.7); MCHC 31.8 g/dl (32.0-35.9); MEAN CELL VOLUME 90.1 fl (80-96); MEAN PLT VOLUME 8.5 fl (7.5-11.1); NEUT % 74.5 % (42.8-82.8); PLATELET COUNT 195 10^3/uL (134-434); RBC 4.49 M/mm3 (4.00-5.60); RDW 17.5 % (11.9-15.9); WHITE BLOOD COUNT 9.3 K/mm3 (4.0-10.0)
[2024-05-09] MEDS ORDERED: INSULIN ASPART SLIDING SCALE (NOVOLOG) 1 VIAL SQ ONE (06:41)
[2024-05-09] MEDS: TORSEMIDE 20 MG TABLET (FP) PO SCH (09:16)
[2024-05-09] MEDS: GABAPENTIN 400 MG, GABAPENTIN 100 MG PO SCH (21:30)
[2024-05-09 21:36] VITALS: RESP 18
[2024-05-10 15:11] VITALS: BP 124/55; PULSE 49; TEMP 97.9
== END 2024-05-10 17:30 | DRG 291 ==
LOC: JER 06:46 → JERBED 08:47 → J4S 18:34
PROVIDERS: ADMIT Family Medicine; ATTEND Family Medicine
DX: I13.0 Hypertensive heart and chronic kidney disease with heart failure and stage 1 through stage 4 chronic kidney disease, or unspecified chronic kidney disease (principal); G93.41 Metabolic encephalopathy; I50.23 Acute on chronic systolic (congestive) heart failure; J18.9 Pneumonia, unspecified organism; J96.20 Acute and chronic respiratory failure, unspecified whether with hypoxia or hypercapnia; J44.1 Chronic obstructive pulmonary disease with (acute) exacerbation; J44.0 Chronic obstructive pulmonary disease with (acute) lower respiratory infection; N17.9 Acute kidney failure, unspecified; E11.22 Type 2 diabetes mellitus with diabetic chronic kidney disease; E11.51 Type 2 diabetes mellitus with diabetic peripheral angiopathy without gangrene; Z68.35 Body mass index [BMI] 35.0-35.9, adult; E78.5 Hyperlipidemia, unspecified; E11.42 Type 2 diabetes mellitus with diabetic polyneuropathy; N40.0 Benign prostatic hyperplasia without lower urinary tract symptoms; I48.91 Unspecified atrial fibrillation; E66.9 Obesity, unspecified; Z68.36 Body mass index [BMI] 36.0-36.9, adult; K21.9 Gastro-esophageal reflux disease without esophagitis; N18.32 Chronic kidney disease, stage 3b
CPT/HCPCS: 0241U-QW; 36415; 36600; 71045-TC-FY; 71250-TC; 80048; 80053; 80307; 81003; 82803; 82962; 83605; 83735; 83880; 84484; 85025; 87040; 87086; 87186; 93005; 93010; 94640; 94660; 99285-25; G0480